=== PATIENT | female | born 1960 | race Caucasian/White ===

== ENCOUNTER → 2016-10-24 | Outpatient (CLI) | payer MEDICARE, OTHER ==
--- NOTE | 2016-10-24 12:06 | CT ---
EXAMINATION TYPE: CT ChestAbdPelvis w con DATE OF EXAM: 10/24/2016 11:38 AM COMPARISON: April 03, 2016 and 10/26/2015 HISTORY: Patient complains of right sided low back pain. Patient has a history of colon/liver CA. CT DLP: 839.2 mGycm CONTRAST: CT scan of the chest, abdomen and pelvis is performed with Oral Contrast and with IV Contrast, patien t injected with 100 mL of Omnipaque 300. CT Chest: LUNGS: Noted are 3 new pulmonary nodules within the right lung the largest of which is seen within th e right lower lobe and measures approximately 7.6 mm. Single new pulmonary nodule left upper lobe concha sures 4 mm. The findings are suspicious for metastatic disease. Basilar subsegmental atelectasis and parenchymal scar identified. No pleural effusion or CT evidence of interstitial lung disease. MEDIASTINUM: Thoracic aorta is of normal caliber. The heart is not enlarged. No evidence for media stinal mass or adenopathy. HILAR STRUCTURES: No evidence for mass. No hilar adenopathy is appreciated. OTHER: No significant abnormality. CONTRAST CT ABDOMEN AND PELVIS FINDINGS: LIVER/GB: Partial hepatectomy changes noted. No distinct hepatic mass lesion. Hepatic steatosis noted . Gallbladder surgically absent. PANCREAS: No inflammation. No distinct mass. SPLEEN: No splenic enlargement. No lesion seen. ADRENALS: No nodule. No thickening. KIDNEYS/BLADDER: No hydronephrosis. No nephrolithiasis. No disctinct renal mass. BOWEL: Normal appendix. Normal bowel caliber. No inflammation. There is moderate fecal stasis ident ified. No colonic mass seen at this time. GENITAL ORGANS: Small uterine leiomyoma suspected. No adnexal masses appreciated. LYMPH NODES: No greater than 1cm abdominal or pelvic lymph nodes are appreciated. AORTA: No significant abnormality. OSSEOUS STRUCTURES: No significant abnormality is seen. OTHER: No significant additional abnormality is seen. IMPRESSION: 1. 4 small new pulmonary nodules are suspicious for metastatic disease. 2. Partial hepatectomy changes with hepatic steatosis.
== END | disposition home or self-care (01) ==
LOC: RADPROMAIN 10:56
PROVIDERS: ATTEND Internal Medicine Hematology & Oncology
DX: K76.0 Fatty (change of) liver, not elsewhere classified (principal); R91.8 Other nonspecific abnormal finding of lung field; C18.9 Malignant neoplasm of colon, unspecified; Z90.49 Acquired absence of other specified parts of digestive tract
CPT/HCPCS: 71260; 74177; Q9967

== ENCOUNTER 2017-01-01 10:02 | Inpatient (IN) | payer MEDICARE, OTHER ==
[2017-01-01] MEDS ORDERED: IPRATROPIUM 0.5 MG/2.5 ML NEBU INHALATION STA (10:24)
[2017-01-01] MEDS ORDERED: ALBUTEROL NEBULIZED 2.5 MG/3 ML INHALATION STA (10:24)
--- NOTE | 2017-01-01 10:24 | ED ---
General Adult HPI - General Chief complaint: Shortness of Breath Stated complaint: Difficulty Breathing Time Seen by Provider: 01/01/17 10:22 Source: patient, RN notes reviewed, old records reviewed Mode of arrival: ambulatory Limitations: no limitations - History of Present Illness Initial comments: This is a 48-year-old female ER for evaluation. This patient presents for evaluation of shortness of breath stress with cough, mildly anxious. Patient states this [employer] [facility] has gone from a colon to her liver to her lungs. She also has a history of COPD, did quit smoking 4-5 days ago. She has felt feverish but no documented fever, mild diaphoresis no chest pain. No recent travel history, patient has not been hospitalized within the last year - Related Data Home Medications Medication Instructions Recorded Confirmed Montelukast [Singulair] 10 mg PO HS 12/26/13 01/01/17 Albuterol Nebulized [Ventolin 2.5 mg INHALATION RT-Q4H PRN 01/21/15 01/01/17 Nebulized] Budesonide/Formoterol Fumarate 2 puff INHALATION RT-BID 05/02/16 01/01/17 [Symbicort 160-4.5 Mcg Inhaler] DULoxetine HCL [Cymbalta] 30 mg PO DAILY 05/02/16 01/01/17 ALPRAZolam [Xanax] 1 mg PO Q8HR PRN 01/01/17 01/01/17 DULoxetine HCL [Cymbalta] 60 mg PO DAILY 01/01/17 01/01/17 Metoprolol Tartrate [Lopressor] 25 mg PO BID 01/01/17 01/01/17 Naproxen Sodium [Aleve] 220 - 440 mg PO DAILY PRN 01/01/17 01/01/17 Omeprazole [PriLOSEC] 20 mg PO BID 01/01/17 01/01/17 Allergies Allergy/AdvReac Type Severity Reaction Status Date / Time acyclovir AdvReac Severe Confusion Verified 01/01/17 11:54 Review of Systems ROS Statement: Those systems with pertinent positive or pertinent negative responses have been documented in the HPI. ROS Other: All systems not noted in ROS Statement are negative. Past Medical History Past Medical History: Asthma, Cancer, COPD, Hyperlipidemia, Hypertension, Osteoarthritis (OA) Additional Past Medical History / Comment(s): Neuropathy, anemia, bronchial asthma, Colon CA, liver mass History of Any Multi-Drug Resistant Organisms: None Reported Past Surgical History: Bowel Resection, Orthopedic Surgery Past Anesthesia/Blood Transfusion Reactions: No Reported Reaction Past Psychological History: Anxiety, Depression Additional Psychological History / Comment(s): MAJOR DEPRESSION-STATED "HAD OVERDOSE OF XANAX AND AMBIEN ON 04-26-14 WAS SEEN IN THE ER" Smoking Status: Current some day smoker Past Alcohol Use History: Rare Additional Past Alcohol Use History / Comment(s): STARTED SMOKING AT AGE 21. Past Drug Use History: None Reported - Past Family History Mother Family Medical History: Cancer Additional Family Medical History / Comment(s): BREAST General Exam Limitations: no limitations General appearance: alert, in no apparent distress Head exam: Present: atraumatic, normocephalic, normal inspection Eye exam: Present: normal appearance, PERRL, EOMI. Absent: scleral icterus, conjunctival injection, periorbital swelling ENT exam: Present: normal exam, mucous membranes moist Neck exam: Present: normal inspection. Absent: tenderness, meningismus, lymphadenopathy Respiratory exam: Present: normal lung sounds bilaterally. Absent: respiratory distress, wheezes, rales, rhonchi, stridor Cardiovascular Exam: Present: regular rate, normal rhythm, normal heart sounds. Absent: systolic murmur, diastolic murmur, rubs, gallop, clicks GI/Abdominal exam: Present: soft, normal bowel sounds. Absent: distended, tenderness, guarding, rebound, rigid Extremities exam: Present: normal inspection, full ROM, normal capillary refill. Absent: tenderness, pedal edema, joint swelling, calf tenderness Back exam: Present: normal inspection Neurological exam: Present: alert, oriented X3, CN II-XII intact Psychiatric exam: Present: normal affect, normal mood Skin exam: Present: warm, dry, intact, normal color. Absent: rash Course Vital Signs 01/01/17 01/01/17 01/01/17 10:12 11:21 12:06 Temperature 98.4 F Pulse Rate 75 77 73 Respiratory 16 20 Rate Blood Pressure 117/84 O2 Sat by Pulse 98 Oximetry 01/01/17 13:14 Temperature 98.3 F Pulse Rate 82 Respiratory 18 Rate Blood Pressure 135/97 O2 Sat by Pulse 96 Oximetry - Reevaluation(s) Reevaluation #1: 01/01/17 13:34 Even after breathing treatment,, patient remained short of breath, complaining of chest pain EKG Findings - EKG Comments: EKG Findings:: EKG shows normal sinus rhythm rate of 89, MO 120, QRS 80, QTC 464 Medical Decision Making - Medical Decision Making 48 female in the ER for evaluation of shortness of breath cough and chest pain. Patient has COPD exacerbation compounded by multiple lung issues including possible metastasis versus primary nodule, patient be admitted for breathing treatments, pain control. - Lab Data Result diagrams: 01/01/17 11:00 01/01/17 11:00 Lab Results 01/01/17 01/01/17 01/01/17 Range/Units 11:00 11:00 11:00 WBC 7.1 (3.8-10.6) k/uL RBC 5.32 (3.80-5.40) m/uL Hgb 15.7 (11.4-16.0) gm/dL Hct 47.7 H (34.0-46.0) % MCV 89.8 (80.0-100.0) fL MCH 29.6 (25.0-35.0) pg MCHC 32.9 (31.0-37.0) g/dL RDW 13.4 (11.5-15.5) % Plt Count 216 (150-450) k/uL Neutrophils % 80 % Lymphocytes % 14 % Monocytes % 3 % Eosinophils % 1 % Basophils % 0 % Neutrophils # 5.7 (1.3-7.7) k/uL Lymphocytes # 1.0 (1.0-4.8) k/uL Monocytes # 0.2 (0-1.0) k/uL Eosinophils # 0.1 (0-0.7) k/uL Basophils # 0.0 (0-0.2) k/uL PT (9.0-12.0) sec INR (<1.1) APTT (22.0-30.0) sec D-Dimer (<0.60) mg/L FEU Sodium 141 (137-145) mmol/L Potassium 3.8 (3.5-5.1) mmol/L Chloride 105 (98-107) mmol/L Carbon Dioxide 22 (22-30) mmol/L Anion Gap 14 mmol/L BUN 14 (7-17) mg/dL Creatinine 0.58 (0.52-1.04) mg/dL Est GFR (MDRD) Af Amer >60 (>60 ml/min/1.73 sqM) Est GFR (MDRD) Non-Af >60 (>60 ml/min/1.73 sqM) Glucose 113 H (74-99) mg/dL Calcium 9.9 (8.4-10.2) mg/dL Magnesium 1.9 (1.6-2.3) mg/dL Total Bilirubin 1.5 H (0.2-1.3) mg/dL AST 27 (14-36) U/L ALT 33 (9-52) U/L Alkaline Phosphatase 161 H (38-126) U/L Total Creatine Kinase 45 (30-135) U/L CK-MB (CK-2) 0.6 (0.0-2.4) ng/mL CK-MB (CK-2) Rel Index 1.3 Troponin I <0.012 (0.000-0.034) ng/mL NT-Pro-B Natriuret Pep pg/mL Total Protein 8.3 H (6.3-8.2) g/dL Albumin 4.9 (3.5-5.0) g/dL 01/01/17 01/01/17 Range/Units 11:00 11:00 WBC (3.8-10.6) k/uL RBC (3.80-5.40) m/uL Hgb (11.4-16.0) gm/dL Hct (34.0-46.0) % MCV (80.0-100.0) fL MCH (25.0-35.0) pg MCHC (31.0-37.0) g/dL RDW (11.5-15.5) % Plt Count (150-450) k/uL Neutrophils % % Lymphocytes % % Monocytes % % Eosinophils % % Basophils % % Neutrophils # (1.3-7.7) k/uL Lymphocytes # (1.0-4.8) k/uL Monocytes # (0-1.0) k/uL Eosinophils # (0-0.7) k/uL Basophils # (0-0.2) k/uL PT 10.7 (9.0-12.0) sec INR 1.1 (<1.1) APTT 25.3 (22.0-30.0) sec D-Dimer 0.29 (<0.60) mg/L FEU Sodium (137-145) mmol/L Potassium (3.5-5.1) mmol/L Chloride (98-107) mmol/L Carbon Dioxide (22-30) mmol/L Anion Gap mmol/L BUN (7-17) mg/dL Creatinine (0.52-1.04) mg/dL Est GFR (MDRD) Af Amer (>60 ml/min/1.73 sqM) Est GFR (MDRD) Non-Af (>60 ml/min/1.73 sqM) Glucose (74-99) mg/dL Calcium (8.4-10.2) mg/dL Magnesium (1.6-2.3) mg/dL Total Bilirubin (0.2-1.3) mg/dL AST (14-36) U/L ALT (9-52) U/L Alkaline Phosphatase (38-126) U/L Total Creatine Kinase (30-135) U/L CK-MB (CK-2) (0.0-2.4) ng/mL CK-MB (CK-2) Rel Index Troponin I (0.000-0.034) ng/mL NT-Pro-B Natriuret Pep 27 pg/mL Total Protein (6.3-8.2) g/dL Albumin (3.5-5.0) g/dL - Radiology Data Radiology results: report reviewed (Chest x-ray negative for acute disease, CTA negative for PE unchanged pulmonary nodules), image reviewed Disposition Clinical Impression: Acute exacerbation of chronic obstructive airways disease Disposition: ADMITTED IP TO THIS HOSP Condition: Good Referrals: Nany Preciado MD [Primary Care Provider] - 1-2 days
[2017-01-01] MEDS ORDERED: BENZOCAINE SPRAY 100 APPLIC/CAN TOPICAL STA (10:35)
[2017-01-01 11:13] LABS: Basophils % (A) 0 %; CH 30.6; CHCM 34.3; Eosinophils # (A) 0.1 k/uL (0-0.7); Eosinophils % (A) 1 %; HCT 47.7 % (34.0-46.0); HDW 2.47; HGB 15.7 gm/dL (11.4-16.0); Luc % (Auto) 1; Lymphocytes % (A) 14 %; MCH 29.6 pg (25.0-35.0); MCHC 32.9 g/dL (31.0-37.0); MCV 89.8 fL (80.0-100.0); Monocytes # (A) 0.2 k/uL (0-1.0); Monocytes % (A) 3 %; Neutrophils # (A) 5.7 k/uL (1.3-7.7); Neutrophils % (A) 80 %; RBC 5.32 m/uL (3.80-5.40); RDW 13.4 % (11.5-15.5); WBC 7.1 k/uL (3.8-10.6); WBC (Perox) 7.07
--- NOTE | 2017-01-01 11:20 | XR ---
EXAMINATION TYPE: XR chest 2V DATE OF EXAM: 01/01/2017 11:16 AM COMPARISON: NONE INDICATION: Difficulty breathing TECHNIQUE: 2 view chest FINDINGS: The heart size is normal. The pulmonary vasculature is normal. Minimal increased linear markings are at the right lung base. Some ill-defined linear markings are at the left base. Findings can be compatible with subsegmental atelectasis. Port is present on the right with the tip in the superior vena cava region. EKG leads overlie the mai st. IMPRESSION: 1. Minimal bibasilar subsegmental atelectasis.
[2017-01-01 11:36] LABS: ALT 33 U/L (9-52); AST 27 U/L (14-36); Alkaline Phosphatase 161 U/L (38-126); Anion Gap 14 mmol/L; Blood Urea Nitrogen 14 mg/dL (7-17); Calcium 9.9 mg/dL (8.4-10.2); Carbon Dioxide 22 mmol/L (22-30); Chloride 105 mmol/L (98-107); Creatine Kinase 45 U/L (30-135); Glucose 113 mg/dL (74-99); Magnesium 1.9 mg/dL (1.6-2.3); Non-African American GFR(MDRD) >60 (>60 ml/min/1.73 sqM); Potassium 3.8 mmol/L (3.5-5.1); Sodium 141 mmol/L (137-145); Total Bilirubin 1.5 mg/dL (0.2-1.3); Total Protein 8.3 g/dL (6.3-8.2)
[2017-01-01 11:39] LABS: INR 1.1 (<1.1); Partial Thromboplastin Time 25.3 sec (22.0-30.0); Prothrombin Time 10.7 sec (9.0-12.0)
[2017-01-01 11:48] LABS: Creatine Kinase MB 0.6 ng/mL (0.0-2.4); Troponin I <0.012 ng/mL (0.000-0.034)
[2017-01-01] MEDS ORDERED: RX INFO: IV CONTRAST WAS GIVEN 1 EACH MISC MISCELLANE PRN (11:53)
--- NOTE | 2017-01-01 12:55 | CT ---
EXAMINATION TYPE: CT angio chest DATE OF EXAM: 01/01/2017 12:44 PM COMPARISON: CT chest abdomen and pelvis October 24, 2016 HISTORY: Right sided chest discomfort and Shortness of breath CT DLP: 251.1 mGycm CONTRAST: CT chest with contrast and 3D reconstruction with MIP imaging is performed with IV Contrast, patient injected with 100 mL of Omnipaque 350. Contrast-enhanced CT of the chest was performed through the course of the pulmonary arteries with kimi g and mediastinal window settings submitted. 3D reconstruction with MIP imaging was also performed. PULMONARY ARTERIES: The pulmonary arteries and their major tributaries are patent. I do not see santos dence for sizable filling defect to suggest pulmonary embolic process. LUNGS: The lungs are clear and free of infiltrate. Linear basilar atelectasis seen. 4 right-sided pul monary nodules and a single left upper lobe nodule appears essentially unchanged. No pleural effusion . MEDIASTINUM: Thoracic aorta is of normal caliber . The heart is not enlarged. No evidence for media stinal mass. No mediastinal lymph nodes greater than 1cm. HILAR STRUCTURES: No evidence for mass. No hilar lymph nodes greater than 1 cm. UPPER ABDOMEN: Small hiatal hernia. Partial hepatectomy changes noted. IMPRESSION: 1. No evidence for Pulmonary embolism at this time.
[2017-01-01] MEDS ORDERED: MORPHINE SULFATE 4 MG/ML SYRINGE IVP PRN (13:32)
[2017-01-01] MEDS ORDERED: IPRATROPIUM-ALBUTEROL 3 ML NEB INHALATION STA (13:32)
[2017-01-01] MEDS ORDERED: MORPHINE SULFATE 4 MG/ML SYRINGE IVP STA (13:32)
[2017-01-01] MEDS: IPRATROPIUM-ALBUTEROL 3 ML NEB INHALATION SCH ×2 (16:02→20:05)
[2017-01-01] MEDS ORDERED: ALPRAZolam 0.5 MG TAB PO PRN (16:15)
[2017-01-01] MEDS ORDERED: ALPRAZolam 0.25 MG TAB PO PRN (16:18)
[2017-01-01] MEDS ORDERED: TEMAZEPAM 15 MG CAP PO PRN (16:18)
[2017-01-01] MEDS: LEVOFLOXACIN 500MG-D5W PMX 500 MG in DEXTROSE/WATER 1 100ML.BAG IVPB SCH (17:58)
[2017-01-01] MEDS: HYDROcodone/APAP 5-325MG 1 EACH TAB PO PRN (19:17)
[2017-01-01] MEDS: SYMBICORT 160-4.5 MCG INHALER INHALATION SCH (20:15)
[2017-01-01] MEDS: SODIUM CHLORIDE 0.9% 1,000 ML IV SCH (20:25)
[2017-01-01] MEDS ORDERED: MONTELUKAST 10 MG TAB PO SCH (21:00)
[2017-01-01] MEDS: METOPROLOL TARTRATE 25 MG TAB PO SCH (21:33)
[2017-01-01] MEDS: NAPROXEN 250 MG TAB PO PRN (21:50)
[2017-01-01 22:39] LABS: Appearance,Urine Clear (Clear); Bilirubin,Urine Negative (Negative); Glucose,Urine (UA) Negative (Negative); Ketones,Urine 2+ (Negative); Leukocyte Esterase,Urine Negative (Negative); Nitrite,Urine Negative (Negative); PH, Urine 6.5 (5.0-8.0); Protein,Urine Negative (Negative); Specific Gravity,Urine 1.027 (1.001-1.035); UA Billing (MACRO vs. MICRO) CHEM; Urobilinogen,Urine <2.0 mg/dL (<2.0)
--- NOTE | 2017-01-01 23:40 | HP ---
DATE OF ADMISSION: 01/01/2017 CHIEF COMPLAINT: Shortness of breath. HISTORY OF PRESENT ILLNESS: This 56-year-old woman with a past medical history of asthma, COPD, history of cancer, history of GERD, hypertension, hyperlipidemia, history of pneumonia, history of nephrotic syndrome as a child, history of bowel resection, history of colon cancer, anxiety, depression, being followed by Dr. Nany Preciado and Dr. Dean in the outpatient setting, was having shortness of breath. The patient had shortness of breath for the last couple of days with a cough and some anxiety, some sputum. The patient was suspected to have hepatic metastases, which is being followed up in the outpatient setting. Patient had a Port-A-Cath placed on the right side. Patient did quit smoking about 4 to 5 days ago. There is no history of any fever, rigor or chills, no history of headache, loss of consciousness, seizures. PAST MEDICAL HISTORY: 1. Asthma. 2. COPD. 3. GERD. 4. Hypertension. 5. Hyperlipidemia. 6. History of DJD. 7. History of nephrotic syndrome. 8. History of anxiety, depression not otherwise specified. Medications prior to admission include: 1. Prilosec 20 mg p.o. b.i.d. 2. Aleve 220 to 440 mg p.o. daily p.r.n. 3. Lopressor 25 mg p.o. b.i.d. 4. Cymbalta 60 mg p.o. daily. 5. Xanax 1 mg q.8 p.r.n. 6. Singulair 10 mg at bedtime. 7. Cymbalta 30 mg daily p.r.n. 8. Symbicort 160/4.5 two puffs b.i.d. 9. Ventolin nebulized 2.5 q.4 p.r.n. ALLERGIES: ACYCLOVIR. FAMILY HISTORY: History of breast cancer and sepsis in the family. SOCIAL HISTORY: History of smoking on a daily basis. REVIEW OF SYSTEMS: ENT: No diminishing hearing. No diminished vision. CARDIOVASCULAR SYSTEM: No angina, palpitations. RESPIRATORY SYSTEM: As mentioned earlier. GI: No nausea, vomiting. : No dysuria. NERVOUS SYSTEM: No numbness, weakness. ALLERGY/IMMUNOLOGY: As mentioned earlier. MUSCULOSKELETAL: As mentioned earlier. HEMATOLOGY/ONCOLOGY: As mentioned earlier. ENDOCRINE: No history of diabetes, hypothyroidism. CONSTITUTIONAL: As mentioned earlier. DERMATOLOGY: Negative. RHEUMATOLOGY: Negative. PSYCHIATRY: As mentioned earlier. PHYSICAL EXAMINATION: Patient is alert and oriented x3. Pulse 76, blood pressure 135/97, respiration 18, temperature 98.3, pulse ox 96% on 2 L. HEENT: Conjunctivae normal. Oral mucosa moist. NECK: No jugular venous distention. No carotid bruit. No lymph node enlargement. CARDIOVASCULAR SYSTEM: S1, S2 muffled. No S3. No S4. RESPIRATORY SYSTEM: Breath sounds diminished at the bases. A few rhonchi. No crackles. Breathing efforts are mildly increased. ABDOMEN: Soft, nontender. No mass palpable. LEGS: No edema. No swelling. NERVOUS SYSTEM: Higher functions as mentioned earlier. Moves all 4 limbs. No focal motor or sensory deficit. LYMPHATICS: No lymph node palpable in neck, axillae or groin. SKIN: No ulcer, rash, bleeding. LABS: CBC within normal limits. Otherwise, glucose 113. Total bilirubin is 1.5. Alkaline phosphatase 161. ASSESSMENT: 1. Chronic obstructive pulmonary disease, acute exacerbation, with acute purulent tracheobronchitis. 2. Increased bilirubin. 3. History of nicotine dependence. 4. History of colon cancer with possible pulmonary metastases. 5. Status post Port-A-Cath on the right chest. 6. History of asthma, chronic obstructive pulmonary disease. 7. History of gastroesophageal reflux disease. 8. Hypertension, essential. 9. Hyperlipidemia. 10. History of degenerative joint disease. 11. History of pneumonia. 12. History of nephrotic syndrome as a child. 13. History of anemia. 14. History of hepatic lobectomy. 15. History of cholecystectomy. 16. History of anxiety, depression not otherwise specified. 17. FULL CODE. RECOMMENDATIONS AND DISCUSSION: In this 56-year-old woman who presented with multiple complex medical issues, we will monitor the patient closely, continue the current medications, continue symptomatic treatment. Otherwise, at this time I recommend continuing with intensive bronchodilators, empiric antibiotics. Consult Dr. Dean and Dr. Hernandez. Otherwise, resume the home medications. Guarded prognosis. Further recommendations to follow. Empiric antibiotics also will be given. A copy of dictation is forwarded to Dr. Nany Preciado, who is the primary physician.
[2017-01-02] MEDS: SODIUM CHLORIDE 0.9% 1,000 ML IV SCH ×2 (04:43→12:59)
[2017-01-02] MEDS: HYDROcodone/APAP 5-325MG 1 EACH TAB PO PRN ×2 (06:02→14:25)
[2017-01-02] MEDS ORDERED: PANTOPRAZOLE 40 MG TABLET PO SCH (07:30)
[2017-01-02 07:45] VITALS: RESP 16
[2017-01-02] MEDS: IPRATROPIUM-ALBUTEROL 3 ML NEB INHALATION SCH ×3 (08:30→16:14)
[2017-01-02] MEDS: SYMBICORT 160-4.5 MCG INHALER INHALATION SCH (08:30)
[2017-01-02] MEDS ORDERED: DULoxetine HCL 60 MG CAPSULE.DR PO SCH (09:00)
[2017-01-02] MEDS ORDERED: DULoxetine HCL 30 MG CAPSULE.DR PO SCH (09:00)
[2017-01-02] MEDS ORDERED: ENOXAPARIN 40 MG/0.4 ML SYRINGE SQ SCH (09:00)
[2017-01-02] MEDS ORDERED: NICOTINE 21MG/24HR PATCH TRANSDERM SCH (09:00)
[2017-01-02] MEDS: METOPROLOL TARTRATE 25 MG TAB PO SCH (09:05)
[2017-01-02 09:11] VITALS: PULSE 67
[2017-01-02] MEDS: NAPROXEN 250 MG TAB PO PRN (09:21)
[2017-01-02 09:45] LABS: Basophils % (A) 1 %; CH 30.3; CHCM 33.6; Eosinophils # (A) 0.1 k/uL (0-0.7); Eosinophils % (A) 2 %; HCT 41.3 % (34.0-46.0); HGB 13.7 gm/dL (11.4-16.0); Luc # (Auto) 0.13; Luc % (Auto) 2; Lymphocytes # (A) 1.4 k/uL (1.0-4.8); Lymphocytes % (A) 24 %; MCHC 33.2 g/dL (31.0-37.0); MCV 90.5 fL (80.0-100.0); Mean Platelet Volume 7.1; Monocytes # (A) 0.4 k/uL (0-1.0); Monocytes % (A) 7 %; Neutrophils # (A) 3.8 k/uL (1.3-7.7); Neutrophils % (A) 65 %; RBC 4.56 m/uL (3.80-5.40); RDW 13.2 % (11.5-15.5); WBC 5.9 k/uL (3.8-10.6); WBC (Perox) 5.68
[2017-01-02 10:08] LABS: Anion Gap 11 mmol/L; Blood Urea Nitrogen 15 mg/dL (7-17); Calcium 8.7 mg/dL (8.4-10.2); Carbon Dioxide 22 mmol/L (22-30); Chloride 109 mmol/L (98-107); Glucose 87 mg/dL (74-99); Non-African American GFR(MDRD) >60 (>60 ml/min/1.73 sqM); Sodium 142 mmol/L (137-145)
[2017-01-02 12:01] VITALS: BMI 28.3
[2017-01-02] MEDS: LEVOFLOXACIN 500MG-D5W PMX 500 MG in DEXTROSE/WATER 1 100ML.BAG IVPB SCH (14:26)
[2017-01-02 16:26] VITALS: BP 121/71; TEMP 97.4
--- NOTE | 2017-01-02 17:02 | P.CONS ---
History of Present Illness - Reason for Consult Consult date: 01/02/17 known Requesting physician: Cesar Roberson - Chief Complaint SOB, NADINE - History of Present Illness Marisela is a very pleasant female pt of Dr. Dean with history of stage III colon adenicarcinoma, she received FOLFOX x 11 in . She did well until 01/31 when she was found to have large 2 liver lesions consistent with mets. She had liver biopsy and PET Scan revealing disease limited to the liver. She was started on neoadjuvant FOLFIRI/Avastin, in May Dr. Dye at [facility] resected the liver after 4 cycles of treatment. She completed another 8 cycles adjuvantly. She has been on follow up since then with development of small lung nodules that are being monitored. Pt came to the hospital with c/o SOB and persistent cough, denied fever, nausea , vomiting. Review of Systems All systems: negative Constitutional: Reports as per HPI Past Medical History Past Medical History: Asthma, Cancer, COPD, GERD/Reflux, Hyperlipidemia, Hypertension, Osteoarthritis (OA), Pneumonia Additional Past Medical History / Comment(s): as child had "nephrotic syndrome "Neuropathy hands /feet, "anemia-2009 hgb down to 3.0"- , bronchial asthma, Colon CA(had sx and chemo),2015 found liver cancer had 20% of liver removed at [facility] and chemo. "has 2 spots on rt lung and 1 spot on lt lung", ken 2015 History of Any Multi-Drug Resistant Organisms: None Reported Past Surgical History: Bowel Resection, Cholecystectomy, Orthopedic Surgery Additional Past Surgical History / Comment(s): 2009 port o cath (placed when had colon ca)then removed 05-20-12 . 2014 port a cath placed rt chest when dx w/ liver ca."20% of liver removed d/t ca", colonoscopies [id number]. Past Anesthesia/Blood Transfusion Reactions: No Reported Reaction Past Psychological History: Anxiety, Depression Additional Psychological History / Comment(s): (per [facility]- MAJOR DEPRESSION- STATED "HAD OVERDOSE OF XANAX AND AMBIEN ON 04-26-14 WAS SEEN IN THE ER". ) pt stated her son from accidental od 6 months ago. has saddness over this but no thought of harming self. lives by herself has 1 dog. lives in a single story home w/no steps. no medical equipment or homecare services. Smoking Status: Current every day smoker Past Alcohol Use History: Rare Additional Past Alcohol Use History / Comment(s): STARTED SMOKING AT AGE 21.1/2 ppd. pt stated has'nt had one since saturday12-28-16 Past Drug Use History: None Reported - Past Family History Father Family Medical History: Myocardial Infarction ([place]) Additional Family Medical History / Comment(s): at age 62-mulitple mi's Mother Family Medical History: Cancer Additional Family Medical History / Comment(s): BREAST. from sepsis Medications and Allergies Home Medications Medication Instructions Recorded Confirmed Type Montelukast [Singulair] 10 mg PO HS 12/26/13 01/01/17 History Albuterol Nebulized [Ventolin 2.5 mg INHALATION RT-Q4H PRN 01/21/15 01/01/17 History Nebulized] Budesonide/Formoterol Fumarate 2 puff INHALATION RT-BID 05/02/16 01/01/17 History [Symbicort 160-4.5 Mcg Inhaler] DULoxetine HCL [Cymbalta] 30 mg PO DAILY 05/02/16 01/01/17 History ALPRAZolam [Xanax] 1 mg PO Q8HR PRN 01/01/17 01/01/17 History DULoxetine HCL [Cymbalta] 60 mg PO DAILY 01/01/17 01/01/17 History Metoprolol Tartrate [Lopressor] 25 mg PO BID 01/01/17 01/01/17 History Naproxen Sodium [Aleve] 220 - 440 mg PO DAILY PRN 01/01/17 01/01/17 History Omeprazole [PriLOSEC] 20 mg PO BID 01/01/17 01/01/17 History Allergies Allergy/AdvReac Type Severity Reaction Status Date / Time acyclovir AdvReac Severe Confusion Verified 01/01/17 11:54 Physical Exam Vitals: Vital Signs Temp Pulse Pulse Resp BP Pulse Ox 01/02/17 15:17 67 01/02/17 15:00 97.4 F L 69 16 121/71 93 L 01/02/17 09:10 67 119/70 01/02/17 08:47 84 01/02/17 08:30 80 01/02/17 08:00 67 16 01/02/17 07:00 97.8 F 53 L 16 118/62 91 L 01/02/17 00:00 70 18 01/01/17 22:42 98.3 F 70 18 145/68 95 01/01/17 20:14 86 01/01/17 20:06 86 Intake and Output 01/02/17 01/02/17 01/02/17 06:59 14:59 22:59 Intake Total 400 990 Balance 400 990 Intake: Intake, IV Titration 750 Amount Sodium Chloride 0.9% 1, 750 000 ml @ 100 mls/hr IV . Q10H ROULA Rx#:[id number] Oral 400 240 Other: Voiding Method Toilet Toilet Toilet # Voids 2 1 2 Weight 72.575 kg 72.575 kg Patient Weight 01/03/17 06:59 Weight 72.575 kg - Constitutional General appearance: average body habitus, cooperative, mild distress - EENT Eyes: anicteric sclerae, EOMI, normal appearance ENT: hearing grossly normal, normal oropharynx - Neck Neck: no lymphadenopathy - Respiratory Respiratory: bilateral: diminished (tight) - Cardiovascular Rhythm: regular Heart sounds: normal: S1, S2 leg Peripheral Edema: bilateral: None - Gastrointestinal General gastrointestinal: no absent bowel sounds, no decreased bowel sounds, no distended, no hepatomegaly, no hyperactive bowel sounds, normal bowel sounds, no organomegaly, no rigid, no scaphoid, soft, no splenomegaly, no tenderness, no umbilical hernia, no ventral hernia - Integumentary Integumentary: normal - Neurologic Neurologic: CNII-XII intact - Musculoskeletal Musculoskeletal: strength equal bilaterally - Psychiatric Psychiatric: A&O x's 3, appropriate affect, intact judgment & insight Results CBC & Chem 7: 01/02/17 07:46 01/02/17 07:46 Labs: Abnormal Lab Results - Last 24 Hours (Table) 01/01/17 01/02/17 Range/Units 22:20 07:46 Chloride 109 H (98-107) mmol/L Urine Ketones 2+ H (Negative) Chest x-ray: report reviewed CT scan - chest: report reviewed Assessment and Plan (1) Metastatic colon cancer to liver Narrative/Plan: Pt is currently on monitoring for her disease. She has known pulmonary nodules and CTA review does not discuss any acute changes. Pt will continue to f/u with Dr. Dean as scheduled. Status: Chronic
--- NOTE | 2017-01-02 18:11 | P.CNPUL ---
History of Present Illness Consult date: 01/02/17 Reason for consult: dyspnea History of present illness: This is a 56-year-old here patient is very well-known to me. She is known to have COPD/asthma. The patient also has history of metastatic adenocarcinoma of the colon. Initially she underwent a surgical resection and following that the patient was found to have metastatic lesions to the liver for which underwent a hepatectomy. Subsequently she follows found to have pulmonary nodules which are currently being monitored. In terms of her breathing, the patient has smoked in the past. She has history of childhood asthma and COPD. She has been maintained on Symbicort on outpatient basis. She presented to the hospital because of cough and chest congestion and increased wheeze. Her symptoms were typical of his COPD/asthma exacerbation. CT angios the chest was done and it showed noted from the pulmonary embolism. The pulmonary nodules that were described earlier was essentially stable and intact. No Mercy. No hemoptysis. No chest pain. No significant respiratory distress. The patient is currently on antibiotics patient is already feeling better. She is less short of breath. She is ambulating. No swelling lower extremities. Review of Systems All systems: negative Constitutional: Denies chills, Denies fever Eyes: denies blurred vision, denies pain Ears, nose, mouth and throat: Denies headache, Denies sore throat Cardiovascular: Reports dyspnea on exertion, Denies chest pain, Denies shortness of breath Respiratory: Reports congestion, Reports cough, Reports dyspnea, Reports wheezing Gastrointestinal: Denies abdominal pain, Denies diarrhea, Denies nausea, Denies vomiting Genitourinary: Denies dysuria, Denies hematuria Musculoskeletal: Denies myalgias Integumentary: Denies pruritus, Denies rash Neurological: Reports paresthesias, Denies numbness, Denies weakness Psychiatric: Denies anxiety, Denies depression Endocrine: Denies fatigue, Denies weight change Past Medical History Past Medical History: Asthma, Cancer, COPD, GERD/Reflux, Hyperlipidemia, Hypertension, Osteoarthritis (OA), Pneumonia Additional Past Medical History / Comment(s): Metastatic colon cancer, COPD, asthma, hyperlipidemia, peripheral neuropathy induced by systemic chemotherapy, history of childhood nephrotic syndrome, history of liver lesions resected surgically, history of lung nodules several on the right felt to be related to metastatic disease, shingles History of Any Multi-Drug Resistant Organisms: None Reported Past Surgical History: Bowel Resection, Cholecystectomy, Orthopedic Surgery Additional Past Surgical History / Comment(s): 2009 port o cath (placed when had colon ca)then removed 05-20-122014 port a cath placed rt chest when dx w/ liver ca."20% of liver removed d/t ca", colonoscopies [id number]. Past Anesthesia/Blood Transfusion Reactions: No Reported Reaction Past Psychological History: Anxiety, Depression Additional Psychological History / Comment(s): (per [facility]- MAJOR DEPRESSION- STATED "HAD OVERDOSE OF XANAX AND AMBIEN ON 04-26-14 WAS SEEN IN THE ER". ) pt stated her son from accidental od 6 months ago. has saddness over this but no thought of harming self. lives by herself has 1 dog. lives in a single story home w/no steps. no medical equipment or homecare services. Smoking Status: Current every day smoker Past Alcohol Use History: Rare Additional Past Alcohol Use History / Comment(s): STARTED SMOKING AT AGE 21.1/2 ppd. pt stated has'nt had one since saturday12-28-16 Past Drug Use History: None Reported - Past Family History Father Family Medical History: Myocardial Infarction (OR) Additional Family Medical History / Comment(s): at age 62-mulitple mi's Mother Family Medical History: Cancer Additional Family Medical History / Comment(s): BREAST. from sepsis Medications and Allergies Home Medications Medication Instructions Recorded Confirmed Type Montelukast [Singulair] 10 mg PO HS 12/26/13 01/01/17 History Albuterol Nebulized [Ventolin 2.5 mg INHALATION RT-Q4H PRN 01/21/15 01/01/17 History Nebulized] Budesonide/Formoterol Fumarate 2 puff INHALATION RT-BID 05/02/16 01/01/17 History [Symbicort 160-4.5 Mcg Inhaler] DULoxetine HCL [Cymbalta] 30 mg PO DAILY 05/02/16 01/01/17 History ALPRAZolam [Xanax] 1 mg PO Q8HR PRN 01/01/17 01/01/17 History DULoxetine HCL [Cymbalta] 60 mg PO DAILY 01/01/17 01/01/17 History Metoprolol Tartrate [Lopressor] 25 mg PO BID 01/01/17 01/01/17 History Naproxen Sodium [Aleve] 220 - 440 mg PO DAILY PRN 01/01/17 01/01/17 History Omeprazole [PriLOSEC] 20 mg PO BID 01/01/17 01/01/17 History Allergies Allergy/AdvReac Type Severity Reaction Status Date / Time acyclovir AdvReac Severe Confusion Verified 01/01/17 11:54 Physical Exam Vitals: Vital Signs Temp Pulse Pulse Resp BP Pulse Ox 01/02/17 15:17 67 16 01/02/17 15:00 97.4 F L 69 16 121/71 93 L 01/02/17 09:10 67 119/70 01/02/17 08:47 84 01/02/17 08:30 80 01/02/17 08:00 67 16 01/02/17 07:00 97.8 F 53 L 16 118/62 91 L 01/02/17 00:00 70 18 01/01/17 22:42 98.3 F 70 18 145/68 95 01/01/17 20:14 86 01/01/17 20:06 86 Intake and Output 01/02/17 01/02/17 01/02/17 06:59 14:59 22:59 Intake Total 400 990 Balance 400 990 Intake: Intake, IV Titration 750 Amount Sodium Chloride 0.9% 1, 750 000 ml @ 100 mls/hr IV . Q10H [facility] Rx#:[id number] Oral 400 240 Other: Voiding Method Toilet Toilet Toilet # Voids 2 1 2 Weight 72.575 kg 72.575 kg Patient Weight 01/03/17 06:59 Weight 72.575 kg Head exam was generally normal. There was no scleral icterus or corneal arcus. Mucous membranes were moist.Neck was supple and without jugular venous distension, thyromegaly, or carotid bruits. Carotids were easily palpable bilaterally. There was no adenopathy. Patient is edentulous. Lung sounds are diminished bilaterally along with some few scattered external wheeze.Cardiac exam revealed the PMI to be normally situated and sized. The rhythm was regular and no extrasystoles were noted during several minutes of auscultation. The first and second heart sounds were normal and physiologic splitting of the second heart sound was noted. There were no murmurs, rubs, clicks, or gallops. Abdomen abdomen surgical wound site over the anterior abdominal wall is dry clean and intact.Abdominal exam revealed normal bowel sounds. The abdomen was soft, non-tender, and without masses, organomegaly, or appreciable enlargement of the abdominal aorta.Examination of the extremities revealed easily palpable radial, femoral and pedal pulses. There was no cyanosis, clubbing or edema. Results - Laboratory Findings CBC and BMP: 01/02/17 07:46 01/02/17 07:46 PT/INR, D-dimer PT 10.7 sec (9.0-12.0) 01/01/17 11:00 INR 1.1 (<1.1) 01/01/17 11:00 D-Dimer 0.29 mg/L FEU (<0.60) 01/01/17 11:00 Abnormal lab findings: Abnormal Labs 01/01/17 01/01/17 01/01/17 11:00 11:00 22:20 Hct 47.7 H Chloride Glucose 113 H Total Bilirubin 1.5 H Alkaline Phosphatase 161 H Total Protein 8.3 H Urine Ketones 2+ H 01/02/17 07:46 Hct Chloride 109 H Glucose Total Bilirubin Alkaline Phosphatase Total Protein Urine Ketones - Diagnostic Findings Chest x-ray: image reviewed CT scan - chest: image reviewed Assessment and Plan Plan: Assessment 1 acute bronchitis in the setting of COPD/asthma with secondary shortness of breath, currently improved 2 pulmonary nodules likely metastatic, stable based on the CT angios the chest that was done in comparison to the previous CAT scan of the chest from October 2016. These nodules have not increased in size noted number 3 metastatic colon cancer with a previous bowel resection and subsequent hepatectomy to resect anesthetic hepatic lesions 4 peripheral neuropathy 5 hypertension 6 hyperlipidemia 7 osteoarthritis Plan Condition is stable. The patient can be discharged home on a course of antibiotics and Levaquin is still to be a reasonable choice. Continue Symbicort. Continue DuoNeb nebulized treatment [id number]. Contact me in the office and there is any worsening in the breathing. CT angios the chest shows no evidence of any pulmonary embolism and the pulmonologists are quite stable at this point.
--- NOTE | 2017-01-02 23:41 | DS ---
DATE OF ADMISSION: 01/01/2017 DATE OF DISCHARGE: 01/02/2017 Patient is a 56-year-old female admitted with COPD exacerbation. Patient was also complaining of right upper quadrant chest pain. Patient had a CT angiogram of the chest which did not show any pulmonary embolism but did show some nodular lesions; a couple in the right chest and one in the left chest. Patient has history of colon cancer in the past and the possibility of metastatic disease, which will be worked up as an outpatient. Patient will be treated for bronchitis. Patient is saturating well upon ambulation, not on oxygen. Patient will be discharged today. Will give Matinicus for chest pain. Patient was seen and examined on the day of discharge. Vitals are stable. GENERAL: The patient is alert and oriented x3, not in any acute distress. Well developed, well nourished. HEENT: Pupils are round and equally reacting to light. EOMI. No scleral icterus. No conjunctival pallor. Normocephalic, atraumatic. No pharyngeal erythema. No thyromegaly. CARDIOVASCULAR: S1 and S2 present. No murmurs, rubs, or gallops. PULMONARY: Bibasilar crackles. ABDOMEN: Soft, nontender, nondistended, normoactive bowel sounds. No palpable organomegaly. MUSCULOSKELETAL: No joint swelling or deformity. EXTREMITIES: No cyanosis, clubbing, or pedal edema. NEUROLOGICAL: Gross neurological examination did not reveal any focal deficits. SKIN: No rashes. Patient does have bilateral atelectasis, because of which patient is having crackles, for which we will give her an incentive spirometer upon discharge. Patient will be given doxycycline for bronchitis. There is no evidence of significant pneumonia. Patient was seen and examined on the day of discharge. FINAL DIAGNOSES: 1. Chronic obstructive pulmonary disease with acute exacerbation. 2. Tracheobronchitis. 3. Nodular lesions on the chest. 4. Gastroesophageal reflux disease. 5. Hypertension. 6. Hyperlipidemia. Patient will follow up with Dr. Nany Preciado in 3 to 7 days. Activity as tolerated. Regular diet. Patient will follow up with Dr. Cesar Kenyon in about a week. Patient will follow up with Pulmonology as scheduled by Oncology for further workup of these nodular lesions. Spent greater than 35 minutes in total discharge process.
[2017-01-03] MEDS ORDERED: LEVOFLOXACIN 500 MG TAB PO SCH (14:00)
== END 2017-01-02 19:12 | disposition home or self-care (01) | DRG 191 ==
LOC: EC 10:02 → 5ONC 13:32
PROVIDERS: ADMIT Hospitalist; ATTEND Hospitalist
DX: J44.0 Chronic obstructive pulmonary disease with (acute) lower respiratory infection (principal); J45.901 Unspecified asthma with (acute) exacerbation; C78.00 Secondary malignant neoplasm of unspecified lung; J98.11 Atelectasis; G62.9 Polyneuropathy, unspecified; K21.9 Gastro-esophageal reflux disease without esophagitis; I10 Essential (primary) hypertension; E78.5 Hyperlipidemia, unspecified; J20.9 Acute bronchitis, unspecified; J44.1 Chronic obstructive pulmonary disease with (acute) exacerbation; F17.200 Nicotine dependence, unspecified, uncomplicated; F41.9 Anxiety disorder, unspecified; M19.90 Unspecified osteoarthritis, unspecified site; F32.9 Major depressive disorder, single episode, unspecified; Z79.899 Other long term (current) drug therapy; Z88.8 Allergy status to other drugs, medicaments and biological substances; Z85.038 Personal history of other malignant neoplasm of large intestine; Z85.05 Personal history of malignant neoplasm of liver; Z82.49 Family history of ischemic heart disease and other diseases of the circulatory system
CPT/HCPCS: 36415; 71020; 71275; 80048; 80053; 81003; 82550; 82553; 83735; 83880; 84484; 85025; 85379; 85610; 85730; 93005; 94640; 94644; 94760; 99285

== ENCOUNTER → 2017-04-15 | Outpatient (CLI) | payer MEDICARE, OTHER ==
--- NOTE | 2017-04-15 15:11 | CT ---
EXAMINATION TYPE: CT chest w con DATE OF EXAM: 04/15/2017 COMPARISON: NONE HISTORY: Follow up for lung nodules. CT DLP: 538 mGycm, Automated exposure control for dose reduction was used. CONTRAST: Performed injected with 90 mL of Omnipaque 300. TECHNIQUE: Axial images were obtained at 5 mm thick sections. Reconstructed images are reviewed on [employer] computer in the coronal plane. FINDINGS: Portion of the thyroid visualized is normal. There are scattered upper lobe nodules present. On the left this is measures 0.8 cm. Series 3 image 1 7. On the right this measures 0.8 cm. Series 3 image 18. This has some mild spiculation on the right. Additional nodule is on the right measuring 0.7 cm. Series 3 image 24. Focal area of increased densi ty on lung windows is present in the posterior lateral right lung base measuring 1.2 x 0.7 cm. Series 3 image 27. There is a pleural-based density measuring 0.7 cm posterior right lung base. Series 3 im age 32. Some streak atelectasis is likely at the bilateral lung bases. This exam is compared to 01/01/2017. Nodules were present previously. The oval density in the posterio r lateral right lung base appears somewhat larger than prior. No enlarged mediastinal or hilar adenopathy is evident. The ascending aorta diameter at the level o f the main pulmonary artery is 3.3 cm. The main pulmonary artery diameter at the bifurcation is 2.[address] sections are obtained through the upper abdomen. Abdomen is essentially unremarkable. IMPRESSIONS: 1. Stable bilateral pulmonary nodules. Continued monitoring is recommended. Follow-up exam in 6 month s is recommended.
== END | disposition home or self-care (01) ==
LOC: RADPROMAIN 14:24
PROVIDERS: ATTEND Internal Medicine Hematology & Oncology
DX: R91.8 Other nonspecific abnormal finding of lung field (principal); C18.9 Malignant neoplasm of colon, unspecified
CPT/HCPCS: 71260; Q9967; J1642

== ENCOUNTER → 2017-10-17 | Outpatient (CLI) | payer MEDICARE, OTHER ==
--- NOTE | 2017-10-17 17:11 | CT ---
EXAMINATION TYPE: CT ChestAbdPelvis w con DATE OF EXAM: 10/17/2017 COMPARISON: 04/15/2017 HISTORY: Colon cancer, abnormal findings in bilateral lungs CT DLP: 1875 mGycm Automated exposure control for dose reduction was used. CONTRAST: CT scan of the chest, abdomen and pelvis is performed with Oral Contrast and with IV Contrast, patien t injected with 100 mL of Omnipaque 300. FINDINGS: There is a faint 7 mm nodule in the anterior left upper lobe. There is a 1 cm nodule in the anterior left upper lobe. There is similar noncalcified 8 mm nodule in the lateral right upper lobe there is a 8 mm noncalcified nodule in the lateral subpleural right upper lobe. There is bilobed 1.4 cm nodule in the superior segment right lower lobe. There is a subpleural 1 cm nodule in the posterior right lo wer lobe. There is mild linear density at the lung bases. I see no mediastinal adenopathy. There are no hilar masses. There is no pleural effusion. There is no pericardial effusion. There is a subtle 1 cm hypodense area in the posterior right lobe of the liver. There are clips from cholecystectomy. There are surgical clips on the inferior lateral right lobe of the liver. Bile ducts are not dilated. There is no pancreatic mass. Spleen appears normal. There is no adrenal mass. There is a small hiatal hernia. Kidneys show satisfactory contrast opacification. There is no hydronephrosis. There is no retroperito yvrose adenopathy. Abdominal aorta is atheromatous. There is no ascites. Bladder distends smoothly. The re is no sign of a pelvic mass. There is no evidence of a bowel obstruction. I see no bony destructiv e process. CONCLUSION: There are multiple pulmonary nodules without calcification. Nodules appear slightly increased in size or new compared to the old CT scan of 04/15/2017. This is suspicious for metastatic disease. There is a subtle 1 cm hypodense area in the posterior right lobe of the liver that appears new and could rel ate to metastatic disease.
== END | disposition home or self-care (01) ==
LOC: RADPROMAIN 13:51
PROVIDERS: ATTEND Internal Medicine Critical Care Medicine
DX: Z08 Encounter for follow-up examination after completed treatment for malignant neoplasm (principal); R91.8 Other nonspecific abnormal finding of lung field; R93.2 Abnormal findings on diagnostic imaging of liver and biliary tract; Z85.038 Personal history of other malignant neoplasm of large intestine; Z88.8 Allergy status to other drugs, medicaments and biological substances
CPT/HCPCS: 71260; 74177; Q9967

== ENCOUNTER → 2017-11-01 | Outpatient (CLI) | payer MEDICARE, OTHER ==
--- NOTE | 2017-11-01 16:39 | CT ---
EXAMINATION TYPE: CT chest w con DATE OF EXAM: 11/01/2017 COMPARISON: 10/17/2017 and 10/24/2016 HISTORY: Multiple lung nodules. History of colon cancer. CT DLP: 271 mGycm. Automated Exposure Control for Dose Reduction was Utilized. TECHNIQUE: CT scan of the thorax is performed following with IV Contrast, patient injected with 100 mL of Omnipaque 300. FINDINGS: LUNGS: In comparison to the exam of 10/24/2016 there is interval growth of the pulmonary nodules. There are at least 5 right-sided pulmonary nodules and 2 left-sided pulmonary nodules. The nodules on the left renal upper lobe measuring 5 mm and 7 x 8 mm on series 4 image 14 and 16 respectively. In the ri ght upper lobe pulmonary nodule measuring 5 mm is present on image 14, a nodule measuring 7 x 8 mm is seen on image 19, a nodule measuring 6 x 6 mm is seen on image 25, a nodule measuring 1.4 x 1.0 cm a s seen on image 27, and a nodule measuring 1.1 cm is seen on image 34. Some of these are new from the prior exam of 10/24/2016 and the others demonstrate interval growth. These are overall similar in size to the exam of 10/17/2017 with no new nodules appreciated. MEDIASTINUM: Right-sided Mediport terminates in the cavoatrial junction. There are no greater than 1 cm hilar or mediastinal lymph nodes. No pericardial effusion is seen. OTHER: There is a left partial hepatectomy and postsurgical changes in the inferior right hepatic lob e. Visualized liver parenchyma is unremarkable. Subcapsular fluid collection is unchanged from the pr ior with surrounding surgical shawn measuring 2.2 cm. Stable 7 mm splenic arterial pseudoaneurysm i s seen in a moderate hiatal hernia is also redemonstrated. Osseous structures appear intact. IMPRESSION: 1. Similar size of the multiple bilateral pulmonary nodules in comparison to the exam of 10/17/2017, ho wever these have increased from the exam of 04/03/2016 and are suspicious for metastatic disease. 2. Stable subcapsular hepatic lesion near the site of surgical resection may represent a postoperativ e fluid collection, treated metastasis or not enlarging metastatic focus.
== END | disposition home or self-care (01) ==
LOC: RADCTMAIN 15:18
PROVIDERS: ATTEND Internal Medicine Critical Care Medicine
DX: R91.8 Other nonspecific abnormal finding of lung field (principal)
CPT/HCPCS: 71260; Q9967; J1642

== ENCOUNTER → 2017-11-16 | Outpatient (CLI) | payer MEDICARE, OTHER ==
--- NOTE | 2017-11-17 12:05 | PE ---
EXAMINATION TYPE: PET CT fusion skull to thigh DATE OF EXAM: 11/16/2017, 04/07/2017, 10/24/2016, PET/CT 02/05/2015 CLINICAL HISTORY: 56 year-old female history of colon cancer, restaging. Patient with history of live r metastasis and resection. Surgery in 2009 in the colon and liver in 2014 and chemotherapy last in 2 016. TECHNIQUE: Following the intravenous administration of 12.19 mCi of F-18 FDG, whole body images are performed from the skull base to the midthigh. Images are reviewed on the computer in the coronal, axial, and sagittal planes. Reconstructed rotating images are created on independent workstation and reviewed on the computer. A localization and attenuation correction CT is performed in conjunction with the PET scan. Glucose level: 97 mg/dL DLP: 427.13 mGycm COMPARISON: 10/17/2017 FINDINGS: PET: There is physiologic pharyngeal uptake and additional uptake at the vocal folds without appreciable C T abnormality, likely product of recent phonation. Redemonstrated multiple pulmonary nodules, measuring up to 1.4 cm on the right and 0.9 cm on the left , approximately 6 on the right and 2 on the left, max SUV 3.1 and 2.7, respectively. Again, these hav e shown increase in size from 04/15/2017 and a few appear to be new from 10/24/2016. Average liver SUV 2.8. The questioned (on the CT of 10/17/2014) subtle hypodense area within posterior segment 7 right hepatic lobe is not appreciable on the current noncontrast CT and shows no discrete FDG abnormality in this region. Post partial hepatectomy resection changes are redemonstrated with most of the left liver lob e and at least a segment of the right liver lobe resected. There is a focal area of moderate uptake along the junction of the pancreatic body and tail with sugg estion of a subtle underlying soft tissue lesion measuring 1 cm, max SUV 4.3 that is new from the pat lauro's old PET of 02/05/2015. There is focal intense hypermetabolism associated with new right perimedian midabdominal mesenteric m ass that measures 2.6 cm on axial image 139, max SUV 5.7. This appears to have been chronic on multip le priors dating back to at least the PET/CT of 02/05/2015 but there was no suspicious FDG uptake and had previously remained stable in the past at 1.4 cm. It has now increased in size with new hypermeta bolism. Post resection and anastomotic changes likely relating to previous right hemicolectomy. Variable kirsten l uptake shows segmental distribution suggesting physiologic muscular activity. ATTENUATION CORRECTION CT: Right anterior chest wall injection port with catheter tip at the lower SVC. Small air-fluid level left maxillary sinus and mild mucosal thickening floor of the right maxillary s inus. No cervical lymphadenopathy. The heart is normal size without pericardial effusion. Mild coronary vessel calcifications are presen t. Conventional arch vessel branching anatomy. No thoracic lymphadenopathy. Strandy densities of at electasis in the lower lungs. No dilated small bowel, free fluid, or free air. Moderate stool burden. Bladder partially distended. Uterus and left ovary are visualized. Right ovary not clearly delineated from adjacent bowel loops. No abnormal fluid collection in the pelvis or pelvic lymphadenopathy seen . Bones: Osseous process. IMPRESSION: 1. Suspicious hypermetabolism confirming metastatic pulmonary nodules, 6 on the right and 2 on the le ft. 2. New hypermetabolism associated with subtle 1 cm soft tissue lesion in the pancreatic body/tail cou ld represent an atypical intrapancreatic metastasis or a metachronous primary neoplasm of the pancrea s. Correlate with pancreatic tumor markers. 3. Metastatic focus characterized by a 2.6 cm soft tissue mass within the right paramedian mid mesent [place] with increasing size and new hypermetabolism. 4. Status post right hemicolectomy and resection changes in the liver. The questioned subtle hypodens e lesion in segment 7 right liver lobe on the CT of 10/17/2017 shows no appreciable FDG uptake. Attenti on on follow-up.
== END | disposition home or self-care (01) ==
LOC: RADPETMAIN 09:14
PROVIDERS: ATTEND Internal Medicine Hematology & Oncology
DX: C18.9 Malignant neoplasm of colon, unspecified (principal); C78.6 Secondary malignant neoplasm of retroperitoneum and peritoneum; Z90.49 Acquired absence of other specified parts of digestive tract
CPT/HCPCS: 78815; A9552

== ENCOUNTER 2018-01-21 20:12 | Emergency (ER) | payer MEDICARE, OTHER ==
[2018-01-21] MEDS ORDERED: ALBUTEROL NEBULIZED 2.5 MG/3 ML INHALATION STA (20:29)
[2018-01-21] MEDS ORDERED: IPRATROPIUM 0.5 MG/2.5 ML NEBU INHALATION STA (20:29)
[2018-01-21 20:54] LABS: Basophils % (A) 1 %; Eosinophils # (A) 0.2 k/uL (0-0.7); Eosinophils % (A) 3 %; HCT 45.9 % (34.0-46.0); Lymphocytes # (A) 2.3 k/uL (1.0-4.8); Lymphocytes % (A) 29 %; MCH 29.6 pg (25.0-35.0); MCHC 32.7 g/dL (31.0-37.0); MCV 90.4 fL (80.0-100.0); Mean Platelet Volume 7.2; Monocytes # (A) 0.4 k/uL (0-1.0); Monocytes % (A) 6 %; Neutrophils # (A) 4.7 k/uL (1.3-7.7); Neutrophils % (A) 60 %; Platelet Count 234 k/uL (150-450); RBC 5.08 m/uL (3.80-5.40); RDW 13.7 % (11.5-15.5); WBC 7.8 k/uL (3.8-10.6)
--- NOTE | 2018-01-21 20:58 | ED ---
General Adult HPI - General Chief complaint: Shortness of Breath Stated complaint: SOB Time Seen by Provider: 01/21/18 20:28 Source: patient, RN notes reviewed, old records reviewed Mode of arrival: ambulatory Limitations: no limitations - History of Present Illness Initial comments: This is a 57-year-old female the ER with recent complex medical history. Patient does have CA with metastasis currently going to treatment. Patient comes in today for evaluation of pain, patient does have history of high blood pressure does have history of smoking and family history of heart disease. Patient coming in with some shortness of breath occasional wheezing but mainly chest pain. No prior history of similar complaints. Patient has no recent cardiac evaluation - Related Data Home Medications Medication Instructions Recorded Confirmed Omeprazole [PriLOSEC] 20 mg PO BID 01/01/17 01/21/18 Cetirizine HCl [Zyrtec] 10 mg PO DAILY 01/21/18 01/21/18 Doxycycline Hyclate 100 mg PO DAILY 01/21/18 01/21/18 FLUoxetine HCL [PROzac] 20 mg PO DAILY 01/21/18 01/21/18 Ibuprofen [Motrin Ib] 200 mg PO Q6H PRN 01/21/18 01/21/18 Pyridoxine [Vitamin B-6] 100 mg PO BID 01/21/18 01/21/18 Vectibix 1 dose IV Q14D 01/21/18 01/21/18 Allergies Allergy/AdvReac Type Severity Reaction Status Date / Time acyclovir AdvReac Severe Confusion Verified 01/21/18 20:47 Review of Systems ROS Statement: Those systems with pertinent positive or pertinent negative responses have been documented in the HPI. ROS Other: All systems not noted in ROS Statement are negative. 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 Past Anesthesia/Blood Transfusion Reactions: No Reported Reaction Past Psychological History: Anxiety, Depression, Panic Disorder Smoking Status: Light tobacco smoker Past Alcohol Use History: Rare Past Drug Use History: None Reported - Past Family History Father Family Medical History: Diabetes Mellitus, Myocardial Infarction (ND) Additional Family Medical History / Comment(s): at age 62-mulitple mi's Mother Family Medical History: Cancer Additional Family Medical History / Comment(s): BREAST. from sepsis General Exam Limitations: no limitations General appearance: alert, in no apparent distress, anxious Head exam: Present: atraumatic, normocephalic, normal inspection Eye exam: Present: normal appearance, PERRL, EOMI. Absent: scleral icterus, conjunctival injection, periorbital swelling ENT exam: Present: normal exam, mucous membranes moist Neck exam: Present: normal inspection. Absent: tenderness, meningismus, lymphadenopathy Respiratory exam: Present: normal lung sounds bilaterally. Absent: respiratory distress, wheezes, rales, rhonchi, stridor Cardiovascular Exam: Present: regular rate, normal rhythm, normal heart sounds. Absent: systolic murmur, diastolic murmur, rubs, gallop, clicks GI/Abdominal exam: Present: soft, normal bowel sounds. Absent: distended, tenderness, guarding, rebound, rigid Extremities exam: Present: normal inspection, full ROM, normal capillary refill. Absent: tenderness, pedal edema, joint swelling, calf tenderness Back exam: Present: normal inspection Neurological exam: Present: alert, oriented X3, CN II-XII intact Psychiatric exam: Present: normal affect, normal mood Skin exam: Present: warm, dry, intact, normal color. Absent: rash Course Vital Signs 01/21/18 01/21/18 01/21/18 20:20 20:49 21:20 Temperature 99.0 F Pulse Rate 73 68 72 Respiratory 18 Rate Blood Pressure 124/84 O2 Sat by Pulse 93 L Oximetry 01/21/18 21:48 Temperature Pulse Rate 76 Respiratory Rate Blood Pressure O2 Sat by Pulse Oximetry EKG Findings - EKG Comments: EKG Findings:: EKG shows normal sinus rhythm rate of 65, MN 112, QRS 90, QTc 447 Medical Decision Making - Lab Data Result diagrams: 01/21/18 20:39 01/21/18 20:39 Lab Results 01/21/18 01/21/18 01/21/18 Range/Units 20:39 20:39 20:39 WBC 7.8 (3.8-10.6) k/uL RBC 5.08 (3.80-5.40) m/uL Hgb 15.0 (11.4-16.0) gm/dL Hct 45.9 (34.0-46.0) % MCV 90.4 (80.0-100.0) fL MCH 29.6 (25.0-35.0) pg MCHC 32.7 (31.0-37.0) g/dL RDW 13.7 (11.5-15.5) % Plt Count 234 (150-450) k/uL Neutrophils % 60 % Lymphocytes % 29 % Monocytes % 6 % Eosinophils % 3 % Basophils % 1 % Neutrophils # 4.7 (1.3-7.7) k/uL Lymphocytes # 2.3 (1.0-4.8) k/uL Monocytes # 0.4 (0-1.0) k/uL Eosinophils # 0.2 (0-0.7) k/uL Basophils # 0.0 (0-0.2) k/uL PT (9.0-12.0) sec INR (<1.2) APTT (22.0-30.0) sec Sodium 142 (137-145) mmol/L Potassium 4.6 (3.5-5.1) mmol/L Chloride 100 (98-107) mmol/L Carbon Dioxide 28 (22-30) mmol/L Anion Gap 14 mmol/L BUN 15 (7-17) mg/dL Creatinine 0.58 (0.52-1.04) mg/dL Est GFR (CKD-EPI)AfAm >90 (>60 ml/min/1.73 sqM) Est GFR (CKD-EPI)NonAf >90 (>60 ml/min/1.73 sqM) Glucose 89 (74-99) mg/dL Calcium 10.2 (8.4-10.2) mg/dL Magnesium 1.6 (1.6-2.3) mg/dL Total Bilirubin 0.5 (0.2-1.3) mg/dL AST 28 (14-36) U/L ALT 38 (9-52) U/L Alkaline Phosphatase 109 (38-126) U/L Total Creatine Kinase 56 (30-135) U/L CK-MB (CK-2) 0.9 (0.0-2.4) ng/mL CK-MB (CK-2) Rel Index 1.6 Troponin I <0.012 (0.000-0.034) ng/mL NT-Pro-B Natriuret Pep pg/mL Total Protein 7.5 (6.3-8.2) g/dL Albumin 4.7 (3.5-5.0) g/dL Lipase (23-300) U/L 01/21/18 01/21/18 01/21/18 Range/Units 20:39 20:39 20:39 WBC (3.8-10.6) k/uL RBC (3.80-5.40) m/uL Hgb (11.4-16.0) gm/dL Hct (34.0-46.0) % MCV (80.0-100.0) fL MCH (25.0-35.0) pg MCHC (31.0-37.0) g/dL RDW (11.5-15.5) % Plt Count (150-450) k/uL Neutrophils % % Lymphocytes % % Monocytes % % Eosinophils % % Basophils % % Neutrophils # (1.3-7.7) k/uL Lymphocytes # (1.0-4.8) k/uL Monocytes # (0-1.0) k/uL Eosinophils # (0-0.7) k/uL Basophils # (0-0.2) k/uL PT 9.8 (9.0-12.0) sec INR 1.0 (<1.2) APTT 23.4 (22.0-30.0) sec Sodium (137-145) mmol/L Potassium (3.5-5.1) mmol/L Chloride (98-107) mmol/L Carbon Dioxide (22-30) mmol/L Anion Gap mmol/L BUN (7-17) mg/dL Creatinine (0.52-1.04) mg/dL Est GFR (CKD-EPI)AfAm (>60 ml/min/1.73 sqM) Est GFR (CKD-EPI)NonAf (>60 ml/min/1.73 sqM) Glucose (74-99) mg/dL Calcium (8.4-10.2) mg/dL Magnesium (1.6-2.3) mg/dL Total Bilirubin (0.2-1.3) mg/dL AST (14-36) U/L ALT (9-52) U/L Alkaline Phosphatase (38-126) U/L Total Creatine Kinase (30-135) U/L CK-MB (CK-2) (0.0-2.4) ng/mL CK-MB (CK-2) Rel Index Troponin I (0.000-0.034) ng/mL NT-Pro-B Natriuret Pep 66 pg/mL Total Protein (6.3-8.2) g/dL Albumin (3.5-5.0) g/dL Lipase 360 H (23-300) U/L Disposition Clinical Impression: COPD (chronic obstructive pulmonary disease) Disposition: [facility] Instructions: Chronic Bronchitis (ED) Is patient prescribed a controlled substance at d/c from ED?: No Referrals: Howard Hernandez MD [Primary Care Provider] - 1-2 days
[2018-01-21 21:05] LABS: Creatine Kinase 56 U/L (30-135)
[2018-01-21 21:07] LABS: ALT 38 U/L (9-52); AST 28 U/L (14-36); Albumin 4.7 g/dL (3.5-5.0); Alkaline Phosphatase 109 U/L (38-126); Anion Gap 14 mmol/L; Blood Urea Nitrogen 15 mg/dL (7-17); Calcium 10.2 mg/dL (8.4-10.2); Carbon Dioxide 28 mmol/L (22-30); Chloride 100 mmol/L (98-107); Glucose 89 mg/dL (74-99); Magnesium 1.6 mg/dL (1.6-2.3); Partial Thromboplastin Time 23.4 sec (22.0-30.0); Potassium 4.6 mmol/L (3.5-5.1); Prothrombin Time 9.8 sec (9.0-12.0); Sodium 142 mmol/L (137-145); Total Bilirubin 0.5 mg/dL (0.2-1.3); Total Protein 7.5 g/dL (6.3-8.2)
[2018-01-21 21:18] LABS: Creatine Kinase MB 0.9 ng/mL (0.0-2.4); Troponin I <0.012 ng/mL (0.000-0.034)
--- NOTE | 2018-01-21 21:37 | XR ---
EXAMINATION TYPE: XR chest 1V portable DATE OF EXAM: 01/21/2018 COMPARISON: 01/01/2017 INDICATION: Short of breath TECHNIQUE: Single frontal view of the chest is obtained. FINDINGS: The heart size is normal. The pulmonary vasculature is normal. The lungs are clear. Port is present on the right with the tip in the distal superior vena cava region. IMPRESSION: 1. No acute pulmonary process.
[2018-01-21 22:27] VITALS: BP 118/62; PULSE 71; RESP 16; TEMP 89.9
== END 2018-01-21 22:31 ==
LOC: EC 20:12
DX: J44.9 Chronic obstructive pulmonary disease, unspecified (principal); K21.9 Gastro-esophageal reflux disease without esophagitis; F41.9 Anxiety disorder, unspecified; F31.9 Bipolar disorder, unspecified; C78.5 Secondary malignant neoplasm of large intestine and rectum; F17.200 Nicotine dependence, unspecified, uncomplicated; Z85.05 Personal history of malignant neoplasm of liver; Z92.21 Personal history of antineoplastic chemotherapy; Z79.899 Other long term (current) drug therapy; Z88.8 Allergy status to other drugs, medicaments and biological substances
CPT/HCPCS: 36415; 71045; 80053; 82550; 82553; 83690; 83735; 83880; 84484; 85025; 85610; 85730; 93005; 94644; 99285

== ENCOUNTER → 2018-03-22 | Outpatient (CLI) | payer MEDICARE, OTHER ==
--- NOTE | 2018-03-23 13:17 | PE ---
EXAMINATION TYPE: PET CT fusion skull to thigh DATE OF EXAM: 03/22/2018 COMPARISON: Chest abdomen pelvis CT 10/17/2017 Prior PET/CT: Most recent 11/16/2017 HISTORY: Colorectal cancer TECHNIQUE: Following the intravenous administration of 12.01 mCi of F-18 FDG, whole body images are performed from the skull base to the midthigh. Images are reviewed on the computer in the coronal, a xial, and sagittal planes. Reconstructed rotating images are created on independent workstation and reviewed on the computer. A localization and attenuation correction CT is performed in conjunction with the PET scan. DLP: 446.85 mGycm SCAN: Subsequent Scan Blood glucose: 110 mg/dL Average Mediastinum SUV: 1.59 Average Liver SUV: 2.67 FINDINGS: NECK: No abnormal uptake THORAX: No abnormal uptake. There are lung nodules which remain present on the current examination up take remains below 1 and ranges 0.5-0.7 through these lesions. ABDOMEN: No abnormal uptake. PELVIS: No abnormal uptake OSSEOUS STRUCTURES: No abnormal uptake LOCALIZATION CT: Multiple punctate lesions are within the chest. This will include the anterior right upper lobe, image 66 peripheral right upper lobe, image 69 anterior left upper lobe, image 72 periph eral right midlung, image 77, posterior lateral right midlung, image 79. Streak opacities are also at the lung bases which may be related atelectasis. COMPARISON: Previous uptake within nodules within the lungs is not evident on the current study. Pre vious uptake within the pancreas is not evident on the current study. IMPRESSION: 1. Multiple pulmonary nodules which appear diminished and have normal SUV ranges on the current exami nation which is diminished from the comparison. 2. Previous pancreatic tail metabolic activity has resolved on the current examination. 3. Previous mid mesenteric uptake is not evident on the current study. Density likewise appears resol pepito. 4. No suspicious radiotracer foci to suggest new metastatic disease or worsening metastatic disease. 5. Continued monitoring with PET CT is recommended.
== END ==
LOC: RADPETMAIN 07:55
PROVIDERS: ATTEND Internal Medicine Hematology & Oncology
DX: C18.8 Malignant neoplasm of overlapping sites of colon (principal); R91.8 Other nonspecific abnormal finding of lung field
CPT/HCPCS: 78815; A9552

== ENCOUNTER → 2018-08-09 | Outpatient (CLI) | payer MEDICARE, OTHER ==
--- NOTE | 2018-08-10 08:50 | PE ---
EXAMINATION TYPE: PET CT fusion skull to thigh DATE OF EXAM: 08/09/2018 COMPARISON: Prior PET/CT March 22, [address] chest abdomen pelvis October 17, 2017. HISTORY: Metastatic colon cancer to liver progress study completed chemotherapy August 05, 2018. TECHNIQUE: Following the intravenous administration of 10.399 mCi of F-18 FDG, whole body images are performed from the skull base to the midthigh. Images are reviewed on the computer in the coronal, axial, and sagittal planes. Reconstructed rotating images are created on independent workstation and reviewed on the computer. A noncontrast CT is performed in conjunction with the PET scan. SCAN: Subsequent Scan FINDINGS: SKULL BASE AND NECK: There is prominent uptake along anterior aspect of the tongue measuring just ov er 4 x 3 cm axial image 25, max SUV is 27.48. No obvious mass is present. Correlate clinically with d irect visualization to exclude. CHEST, MEDIASTINUM, AND HILAR REGION: There is stable right internal jugular Mediport catheter termin ating in SVC. Some patchy lower lung linear scarring and/or atelectasis bilaterally remains present. No suspicious hypermetabolic uptake is seen. Scattered small nodules are redemonstrated for reference 2 subcentimet er nodules noted bilateral upper lobes axial image 58 not significantly changed in size or appearance from most recent PET/CT. There are felt diminished in size from older CT October 17, 2017. ABDOMEN AND PELVIS: Post left partial hepatectomy changes are redemonstrated. No new areas of suspici ous hypermetabolic uptake are seen. OSSEOUS STRUCTURES: No new areas of suspicious hypermetabolic uptake are present. OTHER CT: Mild to moderate Coronary artery calcification is redemonstrated which is noted marker for coronary artery disease. Ascending aorta measures up to 3.5 cm in diameter axial image 68. Small to moderate size hiatal hernia slightly more prominent versus prior. Gallbladder is surgically absent. Surgical sutures from right-sided partial colectomy redemonstrated near axial image 163. There is facet arthropathy in the mid to lower lumbar spine. There is overlying anterior scar in the mid abdomen midline. There is mild to moderate calcified plaque of aorta extending into branch vessel s. IMPRESSION: Area of most concern is diffusely in the anterior tongue with prominent hypermetabolic up take, no obvious masses are seen. Correlate clinically with direct visualization to exclude neoplasm. Correlate clinically to exclude infectious or inflammatory process at this level. No convincing evid ence of abnormal hypermetabolic uptake identified otherwise to suggest recurrent active malignancy. P ostsurgical changes to liver redemonstrated without areas of new hypermetabolic uptake. Suspicious bu t stable subcentimeter lung nodules without hypermetabolic uptake. No new suspicious masses are noted .
== END ==
LOC: RADPETMAIN 08:27
PROVIDERS: ATTEND Internal Medicine Hematology & Oncology
DX: C18.8 Malignant neoplasm of overlapping sites of colon (principal)
CPT/HCPCS: 78815; A9552

== ENCOUNTER → 2018-12-05 | Outpatient (CLI) | payer MEDICARE, OTHER ==
[2018-12-05 11:04] LABS: Blood Urea Nitrogen 12 mg/dL (7-17)
--- NOTE | 2018-12-05 18:35 | CT ---
"EXAMINATION TYPE: CT ChestAbdPelvis w con DATE OF EXAM: 12/05/2018 INDICATION: Colon cancer follow up. COMPARISON: 11/01/2017 CT DLP: 1198.8 mGycm CONTRAST: Performed with Oral Contrast and with IV Contrast, patient injected with 100 mL of Isovue M300. TECHNIQUE: Axial images at 5 mm thick sections. Reconstructed images in the coronal plane. Delayed images through the kidneys. FINDINGS: CT CHEST: Portion of the thyroid visualized is normal. There is a 0.7 x 1.0 cm spiculated mass in the left upper lung field. Series 4 image 17. This is enla rged from 0.7 x 0.8 cm on the previous here. Nodule within the right midlung measures 1.4 x 1.2 cm, s eries 4 image 20. This is enlarged from 0.8 x 0.7 cm. There is a peripheral nodule measuring approxim ately 0.7 cm, series 4 image 26 this is nearly the same size is 0.6 cm measurement previous Previous density in the posterior lateral right lung base has minimal residual density, series 4 imag e 31. This is smaller than the 1.4 x 1.0 cm previous There is a punctate density posterior lateral right lung base measuring 0.3 cm. Previous pleural-base d nodule measuring 1.1 cm not identified currently. There are some additional scattered areas of pneumonitis which were present previously. No enlarged mediastinal or hilar adenopathy is evident. The ascending aorta diameter at the level of the main pulmonary artery is 3.5 cm. The main pulmonary artery diameter at the bifurcation is 2.[address] ABDOMEN: Small hiatal hernia is present. Liver: Normal Spleen: Normal Pancreas: Normal Adrenal glands: The adrenal glands are normal. Gallbladder: Is absent Kidneys: No masses are evident. No hydronephrosis is present. No cysts are present. Delayed images were obtained through the kidneys, which remain unremarkable. Aorta: Vascular calcification is within the aorta. Inferior vena cava: Normal. CT PELVIS: Loops of bowel visualized appear unremarkable. There is been a prior right hemicolectomy. Distal colo n appears unremarkable. There are loops of bowel which are incompletely distended or lack oral contra st limiting their evaluation. Appendix: Not identified. No suspicious inflammatory changes or dilated tubular structures are eviden t. Urinary bladder: Normal. Genitourinary structures: Uterus is normal. Adnexal regions are clear. Osseous structures: No suspicious lytic or sclerotic lesions. IMPRESSIONS: 1. Multiple enlarging nodules from 11/01/2017 discussed above. Additional smaller stable areas of pneu monitis are unchanged. Couple of nodules have diminished in size in the right lower lobe. Previous PE T/CT identified neoplastic type activity. 2. Small hiatal hernia. A Yellow level critical message alert has been initiated for Arpan Dean MD via the [employer] [facility] 0 | Critical Results System on 12/05/2018 6:32 PM. This message alert has been sent to Arpan Dean MD via the preferences provided by the clinician for the receipt of Radiology Critical Findings. [facility] ID [id number]."
== END | disposition home or self-care (01) ==
LOC: RADPROMAIN 10:29
PROVIDERS: ATTEND Internal Medicine Hematology & Oncology
DX: C18.9 Malignant neoplasm of colon, unspecified (principal); R91.8 Other nonspecific abnormal finding of lung field; K44.9 Diaphragmatic hernia without obstruction or gangrene; J18.9 Pneumonia, unspecified organism
CPT/HCPCS: 82565; 84520; 71260; 74177; J1642; Q9967

== ENCOUNTER → 2019-03-27 | Outpatient (CLI) | payer MEDICARE, OTHER ==
--- NOTE | 2019-03-27 15:07 | CT ---
EXAMINATION TYPE: CT ChestAbdPelvis w con DATE OF EXAM: 03/27/2019 COMPARISON: CT chest abdomen and pelvis December 05, [address] PET CT August 09, 2018. HISTORY: Colon cancer progress study. CT DLP: 1760 mGycm. Automated Exposure Control for Dose Reduction was Utilized. CONTRAST: CT scan of the thorax, abdomen and pelvis is performed with IV Contrast, patient injected with 100 ml mL of Isovue 300. FINDINGS: LUNGS: Scattered small bilateral nodules are redemonstrated. For reference there is 1.0 x 0.8 cm left upper lobe nodule axial image 19 without significant change back through October 17, 2017 CT. Smaller s carlike opacity anterior superior to this axial image 15. Significantly changed from most recent PET/ CT. Similar 5 to 6 mm nodule anterior right upper lobe axial image 14 not significantly changed from most recent PET/CT. Largest nodule or nodular consolidation laterally measures 1.3 x 0.8 cm axial sandra ge 19 without significant change from most recent CT and PET/CT. There is however enlarging or new 5 x 3 mm superior right lower lobe nodule axial image 22. Just below this there is worsening nodularity axial image 28 with confluent 1.6 x 0.8 cm area identified although this may reflect 2 adjacent lymp h nodes. There is worsening subpleural 9 x 4 mm nodule posterior right lower lobectomy 35. There is p ersistent bibasilar linear scarring and/or atelectasis. No pleural effusion or pneumothorax. MEDIASTINUM: There are no greater than 1 cm hilar or mediastinal lymph nodes. No cardiomegaly or pe ricardial effusion is seen. Stable right-sided Mediport catheter partially imaged. LIVER/GB: Cholecystectomy clips are redemonstrated. Postsurgical change left hepatic lobe is again se en PANCREAS: New abnormality pancreatic tail with ductal dilatation without obstructing mass clearly see n. SPLEEN: No significant abnormality is seen. ADRENALS: No significant abnormality is seen. KIDNEYS: No significant abnormality is seen. BOWEL: Stable small to moderate size hiatal hernia. Oral contrast reaches level of splenic flexure. N o suspicious small or large bowel dilatation. Surgical changes from right-sided partial colectomy red emonstrated. Mild wall thickening in the sigmoid colon and rectum again seen. GENITAL ORGANS: Anteverted slightly bulky uterus, correlate for underlying fibroid. LYMPH NODES: No greater than 1cm abdominal or pelvic lymph nodes are appreciated. OSSEOUS STRUCTURES: No significant abnormality is seen. OTHER: No significant additional abnormality is seen. IMPRESSION: Worsening or new right lung nodules worrisome for neoplastic progression. New focal pancr eatic tail abnormality with slight enlargement and no ductal dilatation without obstructing mass duncan rly seen but obstructing mass needs to be considered. Further investigation with MRI/MRCP is advised.
== END | disposition home or self-care (01) ==
LOC: RADPROMAIN 12:49
PROVIDERS: ATTEND Internal Medicine Hematology & Oncology
DX: C18.9 Malignant neoplasm of colon, unspecified (principal)
CPT/HCPCS: 82565; 84520; 71260; 74177; 36415; Q9967

== ENCOUNTER → 2019-04-06 | Outpatient (CLI) | payer MEDICARE, OTHER ==
--- NOTE | 2019-04-07 10:30 | MM ---
Reason for exam: screening (asymptomatic). Last mammogram was performed 3 years ago. History: Patient is postmenopausal, has history of other cancer at age 54, and has history of colon cancer at age 49. Family history of breast cancer in mother and breast cancer in maternal grandmother. Benign excisional biopsy of the left breast, 2002. Physical Findings: A clinical breast exam by your physician is recommended on an annual basis and results should be correlated with mammographic findings. MG Screening Mammo w CAD Bilateral CC and MLO view(s) were taken. Prior study comparison: April 03, 2016, bilateral MG screening mammo w CAD. April 01, 2014, bilateral MG screening mammo w CAD. There are scattered fibroglandular densities. There are benign appearing round calcifications in the right breast. Previous mammotome biopsy in the left breast. There is no discrete abnormality. ASSESSMENT: Benign, BI-RAD 2 RECOMMENDATION: Routine screening mammogram of both breasts in 1 year.
== END | disposition home or self-care (01) ==
LOC: RADMAMWWP 12:45
PROVIDERS: ATTEND Internal Medicine Hematology & Oncology
DX: Z12.31 Encounter for screening mammogram for malignant neoplasm of breast (principal)
CPT/HCPCS: 77067

== ENCOUNTER → 2019-05-27 | Outpatient (CLI) | payer MEDICARE, OTHER ==
--- NOTE | 2019-05-27 15:48 | XR ---
EXAMINATION TYPE: XR chest 2V DATE OF EXAM: 05/27/2019 COMPARISON: 01/21/2018 HISTORY: Cough and congestion TECHNIQUE: Frontal and lateral views of the chest are obtained. FINDINGS: Right-sided Mediport is present terminating in the distal superior vena cava near the cavo atrial junction. There is no focal air space opacity, pleural effusion, or pneumothorax seen. Plateli ke atelectasis is seen near the costophrenic angles bilaterally. Retrocardiac linear left basal atele ctasis is also noted. The cardiac silhouette size is within normal limits. The osseous structures a re intact. Mild diffuse osseous demineralization. IMPRESSION: Multifocal bibasilar subsegmental atelectasis, otherwise no acute cardiopulmonary proces s.
== END | disposition home or self-care (01) ==
LOC: RADXRMAIN 15:22
PROVIDERS: ATTEND Internal Medicine Hematology & Oncology
DX: J98.11 Atelectasis (principal)
CPT/HCPCS: 71046

== ENCOUNTER → 2019-08-13 | Outpatient (CLI) | payer MEDICARE, OTHER ==
[2019-08-13 14:21] LABS: African American GFR (CKD) >90 (>60 ml/min/1.73 sqM); Blood Urea Nitrogen 18 mg/dL (7-17); Non-African American GFR(CKD) >90 (>60 ml/min/1.73 sqM)
--- NOTE | 2019-08-13 18:28 | CT ---
EXAMINATION TYPE: CT ChestAbdPelvis w con DATE OF EXAM: 08/13/2019 COMPARISON: 03/27/2019 and 12/05/2018 HISTORY: 58 year-old female follow-up colon ca. Pt states surgical history to transverse colon, liver and lung. TECHNIQUE: Contiguous axial scanning of the chest, abdomen, and pelvis performed with IV Contrast, pa tient injected with 100 mL of Isovue 300. Delayed images through the kidneys were obtained. Coronal/s agittal reconstructions performed. CT DLP: 1178.60 mGycm Automated exposure control for dose reduction was used. FINDINGS: CHEST: Right anterior chest wall injection port with catheter tip at the lower SVC. Heart normal size without pericardial effusion. Mild coronary vessel calcifications are present. Aorta normal caliber with conventional vessel branching anatomy. No thoracic lymphadenopathy by CT size criteria. Multiple bilateral pulmonary nodules are redemonstrated and are either stable to smaller in size. For example, pulmonary nodule posterior right midlung measures 1.5 x 0.8 cm versus 1.6 x 0.8 cm, prev iously but is less defined from prior. 5 x 4 mm left upper lobe pulmonary nodule axial image 17 previously measured 10 x 8 mm. 9 x 7 mm right upper lobe pulmonary nodule axial image 17 previously measured 13 x 8 mm. No new pulmonary nodules are seen. No consolidation or pleural effusion. ABDOMEN: Post surgical changes of partial left lobectomy. Additional probable wedge resection inferior right l iver lobe. Portal venous system is patent. No focal liver lesion seen. Cholecystectomy clips. Adrenal glands, kidneys, and spleen appear within normal limits. Seems to be some focal atrophy along the pancreatic tail but without any obstructing mass identified volume loss appears to have progressed from 03/27/2019 and 12/05/2018. Moderate-sized hernia. Some focal soft tissue density anterior to the pancreatic head measures 1.5 x 1.1 cm currently versus 2.5 x 1.4 cm on 03/27/2019. Mild to moderate atherosclerotic calcifications abdominal aorta without aneurysm. Diverticulum of the second portion of the duodenum projecting into the pancreatic head region. No dilated small bowel, free fluid, or free air. Some postsurgical changes along the right lower quadrant with ileocolonic anastomosis. There is loss of haustrations along the sigmoid colon with mild wall thickening but no significant pacheco rrounding inflammation. No mesenteric or retroperitoneal lymphadenopathy seen. Pelvis: Bladder is underdistended. The uterus is anteverted. Both ovaries are visualized. No abnormal fluid c ollection in the pelvis or pelvic lymphadenopathy. Bones: Mild degenerative changes at the hips. Facet arthropathy and degenerative disc disease mid to lower l umbar spine. No osseous destructive process. IMPRESSION: 1. BILATERAL PULMONARY NODULES REDEMONSTRATED. THESE ARE EITHER STABLE TO SMALLER IN SIZE SUGGESTING PARTIAL TREATMENT RESPONSE. 2. ABNORMAL SOFT TISSUE/LYMPH NODE ANTERIOR TO THE PANCREATIC HEAD HAS ALSO DECREASED IN SIZE (CURREN TLY 15 X 11 MM VERSUS 2.5 X 1.4 CM, PREVIOUSLY). 3. PROGRESSIVE FOCAL ATROPHY OF THE PANCREATIC TAIL OF UNCLEAR ETIOLOGY. NO DISCRETE PANCREATIC MASS IS IDENTIFIED. CORRELATE WITH CA19-9 AND OTHER TUMOR MARKERS. ATTENTION ON FOLLOW-UP. CONSIDER PANCRE MRI. 4. PREVIOUS PARTIAL RIGHT COLON RESECTION WITH ILEOCOLONIC ANASTOMOSIS. THERE IS LOSS OF NORMAL HAUST RAL MARKINGS ALONG THE SIGMOID COLON WITH MILD WALL THICKENING. FINDINGS SIMILAR TO 03/27/2019 BUT PROG RESSED FROM 12/05/2018. NONSPECIFIC COLITIS INCLUDING CHRONIC ISCHEMIC AND POST RADIATION COLITIS W ELL IBD ARE IN THE DIFFERENTIAL. 5. POSTSURGICAL CHANGE OF PARTIAL LEFT HEPATIC LOBECTOMY AND PROBABLE ADDITIONAL WEDGE RESECTION IN T HE RIGHT LIVER LOBE. 6. SMALL HIATAL HERNIA.
== END | disposition home or self-care (01) ==
LOC: RADPROMAIN 13:40
PROVIDERS: ATTEND Internal Medicine Hematology & Oncology
DX: K44.9 Diaphragmatic hernia without obstruction or gangrene (principal); K86.89 Other specified diseases of pancreas; K63.89 Other specified diseases of intestine; R91.8 Other nonspecific abnormal finding of lung field; C18.9 Malignant neoplasm of colon, unspecified; Z90.49 Acquired absence of other specified parts of digestive tract
CPT/HCPCS: 36415; 71260; 74177; 82565; 84520

== ENCOUNTER 2020-01-30 12:19 | Emergency (ER) | payer MEDICARE, OTHER ==
--- NOTE | 2020-01-30 13:08 | ED ---
Fall HPI - General Chief Complaint: Fall Stated Complaint: fall/hip pain Time Seen by Provider: 01/30/20 12:33 Source: patient, RN notes reviewed Mode of arrival: ambulatory Limitations: no limitations - History of Present Illness Initial Comments: 59-year-old female presents emergency Department chief complaint of head injury, right hip and low back pain. Patient states that she fell on Saturday and to her back did strike her head but had no loss conscious. Patient states she has some pain to her right low back, right hip region which is worse with movement. She has any bowel, bladder incontinence or retention. Patient states that she started developing a headache that day and has been on and off with intermittent dizziness, nausea and intermittent vomiting. She states that she has no major symptoms at this time. She was advised from the emergency room by her oncologist. Patient denies taking any blood thinners denies any neck or upper back pain no chest pain or shortness of breath no palpitations. Patient states she is able ambulate with no significant difficulty she states her some mild pain to her right hip region which she relates. - Related Data Home Medications Medication Instructions Recorded Confirmed Omeprazole [PriLOSEC] 20 mg PO BID 01/01/17 01/21/18 Cetirizine HCl [Zyrtec] 10 mg PO DAILY 01/21/18 01/21/18 Doxycycline Hyclate 100 mg PO DAILY 01/21/18 01/21/18 FLUoxetine HCL [PROzac] 20 mg PO DAILY 01/21/18 01/21/18 Ibuprofen [Motrin Ib] 200 mg PO Q6H PRN 01/21/18 01/21/18 Pyridoxine [Vitamin B-6] 100 mg PO BID 01/21/18 01/21/18 Vectibix 1 dose IV Q14D 01/21/18 01/21/18 Previous Rx's Medication Instructions Recorded Prochlorperazine [Compazine] 10 mg PO Q6H #15 tab 01/30/20 Allergies Allergy/AdvReac Type Severity Reaction Status Date / Time acyclovir AdvReac Severe Confusion Verified 01/30/20 12:33 Review of Systems ROS Statement: Those systems with pertinent positive or pertinent negative responses have been documented in the HPI. ROS Other: All systems not noted in ROS Statement are negative. 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 2014 port a cath placed rt chest ;"20% of liver removed d/t ca", colonoscopies [id number]. Past Anesthesia/Blood Transfusion Reactions: No Reported Reaction Past Psychological History: Anxiety, Depression, Panic Disorder Smoking Status: Light tobacco smoker Past Alcohol Use History: Rare Past Drug Use History: None Reported - Past Family History Father Family Medical History: Diabetes Mellitus, Myocardial Infarction ([place]) Additional Family Medical History / Comment(s): at age 62-mulitple mi's Mother Family Medical History: Cancer Additional Family Medical History / Comment(s): BREAST. from sepsis General Exam Limitations: no limitations General appearance: alert, in no apparent distress Head exam: Present: atraumatic, normocephalic, normal inspection Eye exam: Present: normal appearance, PERRL, EOMI. Absent: scleral icterus, conjunctival injection, periorbital swelling ENT exam: Present: normal exam, normal oropharynx, mucous membranes moist Neck exam: Present: normal inspection, full ROM. Absent: tenderness, meningismus, lymphadenopathy Respiratory exam: Present: normal lung sounds bilaterally. Absent: respiratory distress, wheezes, rales, rhonchi, stridor Cardiovascular Exam: Present: regular rate, normal rhythm, normal heart sounds. Absent: systolic murmur, diastolic murmur, rubs, gallop, clicks GI/Abdominal exam: Present: soft, normal bowel sounds. Absent: distended, tenderness, guarding, rebound, rigid Extremities exam: Present: other (There is some areas of ecchymosis or lower extremity, mild tenderness the right hip patient does have full range of motion neurovascular intact with equal pedal pulses. Patient's upper extremity exam within normal limits) Back exam: Present: normal inspection (Small area of ecchymosis in the right lower lumbar region), full ROM, tenderness (Right lower lumbar), paraspinal tenderness. Absent: CVA tenderness (R), CVA tenderness (L), vertebral tenderness Neurological exam: Present: alert, oriented X3, CN II-XII intact, reflexes normal. Absent: motor sensory deficit Skin exam: Present: warm, dry, intact, normal color. Absent: rash Course Vital Signs 01/30/20 12:27 Temperature 98.1 F Pulse Rate 68 Respiratory 18 Rate Blood Pressure 143/86 O2 Sat by Pulse 95 Oximetry Medical Decision Making - Medical Decision Making 59-year-old female presents emergency department for a fall. Symptoms started on Saturday. CT of the brain, C-spine does not show any acute changes. X-ray of the lumbar spine hip reveal no acute osseous lesions. Patient will be discharged at this time patient will follow-up with PCP and oncologist return parameters were discussed. Disposition Clinical Impression: Fall, Concussion, Contusion of hip, right, Back pain Disposition: HOME SELF-CARE Condition: Stable Instructions (If sedation given, give patient instructions): Concussion (ED) Additional Instructions: Please return to the Emergency Department if symptoms worsen or any other concerns. Prescriptions: Prochlorperazine [Compazine] 10 mg PO Q6H #15 tab Is patient prescribed a controlled substance at d/c from ED?: No Referrals: Howard Hernandez MD [Primary Care Provider] - 1-2 days Time of Disposition: 14:24
--- NOTE | 2020-01-30 13:27 | CT ---
EXAMINATION TYPE: CT brain rachaeline candelaria con DATE OF EXAM: 01/30/2020 COMPARISON: Previous study dated 11/18/2013 HISTORY: Fall [address] DLP: 1335.3 mGycm Automated exposure control for dose reduction was used. TECHNIQUE: CT scan of the head and cervical spine are performed without contrast. FINDINGS: BRAIN: Structures are midline. There is no evidence of hydrocephalus. No acute focal lesion, mass effect or midline shift is seen. I do not see evidence of intracranial blood. There is mild mucoperiosteal thickening involving the maxillary sinuses bilaterally. The mastoids are clear. The bony calvarium is intact. IMPRESSION: 1. NO ACUTE INTRACRANIAL ABNORMALITY. 2. MILD, CHRONIC MAXILLARY SINUSITIS. CERVICAL SPINE: Visualized portions of the lungs are clear. Prevertebral soft tissues are unremarkable. There is a mild reversal of the normal cervical lordosis which is replaced by mild kyphosis. Alignmen t is maintained. Atlantoaxial relationships are normal. There is mild, diffuse degenerative disc disease with relative sparing of C2-3. The facet and uncover tebral joints are unremarkable. No protrusion is seen. No fracture is identified. IMPRESSION: 1. NO ACUTE OSSEOUS LESION. 2. MILD DEGENERATIVE CHANGE.
--- NOTE | 2020-01-30 13:29 | XR ---
EXAMINATION TYPE: XR lumbosacral spine min 4V , 5 VIEWS DATE OF EXAM ORDERED: 01/30/2020 HISTORY: pain, fall. COMPARISON: Previous study dated 05/02/2016. FINDINGS: The gallbladder is been removed. There is a mild retrograde listhesis of L3 on L4. Alignment is otherwise maintained. No fractures are seen. There is degenerative disc disease most marked at L3-4, L4-5 and L5-S1. There is no spondyloly sis. There is mild, diffuse disc degenerative change in the facets. The pedicles are intact. IMPRESSION: 1. NO ACUTE OSSEOUS LESION. 2. MILD DEGENERATIVE CHANGE.
[2020-01-30] MEDS ORDERED: HYDROcodone/APAP 5-325MG 1 EACH TAB PO STA (13:30)
[2020-01-30] MEDS ORDERED: PROCHLORPERAZINE 5 MG TAB PO STA (13:30)
--- NOTE | 2020-01-30 13:30 | XR ---
EXAMINATION TYPE: XR Hip RT and AP Pelvis , 3 VIEWS DATE OF EXAM ORDERED: 01/30/2020 HISTORY: pain, fall. COMPARISON: None. FINDINGS: There are degenerative changes in the lower lumbar spine. Osseous structures about the pelvis are unremarkable. No fractures identified. The right hip is unrem arkable. There are mild degenerative changes but no fracture is seen. IMPRESSION: 1. NO ACUTE OSSEOUS LESION. 2. MILD DEGENERATIVE CHANGES IN THE RIGHT HIP. 3. MORE MODERATE DEGENERATIVE CHANGE IN THE LUMBAR SPINE.
[2020-01-30] MEDS ORDERED: ACET/COD 300 MG/30 MG STARTER PACK 6 TAB BTL PO STA (14:22)
[2020-01-30 14:39] VITALS: BP 148/99; PULSE 74; RESP 16; TEMP 98.2
== END 2020-01-30 14:38 | disposition home or self-care (01) ==
LOC: EC 12:19
DX: S06.0X0A Concussion without loss of consciousness, initial encounter (principal); S70.01XA Contusion of right hip, initial encounter; S30.0XXA Contusion of lower back and pelvis, initial encounter; F17.210 Nicotine dependence, cigarettes, uncomplicated; F41.0 Panic disorder [episodic paroxysmal anxiety]; F32.9 Major depressive disorder, single episode, unspecified; G62.9 Polyneuropathy, unspecified; J32.0 Chronic maxillary sinusitis; K21.9 Gastro-esophageal reflux disease without esophagitis; M16.11 Unilateral primary osteoarthritis, right hip; Z79.899 Other long term (current) drug therapy; Z88.8 Allergy status to other drugs, medicaments and biological substances; Z92.21 Personal history of antineoplastic chemotherapy; Z85.05 Personal history of malignant neoplasm of liver; Z85.038 Personal history of other malignant neoplasm of large intestine; Z90.49 Acquired absence of other specified parts of digestive tract; Z98.890 Other specified postprocedural states; W18.39XA Other fall on same level, initial encounter; Y92.89 Other specified places as the place of occurrence of the external cause
CPT/HCPCS: 72110; 73502; 72125; 70450; 99284; S0183

== ENCOUNTER → 2020-02-25 | Outpatient (CLI) | payer MEDICARE, OTHER ==
--- NOTE | 2020-02-25 14:42 | US ---
EXAMINATION TYPE: US venous doppler duplex LE DATE OF EXAM: 02/25/2020 2:23 PM COMPARISON: NONE CLINICAL HISTORY: R22.42,R22.41 SWELLING OF BALDO LOWER LIMBS. SIDE PERFORMED: TECHNIQUE: The lower extremity deep venous system is examined utilizing real time linear array sonog joel with graded compression, doppler sonography and color-flow sonography. VESSELS IMAGED: External Iliac Vein (EIV) Common Femoral Vein Deep Femoral Vein Greater Saphenous Vein * Femoral Vein Popliteal Vein Small Saphenous Vein * Proximal Calf Veins (* superficial vessels) Patient of large body habitus. Right Leg: Negative for DVT Left Leg: Negative for DVT IMPRESSION: No evidence of DVT at this time.
== END | disposition home or self-care (01) ==
LOC: RADUSWWP 13:43
PROVIDERS: ATTEND Internal Medicine Hematology & Oncology
DX: R22.41 Localized swelling, mass and lump, right lower limb (principal); R22.42 Localized swelling, mass and lump, left lower limb
CPT/HCPCS: 93970

== ENCOUNTER → 2020-04-05 | Outpatient (CLI) | payer MEDICARE, OTHER ==
[2020-04-05 11:16] LABS: African American GFR (CKD) >90 (>60 ml/min/1.73 sqM); Blood Urea Nitrogen 13 mg/dL (7-17); Non-African American GFR(CKD) >90 (>60 ml/min/1.73 sqM)
--- NOTE | 2020-04-07 18:08 | CT ---
EXAMINATION TYPE: CT ChestAbdPelvis w con DATE OF EXAM: 04/05/2020 COMPARISON: CT chest abdomen pelvis 08/13/2019 HISTORY: Colon cancer CT DLP: 1416.7 mGycm Automated exposure control for dose reduction was used. CONTRAST: CT scan of the chest, abdomen and pelvis is performed with Oral Contrast and with IV Contrast, patien t injected with 100 mL of Isovue 300. FINDINGS: LUNGS: There is respiratory motion artifact. There are scattered pulmonary nodules bilaterally. Some of the pulmonary nodules are spiculated and demonstrate interval increase in size versus 08/13/2019 c omparison. The multilobulated spiculated nodule within the right upper lobe measures 1.3 x 1.7 cm (4: 21), previously measuring 0.7 x 0.9 cm on 08/13/2019. A nodule within the right upper lobe has likely increased in size, although somewhat obscured by motion artifact, and measures up to 0.4 cm (4:27), previously measuring up to 0.2 cm. A lobulated spiculated nodule of the right lower lobe measures 2.2 x 1.5 cm (4:32) and previously measured 1.5 x 0.8 cm. A spiculated nodule within the right lower lob e inferiorly measures 1.6 x 0.9 cm (4:37), previously 5 mm. A nodule within the left upper lobe measu res 0.9 x 0.7 cm (4:18), previously 0.5 x 0.4 cm. Bibasilar atelectasis. There is no pleural effusion or pneumothorax seen. The tracheobronchial tree is patent. SOFT TISSUE/ MEDIASTINUM: There is no axillary, hilar, or mediastinal lymphadenopathy. Cardiac size n ormal. No pericardial effusion. Calcified coronary artery disease. Thoracic aortic size normal. LIVER: Fatty liver. Status post left hepatectomy and likely wedge resection postsurgical changes of t he right inferior liver. No focal lesion. BILIARY SYSTEM: Status post cholecystectomy. No intrahepatic or extrahepatic biliary ductal dilatatio n. PANCREAS: There is increased main pancreatic ductal dilatation of 7 mm of the pancreatic tail with ab rupt transition point (3:57), with tail ductal dilatation measuring up to 5 mm on 03/27/2019 comparison . There is also increased parenchymal atrophy of the pancreatic tail versus 03/27/2019. These findings are significantly increased versus 10/17/2017 CT comparison. SPLEEN: Normal. ADRENALS: Normal. KIDNEYS: Too small to characterize hypodense lesions of the left kidney redemonstrated. No hydronephr osis. BOWEL: Small hiatal hernia. Right lower quadrant hemicolectomy with ileocolic anastomosis. There is no evidence of bowel obstruction or thickening. PERITONEUM: No pneumoperitoneum. No free fluid. There is soft tissue density in the region of the pacheco perior mesenteric vessels anterior and inferior to the pancreatic uncinate process measuring 3.3 x 1. 1 cm (3:66), which is similar to 03/27/2019 and 10/17/2017 comparisons, and mildly increased from 12/06/19 19. LYMPH NODES: No lymphadenopathy. PELVIS: Normal urinary bladder. There is lobulated contour of uterus, likely uterine fibroid. Normal ovaries. VASCULATURE: No abdominal aortic aneurysm. MUSCULOSKELETAL: No aggressive osseous destructive lesions. Degenerative changes of the spine. Grade 1 retrolisthesis of L3 on L4 and of L4 on L5. Likely a hemangioma of T12 (7:73). IMPRESSION: 1. Increased size of many spiculated pulmonary nodules bilaterally. Findings most likely represent m etastatic disease. 2. Significantly increased 7 mm main pancreatic ductal dilatation of the pancreatic tail, with abrup t transition point and increased parenchymal atrophy. No discrete pancreatic mass is seen, however re sri the primary differential consideration. Recommend pancreas MRI with MRCP and correlation with C A19-9. 3. Increased soft tissue density surrounding the superior mesenteric artery and its and veins measur ing up to 3.3 x 1.1 cm, most likely representing metastatic disease.
== END | disposition home or self-care (01) ==
LOC: RADPROMAIN 10:35
PROVIDERS: ATTEND Internal Medicine Hematology & Oncology
DX: R91.8 Other nonspecific abnormal finding of lung field (principal); K86.89 Other specified diseases of pancreas; M79.89 Other specified soft tissue disorders; C18.9 Malignant neoplasm of colon, unspecified
CPT/HCPCS: 82565; 84520; 71260; 74177; Q9967

== ENCOUNTER → 2020-04-21 | Outpatient (CLI) | payer MEDICARE, OTHER | END | disposition home or self-care (01) | LOC: LABWHC1 14:39 | DX: H33.009 Unspecified retinal detachment with retinal break, unspecified eye (principal) ==

== ENCOUNTER → 2020-07-28 | Outpatient (CLI) | payer MEDICARE, OTHER | END | disposition home or self-care (01) | LOC: LABWHC1 09:49 | PROVIDERS: ATTEND Internal Medicine Critical Care Medicine | DX: M79.10 Myalgia, unspecified site (principal); R50.81 Fever presenting with conditions classified elsewhere; R05 Cough | CPT/HCPCS: U0003; C9803 ==

== ENCOUNTER → 2020-11-08 | Outpatient (CLI) | payer MEDICARE, OTHER ==
[2020-11-08 14:28] LABS: African American GFR (CKD) >90 (>60 ml/min/1.73 sqM); Blood Urea Nitrogen 12 mg/dL (7-17); Non-African American GFR(CKD) >90 (>60 ml/min/1.73 sqM)
--- NOTE | 2020-11-08 16:13 | CT ---
EXAMINATION TYPE: CT ChestAbdPelvis w con DATE OF EXAM: 11/08/2020 COMPARISON: Prior CT April 05, 2020 and older studies. HISTORY: Observation for mets, Lung and colon CA CT DLP: 1721 mGycm. Automated Exposure Control for Dose Reduction was Utilized. CONTRAST: CT scan of the thorax, abdomen and pelvis is performed with oral and with IV Contrast, patient inject ed with 100 mL of Isovue 300. FINDINGS: LUNGS: Scattered small bilateral nodules are redemonstrated. For reference there is 1.2 x 0.6 8 cm le ft upper lobe nodule axial image 17 without significant change from most recent CT. Fairly stable 1.3 x 1.0 cm right upper lobe nodule from most recent CTr. There is however enlarging lateral right mid lung 11 x 8 mm nodule axial image [address] axial image 27. Stable posterior right spicu lated nodule-like/[address] and smaller subpleural nodules axial image 34 from most re cent CT. [id number]-tl-[id number] bibasilar linear scarring and/or atelectasis. Focal elongated scarring or n odule posterior right mid lung/25 more prominent from prior. MEDIASTINUM: There are no greater than 1 cm hilar or mediastinal lymph nodes. No cardiomegaly or pe ricardial effusion is seen. Other: Stable right-sided Mediport catheter . LIVER/GB: Cholecystectomy clips are redemonstrated. Postsurgical change left hepatic lobe is again se en. Liver remains diffusely low dense suggesting fatty infiltration. New suspicious 2.0 cm hypodense lesion posterior right hepatic lobe\49 PANCREAS: 4 prominent abnormality to the distal pancreatic body and tail with distal atrophy and cyst ic change measuring 2.6 x 2.2 cm. Possible obstructing cystic neoplasm or ductal lesion with tortuosi ty. SPLEEN: No significant abnormality is seen. ADRENALS: No significant abnormality is seen. KIDNEYS: No significant abnormality is seen. BOWEL: Stable small to moderate size hiatal hernia. Oral contrast reaches level of splenic flexure. N o suspicious small or large bowel dilatation. Surgical changes from right-sided partial colectomy red emonstrated. Mild wall thickening in the sigmoid colon and rectum again seen. GENITAL ORGANS: Slightly retroflexed uterus on current study. LYMPH NODES: Worsening soft tissue lesion possible adenopathy in the pancreaticoduodenal groove with soft tissue encasement of distal SMA branch axial image 64 noted . Area of involvement measures rough ly 2.7 x 2.5 cm. OSSEOUS STRUCTURES: Slight grade 1 retrolisthesis L3 on L4 and L4 on L5. OTHER: Mildly calcified plaque of the aorta extends into branch vessels. IMPRESSION: Interval continued neoplastic progression. More prominent lesion in the distal pancreas i s noted. New suspicious liver lesion on background diffuse fatty infiltration. Scattered pulmonary le sions stable but 2 lesions both increased in size. Suspicious enlarging right-sided mid abdominal sof t tissue lesion possible adenopathy.
== END | disposition home or self-care (01) ==
LOC: RADPROMAIN 13:44
PROVIDERS: ATTEND Internal Medicine Hematology & Oncology
DX: C18.9 Malignant neoplasm of colon, unspecified (principal); C78.00 Secondary malignant neoplasm of unspecified lung; K86.89 Other specified diseases of pancreas
CPT/HCPCS: 82565; 84520; 71260; 74177; 36415; Q9967

== ENCOUNTER → 2021-02-16 | Outpatient (CLI) | payer MEDICARE, OTHER ==
[2021-02-16 15:14] LABS: African American GFR (CKD) >90 (>60 ml/min/1.73 sqM); Blood Urea Nitrogen 8 mg/dL (7-17); Non-African American GFR(CKD) >90 (>60 ml/min/1.73 sqM)
--- NOTE | 2021-02-16 17:36 | CT ---
EXAMINATION TYPE: CT ChestAbdPelvis w con DATE OF EXAM: 02/16/2021 COMPARISON: 11/08/2020, 04/05/2020 HISTORY: 60-year-old female C15.9, Follow up for colon cancer, observe for mets. TECHNIQUE: Contiguous axial scanning of the chest, abdomen, and pelvis performed with IV Contrast, pa tient injected with 100ml mL of Isovue 300. Delayed images through the kidneys were obtained. Coronal /sagittal reconstructions performed. CT DLP: 1095.4 mGycm Automated exposure control for dose reduction was used. FINDINGS: CHEST: Heart normal size without pericardial effusion. Mild LAD coronary artery calcifications. Aorta normal caliber with conventional arch vessels branching anatomy. Right anterior chest wall injection port with catheter tip at the lower SVC. No thoracic lymphadenopathy by CT size criteria. Right infrahilar pulmonary nodule measures 1.3 cm versus 1.6 cm, previously. Bilobed posterior right lower lobe pulmonary nodule measures 1.3 cm versus 1.7 cm, previously. Lateral right midlung pulmonary nodule measures 8 mm versus 1.1 cm, previously. Lateral right upper lobe pulmonary nodule measures 1.5 cm versus 1.7 cm, previously. Additional scattered pulmonary nodules similarly showed decrease in size. Scattered atelectasis and scarring in the bilateral lungs. No consolidation or pleural effusion. ABDOMEN: Previous left hepatectomy. Hypodense lesion posterior right liver lobe measures 1.8 cm versus 2.0 cm, previously. Diffuse low attenuation compatible with hepatic steatosis. Portal venous system is paten t. No biliary ductal dilatation. Gallbladder surgically absent. Adrenal glands, right kidney, and spleen within normal limits. Punctate 2 mm nonobstructive left telly l calculus. Possible tiny 8 mm splenic artery aneurysm at the hilum is unchanged. Complex cystic mass of the pancreatic tail measures up to 4.2 x 2.8 cm versus 4.6 x 3.2 cm, previousl y. Soft tissue encasing the SMA, abutting and possibly involving the inferior pancreatic head and second and third portions of the duodenum measure 4.6 x 3.8 cm versus 5.1 x 3.8 cm, previously. No dilated small bowel, free fluid, or free air. Postsurgical change of partial right hemicolectomy with right upper quadrant ileocolonic anastomosis. Oral contrast progressed to the proximal sigmoid colon. No mesenteric or retroperitoneal lymphadenopathy otherwise seen. PELVIS: Bladder under distended. Uterus anteverted. Both ovaries are visualized. No abnormal fluid collection in the pelvis or pelvic lymphadenopathy. BONES: Mild degenerative change at the hips. Facet arthropathy mid to lower lumbar spine. Degenerative grade 1 retrolisthesis L3-L4 and L4-L5. Subtle sclerosis of the T11 vertebral body is new from prior. Refer to sagittal image 77. IMPRESSION: 1. PARTIAL TREATMENT RESPONSE FOLLOWS: 2. ALL OF THE PULMONARY NODULES ARE DECREASING IN SIZE, FOR EXAMPLE, ONE OF THE PREVIOUS 1.7 CM NODUL ES NOW MEASURES 1.3 CM. 3. PREVIOUS LEFT HEPATECTOMY. THE POSTERIOR RIGHT LIVER LOBE LESION IS SLIGHTLY SMALLER AT 1.8 CM FRANCIA GÉNESIS 2.0 CM, PREVIOUSLY. 4. COMPLEX CYSTIC MASS OF THE PANCREATIC TAIL SLIGHTLY SMALLER AT 4.2 X 2.8 CM (VERSUS 4.6 X 3.2 CM, PREVIOUSLY). 5. SOFT TISSUE ENCASING THE SMA ABUTTING AND POSSIBLY INVOLVING THE INFERIOR PANCREATIC HEAD AND DUOD ENUM MEASURES 4.6 X 3.8 CM (VERSUS 5.1 X 3.8 CM, PREVIOUSLY). 6. NEW SCLEROSIS OF THE T11 VERTEBRAL BODY. GIVEN PARTIAL RESPONSE ELSEWHERE, CONSIDER HEALING SCLERO SIS OF A PREVIOUSLY OCCULT OSSEOUS METASTASIS.
== END | disposition home or self-care (01) ==
LOC: RADPROMAIN 13:55
PROVIDERS: ATTEND Internal Medicine Hematology & Oncology
DX: C18.9 Malignant neoplasm of colon, unspecified (principal); R91.8 Other nonspecific abnormal finding of lung field; K76.9 Liver disease, unspecified; K86.2 Cyst of pancreas
CPT/HCPCS: 82565; 84520; 71260; 74177; 36415; Q9967

== ENCOUNTER 2021-03-01 15:53 | Inpatient (IN) | payer MEDICARE, OTHER ==
[2021-03-01] MEDS ORDERED: cefTRIAXone IN SWFI 1,000 MG/10 ML SYRINGE IVP STA (16:15)
[2021-03-01] MEDS ORDERED: SODIUM CHLORIDE 0.9% 2,000 ML IV STA (16:15)
[2021-03-01] MEDS ORDERED: ONDANSETRON 4 MG/2 ML VIAL IVP STA (16:16)
[2021-03-01] MEDS ORDERED: PANTOPRAZOLE 40 MG/10 ML VIAL IVP STA (16:16)
--- NOTE | 2021-03-01 16:23 | ED ---
Recheck HPI - General Chief Complaint: Recheck/Abnormal Lab/Rx Stated Complaint: Infection, abnormal labs Time Seen by Provider: 03/01/21 16:04 Source: patient Limitations: no limitations - History of Present Illness Initial Comments: 60-year-old female with history of metastatic colon cancer presents to emergency with a chief complaint of abdominal pain and diarrhea. Patient reports over the past 5 days she's been experiencing foul smelling diarrhea without any hematochezia. States she also had a fever 101F which she took Tylenol for. Denies any fever since but does report some chills. Also reports losing weight over the last 4 days due to decreased appetite nausea vomiting and diarrhea. States she is currently on chemotherapy with lonsurf but has not been able to take it over the last 10 days due to her symptoms. States she spoke to ALLISON Humphries who works with who advised her to come to the emergency department for further evaluation and admission. Patient also recording right lower quadrant pain that started approximately around the same time she developed the diarrhea. Denies any known exposure to C. diff. Denies recent hospital stay. Denies any cough chest pain or shortness of breath. Denies hematuria, hematochezia or melena. Denies dysuria, increased urgency or frequency. Denies any vaginal symptoms. Does report surgical history of partial colectomy. - Related Data Home Medications Medication Instructions Recorded Confirmed Omeprazole [PriLOSEC] 20 mg PO BID 01/01/17 03/01/21 ALPRAZolam [Xanax] 1 mg PO TID 03/01/21 03/01/21 Albuterol Nebulized [Ventolin 2.5 mg INHALATION RT-Q4H PRN 03/01/21 03/01/21 Nebulized] Budesonide/Formoterol Fumarate 2 puff INHALATION RT-BID 03/01/21 03/01/21 [Symbicort 160-4.5 Mcg Inhaler] Cholestyramine (with Sugar) 4 gm PO BID 03/01/21 03/01/21 [Cholestyramine Packet] Cyclobenzaprine [Flexeril] 5 mg PO TID PRN 03/01/21 03/01/21 Diphenox-Atrop 2.5-0.025 mg 2 tab PO QID PRN 03/01/21 03/01/21 [Lomotil] HYDROcodone/APAP 5-325MG [[place] 1 tab PO Q4HR PRN 03/01/21 03/01/21 5-325] Metoprolol Tartrate [Lopressor] 25 mg PO BID 03/01/21 03/01/21 Montelukast [Singulair] 10 mg PO HS 03/01/21 03/01/21 Ondansetron Odt [Zofran Odt] 4 mg PO Q6H PRN 03/01/21 03/01/21 Prochlorperazine [Compazine] 10 mg PO Q6H PRN 03/01/21 03/01/21 Trifluridine/Tipiracil HCl 3 tab PO DIRECTED 03/01/21 03/01/21 [Lonsurf 15 mg-6.14 mg Tablet] Trifluridine/Tipiracil HCl 3 tab PO DIRECTED 03/01/21 03/01/21 [Lonsurf 20 mg-8.19 mg Tablet] Venlafaxine HCl [Effexor XR] 75 mg PO DAILY 03/01/21 03/01/21 dronabinoL [Marinol] 5 mg PO HS 03/01/21 03/01/21 hydrOXYzine HCL [Atarax] 25 mg PO TID 03/01/21 03/01/21 Allergies Allergy/AdvReac Type Severity Reaction Status Date / Time acyclovir AdvReac Severe Confusion Verified 03/01/21 17:48 Review of Systems ROS Statement: Those systems with pertinent positive or pertinent negative responses have been documented in the HPI. ROS Other: All systems not noted in ROS Statement are negative. 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 2014 port a cath placed rt chest ;"20% of liver removed d/t ca", colonoscopies [id number]. Past Anesthesia/Blood Transfusion Reactions: No Reported Reaction Past Psychological History: Anxiety, Depression, Panic Disorder Past Alcohol Use History: Rare Past Drug Use History: None Reported - Past Family History Father Family Medical History: Diabetes Mellitus, Myocardial Infarction (CO) Additional Family Medical History / Comment(s): at age 62-mulitple mi's Mother Family Medical History: Cancer Additional Family Medical History / Comment(s): BREAST. from sepsis General Exam Limitations: no limitations General appearance: alert, in no apparent distress Head exam: Present: atraumatic, normocephalic, normal inspection Eye exam: Present: normal appearance, PERRL, EOMI, other (Pale conjunctiva) Pupils: Present: normal accommodation ENT exam: Present: normal exam, normal oropharynx, mucous membranes moist Neck exam: Present: normal inspection, full ROM. Absent: tenderness, lymphadenopathy Respiratory exam: Present: normal lung sounds bilaterally. Absent: respiratory distress, wheezes, rales, rhonchi, stridor, chest wall tenderness, accessory muscle use Cardiovascular Exam: Present: regular rate, normal rhythm, normal heart sounds. Absent: systolic murmur GI/Abdominal exam: Present: soft, tenderness (Positive McBurney point tenderness), normal bowel sounds. Absent: distended, guarding, rebound, rigid Extremities exam: Present: normal inspection, full ROM, normal capillary refill. Absent: tenderness, pedal edema, joint swelling Back exam: Present: normal inspection, full ROM. Absent: tenderness, CVA tenderness (R), CVA tenderness (L), muscle spasm, paraspinal tenderness, vertebral tenderness Neurological exam: Present: alert, oriented X3, CN II-XII intact, normal gait Psychiatric exam: Present: normal affect, normal mood Skin exam: Present: warm, dry, intact, normal color Course Vital Signs 03/01/21 03/01/21 15:54 17:05 Temperature 98.2 F Pulse Rate 114 H 89 Respiratory 16 16 Rate Blood Pressure 121/83 118/84 O2 Sat by Pulse 96 98 Oximetry Medical Decision Making - Medical Decision Making 60-year-old female with history of metastatic colon cancer presents to emergency with a chief complaint of abdominal pain and diarrhea. On physical examination, patient is well-appearing but she does have right lower quadrant tenderness. Patient was given antiemetics and fluids, 2 L. She was also started on broad-spectrum antibiotics and conservative possible sepsis. Laboratory work obtained shows anemia with a hemoglobin of 8.1. Leukocytosis 1.5.potassium was 2.8, likely secondary to the diarrhea. Patient was given oral and IV potassium. Nexium is within normal limits. Lactic acid within normal limits. Blood cultures are pending. Still waiting on a urine and stool sample for C. diff. CT of abdomen and pelvis shows focal dilation of the duodenum. However, clinically this does not correlate as her tenderness is over the right lower quadrant. No tenderness in the upper abdominal region. Patient was also given antiemetics. EKG showing no acute ischemic changes. I spoke with who recommended filgastrim and Zosyn. Nothing by mouth. Repeat laboratory work. Patient will be admitted for further medical management. Case discussed with Dr. Byrd. I spoke with Sammie Estrada NP who will admit for Dr. Almaguer. - Lab Data Result diagrams: 03/01/21 17:04 03/01/21 17:04 Lab Results 03/01/21 03/01/21 03/01/21 Range/Units 16:36 16:43 17:04 WBC 1.5 L (3.8-10.6) k/uL RBC 2.35 L (3.80-5.40) m/uL Hgb 8.1 L (11.4-16.0) gm/dL Hct 21.9 L (34.0-46.0) % MCV 93.2 (80.0-100.0) fL MCH 34.7 (25.0-35.0) pg MCHC 37.2 H (31.0-37.0) g/dL RDW 19.3 H (11.5-15.5) % Plt Count 72 L (150-450) k/uL MPV 8.9 Neutrophils % 46 % Lymphocytes % 45 % Monocytes % 3 % Eosinophils % 1 % Basophils % 1 % Neutrophils # 0.7 L (1.3-7.7) k/uL Lymphocytes # 0.7 L (1.0-4.8) k/uL Monocytes # 0.1 (0-1.0) k/uL Eosinophils # 0.0 (0-0.7) k/uL Basophils # 0.0 (0-0.2) k/uL Manual Slide Review Performed Anisocytosis Slight Macrocytosis Slight Sodium (137-145) mmol/L Potassium (3.5-5.1) mmol/L Chloride (98-107) mmol/L Carbon Dioxide (22-30) mmol/L Anion Gap mmol/L BUN (7-17) mg/dL Creatinine (0.52-1.04) mg/dL Est GFR (CKD-EPI)AfAm (>60 ml/min/1.73 sqM) Est GFR (CKD-EPI)NonAf (>60 ml/min/1.73 sqM) Glucose (74-99) mg/dL Plasma Lactic Acid Florentino 1.3 (0.7-2.0) mmol/L Calcium (8.4-10.2) mg/dL Magnesium (1.6-2.3) mg/dL Total Bilirubin (0.2-1.3) mg/dL AST (14-36) U/L ALT (4-34) U/L Alkaline Phosphatase (38-126) U/L Total Protein (6.3-8.2) g/dL Albumin (3.5-5.0) g/dL Blood Type A Negative Blood Type Recheck A Neg Bld Type Recheck Status No Antibody Screen NEGATIVE Spec Expiration Date 03/04/2021 - 234203/01/21 03/01/21 Range/Units 17:04 17:44 WBC (3.8-10.6) k/uL RBC (3.80-5.40) m/uL Hgb (11.4-16.0) gm/dL Hct (34.0-46.0) % MCV (80.0-100.0) fL MCH (25.0-35.0) pg MCHC (31.0-37.0) g/dL RDW (11.5-15.5) % Plt Count (150-450) k/uL MPV Neutrophils % % Lymphocytes % % Monocytes % % Eosinophils % % Basophils % % Neutrophils # (1.3-7.7) k/uL Lymphocytes # (1.0-4.8) k/uL Monocytes # (0-1.0) k/uL Eosinophils # (0-0.7) k/uL Basophils # (0-0.2) k/uL Manual Slide Review Anisocytosis Macrocytosis Sodium 136 L (137-145) mmol/L Potassium 2.8 L (3.5-5.1) mmol/L Chloride 101 (98-107) mmol/L Carbon Dioxide 23 (22-30) mmol/L Anion Gap 12 mmol/L BUN 13 (7-17) mg/dL Creatinine 0.69 (0.52-1.04) mg/dL Est GFR (CKD-EPI)AfAm >90 (>60 ml/min/1.73 sqM) Est GFR (CKD-EPI)NonAf >90 (>60 ml/min/1.73 sqM) Glucose 106 H (74-99) mg/dL Plasma Lactic Acid Florentino (0.7-2.0) mmol/L Calcium 9.2 (8.4-10.2) mg/dL Magnesium 1.8 (1.6-2.3) mg/dL Total Bilirubin 1.0 (0.2-1.3) mg/dL AST 46 H (14-36) U/L ALT 49 H (4-34) U/L Alkaline Phosphatase 257 H (38-126) U/L Total Protein 7.3 (6.3-8.2) g/dL Albumin 4.4 (3.5-5.0) g/dL Blood Type Blood Type Recheck Bld Type Recheck Status Antibody Screen Spec Expiration Date - EKG Data EKG Comments: sinus rhythm without acute ischemic changes Ventricular rate 95, IL 156, QRS 96, QTC 457. Disposition Clinical Impression: Hypokalemia, Abdominal pain, Diarrhea Disposition: ADMITTED IP TO THIS HOSP Condition: Fair Is patient prescribed a controlled substance at d/c from ED?: No Referrals: Howard Hernandez MD [Primary Care Provider] - 1-2 days Time of Disposition: 20:25
[2021-03-01] MEDS ORDERED: diphenhydrAMINE 50 MG/ML 1 ML VIAL IVP STA (17:11)
[2021-03-01 17:12] LABS: Anisocytosis Slight; Basophils % (A) 1 %; Eosinophils % (A) 1 %; HCT 21.9 % (34.0-46.0); HGB 8.1 gm/dL (11.4-16.0); Lymphocytes # (A) 0.7 k/uL (1.0-4.8); Lymphocytes % (A) 45 %; MCH 34.7 pg (25.0-35.0); MCHC 37.2 g/dL (31.0-37.0); MCV 93.2 fL (80.0-100.0); Macrocytosis Slight; Mean Platelet Volume 8.9; Monocytes # (A) 0.1 k/uL (0-1.0); Monocytes % (A) 3 %; Neutrophils # (A) 0.7 k/uL (1.3-7.7); Neutrophils % (A) 46 %; RBC 2.35 m/uL (3.80-5.40); RDW 19.3 % (11.5-15.5); WBC 1.5 k/uL (3.8-10.6)
[2021-03-01 17:23] LABS: ALT 49 U/L (4-34); AST 46 U/L (14-36); African American GFR (CKD) >90 (>60 ml/min/1.73 sqM); Albumin 4.4 g/dL (3.5-5.0); Alkaline Phosphatase 257 U/L (38-126); Anion Gap 12 mmol/L; Blood Urea Nitrogen 13 mg/dL (7-17); Calcium 9.2 mg/dL (8.4-10.2); Carbon Dioxide 23 mmol/L (22-30); Chloride 101 mmol/L (98-107); Glucose 106 mg/dL (74-99); Non-African American GFR(CKD) >90 (>60 ml/min/1.73 sqM); Potassium 2.8 mmol/L (3.5-5.1); Sodium 136 mmol/L (137-145); Total Protein 7.3 g/dL (6.3-8.2)
[2021-03-01 17:43] LABS: Platelet Count 72 k/uL (150-450)
[2021-03-01] MEDS ORDERED: POTASSIUM CHLORIDE ER 20 MEQ TAB.ER PO STA (17:43)
[2021-03-01] MEDS ORDERED: POTASSIUM CHLORIDE 20 MEQ in WATER FOR INJECTION 1 100ML.BAG IVPB STA (17:44)
--- NOTE | 2021-03-01 19:13 | CT ---
EXAMINATION TYPE: CT abdomen pelvis w con DATE OF EXAM: 03/01/2021 HISTORY: RLQ pain with N/V/D. history of metastatic colon cancer. CT DLP: 983.5mGycm Automated Exposure Control for Dose Reduction was Utilized. CONTRAST: CT scan of the abdomen and pelvis is performed with IV Contrast, patient injected with 100 mL of Isov ue 300. COMPARISON: 02/16/2021 FINDINGS: LUNG BASES: Included lung bases demonstrate 2 nodules in the right lower lobe which are stable in siz e likely on the basis of metastasis. INCLUDED CARDIAC STRUCTURES: Unremarkable LIVER: Left hepatic resection and surgical shawn in the subhepatic region again seen. Hypoattenuati ng masses in the right hepatic lobe measuring up to 1.9 cm in CC dimension stable could represent met astasis. No abnormal intrahepatic biliary ductal dilatation. Changes related to hepatic steatosis aga in noted. GALLBLADDER : Not visualized BILIARY TREE: Stable prominence of the proximal extrahepatic common bile duct. PANCREAS: Complex cystic mass associated with the tail of the pancreas is again demonstrated and bruce ures 4.2 x 2.8 cm and is not significantly changed. SPLEEN: Unremarkable appearing spleen. Calcification in the splenic hilum is again noted, may represe nt a calcified lymph node or a calcified vessel. ADRENALS: Unremarkable. KIDNEYS AND URETERS: 2 mm calculus again seen in the left kidney (201/34). No hydronephrosis or hydro ureter. URINARY BLADDER: No significant abnormality is appreciated. ESOPHAGUS: Gastroesophageal hiatal hernia again seen. STOMACH: No acute abnormality. SMALL BOWEL: Normal in caliber. Focal dilatation second segment of the duodenum noted, few foci of ai r in the anterior aspect of the duodenum (series 201 image 36 to be within the lumen. LARGE BOWEL: Ileal colic anastomosis again seen in the lower abdomen with focally dilated loop likely related to denervation similar to prior study. Focally narrowed distal descending colon series 201 i mage 46 and serious 202 image 64 associated with round enhancing soft tissue mass is more apparent on this examination. There is thickening of the bowel wall at the anastomosis. No evidence of complete bowel obstruction. APPENDIX: Identified. HERNIAS: No evidence of hernia. UTERUS/ADNEXA: Unremarkable retroverted uterus. Small right adnexal/ovarian cyst or cysts. PERITONEUM/MESENTRY: No pneumoperitoneum or ascites. LYMPH NODES: Soft tissue mass encasing the proximal aspect of the superior mesenteric artery series 2 01 image 37 is again seen is an approximate similar measurement to prior study of 4.6 x 3.8 cm. Soft tissue mass is in close proximity to the pancreatic head and duodenum and involvement of those struct ures cannot be excluded. No retroperitoneal or pelvic lymphadenopathy. MAJOR VASCULAR STRUCTURES: Atherosclerotic nonaneurysmal aorta, normal inferior vena cava. OSSEOUS STRUCTURES: Sclerotic changes of T11 vertebral body again demonstrated. No compression fractu re deformity seen. No acute fracture. Mild to moderate degenerative changes are again demonstrated in the spine. IMPRESSION: Findings different from most recent prior CT report: 1. Focal dilatation of the second segment of the duodenum with few foci of air in the anterior aspect of the duodenum felt to be within the lumen, no parul pneumoperitoneum, tiny perforation of the ante rior duodenal wall second segment cannot be entirely excluded, correlation with physical examination and history recommended. 2. Soft tissue mass with focal stenosis in the descending colon concerning for malignancy (more consp icuous on this exam). Findings without significant change from most recent prior CT report: 3. Right lower lobe pulmonary nodules stable in size likely representing metastasis. 4. Left hepatic resection, cholecystectomy and hepatic steatosis no significant change. 5. Nonobstructing 2 mm left renal calculus. 6. Gastroesophageal hiatal hernia. 7. Right hepatic lobe hypoattenuating masses similar to prior study, could represent metastasis. 8. Soft tissue mass encasing the SMA abutting the duodenum and head of pancreas stable, likely relate d to malignancy. 9. Sclerotic changes T11 no significant change may represent metastasis. 10. Stable complex cystic mass associated with the tail of the pancreas. Pancreatic neoplasm suggeste d.
[2021-03-01] MEDS ORDERED: METOCLOPRAMIDE 5 MG/ML 2 ML VIAL IVP STA (19:38)
[2021-03-01] MEDS ORDERED: SODIUM CHLORIDE 0.9% 1,000 ML IV STA (20:10)
[2021-03-01] MEDS ORDERED: PIPERACILLIN-TAZOBACTAM 3.375 GM in SODIUM CHLORIDE 0.9% 100 ML IVPB STA (20:10)
[2021-03-01] MEDS ORDERED: MORPHINE SULFATE 4 MG/ML SYRINGE IV PRN (20:26)
[2021-03-01] MEDS ORDERED: NALOXONE 0.4 MG/ML 1 ML VIAL IV PRN (20:26)
[2021-03-01 20:27] LABS: Appearance,Urine Clear (Clear); Bilirubin,Urine Negative (Negative); Blood,Urine Negative (Negative); Color,Urine Light Yellow; Glucose,Urine (UA) Negative (Negative); Ketones,Urine Negative (Negative); Leukocyte Esterase,Urine Negative (Negative); Nitrite,Urine Negative (Negative); Protein,Urine Negative (Negative); Specific Gravity,Urine 1.045 (1.001-1.035); Urobilinogen,Urine <2.0 mg/dL (<2.0)
--- NOTE | 2021-03-01 21:10 | XR ---
EXAMINATION TYPE: XR chest 2V DATE OF EXAM: 03/01/2021 COMPARISON: 05/27/2019 INDICATION: Fever diarrhea TECHNIQUE: Frontal and lateral views of the chest are obtained. FINDINGS: The heart size is normal. The pulmonary vasculature is normal. There is some linear opacity at the right lung base. Some mild atelectasis or scarring may be present . Vertical linear opacities at the left posterior lung base may be some atelectasis or scarring.. A small hiatal hernia is present. Port is present on the right with the tip in the superior vena cava r egion. No pneumothorax is evident. IMPRESSION: 1. Bibasilar mild streak opacities may be atelectasis or scarring.
[2021-03-01] MEDS: HYDROmorphone 0.5 MG/0.5 ML SYRINGE IVP PRN (23:04)
[2021-03-02] MEDS: LORazepam 2 MG/ML INJ IV PRN ×2 (03:14→20:22)
[2021-03-02 06:20] LABS: Anisocytosis Slight; Basophils % (A) 0 %; Eosinophils % (A) 1 %; Lymphocytes # (A) 0.6 k/uL (1.0-4.8); Lymphocytes % (A) 54 %; MCH 34.4 pg (25.0-35.0); MCHC 36.1 g/dL (31.0-37.0); MCV 95.3 fL (80.0-100.0); Macrocytosis Slight; Mean Platelet Volume 9.4; Monocytes % (A) 3 %; Neutrophils # (A) 0.5 k/uL (1.3-7.7); Neutrophils % (A) 39 %; Platelet Count 60 k/uL (150-450); RBC 1.89 m/uL (3.80-5.40); RDW 19.8 % (11.5-15.5)
[2021-03-02 06:22] LABS: HGB 6.5 gm/dL (11.4-16.0); WBC 1.2 k/uL (3.8-10.6)
[2021-03-02 06:42] LABS: Partial Thromboplastin Time 22.2 sec (22.0-30.0); Prothrombin Time 10.8 sec (9.0-12.0)
[2021-03-02] MEDS ORDERED: CYCLOBENZAPRINE 5 MG TAB PO PRN (06:50)
[2021-03-02] MEDS ORDERED: PROCHLORPERAZINE 10 MG TAB PO PRN (06:50)
[2021-03-02] MEDS ORDERED: PANTOPRAZOLE 40 MG TABLET PO SCH (07:30)
[2021-03-02 07:42] LABS: Appearance,Urine Clear (Clear); Bacteria,Urine Rare /hpf; Bilirubin,Urine Negative (Negative); Blood,Urine Negative (Negative); Color,Urine Yellow; Glucose,Urine (UA) Negative (Negative); Ketones,Urine Trace (Negative); Leukocyte Esterase,Urine Trace (Negative); Mucus,Urine Rare /hpf; Nitrite,Urine Negative (Negative); PH, Urine 5.5 (5.0-8.0); Protein,Urine Trace (Negative); Squamous Epithelial Cell,Urine 2 /hpf (0-4); Urobilinogen,Urine <2.0 mg/dL (<2.0); WBC,Urine 2 /hpf (0-5)
[2021-03-02] MEDS: ALBUTEROL NEBULIZED 2.5 MG/3 ML INHALATION PRN ×4 (07:49→19:57)
[2021-03-02] MEDS: SYMBICORT 160-4.5 MCG INHALER INHALATION SCH ×2 (07:49→19:57)
[2021-03-02 07:50] LABS: Specific Gravity,Urine 1.049 (1.001-1.035)
[2021-03-02] MEDS: VENLAFAXINE HCL ER 75 MG CAP PO SCH (08:26)
[2021-03-02] MEDS: hydrOXYzine HCL 25 MG TAB PO SCH ×3 (08:26→20:26)
[2021-03-02] MEDS: METOPROLOL TARTRATE 25 MG TAB PO SCH ×2 (08:27→20:25)
[2021-03-02] MEDS: HYDROmorphone 0.5 MG/0.5 ML SYRINGE IVP PRN (08:29)
[2021-03-02] MEDS ORDERED: ALPRAZolam 1 MG TAB PO SCH (09:00)
[2021-03-02] MEDS ORDERED: PANTOPRAZOLE 40 MG/10 ML VIAL IV SCH (09:00)
[2021-03-02 10:48] LABS: African American GFR (CKD) 113.2 (60.0-200.0); Albumin 3.9 g/dL (3.80-4.90); Albumin/Globulin Ratio 1.86 (1.60-3.17); BUN/Creat Ratio 11.67 Ratio (12.00-20.00); Globulin 2.1 g/dL (1.6-3.3); Magnesium 1.4 mg/dL (1.5-2.4); Non-African American GFR(CKD) 97.7 (60.0-200.0); Phosphorus 2.8 mg/dL (2.4-5.1); Total Bilirubin 0.5 mg/dL (0.2-1.2)
[2021-03-02] MEDS: CHOLESTYRAMINE (WITH SUGAR) 4 GM PACKET PO SCH ×2 (11:17→17:50)
[2021-03-02] MEDS: valACYclovir HCL 1,000 MG TABLET PO SCH ×2 (11:17→20:26)
[2021-03-02] MEDS: SODIUM CHLORIDE 0.9% 1,000 ML IV SCH ×2 (12:57→23:46)
[2021-03-02] MEDS ORDERED: Magnesium Replacement Protocol 1 EACH MISC MISCELLANE PRN (13:55)
[2021-03-02] MEDS ORDERED: Potassium Replacement Protocol 1 EACH MISC MISCELLANE PRN (13:55)
[2021-03-02] MEDS: HEPARIN SODIUM,PORCINE/PF 5,000 UNIT/0.5 ML SYRINGE SQ SCH ×2 (14:43→20:33)
[2021-03-02] MEDS: LEVOFLOXACIN 750MG-D5W PMX 750 MG in DEXTROSE/WATER 1 150ML.BAG IVPB SCH (14:44)
[2021-03-02] MEDS: PANTOPRAZOLE 40 MG/10 ML VIAL IVP SCH ×2 (14:44→20:33)
--- NOTE | 2021-03-02 14:58 | P.CONS ---
History of Present Illness - Reason for Consult Consult date: 03/02/21 Metastatic Colon Cancer, Neutropenic Fever, Diarrhea Requesting physician: Cesar Bryd - History of Present Illness Marisela presents to hospital with concern of neutropenic colitis, tender abdomen, diarrhea and nausea. Full real cultures. Antibiotics and NPO HPI : Not feeling well, C/O having L foot Pain , No Trauma. She has int Diarrhea ( Chronic ) and reported being under excessive stree and being in " Dispair ". Denied any Melena or Changes in bowel Habits. 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 She is following up with Dr lemon for Rx of Bronchial Asthma. C/O increasing frontal Headache and increasing Anxiety and stress, Diarrhea improved. C/O Being very depressed, Cymbalta not helping much. Very anxious. C/O severe headache and vague abdominal pain: CT Scan of head and CAP were negative in November 2013. She feels Ok overall, asymptomatic. 01/31/15 : Not feeling well, C/O weakness and RUQ abdominal pain X 2 months, she is very anxious. Was seen @ [facility] , CT Scan of abdomen revealed large 2 liver lesions C/W mets. Srated on Xanax and analgesics. She denies anorexia/weight loss. Remains fully active. 02/07/15 : Feels Ok, had Liver Bx & PET Scan, anxious. C/O mild RUQ pain. 03/14/15 : Feels Ok, C/O diarrhea and anorexia, tolerating Folfirri/Avastin well so far. Was seen by Dr Dye at [facility] : Juarez-adjuvant Chemotherapy recommended. 04/18/15 : Given FOLFIRRI/Avastin X 4 : Well tolerated, C/O Anorexia & weight loss, abdominal pain improved. Follow up CT Scan : good objective improvement. 06/07/15 : Had surgery with resection of residual metastatic carcinoma to liver by Dr Dye @ [facility], recovering very slowly, not sleeping at night, not eating well (Megace was stopped), not having abdominal pain > MS contin stopped. very anxious. 07/01/15 : Feels Ok, recovered well, no further weight loss, feels stronger. 07/28/15 : Feels Ok, but very anxious, tolerated last chemotherapy well. 08/23/15 : Feels well, has occasional nose bleeds, tolerating chemotherapy well. 09/20/15 : C/O fatigue and chronic/stable Chemotherapy-induced p neuropathy. 11/01/15 : Feels well and asymptomatic. 04/19/16: Feels well, gaining weight, fully active, C/O anxiety but no symptoms of malignancy. 08/01/16: Very anxious & upset after loss of her 24 year old son to drug overdose. Feels Physically well. 11/06/16: Feels well, no constitutional symptoms of malignancy, fully active. 01/08/17: Feels Ok , was admitted to [facility] with LLL Pneumonia > recovering. CT Scan of chest : stable small pulmonary nodules. 05/08/17: Feels well, asymptomatic. 09/03/17: Feels Ok, C/O L ankle fracture > surgery done by Dr Leyva. 11/05/17: Feels Ok, still very depressed Cymbalta 90 not effective... wants to tr y Prozac, which was effective in distant past. Recent CT Scan : slight increase in pulmonary nodules !! 11/26/17: Feels Ok, C/O mild RUQ pain, fully active. 12/17/17: Started on Vectibex > developed facial/scalp rash after 1st infusion. 02/18/18: Feels Ok, tolerating Vectibex well (Diffuse rash). 03/25/18: Feels Ok, tolerating Vectiex well (Rash). No visceral pain, excellent performence status. 04/23/18: C/O progressive P Neuropathy in lower extremities, says she is anorexic, but has no weight loss. She C/O RUQ pain. 06/10/18: C/O skin rash, will see Neurology for evaluation of P neuropathy soon. 07/03/18: C/O severe diffuse rash on chest wall, less severe in face & rest of body. 08/15/18: Feels Ok, Rash better controlled. PET Scan: No active disease. 09/11/18: Feels Ok, less rash, tired. 11/13/18: C/O increasing depression, tolerating Vectibex well, minimal rash, no abdominal pain. C/O progressive arthropathy in hands/feet. 12/12/18: Feels Ok, tolerating Vectibex well, active. Will need cataracts surgery soon. 01/15/19: Feels Ok, tolerating Vectibex well, no abdominal pain, no respiratory symptoms. 02/10/19: C/O nose irritation 2nd to Vectibex 03/19/19: Cutaneous irritation improved, no chest pain or SOB, fully active. 04/14/19: C/O increasing cough & rash. CT Scan : Progression of Pulmonary mets, CEA rising. 04.29.19: Diarrhea imodium helps, nausea not really helped with compazine, zofran prescribed. 05.27.19: Quit smoking and comes intoday with pain and chest and cough. Productive Cough greenish. Expiratory wheezes. and rhonchi. low grade fevers. Week off of Xeloda while recovering. 06/04/19: Feels well, tolerating Xeloda well with mild diarrhea as only side effect. Quit smoking. 06/24/17-Diarrhea 1 week, most was 6 episodes, watery, yellow, associated with abd cramping, terrible gas and very foul odor, denied fever, vomiting, she has to take zofran constantly nauseated, no skin or nail toxicities, stable neuropathy in feet, she does get cramping in her toes at least daily. She has "excruciating WARD" week off of xeloda, using 3 aleve and ibuprofen to take edge off, and terrible fatigue. No other c/o, questions or concerns. 07/14/19: C/O weakness & diarrhea, definate decline in performence status & quality of life 08/14/19: Feels Ok, tolerating Xeloda 1800mg Bid 1 week on [address] Scan of CAP > improved. 10/07/19-Here for acute visit, concerned with SOB, 1 week, she recently had what she suspects was the flu, no fever, clear sputum, using her nebs more [place]. The week off of xeloda she has no stamina. Thinks maybe getting cabin fever or lack of moving from the winter weather. No other c/o, questions or concerns 10/29/19: Feels Ok, has hital hernia & heart burn, fully active, tolerating Xeloda well (1800mg Bid 1 week on 1 week off). 02/10/20: C/O increasing neuropathy pain in fingers/toes. Tolerating Xeloda well, no abdominal pain 04/15/20: C/O abdominal pain & nausea. CT Scan: progression 05/05/20: Feels Ok, had recent R eye surgery (Retinal detachment) following trauma. Study on malignant tissue : PD-L1 weakly positive, Cdl4Xoy negative. 06/28/20: Feels well, tolerating Keytruda well, having mild tolerable diarrhea, remains fully active 07/08/20: C/O generalized itching, which she attributes to Keytruda. 09/16/20: Had COVID infection with Pneumonia > revovered. Tolerating Keytruda well. 10/25/20: Feels well, no side effects, fully active 11/15/20: C/O fatigue & mild abdominal pain, tolerating Keytruda well 01/19/21: C/O fatigue, anorexia, weight loss and R mid abdominal pain, tolerating Lonesurf well. 02/22/21: Feels well, C/O anorexia, weight loss & fatigue, having diarrhea with lonesurf. 03/01/21-Pt here for acute visit, has c/o lightheaded, dizzy, N,V, D since leaving here last week, vomited her meds today, due to start cycle of lonsurf 5 days. She is not eating, smells can make her vomit. Alternating compazine and zofran, using 3 questran a day and lomotil. She had a temp of 100.1F. Generalized weakness and moderate fatigue. Based on patient presentation as well as her lab values it is been decided that it is best if patient is placed in the hospital and worked up for infection/sepsis. She will also need hydration for diarrhea and vomiting, supportive medications for nausea. Patient has upset stomach, D and pain in the abdomen, suspicious for possibly neutropenic typhlitis versus C. difficile. Patient is in agreement that being in the hospital might be the best place for her right now. She was walked over there by certified medical dosimetrist, ER physician contacted by [employer]. Review of Systems All systems: negative Constitutional: Reports as per HPI Past Medical History Past Medical History: Cancer, COPD, GERD/Reflux, Hyperlipidemia, Hypertension, Osteoarthritis (OA) Additional Past Medical History / Comment(s): Metastatic colon cancer, peripheral neuropathy induced by systemic chemotherapy, history of childhood nephrotic syndrome, history of liver CA lesions resected surgically, history of lung nodules felt to be related to metastatic disease, History of Any Multi-Drug Resistant Organisms: None Reported Past Surgical History: Bowel Resection, Cholecystectomy, Orthopedic Surgery Additional Past Surgical History / Comment(s): 2009 port o cath then removed 05-20-122014 port a cath placed rt chest ;"20% of liver removed d/t ca", colonoscopies [id number]. Past Anesthesia/Blood Transfusion Reactions: No Reported Reaction Past Psychological History: Anxiety, Depression, Panic Disorder Past Alcohol Use History: Rare Past Drug Use History: None Reported - Past Family History Father Family Medical History: Diabetes Mellitus, Myocardial Infarction (CT) Additional Family Medical History / Comment(s): at age 62-mulitple mi's Mother Family Medical History: Cancer Additional Family Medical History / Comment(s): BREAST. from sepsis Medications and Allergies Home Medications Medication Instructions Recorded Confirmed Type Omeprazole [PriLOSEC] 20 mg PO BID 01/01/17 03/01/21 History ALPRAZolam [Xanax] 1 mg PO TID 03/01/21 03/01/21 History Albuterol Nebulized [Ventolin 2.5 mg INHALATION RT-Q4H PRN 03/01/21 03/01/21 History Nebulized] Budesonide/Formoterol Fumarate 2 puff INHALATION RT-BID 03/01/21 03/01/21 History [Symbicort 160-4.5 Mcg Inhaler] Cholestyramine (with Sugar) 4 gm PO BID 03/01/21 03/01/21 History [Cholestyramine Packet] Cyclobenzaprine [Flexeril] 5 mg PO TID PRN 03/01/21 03/01/21 History Diphenox-Atrop 2.5-0.025 mg 2 tab PO QID PRN 03/01/21 03/01/21 History [Lomotil] HYDROcodone/APAP 5-325MG [[place] 1 tab PO Q4HR PRN 03/01/21 03/01/21 History 5-325] Metoprolol Tartrate [Lopressor] 25 mg PO BID 03/01/21 03/01/21 History Montelukast [Singulair] 10 mg PO HS 03/01/21 03/01/21 History Ondansetron Odt [Zofran Odt] 4 mg PO Q6H PRN 03/01/21 03/01/21 History Prochlorperazine [Compazine] 10 mg PO Q6H PRN 03/01/21 03/01/21 History Trifluridine/Tipiracil HCl 3 tab PO DIRECTED 03/01/21 03/01/21 History [Lonsurf 15 mg-6.14 mg Tablet] Trifluridine/Tipiracil HCl 3 tab PO DIRECTED 03/01/21 03/01/21 History [Lonsurf 20 mg-8.19 mg Tablet] Venlafaxine HCl [Effexor XR] 75 mg PO DAILY 03/01/21 03/01/21 History dronabinoL [Marinol] 5 mg PO HS 03/01/21 03/01/21 History hydrOXYzine HCL [Atarax] 25 mg PO TID 03/01/21 03/01/21 History Allergies Allergy/AdvReac Type Severity Reaction Status Date / Time acyclovir AdvReac Severe Confusion Verified 03/01/21 17:48 Physical Exam Vitals: Vital Signs Temp Pulse Pulse Resp BP BP Pulse Ox 03/02/21 12:51 98.3 F 78 16 99/59 03/02/21 11:19 76 03/02/21 11:04 72 03/02/21 10:56 98.1 F 79 79 16 99/63 99/63 95 03/02/21 10:26 98.1 F 78 16 97/63 03/02/21 10:16 97.4 F L 79 16 88/53 03/02/21 08:06 76 03/02/21 07:50 76 03/02/21 04:46 99.5 F 93 16 109/67 90 L 03/02/21 00:36 16 03/01/21 22:39 98.1 F 101 H 16 144/82 95 03/01/21 20:25 98.2 F 85 16 128/90 97 03/01/21 17:05 89 16 118/84 98 03/01/21 15:54 98.2 F 114 H 16 121/83 96 Intake and Output 03/01/21 03/02/21 03/02/21 22:59 06:59 14:59 Intake Total 310 Balance 310 Intake: Blood Product 310 Rc As-1 Unit 310 [id number] Other: # Bowel Movements 0 Weight 68.492 kg - Constitutional General appearance: cooperative, no acute distress - EENT Eyes: EOMI ENT: NA/AT, normal oropharynx - Neck Neck: normal ROM - Respiratory Respiratory: bilateral: CTA - Cardiovascular Rhythm: regularly irregular - Gastrointestinal General gastrointestinal: tenderness - Integumentary Integumentary: pale - Neurologic Neurologic: CNII-XII intact - Musculoskeletal Musculoskeletal: gait normal, generalized weakness - Psychiatric Psychiatric: A&O x's 3, appropriate affect, intact judgment & insight Results CBC & Chem 7: 03/02/21 06:01 03/02/21 19:11 Labs: Abnormal Lab Results - Last 24 Hours (Table) 03/01/21 03/01/21 03/01/21 Range/Units 16:43 17:04 17:04 WBC 1.5 L (3.8-10.6) k/uL RBC 2.35 L (3.80-5.40) m/uL Hgb 8.1 L (11.4-16.0) gm/dL Hct 21.9 L (34.0-46.0) % MCHC 37.2 H (31.0-37.0) g/dL RDW 19.3 H (11.5-15.5) % Plt Count 72 L (150-450) k/uL Neutrophils # 0.7 L (1.3-7.7) k/uL Lymphocytes # 0.7 L (1.0-4.8) k/uL Sodium 136 L (137-145) mmol/L Potassium 2.8 L (3.5-5.1) mmol/L Chloride (96-109) mmol/L Carbon Dioxide (21.6-31.8) mmol/L BUN (9.0-27.0) mg/dL BUN/Creatinine Ratio (12.00-20.00) Ratio Glucose 106 H (74-99) mg/dL Calcium (8.7-10.3) mg/dL Magnesium (1.5-2.4) mg/dL AST 46 H (14-36) U/L ALT 49 H (4-34) U/L Alkaline Phosphatase 257 H (38-126) U/L Total Protein (6.2-8.2) g/dL Ur Specific [place] (1.001-1.035) Urine Protein (Negative) Urine Ketones (Negative) Ur Leukocyte Esterase (Negative) Urine Bacteria (None) /hpf Urine Mucus (None) /hpf Crossmatch See Detail 03/01/21 03/02/21 03/02/21 Range/Units 20:21 06:01 06:01 WBC 1.2 L* (3.8-10.6) k/uL RBC 1.89 L (3.80-5.40) m/uL Hgb 6.5 L* D (11.4-16.0) gm/dL Hct 18.0 L* (34.0-46.0) % MCHC (31.0-37.0) g/dL RDW 19.8 H (11.5-15.5) % Plt Count 60 L (150-450) k/uL Neutrophils # 0.5 L (1.3-7.7) k/uL Lymphocytes # 0.6 L (1.0-4.8) k/uL Sodium (137-145) mmol/L Potassium 3.0 L (3.5-5.1) mmol/L Chloride 111 H (96-109) mmol/L Carbon Dioxide 19.0 L (21.6-31.8) mmol/L BUN 7.0 L (9.0-27.0) mg/dL BUN/Creatinine Ratio 11.67 L (12.00-20.00) Ratio Glucose (74-99) mg/dL Calcium 8.0 L (8.7-10.3) mg/dL Magnesium 1.4 L (1.5-2.4) mg/dL AST (14-36) U/L ALT 45 H (4-34) U/L Alkaline Phosphatase 200 H (38-126) U/L Total Protein 6.0 L (6.2-8.2) g/dL Ur Specific [place] 1.045 H (1.001-1.035) Urine Protein (Negative) Urine Ketones (Negative) Ur Leukocyte Esterase (Negative) Urine Bacteria (None) /hpf Urine Mucus (None) /hpf Crossmatch 03/02/21 Range/Units 07:00 WBC (3.8-10.6) k/uL RBC (3.80-5.40) m/uL Hgb (11.4-16.0) gm/dL Hct (34.0-46.0) % MCHC (31.0-37.0) g/dL RDW (11.5-15.5) % Plt Count (150-450) k/uL Neutrophils # (1.3-7.7) k/uL Lymphocytes # (1.0-4.8) k/uL Sodium (137-145) mmol/L Potassium (3.5-5.1) mmol/L Chloride (96-109) mmol/L Carbon Dioxide (21.6-31.8) mmol/L BUN (9.0-27.0) mg/dL BUN/Creatinine Ratio (12.00-20.00) Ratio Glucose (74-99) mg/dL Calcium (8.7-10.3) mg/dL Magnesium (1.5-2.4) mg/dL AST (14-36) U/L ALT (4-34) U/L Alkaline Phosphatase (38-126) U/L Total Protein (6.2-8.2) g/dL Ur Specific [place] 1.049 H (1.001-1.035) Urine Protein Trace H (Negative) Urine Ketones Trace H (Negative) Ur Leukocyte Esterase Trace H (Negative) Urine Bacteria Rare H (None) /hpf Urine Mucus Rare H (None) /hpf Crossmatch Microbiology - Last 24 Hours (Table) 03/02/21 07:10 Stool Culture - Preliminary Stool CT scan - abdomen: report reviewed CT scan - pelvis: report reviewed Assessment and Plan (1) Neutropenic colitis Current Visit: Yes Status: Acute Code(s): D70.9 - NEUTROPENIA, UNSPECIFIED; K52.89 - OTHER SPECIFIED NONINFECTIVE GASTROENTERITIS AND COLITIS SNOMED Code(s): 294623355 (2) Pancytopenia due to antineoplastic chemotherapy Current Visit: Yes Status: Acute Code(s): D61.810 - ANTINEOPLASTIC CHEMOTHERAPY INDUCED PANCYTOPENIA; T45.1X5A - ADVERSE EFFECT OF ANTINEOPLASTIC AND IMMUNOSUP DRUGS, INIT SNOMED Code(s): 054194718808739 (3) Metastatic colon cancer to liver Current Visit: No Status: Chronic Priority: Low Code(s): C18.9 - MALIGNANT NEOPLASM OF COLON, UNSPECIFIED; C78.7 - SECONDARY MALIG NEOPLASM OF LIVER AND INTRAHEPATIC BILE DUCT SNOMED Code(s): 832266313 Plan: NPO while Neutrophils less than 1 Await Real Cultures COntinue Zarxio Hold Lonsurf Stool Studies Check Pancreatic Enzymes Transfuse one unit of PRBC today and monitor platelets. Hold AC therapy if platelets less then 50K
--- NOTE | 2021-03-02 15:19 | HP ---
HISTORY AND PHYSICAL CHIEF COMPLAINTS: Abdominal pain, diarrhea and as well as anemia. HISTORY OF PRESENT ILLNESS: This 60-year-old woman with a past medical history of multiple medical problems including COPD, GERD, hypertension, hyperlipidemia, history of degenerative joint disease, history of metastatic colon cancer, peripheral neuropathy, due to systemic chemotherapy. On oral chemo at this time. The patient had abdominal pain, diarrhea and some fever, foul-smelling diarrhea, and the patient's fever was up to 101 degree. Because of lack of improvement, patient came to [facility] and was admitted for further evaluation and treatment. The hemoglobin is found to be 6.5 today with some pancytopenia. The patient transfused. Potassium is also low. There is no history any headache, loss of conscious or seizures at this time. No hematochezia. PAST MEDICAL HISTORY: History of COPD, GERD, hypertension, hyperlipidemia, DJD, metastatic colon cancer with bowel resection. HOME MEDICATIONS: Atarax, Marinol, Effexor XR, Lonsurf, Compazine, sulfa, Prilosec, Singulair, Lopressor, Shelly, Lomotil, Flexeril, cholestyramine, Symbicort, Ventolin, Xanax. ALLERGIES: ACYCLOVIR. FAMILY HISTORY: History of breast cancer and sepsis. SOCIAL HISTORY: Light tobacco smoker. No history of alcohol. REVIEW OF SYSTEMS: ENT: No diminished vision or hearing. CARDIOVASCULAR: No angina. RESPIRATORY: No cough. GI: As mentioned earlier. : No dysuria or retention. NERVOUS SYSTEM: No numbness or weakness. ALLERGY/IMMUNOLOGY: No asthma or hayfever. MUSCULOSKELETAL: As mentioned earlier. HEMATOLOGY: As mentioned earlier. ENDOCRINE: As mentioned earlier. CONSTITUTIONAL: As mentioned earlier. DERMATOLOGY: Negative. RHEUMATOLOGY: Negative. PSYCHIATRY: As mentioned earlier. PHYSICAL EXAMINATION: GENERAL: Patient is alert and oriented times three. VITAL SIGNS: Pulse 78, blood pressure 99/63, respirations 16, temperature 98.1, pulse ox 94% on room air. HEENT: Conjunctivae are pale. Oral mucosa moist. NECK: No jugular venous distention. No carotid bruits. No lymph node enlargement. RESPIRATORY: Breath sounds diminished at the bases. A few rhonchi, no crackles. HEART: S1 and S2, muffled. ABDOMEN: Soft, mild diffuse discomfort. No guarding, no rigidity, no masses palpable. No ascites. EXTREMITIES: No edema, no swelling. NERVOUS: Higher functions as mentioned earlier. Moves all four limbs. No focal motor or sensory deficits. LYMPHATICS: No lymph nodes palpable in the neck or axillae. SKIN: No rashes. JOINTS: No active deforming arthropathy. LABS: WBCntd, hemoglobin is 6.5, otherwise sodium 140, potassium 3. ASSESSMENT: 1. Acute nausea, vomiting, diarrhea, possible acute gastroenteritis. 2. Anemia possibly secondary to pancytopenia due to chemotherapy and malignancy. 3. Pancytopenia secondary to malignancy. 4. Thrombocytopenia. 5. Hypokalemia. 6. Hypomagnesemia. 7. Elevated ALT. 8. History of colon cancer with metastases. 9. History of chronic obstructive pulmonary disease. 10.Gastroesophageal reflux disease. 11.Hypertension. 12.Hyperlipidemia. 13.History of degenerative joint disease. 14.History of peripheral neuropathy. 15.History of childhood nephrotic syndrome. 16.History of liver cancer and cancer lesions were resected surgically. 17.History of lung nodules. 18.History of chemotherapy. 19.Anxiety, depression, panic disorder. 20.FULL CODE. RECOMMENDATION AND DISCUSSION: This 60-year-old woman presented with multiple complex medical issues. At this time I recommend to continue the current medications, symptomatic treatment. Supplement potassium and magnesium. Abdominal and pelvis CAT scan was done in the ER which I reviewed personally which showed multiple findings including focal dilatation of the second segment of the duodenum with possible tiny perforation of the anterior duodenal wall. cannot be entirely ruled out. A soft tissue mass with focal stenosis of the descending colon was also noted. Right lower lobe pulmonary nodules also noted. We will continue to monitor. Broad-spectrum IV antibiotics also will be given including Levaquin and Flagyl. We will also obtain a surgical evaluation. Prognosis guarded. Further recommendations to follow. MMODL / IJN: [id number] / [facility]
[2021-03-02] MEDS: POTASSIUM CHLORIDE ER 20 MEQ TAB.ER PO SCH ×2 (16:09→17:51)
[2021-03-02] MEDS: HYDROcodone/APAP 5-325MG 1 EACH TAB PO PRN (16:13)
--- NOTE | 2021-03-02 16:36 | P.GSCN ---
History of Present Illness Consult date: 03/02/21 History of present illness: CHIEF COMPLAINT: Nausea vomiting and diarrhea HISTORY OF PRESENT ILLNESS: This is a 60-year-old female with a known history of metastatic colon cancer. Patient has had prior history of bowel resection and liver resection due to cancer. 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 Patient was is a hospital with complaints of right-sided abdominal pain diarrhea nausea and vomiting. She also had a fever as high as up to 101. She reports that the diarrhea was very foul smelling. She came into the hospital for further evaluation treatment she is found to be neutropenic and had a low hemoglobin of 6.5. She was given blood transfusion. She is followed by oncology. Patient reports that since admission her pain has improved. The vomiting has stopped. In the diarrhea is also improving. Patient denies any blood in her stools or emesis. PAST MEDICAL HISTORY: See list. PAST SURGICAL HISTORY: See list. MEDICATIONS: See list. ALLERGIES: See list. SOCIAL HISTORY: No illicit drug use. REVIEW OF SYSTEMS: CONSTITUTIONAL: Denies fever or chills. HEENT: Denies blurred vision, vision changes, or eye pain. Denies hemoptysis CARDIOVASCULAR: Denies chest pain or pressure. RESPIRATORY: No shortness of breath. GASTROINTESTINAL: See HPI for pertinent findings HEMATOLOGIC: Denies bleeding disorders. GENITOURINARY: Denies any blood in urine or increased urinary frequency. SKIN: Denies pruitis. Denies rash. PHYSICAL EXAM: VITAL SIGNS: Reviewed GENERAL: Well-developed in no acute distress. HEENT: No sclera icterus. Extraocular movements grossly intact. Moist buccal mucosa. Head is atraumatic, normocephalic. No nasal drainage. ABDOMEN: Soft. Nondistended. Minimal Right-sided abdominal tenderness NEUROLOGIC: Alert and oriented. Cranial nerves II through XII grossly intact. LABORATORY DATA: WBC is 1.2 hemoglobin 6.5 platelets are 60 sodium was 140 potassium 3.0 creatinine 0.6 Lactic acid 1.3 Magnesium 1.4 AST 34 ALT 45 alk phos 200 Stool for C. diff negative Urinalysis no significant evidence of infection Stool studies pending IMAGING: Computed tomography scan abdomen and pelvis focal dilatation of the second segment of the duodenum with few foci of air in the anterior aspect of the duodenum felt to be within the lumen, no parul pneumoperitoneum, tiny perforation of the anterior duodenal wall second segment cannot be entirely excluded. Soft tissue mass with focal stenosis in the descending colon concerning for malignancy Right lower lobe pulmonary nodules stable in size likely representing metastasis. Left hepatic resection, cholecystectomy and hepatic steatosisand change. Nonobstructing 2 mm left renal calculus. Hiatal hernia. Right hepatic lobe hypoattenuating masses similar to prior study, could represent metastasis. Soft tissue mass encasing the SMA abutting the duodenum and and head of pancreas stable, likely related to malignancy. Sclerotic changes T11and is getting change may represent metastasis. Stable complex cystic mass associated with the tail of pancreas. Pancreatic neoplasm suggested ASSESSMENT: 1. Right-sided abdominal pain with nausea, vomiting and diarrhea 2. History of metastatic colon cancer followed by oncology 3. Computed tomography scan findings showing a focal dilatation of the second segment of the duodenum with few foci of air in the anterior aspect of the duodenum felt to be within the lumen and no parul pneumoperitoneum noted. In soft tissue mass in the descending colon concerning for malignancy. 4. Pancytopenia likely secondary to malignancy 5. Neutropenic 6. Anemia patient received blood transfusion 7. Hypokalemia and hypomagnesemia 8. History of liver cancer status post liver resection 9. Pulmonary nodules PLAN: -Patient is tentatively scheduled for EGD and colonoscopy with Dr. Norris on 03/06/2021 -Continue supportive care -Replace electrolytes Physician Steel Engraver note has been reviewed by physician. Signing provider agrees with the documented findings, assessment, and plan of care. 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 2014 port a cath placed rt chest ;"20% of liver removed d/t ca", colonoscopies [id number]. Past Anesthesia/Blood Transfusion Reactions: No Reported Reaction Past Psychological History: Anxiety, Depression, Panic Disorder Past Alcohol Use History: Rare Past Drug Use History: None Reported - Past Family History Father Family Medical History: Diabetes Mellitus, Myocardial Infarction ([place]) Additional Family Medical History / Comment(s): at age 62-mulitple mi's Mother Family Medical History: Cancer Additional Family Medical History / Comment(s): BREAST. from sepsis Medications and Allergies Home Medications Medication Instructions Recorded Confirmed Type Omeprazole [PriLOSEC] 20 mg PO BID 01/01/17 03/01/21 History ALPRAZolam [Xanax] 1 mg PO TID 03/01/21 03/01/21 History Albuterol Nebulized [Ventolin 2.5 mg INHALATION RT-Q4H PRN 03/01/21 03/01/21 History Nebulized] Budesonide/Formoterol Fumarate 2 puff INHALATION RT-BID 03/01/21 03/01/21 History [Symbicort 160-4.5 Mcg Inhaler] Cholestyramine (with Sugar) 4 gm PO BID 03/01/21 03/01/21 History [Cholestyramine Packet] Cyclobenzaprine [Flexeril] 5 mg PO TID PRN 03/01/21 03/01/21 History Diphenox-Atrop 2.5-0.025 mg 2 tab PO QID PRN 03/01/21 03/01/21 History [Lomotil] HYDROcodone/APAP 5-325MG [[place] 1 tab PO Q4HR PRN 03/01/21 03/01/21 History 5-325] Metoprolol Tartrate [Lopressor] 25 mg PO BID 03/01/21 03/01/21 History Montelukast [Singulair] 10 mg PO HS 03/01/21 03/01/21 History Ondansetron Odt [Zofran Odt] 4 mg PO Q6H PRN 03/01/21 03/01/21 History Prochlorperazine [Compazine] 10 mg PO Q6H PRN 03/01/21 03/01/21 History Trifluridine/Tipiracil HCl 3 tab PO DIRECTED 03/01/21 03/01/21 History [Lonsurf 15 mg-6.14 mg Tablet] Trifluridine/Tipiracil HCl 3 tab PO DIRECTED 03/01/21 03/01/21 History [Lonsurf 20 mg-8.19 mg Tablet] Venlafaxine HCl [Effexor XR] 75 mg PO DAILY 03/01/21 03/01/21 History dronabinoL [Marinol] 5 mg PO HS 03/01/21 03/01/21 History hydrOXYzine HCL [Atarax] 25 mg PO TID 03/01/21 03/01/21 History Allergies Allergy/AdvReac Type Severity Reaction Status Date / Time acyclovir AdvReac Severe Confusion Verified 03/01/21 17:48 Surgical - Exam Vital Signs Temp Pulse Resp BP Pulse Ox 98.2 F 114 H 16 121/83 96 03/01/21 15:54 03/01/21 15:54 03/01/21 15:54 03/01/21 15:54 03/01/21 15:54 Results - Labs 03/02/21 06:01 03/02/21 06:01 Abnormal Lab Results - Last 24 Hours (Table) 03/01/21 03/01/21 03/01/21 Range/Units 16:43 17:04 17:04 WBC 1.5 L (3.8-10.6) k/uL RBC 2.35 L (3.80-5.40) m/uL Hgb 8.1 L (11.4-16.0) gm/dL Hct 21.9 L (34.0-46.0) % MCHC 37.2 H (31.0-37.0) g/dL RDW 19.3 H (11.5-15.5) % Plt Count 72 L (150-450) k/uL Neutrophils # 0.7 L (1.3-7.7) k/uL Lymphocytes # 0.7 L (1.0-4.8) k/uL Sodium 136 L (137-145) mmol/L Potassium 2.8 L (3.5-5.1) mmol/L Chloride (96-109) mmol/L Carbon Dioxide (21.6-31.8) mmol/L BUN (9.0-27.0) mg/dL BUN/Creatinine Ratio (12.00-20.00) Ratio Glucose 106 H (74-99) mg/dL Calcium (8.7-10.3) mg/dL Magnesium (1.5-2.4) mg/dL AST 46 H (14-36) U/L ALT 49 H (4-34) U/L Alkaline Phosphatase 257 H (38-126) U/L Total Protein (6.2-8.2) g/dL Ur Specific [place] (1.001-1.035) Urine Protein (Negative) Urine Ketones (Negative) Ur Leukocyte Esterase (Negative) Urine Bacteria (None) /hpf Urine Mucus (None) /hpf Crossmatch See Detail 03/01/21 03/02/21 03/02/21 Range/Units 20:21 06:01 06:01 WBC 1.2 L* (3.8-10.6) k/uL RBC 1.89 L (3.80-5.40) m/uL Hgb 6.5 L* D (11.4-16.0) gm/dL Hct 18.0 L* (34.0-46.0) % MCHC (31.0-37.0) g/dL RDW 19.8 H (11.5-15.5) % Plt Count 60 L (150-450) k/uL Neutrophils # 0.5 L (1.3-7.7) k/uL Lymphocytes # 0.6 L (1.0-4.8) k/uL Sodium (137-145) mmol/L Potassium 3.0 L (3.5-5.1) mmol/L Chloride 111 H (96-109) mmol/L Carbon Dioxide 19.0 L (21.6-31.8) mmol/L BUN 7.0 L (9.0-27.0) mg/dL BUN/Creatinine Ratio 11.67 L (12.00-20.00) Ratio Glucose (74-99) mg/dL Calcium 8.0 L (8.7-10.3) mg/dL Magnesium 1.4 L (1.5-2.4) mg/dL AST (14-36) U/L ALT 45 H (4-34) U/L Alkaline Phosphatase 200 H (38-126) U/L Total Protein 6.0 L (6.2-8.2) g/dL Ur Specific [place] 1.045 H (1.001-1.035) Urine Protein (Negative) Urine Ketones (Negative) Ur Leukocyte Esterase (Negative) Urine Bacteria (None) /hpf Urine Mucus (None) /hpf Crossmatch 03/02/21 Range/Units 07:00 WBC (3.8-10.6) k/uL RBC (3.80-5.40) m/uL Hgb (11.4-16.0) gm/dL Hct (34.0-46.0) % MCHC (31.0-37.0) g/dL RDW (11.5-15.5) % Plt Count (150-450) k/uL Neutrophils # (1.3-7.7) k/uL Lymphocytes # (1.0-4.8) k/uL Sodium (137-145) mmol/L Potassium (3.5-5.1) mmol/L Chloride (96-109) mmol/L Carbon Dioxide (21.6-31.8) mmol/L BUN (9.0-27.0) mg/dL BUN/Creatinine Ratio (12.00-20.00) Ratio Glucose (74-99) mg/dL Calcium (8.7-10.3) mg/dL Magnesium (1.5-2.4) mg/dL AST (14-36) U/L ALT (4-34) U/L Alkaline Phosphatase (38-126) U/L Total Protein (6.2-8.2) g/dL Ur Specific [place] 1.049 H (1.001-1.035) Urine Protein Trace H (Negative) Urine Ketones Trace H (Negative) Ur Leukocyte Esterase Trace H (Negative) Urine Bacteria Rare H (None) /hpf Urine Mucus Rare H (None) /hpf Crossmatch Microbiology - Last 24 Hours (Table) 03/02/21 07:10 Stool Culture - Preliminary Stool Diabetes panel 03/01/21 03/02/21 Range/Units 17:04 06:01 Sodium 136 L 140 (137-145) mmol/L Potassium 2.8 L 3.0 L (3.5-5.1) mmol/L Chloride 101 111 H (98-107) mmol/L Carbon Dioxide 23 19.0 L (22-30) mmol/L BUN 13 7.0 L (7-17) mg/dL Creatinine 0.69 0.6 (0.52-1.04) mg/dL Glucose 106 H 99 (74-99) mg/dL Calcium 9.2 8.0 L (8.4-10.2) mg/dL AST 46 H 34 (14-36) U/L ALT 49 H 45 H (4-34) U/L Alkaline Phosphatase 257 H 200 H (38-126) U/L Total Protein 7.3 6.0 L (6.3-8.2) g/dL Albumin 4.4 3.90 (3.5-5.0) g/dL Calcium panel 03/01/21 03/02/21 Range/Units 17:04 06:01 Calcium 9.2 8.0 L (8.4-10.2) mg/dL Phosphorus 2.8 (2.4-5.1) mg/dL Albumin 4.4 3.90 (3.5-5.0) g/dL Pituitary panel 03/01/21 03/02/21 Range/Units 17:04 06:01 Sodium 136 L 140 (137-145) mmol/L Potassium 2.8 L 3.0 L (3.5-5.1) mmol/L Chloride 101 111 H (98-107) mmol/L Carbon Dioxide 23 19.0 L (22-30) mmol/L BUN 13 7.0 L (7-17) mg/dL Creatinine 0.69 0.6 (0.52-1.04) mg/dL Glucose 106 H 99 (74-99) mg/dL Calcium 9.2 8.0 L (8.4-10.2) mg/dL Adrenal panel 03/01/21 03/02/21 Range/Units 17:04 06:01 Sodium 136 L 140 (137-145) mmol/L Potassium 2.8 L 3.0 L (3.5-5.1) mmol/L Chloride 101 111 H (98-107) mmol/L Carbon Dioxide 23 19.0 L (22-30) mmol/L BUN 13 7.0 L (7-17) mg/dL Creatinine 0.69 0.6 (0.52-1.04) mg/dL Glucose 106 H 99 (74-99) mg/dL Calcium 9.2 8.0 L (8.4-10.2) mg/dL Total Bilirubin 1.0 0.5 (0.2-1.3) mg/dL AST 46 H 34 (14-36) U/L ALT 49 H 45 H (4-34) U/L Alkaline Phosphatase 257 H 200 H (38-126) U/L Total Protein 7.3 6.0 L (6.3-8.2) g/dL Albumin 4.4 3.90 (3.5-5.0) g/dL
[2021-03-02] MEDS: metroNIDAZOLE-NS PMX 500 MG in SALINE 1 100ML.BAG IVPB SCH (17:53)
[2021-03-02] MEDS: FILGRASTIM-SNDZ 480 MCG/0.8 ML SYRINGE SQ SCH (18:08)
[2021-03-02] MEDS: MAGNESIUM SULFATE-D5W PMX 1 GM in DEXTROSE/WATER 1 100ML.BAG IVPB SCH ×3 (20:04→23:11)
[2021-03-02] MEDS: MONTELUKAST 10 MG TAB PO SCH (20:26)
[2021-03-02] MEDS ORDERED: DRONABINOL 5 MG PO SCH (21:00)
[2021-03-03] MEDS: metroNIDAZOLE-NS PMX 500 MG in SALINE 1 100ML.BAG IVPB SCH ×4 (00:16→23:58)
[2021-03-03] MEDS: ACETAMINOPHEN TAB 325 MG TAB PO PRN ×2 (05:58→22:33)
[2021-03-03 06:01] LABS: Anisocytosis Slight; Basophils % (A) 0 %; Eosinophils % (A) 1 %; HCT 20.1 % (34.0-46.0); HGB 7.1 gm/dL (11.4-16.0); Lymphocytes # (A) 0.5 k/uL (1.0-4.8); Lymphocytes % (A) 32 %; MCHC 35.3 g/dL (31.0-37.0); MCV 93.6 fL (80.0-100.0); Macrocytosis Slight; Mean Platelet Volume 8.2; Monocytes # (A) 0.1 k/uL (0-1.0); Monocytes % (A) 7 %; Neutrophils # (A) 0.9 k/uL (1.3-7.7); Neutrophils % (A) 57 %; Platelet Count 60 k/uL (150-450); RBC 2.15 m/uL (3.80-5.40); RDW 19.5 % (11.5-15.5); WBC 1.5 k/uL (3.8-10.6)
[2021-03-03] MEDS: SYMBICORT 160-4.5 MCG INHALER INHALATION SCH ×2 (07:44→20:30)
[2021-03-03] MEDS: HEPARIN SODIUM,PORCINE/PF 5,000 UNIT/0.5 ML SYRINGE SQ SCH ×2 (09:16→21:18)
[2021-03-03] MEDS: SODIUM CHLORIDE 0.9% 1,000 ML IV SCH ×2 (09:17→17:59)
[2021-03-03] MEDS: valACYclovir HCL 1,000 MG TABLET PO SCH ×2 (09:20→21:20)
[2021-03-03] MEDS: hydrOXYzine HCL 25 MG TAB PO SCH ×3 (09:20→21:20)
[2021-03-03] MEDS: METOPROLOL TARTRATE 25 MG TAB PO SCH ×2 (09:20→21:19)
[2021-03-03] MEDS: DIPHENOX-ATROP 2.5-0.025 MG 1 EACH TAB PO PRN (09:21)
[2021-03-03] MEDS: PANTOPRAZOLE 40 MG/10 ML VIAL IVP SCH ×2 (09:21→21:18)
[2021-03-03] MEDS: CHOLESTYRAMINE (WITH SUGAR) 4 GM PACKET PO SCH ×2 (09:21→17:59)
[2021-03-03] MEDS: VENLAFAXINE HCL ER 75 MG CAP PO SCH (09:40)
--- NOTE | 2021-03-03 09:45 | P.PN ---
Subjective Progress Note Date: 03/03/21 ANC up to 0.9, she is super hungry, denies abdominal pain. Objective - Vital Signs Vital signs: Vital Signs Temp 98.9 F 03/03/21 05:00 Pulse 87 03/03/21 05:00 Resp 18 03/03/21 05:00 BP 102/64 03/03/21 05:00 Pulse Ox 93 L 03/03/21 05:00 Intake & Output 03/02/21 03/03/21 03/03/21 18:59 06:59 18:59 Intake Total 860 1100 Balance 860 1100 Intake: Intake, IV Titration 550 1100 Amount Levofloxacin 750Mg-D5w 150 Pmx 750 mg In Dextrose/ Water 1 150ml.bag @ 100 mls/hr IVPB Q24H [facility] Rx#: [id number] Magnesium Sulfate-D5w Pmx 300 1 gm In Dextrose/Water 1 100ml.bag @ 100 mls/hr IVPB Q1H [facility] Rx#: [id number] Sodium Chloride 0.9% 1, 300 700 000 ml @ 100 mls/hr IV . Q10H [facility] Rx#:[id number] metroNIDAZOLE-NS PMX 500 100 100 mg In Saline 1 100ml.bag @ 100 mls/hr IVPB Q8HR [facility] Rx#:[id number] Oral 0 Blood Product 310 Rc As-1 Unit 310 [id number] Other: # Voids 2 # Bowel Movements 1 - Exam Constitutional General appearance: cooperative, no acute distress - EENT Eyes: EOMI ENT: NA/AT, normal oropharynx - Neck Neck: normal ROM - Respiratory Respiratory: bilateral: CTA - Cardiovascular Rhythm: regularly irregular - Gastrointestinal General gastrointestinal: tenderness - Integumentary Integumentary: pale - Neurologic Neurologic: CNII-XII intact - Musculoskeletal Musculoskeletal: gait normal, generalized weakness - Psychiatric Psychiatric: A&O x's 3, appropriate affect, intact judgment & insight - Labs CBC & Chem 7: 03/03/21 05:14 03/02/21 19:11 Labs: Abnormal Lab Results - Last 24 Hours (Table) 03/01/21 03/02/21 03/03/21 Range/Units 16:43 06:01 05:14 WBC 1.5 L (3.8-10.6) k/uL RBC 2.15 L (3.80-5.40) m/uL Hgb 7.1 L (11.4-16.0) gm/dL Hct 20.1 L (34.0-46.0) % RDW 19.5 H (11.5-15.5) % Plt Count 60 L (150-450) k/uL Neutrophils # 0.9 L (1.3-7.7) k/uL Lymphocytes # 0.5 L (1.0-4.8) k/uL Potassium 3.0 L (3.5-5.5) mmol/L Chloride 111 H (96-109) mmol/L Carbon Dioxide 19.0 L (21.6-31.8) mmol/L BUN 7.0 L (9.0-27.0) mg/dL BUN/Creatinine Ratio 11.67 L (12.00-20.00) Ratio Calcium 8.0 L (8.7-10.3) mg/dL Magnesium 1.4 L (1.5-2.4) mg/dL ALT 45 H (8-44) U/L Alkaline Phosphatase 200 H (41-126) U/L Total Protein 6.0 L (6.2-8.2) g/dL Crossmatch See Detail Microbiology - Last 24 Hours (Table) 03/02/21 06:01 Blood Culture - Preliminary Blood No Growth after 24 hours 03/01/21 16:22 Blood Culture - Preliminary Blood No Growth after 24 hours 03/01/21 16:36 Blood Culture - Preliminary Blood No Growth after 24 hours 03/02/21 07:10 Stool Culture - Preliminary Stool Assessment and Plan (1) Neutropenic colitis Current Visit: Yes Status: Acute Code(s): D70.9 - NEUTROPENIA, UNSPECIFIED; K52.89 - OTHER SPECIFIED NONINFECTIVE GASTROENTERITIS AND COLITIS SNOMED Code(s): 629437401 (2) Pancytopenia due to antineoplastic chemotherapy Current Visit: Yes Status: Acute Code(s): D61.810 - ANTINEOPLASTIC CHEMOTHERAPY INDUCED PANCYTOPENIA; T45.1X5A - ADVERSE EFFECT OF ANTINEOPLASTIC AND IMMUNOSUP DRUGS, INIT SNOMED Code(s): 805013482761990 (3) Metastatic colon cancer to liver Current Visit: No Status: Chronic Priority: Low Code(s): C18.9 - MALIGNANT NEOPLASM OF COLON, UNSPECIFIED; C78.7 - SECONDARY MALIG NEOPLASM OF LIVER AND INTRAHEPATIC BILE DUCT SNOMED Code(s): 174631639 Plan: NPO while Neutrophils less than 1 Await Torres Cultures COntinue Zarxio Hold Lonsurf Stool Studies Check Pancreatic Enzymes OK to advance to clear liquids and planning EGD and colonoscopy in am per GI Physician Attest: I have complete the full history and physical and agree with above dictation, dictated as a scribe.
[2021-03-03] MEDS: ALBUTEROL NEBULIZED 2.5 MG/3 ML INHALATION PRN ×3 (11:20→20:30)
[2021-03-03] MEDS: LEVOFLOXACIN 750MG-D5W PMX 750 MG in DEXTROSE/WATER 1 150ML.BAG IVPB SCH (13:22)
[2021-03-03] MEDS: LORazepam 2 MG/ML INJ IV PRN ×2 (13:32→21:19)
--- NOTE | 2021-03-03 14:42 | P.PN ---
<Nessa Bui - Last Filed: 03/03/21 14:28> Subjective Progress Note Date: 03/03/21 CHIEF COMPLAINT: Nausea vomiting and diarrhea HISTORY OF PRESENT ILLNESS: Surgical service is following in regards to patient's abdominal pain. Patient reports improvement in her pain. She still has minimal tenderness in the right lower side of her abdomen. Her vomiting has resolved. Diarrhea is improving. She's afebrile. WBC is 1.5 hemoglobin is 7.1 after blood transfusion platelets are 60. Potassium 3.5 magnesium for today is pending PHYSICAL EXAM: VITAL SIGNS: Reviewed. GENERAL: Well-developed in no acute distress. HEENT: No sclera icterus. Extraocular movements grossly intact. Moist buccal mucosa. Head is atraumatic, normocephalic. ABDOMEN: Soft. Nondistended. Minimal tenderness right side of abdomen with palpation NEUROLOGIC: Alert and oriented. Cranial nerves II through XII grossly intact. ASSESSMENT: 1. Right-sided abdominal pain with nausea, vomiting and diarrhea 2. History of metastatic colon cancer followed by oncology 3. Computed tomography scan findings showing a focal dilatation of the second segment of the duodenum with few foci of air in the anterior aspect of the duodenum felt to be within the lumen and no parul pneumoperitoneum noted. In soft tissue mass in the descending colon concerning for malignancy. 4. Possible neutropenic colitis 5. Pancytopenia likely secondary to malignancy 6. Neutropenic 7. Anemia patient received blood transfusion 8. Hypokalemia and hypomagnesemia 9. History of liver cancer status post resection 10. Pulmonary nodules PLAN: -Diet per oncology service -Patient is tentatively scheduled for EGD and colonoscopy with Dr. Norris on 03/06/2021 -Continue to monitor electrolytes and replace as needed -Continue IV fluids Physician Cycle Consultant note has been reviewed by physician. Signing provider agrees with the documented findings, assessment, and plan of care. Objective - Vital Signs Vital signs: Vital Signs Temp 98.3 F 03/03/21 11:42 Pulse 74 03/03/21 11:42 Resp 17 03/03/21 11:42 BP 100/64 03/03/21 11:42 Pulse Ox 94 L 03/03/21 11:42 Intake & Output 03/02/21 03/03/21 03/03/21 18:59 06:59 18:59 Intake Total 860 1100 Balance 860 1100 Intake: Intake, IV Titration 550 1100 Amount Levofloxacin 750Mg-D5w 150 Pmx 750 mg In Dextrose/ Water 1 150ml.bag @ 100 mls/hr IVPB Q24H [facility] Rx#: [id number] Magnesium Sulfate-D5w Pmx 300 1 gm In Dextrose/Water 1 100ml.bag @ 100 mls/hr IVPB Q1H [facility] Rx#: [id number] Sodium Chloride 0.9% 1, 300 700 000 ml @ 100 mls/hr IV . Q10H [facility] Rx#:[id number] metroNIDAZOLE-NS PMX 500 100 100 mg In Saline 1 100ml.bag @ 100 mls/hr IVPB Q8HR [facility] Rx#:[id number] Oral 0 Blood Product 310 Rc As-1 Unit 310 [id number] Other: # Voids 2 # Bowel Movements 1 - Labs CBC & Chem 7: 03/03/21 05:14 03/02/21 19:11 Labs: Abnormal Lab Results - Last 24 Hours (Table) 03/03/21 Range/Units 05:14 WBC 1.5 L (3.8-10.6) k/uL RBC 2.15 L (3.80-5.40) m/uL Hgb 7.1 L (11.4-16.0) gm/dL Hct 20.1 L (34.0-46.0) % RDW 19.5 H (11.5-15.5) % Plt Count 60 L (150-450) k/uL Neutrophils # 0.9 L (1.3-7.7) k/uL Lymphocytes # 0.5 L (1.0-4.8) k/uL Microbiology - Last 24 Hours (Table) 03/02/21 06:01 Blood Culture - Preliminary Blood No Growth after 24 hours 03/01/21 16:22 Blood Culture - Preliminary Blood No Growth after 24 hours 03/01/21 16:36 Blood Culture - Preliminary Blood No Growth after 24 hours 03/02/21 07:10 Stool Culture - Preliminary Stool <Storm Rodriguez - Last Filed: 03/03/21 16:41> Subjective As above. Patient says her pain is improved. No further vomiting. She is hungry. Continue supportive care. Advance diet per oncology. Upper and lower endoscopy still scheduled for Saturday. Objective - Vital Signs Vital signs: Vital Signs Temp 98.3 F 03/03/21 11:42 Pulse 92 03/03/21 15:39 Resp 17 03/03/21 11:42 BP 100/64 03/03/21 11:42 Pulse Ox 94 L 03/03/21 11:42 Intake & Output 03/02/21 03/03/21 03/03/21 18:59 06:59 18:59 Intake Total 860 1100 Balance 860 1100 Intake: Intake, IV Titration 550 1100 Amount Levofloxacin 750Mg-D5w 150 Pmx 750 mg In Dextrose/ Water 1 150ml.bag @ 100 mls/hr IVPB Q24H [facility] Rx#: [id number] Magnesium Sulfate-D5w Pmx 300 1 gm In Dextrose/Water 1 100ml.bag @ 100 mls/hr IVPB Q1H [facility] Rx#: [id number] Sodium Chloride 0.9% 1, 300 700 000 ml @ 100 mls/hr IV . Q10H [facility] Rx#:[id number] metroNIDAZOLE-NS PMX 500 100 100 mg In Saline 1 100ml.bag @ 100 mls/hr IVPB Q8HR [facility] Rx#:[id number] Oral 0 Blood Product 310 Rc As-1 Unit 310 [id number] Other: # Voids 2 2 # Bowel Movements 1 2 - Labs CBC & Chem 7: 03/03/21 05:14 03/02/21 19:11 Labs: Abnormal Lab Results - Last 24 Hours (Table) 03/03/21 Range/Units 05:14 WBC 1.5 L (3.8-10.6) k/uL RBC 2.15 L (3.80-5.40) m/uL Hgb 7.1 L (11.4-16.0) gm/dL Hct 20.1 L (34.0-46.0) % RDW 19.5 H (11.5-15.5) % Plt Count 60 L (150-450) k/uL Neutrophils # 0.9 L (1.3-7.7) k/uL Lymphocytes # 0.5 L (1.0-4.8) k/uL Microbiology - Last 24 Hours (Table) 03/02/21 06:01 Blood Culture - Preliminary Blood No Growth after 24 hours 03/01/21 16:22 Blood Culture - Preliminary Blood No Growth after 24 hours 03/01/21 16:36 Blood Culture - Preliminary Blood No Growth after 24 hours
[2021-03-03] MEDS: FILGRASTIM-SNDZ 480 MCG/0.8 ML SYRINGE SQ SCH (17:59)
--- NOTE | 2021-03-03 20:03 | PN ---
PROGRESS NOTE DATE OF SERVICE: 03/03/2021 This 60-year-old woman who was admitted with abdominal pain, diarrhea also abnormal CT scan also. The patient was started on empiric antibiotics. Surgery is following the patient closely. No chest pain. No palpitations. No fever. The fluid is being slowly advanced. Scheduled endoscopes by Dr. Norris. No chest pain. No palpitations. No fever. PHYSICAL EXAMINATION: Alert and oriented x4. Pulse 74, blood pressure 100/60, respirations 17, temperature 98.2, pulse ox 94% on room air. HEENT: Conjunctivae normal. NECK: Supple. No JVD. CARDIOVASCULAR: S1, S2 muffled. RESPIRATORY SYSTEM: Breath sounds diminished at the bases, no rhonchi, no crackles. ABDOMEN: Soft, nontender. No mass palpable. LEGS: No edema.. LAB STUDIES: ( ) hemoglobin 7.1. Other labs are noted. ASSESSMENT: 1. Abdominal pain, nausea, vomiting, diarrhea. Possible acute gastroenteritis. 2. Anemia, possibly secondary to complications secondary to chemotherapy and malignancy. 3. Pancytopenia secondary to malignancy. 4. Focal dilatation of the 2nd segment of the duodenum with a few foci of air in the anterior aspect of the duodenum with no parul pneumoperitoneum. 5. Thrombocytopenia. 6. Hypokalemia. 7. Hypomagnesemia. 8. Elevated ALT. 9. History of colon cancer with metastases. 10.History of chronic obstructive pulmonary disease. 11.GERD. 12.Hypertension. 13.Hyperlipidemia. 14.History of DJD. 15.History of peripheral neuropathy. 16.History of childhood nephrotic syndrome. 17.History of liver cancer and lesions resected surgically. 18.History of lung nodules. 19.History of chemotherapy. 20.Anxiety, depression. 21.Panic disorder. 22.FULL CODE. DISCUSSION AND RECOMMENDATIONS: Consequent to continue current medications, symptomatic treatment. Otherwise, continue the antibiotics, closely for surgery and closely with Oncology. Guarded prognosis. Further recommendations to follow. Cultures are negative so far. MMODL / IJN: [id number] /
[2021-03-03] MEDS: MONTELUKAST 10 MG TAB PO SCH (21:18)
[2021-03-03 21:34] LABS: ALT 38 U/L (8-44); AST 29 U/L (13-35); African American GFR (CKD) 113.2 (60.0-200.0); Albumin/Globulin Ratio 1.75 (1.60-3.17); Alkaline Phosphatase 168 U/L (41-126); Blood Urea Nitrogen <5.0 mg/dL (9.0-27.0); Calcium 7.8 mg/dL (8.7-10.3); Carbon Dioxide 18.4 mmol/L (21.6-31.8); Chloride 115 mmol/L (96-109); Glucose 87 mg/dL (70-110); Magnesium 2.1 mg/dL (1.5-2.4); Non-African American GFR(CKD) 97.7 (60.0-200.0); Potassium 3.3 mmol/L (3.5-5.5); Sodium 142 mmol/L (135-145); Total Bilirubin 0.6 mg/dL (0.2-1.2); Total Protein 5.5 g/dL (6.2-8.2)
[2021-03-03 21:50] LABS: Amylase 20 U/L (23-121); Lipase 33 U/L (14-63)
[2021-03-04] MEDS: SODIUM CHLORIDE 0.9% 1,000 ML IV SCH ×2 (05:22→05:29)
[2021-03-04 07:48] LABS: ALT 27 U/L (4-34); AST 23 U/L (14-36); African American GFR (CKD) >90 (>60 ml/min/1.73 sqM); Albumin 3.2 g/dL (3.5-5.0); Albumin/Globulin Ratio 1.3; Alkaline Phosphatase 147 U/L (38-126); Anion Gap 6 mmol/L; Blood Urea Nitrogen <2 mg/dL (7-17); Calcium 8.5 mg/dL (8.4-10.2); Carbon Dioxide 22 mmol/L (22-30); Chloride 114 mmol/L (98-107); Globulin 2.5 g/dL; Glucose 105 mg/dL (74-99); Magnesium 1.7 mg/dL (1.6-2.3); Non-African American GFR(CKD) >90 (>60 ml/min/1.73 sqM); Sodium 142 mmol/L (137-145); Total Bilirubin 0.6 mg/dL (0.2-1.3); Total Protein 5.7 g/dL (6.3-8.2)
[2021-03-04] MEDS ORDERED: Potassium Replacement Protocol 1 EACH MISC MISCELLANE PRN ×2 (07:53→10:45)
[2021-03-04] MEDS: SYMBICORT 160-4.5 MCG INHALER INHALATION SCH ×2 (07:59→20:41)
[2021-03-04] MEDS: metroNIDAZOLE-NS PMX 500 MG in SALINE 1 100ML.BAG IVPB SCH ×2 (08:01→18:08)
[2021-03-04] MEDS: POTASSIUM CHLORIDE ER 20 MEQ TAB.ER PO SCH ×4 (08:01→14:08)
[2021-03-04] MEDS: HEPARIN SODIUM,PORCINE/PF 5,000 UNIT/0.5 ML SYRINGE SQ SCH ×2 (08:02→21:04)
[2021-03-04] MEDS: hydrOXYzine HCL 25 MG TAB PO SCH ×3 (08:02→21:04)
[2021-03-04] MEDS: METOPROLOL TARTRATE 25 MG TAB PO SCH ×2 (08:03→21:03)
[2021-03-04] MEDS: PANTOPRAZOLE 40 MG/10 ML VIAL IVP SCH ×2 (08:03→21:03)
[2021-03-04] MEDS: valACYclovir HCL 1,000 MG TABLET PO SCH ×2 (08:03→21:04)
[2021-03-04] MEDS: VENLAFAXINE HCL ER 75 MG CAP PO SCH (08:04)
[2021-03-04] MEDS: DIPHENOX-ATROP 2.5-0.025 MG 1 EACH TAB PO PRN (08:21)
[2021-03-04 08:25] LABS: Anisocytosis Moderate; Basophils % (A) 1 %; Eosinophils % (A) 0 %; HCT 21.3 % (34.0-46.0); HGB 7.1 gm/dL (11.4-16.0); Lymphocytes # (A) 0.6 k/uL (1.0-4.8); Lymphocytes % (A) 31 %; MCH 32.2 pg (25.0-35.0); MCHC 33.2 g/dL (31.0-37.0); MCV 96.7 fL (80.0-100.0); Macrocytosis Slight; Mean Platelet Volume 8.5; Monocytes # (A) 0.1 k/uL (0-1.0); Monocytes % (A) 5 %; Neutrophils # (A) 1.2 k/uL (1.3-7.7); Neutrophils % (A) 60 %; RDW 21.8 % (11.5-15.5)
[2021-03-04 08:43] LABS: Platelet Count 71 k/uL (150-450)
[2021-03-04] MEDS: CHOLESTYRAMINE (WITH SUGAR) 4 GM PACKET PO SCH ×2 (10:59→18:08)
[2021-03-04] MEDS ORDERED: POTASSIUM CHLORIDE ER 20 MEQ TAB.ER PO SCH (11:00)
[2021-03-04] MEDS: POTASSIUM CHLORIDE 20 MEQ in WATER FOR INJECTION 1 100ML.BAG IVPB SCH ×2 (11:43→16:04)
--- NOTE | 2021-03-04 11:58 | P.PN ---
Subjective Progress Note Date: 03/04/21 CHIEF COMPLAINT: Abdominal pain HISTORY OF PRESENT ILLNESS: The patient is a 60 year old female with metastatic gastrointestinal cancer. She is surrounded by friends at bedside. "I want to eat." Her nurse is at bedside. She reports her abdominal pain is better than yesterday. No nausea. "My gallbladder is out and my colon won't let me have ribs!" She is pending discussion with Yocasta from oncology regarding her diet. ROS: No fevers or chills. No active chest pain. No nausea or vomiting PHYSICAL EXAM: VITAL SIGNS: Reviewed CONSTITUTIONAL: Well developed and in no acute distress. EYES: Conjuctivae without sclera icterus. Extraocular movements grossly intact. HEAD, EARS, NOSE, THROAT: Moist buccal mucosa. Head is atraumatic, normocephalic. Hears conversational speech. No nasal drainage. NECK: No jugular venous distention RESPIRATORY: Non-labored respirations and equal bilateral excursions. CARDIOVASCULAR: Regular rate. ABDOMEN: No peritonitis. MUSCULOSKELETAL: No gross deformity of the lower extremities noted. No clubbing. No cyanosis. SKIN: Good skin turgor. Well perfused. NEUROLOGIC: Cranial nerves II through XII grossly intact. No focal or lateralizing signs. PSYCH: Appropriate affect. Alert and oriented to person, place and time. CLINICAL LABS: Reviewed. Pancytopenic, WBC 2.0, platelets less than 100 ASSESSMENT: 1. Metastatic cancer 2. Pancytopenia 3. Chemotheraphy induced enteritis PLAN: 1. Diet per oncology 2. She is elevated risk for surgical procedures with pancytopenia Objective - Vital Signs Vital signs: Vital Signs Temp 97.5 F L 03/04/21 05:00 Pulse 81 03/04/21 05:00 Resp 16 03/04/21 05:00 BP 119/74 03/04/21 05:00 Pulse Ox 95 03/04/21 05:00 Intake & Output 03/03/21 03/04/21 03/04/21 18:59 06:59 18:59 Intake Total 1680 Balance 1680 Intake: Intake, IV Titration 1200 Amount Sodium Chloride 0.9% 1, 1100 000 ml @ 100 mls/hr IV . Q10H R[facility] Rx#:[id number] metroNIDAZOLE-NS PMX 500 100 mg In Saline 1 100ml.bag @ 100 mls/hr IVPB Q8HR ROULA Rx#:[id number] Oral 480 Other: # Voids 1 3 # Bowel Movements 1 1 - Labs CBC & Chem 7: 03/04/21 07:17 03/04/21 10:21 Labs: Abnormal Lab Results - Last 24 Hours (Table) 03/03/21 03/03/21 03/04/21 Range/Units 05:14 05:14 07:17 WBC 2.0 L (3.8-10.6) k/uL RBC 2.20 L (3.80-5.40) m/uL Hgb 7.1 L (11.4-16.0) gm/dL Hct 21.3 L (34.0-46.0) % RDW 21.8 H (11.5-15.5) % Plt Count 71 L (150-450) k/uL Neutrophils # 1.2 L (1.3-7.7) k/uL Lymphocytes # 0.6 L (1.0-4.8) k/uL Potassium 3.3 L (3.5-5.5) mmol/L Chloride 115 H (96-109) mmol/L Carbon Dioxide 18.4 L (21.6-31.8) mmol/L BUN <5.0 L (9.0-27.0) mg/dL Creatinine (0.52-1.04) mg/dL Glucose (74-99) mg/dL Calcium 7.8 L (8.7-10.3) mg/dL Alkaline Phosphatase 168 H (41-126) U/L Total Protein 5.5 L (6.2-8.2) g/dL Albumin 3.50 L (3.80-4.90) g/dL Amylase 20 L (23-121) U/L 03/04/21 03/04/21 Range/Units 07:17 10:21 WBC (3.8-10.6) k/uL RBC (3.80-5.40) m/uL Hgb (11.4-16.0) gm/dL Hct (34.0-46.0) % RDW (11.5-15.5) % Plt Count (150-450) k/uL Neutrophils # (1.3-7.7) k/uL Lymphocytes # (1.0-4.8) k/uL Potassium 3.0 L 3.2 L (3.5-5.5) mmol/L Chloride 114 H (96-109) mmol/L Carbon Dioxide (21.6-31.8) mmol/L BUN <2 L (9.0-27.0) mg/dL Creatinine 0.51 L (0.52-1.04) mg/dL Glucose 105 H (74-99) mg/dL Calcium (8.7-10.3) mg/dL Alkaline Phosphatase 147 H (41-126) U/L Total Protein 5.7 L (6.2-8.2) g/dL Albumin 3.2 L (3.80-4.90) g/dL Amylase (23-121) U/L Microbiology - Last 24 Hours (Table) 03/02/21 06:01 Blood Culture - Preliminary Blood No Growth after 48 hours 03/01/21 16:22 Blood Culture - Preliminary Blood No Growth after 48 hours 03/01/21 16:36 Blood Culture - Preliminary Blood No Growth after 48 hours Assessment and Plan (1) Abdominal pain Current Visit: Yes Status: Acute Code(s): R10.9 - UNSPECIFIED ABDOMINAL PAIN SNOMED Code(s): 66802924 (2) Neutropenic colitis Current Visit: Yes Status: Acute Code(s): D70.9 - NEUTROPENIA, UNSPECIFIED; K52.89 - OTHER SPECIFIED NONINFECTIVE GASTROENTERITIS AND COLITIS SNOMED Code(s): 809134172 (3) Pancytopenia due to antineoplastic chemotherapy Current Visit: Yes Status: Acute Code(s): D61.810 - ANTINEOPLASTIC CHEMOTHERAPY INDUCED PANCYTOPENIA; T45.1X5A - ADVERSE EFFECT OF ANTINEOPLASTIC AND IMMUNOSUP DRUGS, INIT SNOMED Code(s): 574005426497550 (4) Metastatic colon cancer to liver Current Visit: No Status: Chronic Priority: Low Code(s): C18.9 - MALIGNANT NEOPLASM OF COLON, UNSPECIFIED; C78.7 - SECONDARY MALIG NEOPLASM OF LIVER AND INTRAHEPATIC BILE DUCT SNOMED Code(s): 129403469
[2021-03-04] MEDS: HYDROcodone/APAP 5-325MG 1 EACH TAB PO PRN ×2 (12:37→18:16)
[2021-03-04] MEDS: ONDANSETRON 4 MG/2 ML VIAL IVP PRN (12:37)
[2021-03-04] MEDS: LEVOFLOXACIN 750MG-D5W PMX 750 MG in DEXTROSE/WATER 1 150ML.BAG IVPB SCH (14:07)
[2021-03-04] MEDS: FILGRASTIM-SNDZ 480 MCG/0.8 ML SYRINGE SQ SCH (18:08)
--- NOTE | 2021-03-04 18:27 | PN ---
PROGRESS NOTE DATE OF SERVICE: 03/04/2021 INTERVAL HISTORY: This is a 60-year-old woman who was admitted with abdominal pain, nausea, also had some minimal focal dilatation of the duodenum and some air also. The patient is on broad- spectrum IV antibiotics empirically. Patient is feeling slightly better. Surgery is planning endoscopes also. No chest pain. No palpitations. No fever. Patient also had hyperkalemia. PHYSICAL EXAMINATION: GENERAL: Patient is alert and oriented times three. VITAL SIGNS: Pulse 71, blood pressure 125/81, respirations 18, temperature 98, pulse ox 97% on room air. HEENT: Conjunctivae normal. Oral mucosa moist. NECK: No jugular venous distention. No carotid bruits. No lymph node enlargement. RESPIRATORY: Breath sounds diminished at the bases. No rhonchi, no crackles. HEART: S1 and S2, muffled. ABDOMEN: Soft, no tenderness. No masses palpable. EXTREMITIES: No edema, no swelling. NERVOUS: No focal deficits. LABS: WBC 2, hemoglobin 7.1. Potassium is 3 and 3.2. REVIEW OF SYSTEMS: CARDIOVASCULAR: No angina. RESPIRATORY: As mentioned earlier. GI: As mentioned earlier. : No dysuria. NERVOUS SYSTEM: No numbness or weakness. CURRENT MEDICATIONS: Reviewed include Tylenol, Walker, Ventolin, Symbicort, Flexeril, Marinol, , Dilaudid, Atarax. Doses reviewed. ASSESSMENT: 1. Abdominal pain, nausea, vomiting, diarrhea possible acute gastroenteritis, present on admission. 2. Anemia, possibly secondary to chemotherapy and malignancy. 3. Pancytopenia secondary to malignancy. 4. Focal dilatation of the 2nd segment of the duodenum with a few foci of air in the anterior aspect of the duodenum with no parul pneumoperitoneum. 5. Thrombocytopenia. 6. Severe hypokalemia, persistent. 7. Hypomagnesemia. 8. Elevated ALT. 9. History of colon cancer with METS. 10.History of COPD. 11.GERD. 12.Hypertension. 13.Hyperlipidemia. 14.History of degenerative joint disease. 15.History of peripheral neuropathy. 16.History of childhood nephrotic syndrome. 17.History of liver cancer and lesions resected surgically. 18.History of lung nodules. 19.History of chemotherapy. 20.Anxiety and depression. 21.Panic disorder. 22.FULL CODE. RECOMMENDATION AND DISCUSSION: Continue current management, continue symptomatic treatment. Recommend potassium 40 mEq p.o. times at least 2 more doses and also 40 mg IV 1 dose and monitor closely. Today magnesium is 1.7. Use supplement protocols. Otherwise bowel preparation per Surgery. Continue the rest of medication. DVT prophylaxis. Guarded prognosis because of multiple complex medical issues. Continue the antibiotics. The cultures are negative so far. Repeat labs will be ordered for tomorrow. We will monitor hemoglobin, which is rather stable at 7.1. If it drops to less than 7, I would recommend transfusion. Overall prognosis extremely guarded because of multiple complex medical issues as described above. Further recommendations to follow. MMODL / IJN: [id number] /
[2021-03-04] MEDS: ALBUTEROL NEBULIZED 2.5 MG/3 ML INHALATION PRN (20:41)
[2021-03-04] MEDS: MONTELUKAST 10 MG TAB PO SCH (21:03)
[2021-03-04] MEDS: LORazepam 2 MG/ML INJ IV PRN (21:09)
[2021-03-05] MEDS: SODIUM CHLORIDE 0.9% 1,000 ML IV SCH (00:14)
[2021-03-05] MEDS: metroNIDAZOLE-NS PMX 500 MG in SALINE 1 100ML.BAG IVPB SCH ×3 (00:16→16:48)
[2021-03-05 06:55] LABS: Anisocytosis Moderate; Basophils % (A) 0 %; Eosinophils % (A) 1 %; HCT 22.2 % (34.0-46.0); HGB 7.1 gm/dL (11.4-16.0); Hypochromasia Slight; Lymphocytes # (A) 0.7 k/uL (1.0-4.8); Lymphocytes % (A) 34 %; MCH 32.4 pg (25.0-35.0); MCV 101.3 fL (80.0-100.0); Macrocytosis Moderate; Mean Platelet Volume 8.8; Monocytes # (A) 0.1 k/uL (0-1.0); Monocytes % (A) 6 %; Neutrophils # (A) 1.1 k/uL (1.3-7.7); Neutrophils % (A) 53 %; Poikilocytosis Slight; RBC 2.19 m/uL (3.80-5.40); RDW 23.2 % (11.5-15.5)
[2021-03-05 07:06] LABS: Platelet Count 77 k/uL (150-450)
[2021-03-05] MEDS: SYMBICORT 160-4.5 MCG INHALER INHALATION SCH ×2 (07:21→20:22)
[2021-03-05] MEDS ORDERED: PEG 3350-NA SULF,BICARB,CL/KCL 4,000 ML BOTTLE PO ONE (09:00)
[2021-03-05 10:02] LABS: African American GFR (CKD) 113.2 (60.0-200.0); Blood Urea Nitrogen <5.0 mg/dL (9.0-27.0); Calcium 8.2 mg/dL (8.7-10.3); Carbon Dioxide 20.4 mmol/L (21.6-31.8); Chloride 114 mmol/L (96-109); Glucose 93 mg/dL (70-110); Non-African American GFR(CKD) 97.7 (60.0-200.0); Potassium 4.4 mmol/L (3.5-5.5); Sodium 141 mmol/L (135-145)
[2021-03-05] MEDS: HYDROcodone/APAP 5-325MG 1 EACH TAB PO PRN ×3 (10:06→21:50)
[2021-03-05] MEDS: hydrOXYzine HCL 25 MG TAB PO SCH ×3 (10:07→20:39)
[2021-03-05] MEDS: VENLAFAXINE HCL ER 75 MG CAP PO SCH (10:08)
[2021-03-05] MEDS: METOPROLOL TARTRATE 25 MG TAB PO SCH ×2 (10:08→20:38)
[2021-03-05] MEDS: HEPARIN SODIUM,PORCINE/PF 5,000 UNIT/0.5 ML SYRINGE SQ SCH ×2 (10:08→20:40)
[2021-03-05] MEDS: valACYclovir HCL 1,000 MG TABLET PO SCH ×2 (10:08→20:39)
[2021-03-05] MEDS: PANTOPRAZOLE 40 MG/10 ML VIAL IVP SCH ×2 (10:09→20:40)
[2021-03-05] MEDS: CHOLESTYRAMINE (WITH SUGAR) 4 GM PACKET PO SCH ×2 (10:09→15:13)
[2021-03-05] MEDS: LEVOFLOXACIN 750MG-D5W PMX 750 MG in DEXTROSE/WATER 1 150ML.BAG IVPB SCH (15:13)
[2021-03-05] MEDS ORDERED: MAGNESIUM CITRATE 296 ML BOTTLE PO ONE ×2 (15:30→20:30)
[2021-03-05] MEDS: FILGRASTIM-SNDZ 480 MCG/0.8 ML SYRINGE SQ SCH (16:49)
[2021-03-05] MEDS: ONDANSETRON 4 MG/2 ML VIAL IVP PRN (16:56)
--- NOTE | 2021-03-05 16:56 | P.PN ---
Subjective Progress Note Date: 03/05/21 CHIEF COMPLAINT: Abdominal pain HISTORY OF PRESENT ILLNESS: The patient is a 60 year old female with metastatic gastrointestinal cancer. She has been on full liquid diet and tolerating. She denies any active abdominal pain. She reports she is unable to tolerate GoLytely prep. She is on magnesium citrate instead. ROS: No fevers or chills. No active chest pain. No nausea or vomiting PHYSICAL EXAM: VITAL SIGNS: Reviewed CONSTITUTIONAL: Well developed and in no acute distress. EYES: Conjuctivae without sclera icterus. Extraocular movements grossly intact. HEAD, EARS, NOSE, THROAT: Moist buccal mucosa. Head is atraumatic, normocephalic. Hears conversational speech. No nasal drainage. NECK: No jugular venous distention RESPIRATORY: Non-labored respirations and equal bilateral excursions. CARDIOVASCULAR: Regular rate. ABDOMEN: No peritonitis. MUSCULOSKELETAL: No gross deformity of the lower extremities noted. No clubbing. No cyanosis. SKIN: Good skin turgor. Well perfused. NEUROLOGIC: Cranial nerves II through XII grossly intact. No focal or lateralizing signs. PSYCH: Appropriate affect. Alert and oriented to person, place and time. CLINICAL LABS: Reviewed. ASSESSMENT: 1. Metastatic cancer 2. Pancytopenia 3. Chemotheraphy induced enteritis PLAN: 1. Agree with bowel prep that she may tolerate including magnesium citrate 2. She is elevated risk for complications for upper and lower endoscopy due to pancytopenia Objective - Vital Signs Vital signs: Vital Signs Temp 99.0 F 03/05/21 12:42 Pulse 72 03/05/21 12:42 Resp 17 03/05/21 12:42 BP 98/64 03/05/21 12:42 Pulse Ox 94 L 03/05/21 12:42 Intake & Output 03/04/21 03/05/21 03/05/21 18:59 06:59 18:59 Intake Total 2360 Balance 2360 Intake: Intake, IV Titration 1400 Amount Potassium Chloride 20 meq 100 In Water For Injection 1 100ml.bag @ 50 mls/hr IVPB Q2H [facility] Rx#: [id number] Sodium Chloride 0.9% 1, 1100 000 ml @ 100 mls/hr IV . Q10H [facility] Rx#:[id number] metroNIDAZOLE-NS PMX 500 200 mg In Saline 1 100ml.bag @ 100 mls/hr IVPB Q8HR R[facility] Rx#:[id number] Oral 960 Other: # Voids 1 2 - Labs CBC & Chem 7: 03/05/21 05:47 03/05/21 05:47 Labs: Abnormal Lab Results - Last 24 Hours (Table) 03/05/21 03/05/21 Range/Units 05:47 05:47 WBC 2.0 L (3.8-10.6) k/uL RBC 2.19 L (3.80-5.40) m/uL Hgb 7.1 L (11.4-16.0) gm/dL Hct 22.2 L (34.0-46.0) % MCV 101.3 H (80.0-100.0) fL RDW 23.2 H (11.5-15.5) % Plt Count 77 L (150-450) k/uL Neutrophils # 1.1 L (1.3-7.7) k/uL Lymphocytes # 0.7 L (1.0-4.8) k/uL Chloride 114 H (96-109) mmol/L Carbon Dioxide 20.4 L (21.6-31.8) mmol/L BUN <5.0 L (9.0-27.0) mg/dL Calcium 8.2 L (8.7-10.3) mg/dL Microbiology - Last 24 Hours (Table) 03/02/21 06:01 Blood Culture - Preliminary Blood No Growth after 72 hours 03/01/21 16:22 Blood Culture - Preliminary Blood No Growth after 72 hours 03/01/21 16:36 Blood Culture - Preliminary Blood No Growth after 72 hours Assessment and Plan (1) Abdominal pain Current Visit: Yes Status: Acute Code(s): R10.9 - UNSPECIFIED ABDOMINAL PAIN SNOMED Code(s): 47160464 (2) Neutropenic colitis Current Visit: Yes Status: Acute Code(s): D70.9 - NEUTROPENIA, UNSPECIFIED; K52.89 - OTHER SPECIFIED NONINFECTIVE GASTROENTERITIS AND COLITIS SNOMED Code(s): 771060963 (3) Pancytopenia due to antineoplastic chemotherapy Current Visit: Yes Status: Acute Code(s): D61.810 - ANTINEOPLASTIC CHEMOTHERAPY INDUCED PANCYTOPENIA; T45.1X5A - ADVERSE EFFECT OF ANTINEOPLASTIC AND IMMUNOSUP DRUGS, INIT SNOMED Code(s): 397861241482932 (4) Metastatic colon cancer to liver Current Visit: No Status: Chronic Priority: Low Code(s): C18.9 - MALIGNANT NEOPLASM OF COLON, UNSPECIFIED; C78.7 - SECONDARY MALIG NEOPLASM OF LIVER AND INTRAHEPATIC BILE DUCT SNOMED Code(s): 060534907
--- NOTE | 2021-03-05 18:49 | P.PN ---
Subjective Progress Note Date: 03/05/21 The pt he reports continued slow improvement in her symptoms. At this time she is not having any abdominal pain at baseline. No fever, chills, nausea or vomiting. She is tolerating full liquids well. She has had about 3 [id number] volume was bowel movements in the last 24 hours. Objective - Vital Signs Vital signs: Vital Signs Temp 99.0 F 03/05/21 12:42 Pulse 72 03/05/21 12:42 Resp 17 03/05/21 12:42 BP 98/64 03/05/21 12:42 Pulse Ox 94 L 03/05/21 12:42 Intake & Output 03/04/21 03/05/21 03/05/21 18:59 06:59 18:59 Intake Total 2360 Balance 2360 Intake: Intake, IV Titration 1400 Amount Potassium Chloride 20 meq 100 In Water For Injection 1 100ml.bag @ 50 mls/hr IVPB Q2H [facility] Rx#: [id number] Sodium Chloride 0.9% 1, 1100 000 ml @ 100 mls/hr IV . Q10H [facility] Rx#:[id number] metroNIDAZOLE-NS PMX 500 200 mg In Saline 1 100ml.bag @ 100 mls/hr IVPB Q8HR [facility] Rx#:[id number] Oral 960 Other: # Voids 1 2 2 # Bowel Movements 2 - Constitutional General appearance: Present: no acute distress - EENT Eyes: Present: EOMI ENT: Present: hearing grossly normal, normal oropharynx - Respiratory Respiratory: bilateral: CTA - Cardiovascular Rhythm: regular Heart sounds: normal: S1, S2 - Gastrointestinal General gastrointestinal: Present: normal bowel sounds, soft Localized gastrointestinal: tender: RLQ (minimal to absent) - Integumentary Integumentary: Present: normal - Neurologic Neurologic: Present: CNII-XII intact - Musculoskeletal Musculoskeletal: Present: strength equal bilaterally - Psychiatric Psychiatric: Present: A&O x's 3, appropriate affect - Labs CBC & Chem 7: 03/05/21 05:47 03/05/21 05:47 Labs: Abnormal Lab Results - Last 24 Hours (Table) 03/05/21 03/05/21 Range/Units 05:47 05:47 WBC 2.0 L (3.8-10.6) k/uL RBC 2.19 L (3.80-5.40) m/uL Hgb 7.1 L (11.4-16.0) gm/dL Hct 22.2 L (34.0-46.0) % MCV 101.3 H (80.0-100.0) fL RDW 23.2 H (11.5-15.5) % Plt Count 77 L (150-450) k/uL Neutrophils # 1.1 L (1.3-7.7) k/uL Lymphocytes # 0.7 L (1.0-4.8) k/uL Chloride 114 H (96-109) mmol/L Carbon Dioxide 20.4 L (21.6-31.8) mmol/L BUN <5.0 L (9.0-27.0) mg/dL Calcium 8.2 L (8.7-10.3) mg/dL Microbiology - Last 24 Hours (Table) 03/02/21 07:10 Stool Culture - Final Stool 03/02/21 06:01 Blood Culture - Preliminary Blood No Growth after 72 hours 03/01/21 16:22 Blood Culture - Preliminary Blood No Growth after 72 hours 03/01/21 16:36 Blood Culture - Preliminary Blood No Growth after 72 hours Assessment and Plan (1) Neutropenic colitis Narrative/Plan: patient continues to improve slowly. While white count is still low, absolute neutrophil count is now of 1000. Continue filgrastim. As physical exam is also significantly improved, the plan was to advance her diet further. However that was put on hold as the patient is tentatively being prepped for colonoscopy tomorrow. Continue antibiotics. Switch to by mouth at discharge Current Visit: Yes Status: Acute Code(s): D70.9 - NEUTROPENIA, UNSPECIFIED; K52.89 - OTHER SPECIFIED NONINFECTIVE GASTROENTERITIS AND COLITIS SNOMED Code(s): 179064761 (2) Pancytopenia due to antineoplastic chemotherapy Narrative/Plan: persistent with slow improvement. WBC is improved with G-CSF with D&C now greater than 1000. Hemoglobin is stable the low 7 range, and platelets are 77. Transfuse to keep hemoglobin greater than 7. Current Visit: Yes Status: Acute Code(s): D61.810 - ANTINEOPLASTIC CHEMOTHERAPY INDUCED PANCYTOPENIA; T45.1X5A - ADVERSE EFFECT OF ANTINEOPLASTIC AND IMMUNOSUP DRUGS, INIT SNOMED Code(s): 561351938843806 (3) Metastatic colon cancer to liver Narrative/Plan: treatment is currently on hold. Patient is being prepped for colonoscopy because of CT scan showing possible new mass in the descending colon Current Visit: No Status: Chronic Priority: Low Code(s): C18.9 - MALIGNANT NEOPLASM OF COLON, UNSPECIFIED; C78.7 - SECONDARY MALIG NEOPLASM OF LIVER AND INTRAHEPATIC BILE DUCT SNOMED Code(s): 150496886
[2021-03-05] MEDS: ALBUTEROL NEBULIZED 2.5 MG/3 ML INHALATION PRN (20:22)
[2021-03-05] MEDS: MONTELUKAST 10 MG TAB PO SCH (20:39)
[2021-03-05] MEDS: LORazepam 2 MG/ML INJ IV PRN (20:46)
--- NOTE | 2021-03-05 21:59 | PN ---
PROGRESS NOTE DATE OF SERVICE: 03/05/2021 This 60-year-old woman who was admitted with abdominal pain, nausea, diarrhea with acute gastroenteritis, is being closely monitored. Patient had abnormal CT scan and patient also slated to have EGD and colonoscopy by Dr. Norris tomorrow. Patient on broad spectrum IV antibiotics. No chest pain. No palpitations. No fever. PHYSICAL EXAMINATION: Alert and oriented times three. Pulse 87. Blood pressure 124/71, Respirations 16, temperature 98.4, pulse ox 98% on room air. HEENT: Conjunctivae normal. Neck is no JVD. Cardiac: S1, S2 muffled. Respiration: Breath sounds diminished in the bases. No rhonchi. No crackles. Abdomen: Soft, nontender. Nervous system: No focal deficits. LABS: Hemoglobin 7.1, white count is 2 and platelets 77. Other labs are noted. ASSESSMENT: 1. Abdominal pain, nausea, vomiting, diarrhea with possible acute gastritis present on admission. 2. Anemia possibly secondary to chemotherapy and malignancy present on admission. 3. Pancytopenia secondary to malignancy. 4. Focal dilatation of the 2nd segment of the duodenum with a few foci of air in the anterior segment of the duodenum with no parul pneumoperitoneum. 5. Thrombocytopenia. 6. Severe hypokalemia, persistent. 7. Hypomagnesemia. 8. Increased ALT. 9. History of colon cancer with mets. 10.History of chronic obstructive pulmonary disease. 11.Gastroesophageal reflux disease. 12.Hypertension. 13.Hyperlipidemia. 14.History of degenerative joint disease. 15.History of peripheral neuropathy. 16.History of childhood nephrotic syndrome. 17.History of liver cancer and lesions resected surgically. 18.History of lung nodules. 19.History of chemotherapy. 20.Anxiety/depression. 21.Panic disorder. 22.FULL CODE. RECOMMENDATIONS AND DISCUSSION: Continue current medications, continue monitoring, management and symptomatic treatment. Potassium is improved to 4.4. Otherwise, closely monitor. Colonoscopy prep and scopes surgery. Closely follow with multiple consultants. Guarded prognosis. Further recommendations to follow. MMODL / IJN: [id number] / MTDD
[2021-03-06] MEDS: SODIUM CHLORIDE 0.9% 1,000 ML IV SCH ×4 (00:03→20:41)
[2021-03-06] MEDS: metroNIDAZOLE-NS PMX 500 MG in SALINE 1 100ML.BAG IVPB SCH ×3 (00:04→16:51)
[2021-03-06] MEDS: ALBUTEROL NEBULIZED 2.5 MG/3 ML INHALATION PRN ×3 (07:40→15:30)
[2021-03-06] MEDS: SYMBICORT 160-4.5 MCG INHALER INHALATION SCH ×2 (07:40→19:28)
[2021-03-06 09:20] LABS: Anisocytosis Moderate; HCT 22.9 % (34.0-46.0); HGB 7.9 gm/dL (11.4-16.0); Hypochromasia Slight; MCH 34.3 pg (25.0-35.0); MCHC 34.4 g/dL (31.0-37.0); MCV 99.8 fL (80.0-100.0); Macrocytosis Moderate; Mean Platelet Volume 9.2; Platelet Count 82 k/uL (150-450); Poikilocytosis Slight; RBC 2.29 m/uL (3.80-5.40); RDW 23.7 % (11.5-15.5)
[2021-03-06 09:22] LABS: ALT 23 U/L (4-34); AST 21 U/L (14-36); African American GFR (CKD) >90 (>60 ml/min/1.73 sqM); Albumin 3.1 g/dL (3.5-5.0); Albumin/Globulin Ratio 1.2; Alkaline Phosphatase 158 U/L (38-126); Anion Gap 5 mmol/L; Blood Urea Nitrogen <2 mg/dL (7-17); Calcium 8.8 mg/dL (8.4-10.2); Carbon Dioxide 18 mmol/L (22-30); Chloride 117 mmol/L (98-107); Globulin 2.5 g/dL; Glucose 103 mg/dL (74-99); Non-African American GFR(CKD) >90 (>60 ml/min/1.73 sqM); Potassium 3.9 mmol/L (3.5-5.1); Sodium 140 mmol/L (137-145); Total Bilirubin 0.6 mg/dL (0.2-1.3); Total Protein 5.6 g/dL (6.3-8.2)
[2021-03-06] MEDS: CHOLESTYRAMINE (WITH SUGAR) 4 GM PACKET PO SCH ×2 (09:42→16:53)
[2021-03-06] MEDS: HEPARIN SODIUM,PORCINE/PF 5,000 UNIT/0.5 ML SYRINGE SQ SCH ×2 (09:42→20:32)
[2021-03-06] MEDS: hydrOXYzine HCL 25 MG TAB PO SCH ×3 (09:44→21:16)
[2021-03-06] MEDS: valACYclovir HCL 1,000 MG TABLET PO SCH ×2 (09:45→21:17)
[2021-03-06] MEDS: PANTOPRAZOLE 40 MG/10 ML VIAL IVP SCH ×2 (09:45→20:33)
[2021-03-06] MEDS: VENLAFAXINE HCL ER 75 MG CAP PO SCH (09:45)
[2021-03-06] MEDS: METOPROLOL TARTRATE 25 MG TAB PO SCH ×2 (09:46→20:32)
[2021-03-06] MEDS: ONDANSETRON 4 MG/2 ML VIAL IVP PRN ×2 (11:13→16:51)
[2021-03-06] MEDS: HYDROcodone/APAP 5-325MG 1 EACH TAB PO PRN ×2 (11:14→20:32)
[2021-03-06 12:36] LABS: Band Neutrophils % 1 %; Eosinophils # (M) 0.02 k/uL (0-0.7); Monocytes # (M) 0.44 k/uL (0-1.0); Neutrophils % (M) 41 %; Nucleated Red Blood Cells 0 /100 WBC (0-0); Total Cells Counted 100
--- NOTE | 2021-03-06 12:44 | P.PN ---
Subjective Progress Note Date: 03/06/21 Principal diagnosis: Metastatic Colon Cancer PLanning colonoscopy today. Her CBC has "leveled off" WBC remains 2.0, hemoglobin 7.2, platelets starting to improve at 82K. Overall she is hungry and feels better. Objective - Vital Signs Vital signs: Vital Signs Temp 98.4 F 03/06/21 05:00 Pulse 73 03/06/21 09:47 Resp 16 03/06/21 05:00 BP 117/73 03/06/21 09:47 Pulse Ox 93 L 03/06/21 05:00 Intake & Output 03/05/21 03/06/21 03/06/21 18:59 06:59 18:59 Other: # Voids 2 2 # Bowel Movements 2 - Exam Constitutional General appearance: cooperative, no acute distress - EENT Eyes: EOMI ENT: NA/AT, normal oropharynx - Neck Neck: normal ROM - Respiratory Respiratory: bilateral: CTA - Cardiovascular Rhythm: regularly irregular - Gastrointestinal General gastrointestinal: tenderness - Integumentary Integumentary: pale - Neurologic Neurologic: CNII-XII intact - Musculoskeletal Musculoskeletal: gait normal, generalized weakness - Psychiatric Psychiatric: A&O x's 3, appropriate affect, intact judgment & insight - Labs CBC & Chem 7: 03/06/21 08:31 03/06/21 08:31 Labs: Abnormal Lab Results - Last 24 Hours (Table) 03/06/21 03/06/21 Range/Units 08:31 08:31 WBC 2.0 L (3.8-10.6) k/uL RBC 2.29 L (3.80-5.40) m/uL Hgb 7.9 L (11.4-16.0) gm/dL Hct 22.9 L (34.0-46.0) % RDW 23.7 H (11.5-15.5) % Plt Count 82 L (150-450) k/uL Chloride 117 H (98-107) mmol/L Carbon Dioxide 18 L (22-30) mmol/L BUN <2 L (7-17) mg/dL Glucose 103 H (74-99) mg/dL Alkaline Phosphatase 158 H (38-126) U/L Total Protein 5.6 L (6.3-8.2) g/dL Albumin 3.1 L (3.5-5.0) g/dL Microbiology - Last 24 Hours (Table) 03/02/21 06:01 Blood Culture - Preliminary Blood No Growth after 96 hours 03/01/21 16:22 Blood Culture - Preliminary Blood No Growth after 96 hours 03/01/21 16:36 Blood Culture - Preliminary Blood No Growth after 96 hours 03/02/21 07:10 Stool Culture - Final Stool Assessment and Plan (1) Neutropenic colitis Current Visit: Yes Status: Acute Code(s): D70.9 - NEUTROPENIA, UNSPECIFIED; K52.89 - OTHER SPECIFIED NONINFECTIVE GASTROENTERITIS AND COLITIS SNOMED Code(s): 872015055 (2) Pancytopenia due to antineoplastic chemotherapy Current Visit: Yes Status: Acute Code(s): D61.810 - ANTINEOPLASTIC C HEMOTHERAPY INDUCED PANCYTOPENIA; T45.1X5A - ADVERSE EFFECT OF ANTINEOPLASTIC AND IMMUNOSUP DRUGS, INIT SNOMED Code(s): 816087355492181 (3) Metastatic colon cancer to liver Current Visit: No Status: Chronic Priority: Low Code(s): C18.9 - MALIGNANT NEOPLASM OF COLON, UNSPECIFIED; C78.7 - SECONDARY MALIG NEOPLASM OF LIVER AND INTRAHEPATIC BILE DUCT SNOMED Code(s): 380616741 Plan: NPO while Neutrophils less than 1 Await Torres Cultures COntinue Zarxio Hold Lonsurf Stool Studies Check Pancreatic Enzymes Tolerated clear and Full liquids and planning EGD and colonoscopy in am per GI today then Increase diet as long as tolerating ok with discharge from oncology in am Physician Attest: I have complete the full history and physical and agree with above dictation, dictated as a scribe.
[2021-03-06] MEDS ORDERED: SODIUM CHLORIDE 0.9% 500 ML 500 ML IV ONE (13:15)
[2021-03-06] MEDS ORDERED: PROPOFOL 10 MG/ML 20 ML VIAL IV ONE (13:16)
[2021-03-06] MEDS ORDERED: LIDOCAINE 1% INJ 10MG/ML (20 ML MDV) ONE (13:16)
--- NOTE | 2021-03-06 14:01 | P.OP ---
Date of Procedure: 03/06/21 Preoperative Diagnosis: Diarrhea Abdominal pain Postoperative Diagnosis: Antral gastritis Sliding hiatal hernia Transverse colon polyp Poor right colon prep Procedure(s) Performed: Colonoscop EGD Anesthesia: MAC Surgeon: Leobardo Norris Pathology: other (Antrum, transverse colon polyp) Condition: stable Disposition: PACU Description of Procedure: Patient's placed on the endoscopy table in the lateral position. She received IV sedation. The gastro-/oropharynx passed in the esophagus and stomach. Scope was then placed through the pylorus. The first and second portion of the duodenum appeared normal. The scope was then brought back the antrum this above inflamed. Biopsies performed. Scope was retroflexed and there was a large sliding hiatal hernia. The GE junction was at 37 cm. The distal esophagus appeared normal. The proximal esophagus appeared normal. Scope withdrawn patient. Next digital rectal exam was performed which revealed no ebonized. The colonoscope was then placed patient anus passed through the colon. The patient had a very poor colon prep. The right colon had a large amount of liquid stool which limited the view of the mucosa. The scope Passed into the proximal right colon secondary to a large amount liquid stool. This point scope was withdrawn. In the transverse colon was small polyp seen this removed with the cold forcep. The remainder of the transverse colon descending colon and sigmoid colon appeared normal. The scope was then brought back the rectum this appeared normal. Scope withdrawn for patient.
[2021-03-06] MEDS: LEVOFLOXACIN 750MG-D5W PMX 750 MG in DEXTROSE/WATER 1 150ML.BAG IVPB SCH (14:19)
[2021-03-06] MEDS: HYDROmorphone 0.5 MG/0.5 ML SYRINGE IVP PRN (16:51)
[2021-03-06] MEDS: FILGRASTIM-SNDZ 480 MCG/0.8 ML SYRINGE SQ SCH (18:22)
[2021-03-06] MEDS: MONTELUKAST 10 MG TAB PO SCH (20:32)
[2021-03-07] MEDS: metroNIDAZOLE-NS PMX 500 MG in SALINE 1 100ML.BAG IVPB SCH ×2 (00:11→09:28)
--- NOTE | 2021-03-07 00:31 | P.PN ---
Subjective Progress Note Date: 03/06/21 This is a 60-year-old female who was recently admitted with abdominal pain, nausea, diarrhea with acute gastroenteritis and is being closely monitored. Surgery along with oncology following. Patient is scheduled to have colonoscopy today and is currently nothing by mouth stating she is hungry feeling and denies any further nausea or vomiting at this time. Hemoglobin is 7.9 with a WBC of 2.0, neutrophil .8, sodium is 140 with a potassium of 3.9, and current creatinine is 0.54. Review of systems: Constitutional: No reports of fatigue, fever, or chills Cardiovascular: No reports of chest pain or palpitations Respiratory: No reports of shortness of breath or cough GI: No reports of nausea, vomiting, or diarrhea : No reports of dysuria or retention Neurovascular: No reports of weakness or numbness All medications have been reviewed Objective - Vital Signs Vital signs: Vital Signs Temp 98.4 F 03/06/21 05:00 Pulse 80 03/06/21 11:17 Resp 16 03/06/21 05:00 BP 117/73 03/06/21 09:47 Pulse Ox 93 L 03/06/21 05:00 Intake & Output 03/05/21 03/06/21 03/06/21 18:59 06:59 18:59 Other: # Voids 2 2 # Bowel Movements 2 - Exam Gen: This is a 50-year-old female awake, alert and oriented 3, well-developed, well-nourished. Temp is 98.3F, pulse is 66, respirations are 16, blood pressure is 107/68, oxygen saturation is 99% on room air. HEENT: Head is atraumatic, normocephalic. Pupils equal, round. Sclerae is anicteric. NECK: Supple. No JVD. No lymphadenopathy. No thyromegaly. LUNGS: diminished breath sounds bilaterally with no rhonchi or wheezing noted. No intercostal retractions. HEART: S1 and S2 muffled ABDOMEN: Soft. Bowel sounds are present. No masses. No tenderness. EXTREMITIES: No pedal edema. No calf tenderness. NEUROLOGICAL: Patient is awake, alert and oriented x3. Cranial nerves 2 through 12 are grossly intact. - Labs CBC & Chem 7: 03/06/21 08:31 03/06/21 08:31 Labs: Abnormal Lab Results - Last 24 Hours (Table) 03/06/21 03/06/21 Range/Units 08:31 08:31 WBC 2.0 L (3.8-10.6) k/uL RBC 2.29 L (3.80-5.40) m/uL Hgb 7.9 L (11.4-16.0) gm/dL Hct 22.9 L (34.0-46.0) % RDW 23.7 H (11.5-15.5) % Plt Count 82 L (150-450) k/uL Chloride 117 H (98-107) mmol/L Carbon Dioxide 18 L (22-30) mmol/L BUN <2 L (7-17) mg/dL Glucose 103 H (74-99) mg/dL Alkaline Phosphatase 158 H (38-126) U/L Total Protein 5.6 L (6.3-8.2) g/dL Albumin 3.1 L (3.5-5.0) g/dL Microbiology - Last 24 Hours (Table) 03/02/21 06:01 Blood Culture - Preliminary Blood No Growth after 96 hours 03/01/21 16:22 Blood Culture - Preliminary Blood No Growth after 96 hours 03/01/21 16:36 Blood Culture - Preliminary Blood No Growth after 96 hours 03/02/21 07:10 Stool Culture - Final Stool Assessment and Plan Assessment: Abdominal pain, nausea, vomiting, diarrhea with possible acute gastritis, present on admission Anemia possibly secondary to chemotherapy and malignancy, present on admission Pancytopenia secondary to malignancy Focal dilatation of the second segment of the duodenum with a few foci of air in the anterior segment of the duodenum with no parul pneumoperitoneum Thrombocytopenia severe hypokalemia, persistent Hypomagnesemia Increased ALT History of colon cancer with metastasis History of chronic obstructive pulmonary disease Gastroesophageal reflux disease Hypertension Hyperlipidemia History of degenerative joint disease history of peripheral neuropathy History of childhood nephrotic syndrome History of liver cancer lesions resected surgically history of lung nodules history of chemotherapy Anxiety/depression Pain panic disorder Full code Recommendations and discussion: Recommend to continue with current medications and current management. Oncology along with surgery following and plans are for colonoscopy today. Will await report. Will repeat labs in continue to monitor closely. Due to multiple complex medical issues, prognosis is guarded. Possible discharge in 24-48 hour s.
[2021-03-07] MEDS: SODIUM CHLORIDE 0.9% 1,000 ML IV SCH ×2 (01:47→04:04)
[2021-03-07 06:52] LABS: Anisocytosis Moderate; Basophils % (A) 0 %; Eosinophils % (A) 1 %; HCT 22.5 % (34.0-46.0); HGB 7.4 gm/dL (11.4-16.0); Hypochromasia Slight; Lymphocytes # (A) 0.7 k/uL (1.0-4.8); Lymphocytes % (A) 20 %; MCH 34.4 pg (25.0-35.0); MCHC 33.1 g/dL (31.0-37.0); MCV 104.2 fL (80.0-100.0); Macrocytosis Marked; Mean Platelet Volume 10.4; Monocytes # (A) 0.3 k/uL (0-1.0); Monocytes % (A) 10 %; Neutrophils # (A) 2.2 k/uL (1.3-7.7); Neutrophils % (A) 67 %; Platelet Count 78 k/uL (150-450); Poikilocytosis Slight; RBC 2.16 m/uL (3.80-5.40); RDW 23.8 % (11.5-15.5); WBC 3.3 k/uL (3.8-10.6)
[2021-03-07 07:32] LABS: African American GFR (CKD) >90 (>60 ml/min/1.73 sqM); Anion Gap 5 mmol/L; Blood Urea Nitrogen <2 mg/dL (7-17); Calcium 8.4 mg/dL (8.4-10.2); Carbon Dioxide 21 mmol/L (22-30); Chloride 116 mmol/L (98-107); Glucose 107 mg/dL (74-99); Non-African American GFR(CKD) >90 (>60 ml/min/1.73 sqM); Potassium 3.5 mmol/L (3.5-5.1); Sodium 142 mmol/L (137-145)
[2021-03-07] MEDS: PANTOPRAZOLE 40 MG/10 ML VIAL IVP SCH (08:36)
[2021-03-07] MEDS: ONDANSETRON 4 MG/2 ML VIAL IVP PRN (08:36)
[2021-03-07] MEDS: HEPARIN SODIUM,PORCINE/PF 5,000 UNIT/0.5 ML SYRINGE SQ SCH (08:36)
[2021-03-07] MEDS: METOPROLOL TARTRATE 25 MG TAB PO SCH (08:36)
[2021-03-07] MEDS: VENLAFAXINE HCL ER 75 MG CAP PO SCH (08:37)
[2021-03-07] MEDS: valACYclovir HCL 1,000 MG TABLET PO SCH (08:37)
[2021-03-07] MEDS: hydrOXYzine HCL 25 MG TAB PO SCH (08:37)
[2021-03-07] MEDS: HYDROcodone/APAP 5-325MG 1 EACH TAB PO PRN (08:40)
[2021-03-07] MEDS: SYMBICORT 160-4.5 MCG INHALER INHALATION SCH (09:20)
[2021-03-07] MEDS: CHOLESTYRAMINE (WITH SUGAR) 4 GM PACKET PO SCH (09:28)
[2021-03-07 11:30] VITALS: BP 113/70; PULSE 76; RESP 16; TEMP 98
--- NOTE | 2021-03-07 11:45 | P.PN ---
Subjective Progress Note Date: 03/07/21 CHIEF COMPLAINT: Nausea vomiting and diarrhea HISTORY OF PRESENT ILLNESS: Surgical service is following in regards to patient's abdominal pain. Patient does report still some right sided pain. But she has tolerated diet. Diarrhea has resolved. Denies any nausea or vomiting. She is status post EGD showing antral gastritis, sliding hiatal hernia, transverse colon polyp and poor right sided colon prep. Afebrile WBC 3.3 hemoglobin 7.4 platelets 78 PHYSICAL EXAM: VITAL SIGNS: Reviewed. GENERAL: Well-developed in no acute distress. HEENT: No sclera icterus. Extraocular movements grossly intact. Moist buccal mucosa. Head is atraumatic, normocephalic. ABDOMEN: Soft. Nondistended. Minimal tenderness right side of abdomen with palpation NEUROLOGIC: Alert and oriented. Cranial nerves II through XII grossly intact. ASSESSMENT: 1. Right-sided abdominal pain with nausea, vomiting and diarrhea. Improved. Patient status post EGD showing antral gastritis, sliding hiatal hernia, transverse colon polyp 2. History of metastatic colon cancer followed by oncology 3. Computed tomography scan findings showing a focal dilatation of the second segment of the duodenum with few foci of air in the anterior aspect of the duodenum felt to be within the lumen and no parul pneumoperitoneum noted. In soft tissue mass in the descending colon concerning for malignancy. 4. Neutropenic colitis 5. Pancytopenia likely secondary to malignancy 6. Neutropenic 7. Anemia patient received blood transfusion 8. Hypokalemia and hypomagnesemia 9. History of liver cancer status post resection 10. Pulmonary nodules PLAN: -Continue regular diet -Patient stable from surgical standpoint for discharge Physician Cable Driller note has been reviewed by physician. Signing provider agrees with the documented findings, assessment, and plan of care. Objective - Vital Signs Vital signs: Vital Signs Temp 98.0 F 03/07/21 11:05 Pulse 76 03/07/21 11:05 Resp 16 03/07/21 11:05 BP 113/70 03/07/21 11:05 Pulse Ox 94 L 03/07/21 11:05 Intake & Output 03/06/21 03/07/21 03/07/21 18:59 06:59 18:59 Intake Total 2500 Balance 2500 Intake: IV 300 Intake, IV Titration 1400 Amount Levofloxacin 750Mg-D5w 100 Pmx 750 mg In Dextrose/ Water 1 150ml.bag @ 100 mls/hr IVPB Q24H ROU[facility] Rx#: [id number] Sodium Chloride 0.9% 1, 1200 000 ml @ 100 mls/hr IV . Q10H ROULA Rx#:[id number] metroNIDAZOLE-NS PMX 500 100 mg In Saline 1 100ml.bag @ 100 mls/hr IVPB Q8HR ROULA Rx#:[id number] Oral 800 Other: # Voids 2 2 # Bowel Movements 2 - Labs CBC & Chem 7: 03/07/21 05:28 03/07/21 05:28 Labs: Abnormal Lab Results - Last 24 Hours (Table) 03/06/21 03/07/21 03/07/21 Range/Units 08:31 05:28 05:28 WBC 3.3 L (3.8-10.6) k/uL RBC 2.16 L (3.80-5.40) m/uL Hgb 7.4 L (11.4-16.0) gm/dL Hct 22.5 L (34.0-46.0) % MCV 104.2 H (80.0-100.0) fL RDW 23.8 H (11.5-15.5) % Plt Count 78 L (150-450) k/uL Neutrophils # (Manual) 0.80 L (1.3-7.7) k/uL Lymphocytes # 0.7 L (1.0-4.8) k/uL Lymphocytes # (Manual) 0.70 L (1.0-4.8) k/uL Macrocytosis Marked A Chloride 116 H (98-107) mmol/L Carbon Dioxide 21 L (22-30) mmol/L BUN <2 L (7-17) mg/dL Glucose 107 H (74-99) mg/dL Microbiology - Last 24 Hours (Table) 03/02/21 06:01 Blood Culture - Preliminary Blood No Growth after 120 hours 03/01/21 16:22 Blood Culture - Preliminary Blood No Growth after 120 hours 03/01/21 16:36 Blood Culture - Preliminary Blood No Growth after 120 hours 03/02/21 07:10 Stool Culture - Final Stool
--- NOTE | 2021-03-07 14:28 | P.PN ---
Subjective Progress Note Date: 03/07/21 Principal diagnosis: Metastatic Colon Cancer Tolerated Lunch, Status POst colonoscopy yesterday. Discussed with patient and primary team. OK with discharge, she will continue to hold her chemo pill and follow-up next week to recheck labs prior to restarting. Objective - Vital Signs Vital signs: Vital Signs Temp 98.0 F 03/07/21 11:05 Pulse 76 03/07/21 11:05 Resp 16 03/07/21 11:05 BP 113/70 03/07/21 11:05 Pulse Ox 94 L 03/07/21 11:05 Intake & Output 03/06/21 03/07/21 03/07/21 18:59 06:59 18:59 Intake Total 2500 Balance 2500 Intake: IV 300 Intake, IV Titration 1400 Amount Levofloxacin 750Mg-D5w 100 Pmx 750 mg In Dextrose/ Water 1 150ml.bag @ 100 mls/hr IVPB Q24H ROULA Rx#: [id number] Sodium Chloride 0.9% 1, 1200 000 ml @ 100 mls/hr IV . Q10H ROULA Rx#:[id number] metroNIDAZOLE-NS PMX 500 100 mg In Saline 1 100ml.bag @ 100 mls/hr IVPB Q8HR ROULA Rx#:[id number] Oral 800 Other: # Voids 2 2 # Bowel Movements 2 - Exam Constitutional General appearance: cooperative, no acute distress - EENT Eyes: EOMI ENT: NA/AT, normal oropharynx - Neck Neck: normal ROM - Respiratory Respiratory: bilateral: CTA - Cardiovascular Rhythm: regularly irregular - Gastrointestinal General gastrointestinal: tenderness - Integumentary Integumentary: pale - Neurologic Neurologic: CNII-XII intact - Musculoskeletal Musculoskeletal: gait normal, generalized weakness - Psychiatric Psychiatric: A&O x's 3, appropriate affect, intact judgment & insight - Labs CBC & Chem 7: 03/07/21 05:28 03/07/21 05:28 Labs: Abnormal Lab Results - Last 24 Hours (Table) 03/07/21 03/07/21 Range/Units 05:28 05:28 WBC 3.3 L (3.8-10.6) k/uL RBC 2.16 L (3.80-5.40) m/uL Hgb 7.4 L (11.4-16.0) gm/dL Hct 22.5 L (34.0-46.0) % MCV 104.2 H (80.0-100.0) fL RDW 23.8 H (11.5-15.5) % Plt Count 78 L (150-450) k/uL Lymphocytes # 0.7 L (1.0-4.8) k/uL Macrocytosis Marked A Chloride 116 H (98-107) mmol/L Carbon Dioxide 21 L (22-30) mmol/L BUN <2 L (7-17) mg/dL Glucose 107 H (74-99) mg/dL Microbiology - Last 24 Hours (Table) 03/02/21 06:01 Blood Culture - Preliminary Blood No Growth after 120 hours 03/01/21 16:22 Blood Culture - Preliminary Blood No Growth after 120 hours 03/01/21 16:36 Blood Culture - Preliminary Blood No Growth after 120 hours 03/02/21 07:10 Stool Culture - Final Stool Assessment and Plan (1) Neutropenic colitis Current Visit: Yes Status: Acute Code(s): D70.9 - NEUTROPENIA, UNSPECIFIED; K52.89 - OTHER SPECIFIED NONINFECTIVE GASTROENTERITIS AND COLITIS SNOMED Code(s): 526862151 (2) Pancytopenia due to antineoplastic chemotherapy Current Visit: Yes Status: Acute Code(s): D61.810 - ANTINEOPLASTIC CHEMOTHERAPY INDUCED PANCYTOPENIA; T45.1X5A - ADVERSE EFFECT OF ANTINEOPLASTIC AND IMMUNOSUP DRUGS, INIT SNOMED Code(s): 039271481946955 (3) Metastatic colon cancer to liver Current Visit: No Status: Chronic Priority: Low Code(s): C18.9 - MALIGNANT NEOPLASM OF COLON, UNSPECIFIED; C78.7 - SECONDARY MALIG NEOPLASM OF LIVER AND INTRAHEPATIC BILE DUCT SNOMED Code(s): 953401288 Plan: NPO while Neutrophils less than 1 Await Torres Cultures COntinue Zarxio Hold Lonsurf Tolerated Lunch, Status POst colonoscopy yesterday. Discussed with patient and primary team. OK with discharge, she will continue to hold her chemo pill and follow-up next week to recheck labs prior to restarting.
--- NOTE | 2021-03-07 14:46 | CDI ---
Documentation Clarification Form Date: 03/07/2021 02:29:43 PM From: Marisela ReederHIPOLITO, CCDS Admit Date: 03/01/2021 08:38:00 PM Patient Name: Marisela Roth Visit Number: [id number] Discharge Date: ATTENTION: The Clinical Documentation Specialists (CDI) and [facility] Coding Staff appreciate your assistance in clarifying documentation. Please respond to the clarification below the line at the bottom and electronically sign. The CDI & [facility] Coding staff will review the response and follow-up if needed. Please note: Queries are made part of the Legal Health Record. If you have any questions, please contact the author of this message via ITS. Dr. Roni Almaguer: Sepsis is documented in the 03/01 ED Note: Patient was given antiemetics and fluids, 2 L. She was also started on broad-spectrum antibiotics and conservative possible sepsis. Sepsis is also documented in the 03/02 Oncology Consult: Based on patient presentation as well as her lab values it is been decided that it is best if patient is placed in the hospital and worked up for infection/sepsis. Additional clarification regarding Sepsis along with the etiology if known is requested. History/Risk Factors per the 03/02 H/P: COPD, GERD, Hypertension, Hyperlipidemia, DJD, Metastatic Colon Cancer status post Bowel Resection, Peripheral Neuropathy due to systemic chemotherapy. Clinical Indicators: Presented to the ED on 03/01 with Abdominal Pain & Diarrhea x5 days, fever 101, chills, weight loss past 4 days due to decreased appetite, Nausea & Vomiting. Currently on oral chemotherapy: Lonsurf, unable to take it due to symptoms. ED Clinical Impression: Hypokalemia, Abdominal Pain, Diarrhea 03/01 ED VS: T 98.2, P 114, R 16, BP 121/83, PO 96 RA, BMI: 26.7 03/01 LAB: WBC 1.5, RBC 2.35, Hgb 8.1, Hct 21.9, Pl Ct 72, Neutrophils 0.7, Lymphocytes 0.7; Na 136, K 2.8, Glucose 106, AST 46, ALT 49, Alk Phos 257; 03/01 UA: Spec [place] 1.045. 03/01 Blood Cultures x2 (Preliminary): Negative @ 120 Hrs 03/02 Blood Culture x1 (Preliminary): Negative @120 Hrs 03/02 Stool Culture (Final): Negative Treatment 03/01: IV Rocephin, IV fl Na Cl 2,000 mls @ 999 mls/hr q2Hrs, IV Zofran, IV Protonix, IV Benadryl, po KDur, IV Kcl, IV Reglan, IV Zosyn 100 mls @ 200 mls/hr x1, IV Na Cl 1,000 mls @ 130 mls/hr q7Hr, IV Dilaudid, IV Ativan. Consults: 03/02 Oncology: Neutropenic Colitis. Infectious Disease was not consulted. In your professional opinion, please clarify if these findings signify one of the following conditions: [ ] Sepsis POA, please specify cause, if known: [ ] Sepsis, Not POA, please specify cause, if known: [ ] Neutropenic Sepsis POA [ ] Sepsis ruled out [ ] Other, please specify [ ] Unable to determine (Template Last Reviewed: September 2020) possible Sepsis POA due to neutropenia MTDD
--- NOTE | 2021-03-10 09:52 | P.DS ---
Providers Date of admission: 03/01/21 20:38 Expected date of discharge: 03/07/21 Attending physician: Roni Almaguer Consults: 03/01/21 20:26 Consult Physician Routine Consulting Provider: Arpan Dean Consult Reason/Comments: Colon cancer, diarrhea, abdominal pain Do you want consulting provider notified?: Yes 03/02/21 10:25 Consult Physician Routine Consulting Provider: Irene Victor Consult Reason/Comments: knew the pt Do you want consulting provider notified?: Yes 03/02/21 13:55 Consult Physician Routine Consulting Provider: Leobardo Norris Consult Reason/Comments: abnormal ct scan Do you want consulting provider notified?: Yes Primary care physician: Howard Hernandez [facility] Course: Final Diagnosis Abdominal pain, nausea, vomiting, diarrhea with possible acute gastritis, present on admission Anemia possibly secondary to chemotherapy and malignancy, present on admission Pancytopenia secondary to malignancy Focal dilatation of the second segment of the duodenum with a few foci of air in the anterior segment of the duodenum with no parul pneumoperitoneum Thrombocytopenia severe hypokalemia, persistent Hypomagnesemia Increased ALT History of colon cancer with metastasis History of chronic obstructive pulmonary disease Gastroesophageal reflux disease Hypertension Hyperlipidemia History of degenerative joint disease history of peripheral neuropathy History of childhood nephrotic syndrome History of liver cancer lesions resected surgically history of lung nodules history of chemotherapy Anxiety/depression Pain panic disorder Full code Discharge disposition Patient is being discharged in a stable condition with guarded prognosis to home. Patient will follow-up with Dr. Hernandez along with oncology in the outpatient setting upon discharge. Patient is to also follow-up with surgery DR. Rodriguez as scheduled. Total time taken is greater than 35 minutes. Hospital course This is a 60-year-old female who was recently admitted with abdominal pain, nausea, diarrhea with acute gastroenteritis and is being closely monitored. Surgery along with oncology following. Patient is scheduled to have colonoscopy today and is currently nothing by mouth stating she is hungry feeling and denies any further nausea or vomiting at this time. Hemoglobin is 7.9 with a WBC of 2.0, neutrophil .8, sodium is 140 with a potassium of 3.9, and current creatini ne is 0.54. 03/07/2021 Patient was seen and evaluated this morning and was being closely monitored by oncology and surgery and will follow up outpatient with her primary care provider along with surgery and oncology. Patient will continue on antibiotics in the form of levaquin and Flagyl for the next 5 days to complete the course. Patient instructed to hold oral chemo meds until follow up with Yocasta Mathur this week. Patient to continue current diet and advance slowly as tolerated. Patient will also follow up with surgery in one week. Currently no reports of chest pain, shortness of breath, or palpitations. Patient is afebrile. No reports of nausea or vomiting and patient is tolerating diet. Patient will be discharged home today. On exam vital signs are stable. Cardio S1, S2 are muffled. Respiratory system shows diminished breath sounds at the bases with no wheezing or rhonchi noted. Abdomen is soft and nontender. Nervous system shows no focal deficits. Please refer to medication reconciliation sheet for a list of medications. Patient Condition at Discharge: Good Plan - Discharge Summary New Discharge Prescriptions: New metroNIDAZOLE [Flagyl] 500 mg PO TID 5 Days #15 tab Levofloxacin [Levaquin] 500 mg PO DAILY 5 Days #5 tab valACYclovir HCL [Valtrex] 1,000 mg PO BID 7 Days #14 tablet Acetaminophen Tab [Tylenol] 650 mg PO Q6HR PRN tab PRN Reason: Mild Pain Or Fever > 100.5 Continue Omeprazole [PriLOSEC] 20 mg PO BID hydrOXYzine HCL [Atarax] 25 mg PO TID Venlafaxine HCl [Effexor XR] 75 mg PO DAILY Diphenox-Atrop 2.5-0.025 mg [Lomotil] 2 tab PO QID PRN PRN Reason: Loose Stool Ondansetron Odt [Zofran ODT] 4 mg PO Q6H PRN PRN Reason: Nausea HYDROcodone/APAP 5-325MG [[place] 5-325] 1 tab PO Q4HR PRN PRN Reason: Pain Cholestyramine (with Sugar) [Cholestyramine Packet] 4 gm PO BID Prochlorperazine [Compazine] 10 mg PO Q6H PRN PRN Reason: Nausea Cyclobenzaprine [Flexeril] 5 mg PO TID PRN PRN Reason: Muscle Spasm Budesonide/Formoterol Fumarate [Symbicort 160-4.5 Mcg Inhaler] 2 puff INHALATION RT-BID ALPRAZolam [Xanax] 1 mg PO TID dronabinoL [Marinol] 5 mg PO HS Montelukast [Singulair] 10 mg PO HS Metoprolol Tartrate [Lopressor] 25 mg PO BID Albuterol Nebulized [Ventolin Nebulized] 2.5 mg INHALATION RT-Q4H PRN PRN Reason: Shortness Of Breath Discontinued Trifluridine/Tipiracil HCl [Lonsurf 15 mg-6.14 mg Tablet] 3 tab PO DIRECTED Trifluridine/Tipiracil HCl [Lonsurf 20 mg-8.19 mg Tablet] 3 tab PO DIRECTED Discharge Medication List Omeprazole [PriLOSEC] 20 mg PO BID 01/01/17 [History] ALPRAZolam [Xanax] 1 mg PO TID 03/01/21 [History] Albuterol Nebulized [Ventolin Nebulized] 2.5 mg INHALATION RT-Q4H PRN 03/01/21 [History] Budesonide/Formoterol Fumarate [Symbicort 160-4.5 Mcg Inhaler] 2 puff INHALATION RT-BID 03/01/21 [History] Cholestyramine (with Sugar) [Cholestyramine Packet] 4 gm PO BID 03/01/21 [History] Cyclobenzaprine [Flexeril] 5 mg PO TID PRN 03/01/21 [History] Diphenox-Atrop 2.5-0.025 mg [Lomotil] 2 tab PO QID PRN 03/01/21 [History] HYDROcodone/APAP 5-325MG [[place] 5-325] 1 tab PO Q4HR PRN 03/01/21 [History] Metoprolol Tartrate [Lopressor] 25 mg PO BID 03/01/21 [History] Montelukast [Singulair] 10 mg PO HS 03/01/21 [History] Ondansetron Odt [Zofran ODT] 4 mg PO Q6H PRN 03/01/21 [History] Prochlorperazine [Compazine] 10 mg PO Q6H PRN 03/01/21 [History] Venlafaxine HCl [Effexor XR] 75 mg PO DAILY 03/01/21 [History] dronabinoL [Marinol] 5 mg PO HS 03/01/21 [History] hydrOXYzine HCL [Atarax] 25 mg PO TID 03/01/21 [History] Acetaminophen Tab [Tylenol] 650 mg PO Q6HR PRN tab 03/07/21 [Rx] Levofloxacin [Levaquin] 500 mg PO DAILY 5 Days #5 tab 03/07/21 [Rx] metroNIDAZOLE [Flagyl] 500 mg PO TID 5 Days #15 tab 03/07/21 [Rx] valACYclovir HCL [Valtrex] 1,000 mg PO BID 7 Days #14 tablet 03/07/21 [Rx] Follow up Appointment(s)/Referral(s): Storm Rodriguez MD [Medical Doctor] - 03/15/21 3:00 pm Yocasta Matuhr ANPBC [Nurse Practitioner] - 1 Week Howard Hernandez MD [Primary Care Provider] - 03/23/21 3:00 pm Ambulatory/Diagnostic Orders: Complete Blood Count w/diff [LAB.AMB] Time Frame: 3 Days, Location: None Selected Patient Instructions/Handouts: Dehydration (ED) Activity/Diet/Wound Care/Special Instructions: Activity Limited until follow-up Follow-up with primary care provider upon discharge Follow-up with oncology outpatient in one week with Yocasta Continue to hold cancer treatment medications until you see Yocasta per her recommendation Continue with antibiotics until finished Continue current diet and continue with potassium rich foods Repeat labs in a few days Discharge Disposition: HOME SELF-CARE
== END 2021-03-07 14:37 | disposition home or self-care (01) | DRG 871 ==
LOC: EC 15:53 → 5NMEDONC 20:38
PROVIDERS: ADMIT Hospitalist; ATTEND Hospitalist
PROC: 30233N1 Transfusion of Nonautologous Red Blood Cells into Peripheral Vein, Percutaneous Approach (ICD-10-PCS; 2021-03-02)
PROC: 0DB78ZX Excision of Stomach, Pylorus, Via Natural or Artificial Opening Endoscopic, Diagnostic (ICD-10-PCS; principal; 2021-03-06 14:05)
PROC: 0DBL8ZX Excision of Transverse Colon, Via Natural or Artificial Opening Endoscopic, Diagnostic (ICD-10-PCS; 2021-03-06 14:05)
DX: A41.9 Sepsis, unspecified organism (principal); D61.810 Antineoplastic chemotherapy induced pancytopenia; C18.9 Malignant neoplasm of colon, unspecified; C78.7 Secondary malignant neoplasm of liver and intrahepatic bile duct; C78.00 Secondary malignant neoplasm of unspecified lung; K29.70 Gastritis, unspecified, without bleeding; Z92.21 Personal history of antineoplastic chemotherapy; Z90.49 Acquired absence of other specified parts of digestive tract; Z79.51 Long term (current) use of inhaled steroids; G62.9 Polyneuropathy, unspecified; E78.5 Hyperlipidemia, unspecified; I10 Essential (primary) hypertension; E87.6 Hypokalemia; K21.9 Gastro-esophageal reflux disease without esophagitis; E83.42 Hypomagnesemia; M19.90 Unspecified osteoarthritis, unspecified site; F41.0 Panic disorder [episodic paroxysmal anxiety]; F32.9 Major depressive disorder, single episode, unspecified; K52.89 Other specified noninfective gastroenteritis and colitis; K44.9 Diaphragmatic hernia without obstruction or gangrene; R51.9 Headache, unspecified; Z82.49 Family history of ischemic heart disease and other diseases of the circulatory system; Z83.3 Family history of diabetes mellitus; K63.5 Polyp of colon; Z86.010 Personal history of colon polyps; Z87.441 Personal history of nephrotic syndrome; T45.1X5A Adverse effect of antineoplastic and immunosuppressive drugs, initial encounter; E87.5 Hyperkalemia; F17.200 Nicotine dependence, unspecified, uncomplicated; J44.9 Chronic obstructive pulmonary disease, unspecified; Z87.01 Personal history of pneumonia (recurrent); R50.81 Fever presenting with conditions classified elsewhere; Z79.899 Other long term (current) drug therapy
CPT/HCPCS: 36415; 43239; 45380; 71046; 74177; 80048; 80053; 81001; 81003; 82150; 82378; 83605; 83630; 83690; 83735; 84100; 84132; 85025; 85610; 85730; 86850; 86900; 86901; 86920; 87040; 87045; 87046; 87324; 88305; 93005; 94640; 96361; 96365; 96375; 99285

== ENCOUNTER → 2021-03-10 | Outpatient (CLI) | payer MEDICARE, OTHER ==
[2021-03-10 22:55] LABS: HCT 26.5 % (37.2-46.3); HGB 8.5 g/dL (12.0-15.0); MCHC 32.1 g/dL (32.0-37.0); Mean Platelet Volume 12.2 fL (9.5-12.2); Platelet Count 148 X 10*3/uL (140-440); RDW 26.6 % (11.5-14.5); WBC 3.85 X 10*3/uL (4.50-10.00)
[2021-03-11 01:43] LABS: Anisocytosis (M) 2+; Basophils # (M) 0.04 X 10*3/uL (0.00-0.10); Eosinophils # (M) 0.04 X 10*3/uL (0.04-0.35); Lymphocytes # (M) 1.19 X 10*3/uL (0.90-5.00); Macrocytosis (M) 2+; Metamyelocytes % 1 % (0-0); Monocytes # (M) 0.46 X 10*3/uL (0.20-1.00); Myelocytes % 2 % (0-0); Neutrophils % (M) 52 %
[2021-03-11 03:48] LABS: African American GFR (CKD) 91.6 (60.0-200.0); Albumin 3.9 g/dL (3.80-4.90); Albumin/Globulin Ratio 1.56 (1.60-3.17); Anion Gap 14.3 mmol/L (4.00-12.00); BUN/Creat Ratio 7.5 Ratio (12.00-20.00); Carbon Dioxide 22.7 mmol/L (21.6-31.8); Globulin 2.5 g/dL (1.6-3.3); Potassium 3.3 mmol/L (3.5-5.5); Total Bilirubin 0.5 mg/dL (0.3-1.2); Total Protein 6.4 g/dL (6.2-8.2)
== END | disposition home or self-care (01) ==
LOC: LABWHC1 15:19
PROVIDERS: ATTEND Registered Nurse
DX: D64.9 Anemia, unspecified (principal); E87.6 Hypokalemia
CPT/HCPCS: 36415; 80053; 85025

== ENCOUNTER → 2021-03-13 | Outpatient (CLI) | payer MEDICARE, OTHER ==
--- NOTE | 2021-03-13 13:12 | US ---
EXAMINATION TYPE: US venous doppler duplex LE LT DATE OF EXAM: 03/13/2021 12:58 PM COMPARISON: NONE CLINICAL HISTORY: 60-year-old female R22.42 SWELLING OF LT LOWER LIMB. SIDE PERFORMED: Left TECHNIQUE: The lower extremity deep venous system is examined utilizing real time linear array sonog joel with graded compression, doppler sonography and color-flow sonography. VESSELS IMAGED: Common Femoral Vein Deep Femoral Vein Greater Saphenous Vein * Femoral Vein Popliteal Vein Small Saphenous Vein * Proximal Calf Veins (* superficial vessels) Left Leg: Negative for DVT Technical Agronomist notes: Within the left popliteal fossa, there is a complex cystic area visualized measuri ng 3.5 x 0.9 x 2.4 cm, probable simon's cyst IMPRESSION: 1. No evidence for DVT within the left lower extremity imaged from the groin to the upper calf. 2. Small complex versus ruptured Simon's cyst incidentally noted.
== END | disposition home or self-care (01) ==
LOC: RADUSWWP 12:36
PROVIDERS: ATTEND Internal Medicine Hematology & Oncology
DX: R22.42 Localized swelling, mass and lump, left lower limb (principal)

== ENCOUNTER 2021-08-16 16:34 | Inpatient (IN) | payer MEDICARE, OTHER ==
[2021-08-16 18:07] LABS: Anisocytosis Moderate; Basophils % (A) 0 %; Eosinophils % (A) 0 %; HCT 34.4 % (34.0-46.0); HGB 11.4 gm/dL (11.4-16.0); Hypochromasia Slight; Lymphocytes # (A) 1.2 k/uL (1.0-4.8); Lymphocytes % (A) 16 %; MCH 38.2 pg (25.0-35.0); MCHC 33.1 g/dL (31.0-37.0); Macrocytosis Marked; Mean Platelet Volume 10.6; Monocytes # (A) 0.5 k/uL (0-1.0); Monocytes % (A) 7 %; Neutrophils # (A) 5.9 k/uL (1.3-7.7); Neutrophils % (A) 76 %; Poikilocytosis Slight; RBC 2.98 m/uL (3.80-5.40); RDW 20.6 % (11.5-15.5); WBC 7.8 k/uL (3.8-10.6)
[2021-08-16 18:14] LABS: MCV 115.4 fL (80.0-100.0); Platelet Count 83 k/uL (150-450)
[2021-08-16 18:17] LABS: ALT 88 U/L (4-34); African American GFR (CKD) >90 (>60 ml/min/1.73 sqM); Albumin 4.1 g/dL (3.5-5.0); Anion Gap 10 mmol/L; Blood Urea Nitrogen 22 mg/dL (7-17); Calcium 8.9 mg/dL (8.4-10.2); Carbon Dioxide 30 mmol/L (22-30); Chloride 94 mmol/L (98-107); Glucose 114 mg/dL (74-99); Non-African American GFR(CKD) >90 (>60 ml/min/1.73 sqM); Sodium 134 mmol/L (137-145); Total Bilirubin 1.7 mg/dL (0.2-1.3); Total Protein 7.6 g/dL (6.3-8.2)
[2021-08-16 18:21] LABS: AST 63 U/L (14-36); Alkaline Phosphatase 196 U/L (38-126); Basophilic Stippling Present; Polychromasia Present; Potassium 3.8 mmol/L (3.5-5.1)
[2021-08-16 18:32] LABS: Prothrombin Time 11.1 sec (9.0-12.0)
[2021-08-16 18:46] LABS: Partial Thromboplastin Time 21.4 sec (22.0-30.0)
[2021-08-16] MEDS ORDERED: HYDROmorphone 1 MG/ML 1 ML SYRINGE IVP STA (19:05)
[2021-08-16] MEDS ORDERED: ONDANSETRON 4 MG/2 ML VIAL IVP STA (19:05)
[2021-08-16] MEDS ORDERED: SODIUM CHLORIDE 0.9% 1,000 ML IV STA (19:05)
--- NOTE | 2021-08-16 19:09 | ED ---
General Adult HPI - General Chief complaint: Shortness of Breath Stated complaint: Low O2/SOB Time Seen by Provider: 08/16/21 18:28 Source: patient, RN notes reviewed Mode of arrival: wheelchair Limitations: no limitations - History of Present Illness Initial comments: 60-year-old female presents to the emergency department for evaluation of abdominal pain and nausea vomiting. Patient states she was hospitalized for the past 2 weeks and was discharged home yesterday. Patient states she has a history of ulcerative colitis. Also has a lesion in her colon with metastases to the lungs. Patient states she spoke with her oncologist earlier today reg arding her ongoing pain and vomiting. States she was told to come to the emergency department for IV fluids and admission to the hospital. Patient states she has been unable to tolerate any oral intake today. States she wears oxygen at home at 4 L. Denies fever, chills, chest pain, shortness of breath, difficulty breathing, dysuria, or hematuria. - Related Data Home Medications Medication Instructions Recorded Confirmed ALPRAZolam [Xanax] 1 mg PO TID 03/01/21 08/16/21 Budesonide/Formoterol Fumarate 2 puff INHALATION RT-BID 03/01/21 08/16/21 [Symbicort 160-4.5 Mcg Inhaler] Cholestyramine (with Sugar) 4 gm PO BID PRN 03/01/21 08/16/21 [Cholestyramine Packet] Diphenox-Atrop 2.5-0.025 mg 1 tab PO QID PRN 03/01/21 08/16/21 [Lomotil] Metoprolol Tartrate [Lopressor] 25 mg PO BID 03/01/21 08/16/21 Ondansetron Odt [Zofran ODT] 4 mg PO Q6H PRN 03/01/21 08/16/21 Prochlorperazine [Compazine] 10 mg PO Q6H PRN 03/01/21 08/16/21 Venlafaxine HCl [Effexor XR] 75 mg PO DAILY 03/01/21 08/16/21 Albuterol Inhaler [Ventolin Hfa 2 puff INHALATION RT-Q6H PRN 08/06/21 08/16/21 Inhaler] Budesonide [Budesonide ER] 9 mg PO DAILY 08/06/21 08/16/21 HYDROcodone/APAP 10-325MG [[place] 1 tab PO Q6H PRN 08/06/21 08/16/21 10-325] fentaNYL 50MCG/HR PATCH [Duragesic 1 patch TRANSDERM Q72H 08/06/21 08/16/21 50MCG/HR] Previous Rx's Medication Instructions Recorded Benzocaine/Menthol Lozeng [Cepacol 1 each MUCOUS MEM Q4HR PRN lozenge 08/15/21 lozenge] Sucralfate [Carafate] 1 gm PO ACHS #120 tab 08/15/21 Trifluridine/Tipiracil HCl 2 tab PO DIRECTED #0 08/15/21 [Lonsurf 15 mg-6.14 mg Tablet] Trifluridine/Tipiracil HCl 1 tab PO DIRECTED #0 08/15/21 [Lonsurf 20 mg-8.19 mg Tablet] guaiFENesin [Mucinex] 1,200 mg PO Q12HR tablet 08/15/21 predniSONE [Deltasone] See Taper PO DAILY #14 tab 08/15/21 valACYclovir [Valtrex] 500 mg PO BID 14 Days #28 tab 08/15/21 Allergies Allergy/AdvReac Type Severity Reaction Status Date / Time acyclovir AdvReac Severe Confusion Verified 08/16/21 20:15 Review of Systems ROS Statement: Those systems with pertinent positive or pertinent negative responses have been documented in the HPI. ROS Other: All systems not noted in ROS Statement are negative. 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 2014 port a cath placed rt chest ;"20% of liver removed d/t ca", colonoscopies [id number]. Past Anesthesia/Blood Transfusion Reactions: No Reported Reaction Past Psychological History: Anxiety, Depression, Panic Disorder Smoking Status: Former smoker Past Alcohol Use History: None Reported Past Drug Use History: None Reported - Past Family History Father Family Medical History: Diabetes Mellitus, Myocardial Infarction ([place]) Additional Family Medical History / Comment(s): at age 62-mulitple mi's Mother Family Medical History: Cancer Additional Family Medical History / Comment(s): BREAST. from sepsis General Exam Limitations: no limitations General appearance: alert, in no apparent distress, other (This is a well- developed female with an initial temperature 98.7, pulse 104, respirations 20, blood pressure 144/105, pulse ox 91% on room air.) ENT exam: Present: mucous membranes dry Respiratory exam: Present: normal lung sounds bilaterally, other (On oxygen at 4 L via nasal cannula per home regimen). Absent: respiratory distress, wheezes, rales, rhonchi, stridor Cardiovascular Exam: Present: regular rate, normal rhythm, normal heart sounds GI/Abdominal exam: Present: soft, normal bowel sounds. Absent: distended, tenderness, guarding, rebound Neurological exam: Present: alert, oriented X3, CN II-XII intact Psychiatric exam: Present: flat affect Skin exam: Present: warm, dry, intact Course Vital Signs 08/16/21 08/16/21 17:14 23:42 Temperature 98.7 F Pulse Rate 104 H 91 Respiratory 20 16 Rate Blood Pressure 144/105 132/94 O2 Sat by Pulse 91 L 98 Oximetry Medical Decision Making - Medical Decision Making This is a 60-year-old female with a past medical history of ulcerative colitis, colon cancer, and recent hospitalization for hypokalemia who presents to the emergency department for evaluation of nausea, vomiting, and abdominal discomfort. Upon exam, patient is in no acute distress. States she has been unable to tolerate any oral intake today as evidenced by bilious emesis present at bedside. Mucus membranes dry, but intact. Does wear oxygen at home at 4 L. Laboratory studies were obtained. Patient is mildly dehydrated with persist ently elevated liver enzymes. Potassium is stable at 3.8. Covid is negative. Patient was given a liter of IV fluids, pain medication and nausea medicine with improvement. Spoke with Dr. Beckford regarding this patient's care; she will be admitted to the hospital in observation status. She will be given IV fluids along with pain medication and nausea medicine. This patient's care was discussed with my attending Dr. Roskopp. - Lab Data Result diagrams: 08/16/21 17:47 08/16/21 17:47 Lab Results 08/16/21 08/16/21 08/16/21 Range/Units 17:17 17:47 17:47 WBC 7.8 (3.8-10.6) k/uL RBC 2.98 L (3.80-5.40) m/uL Hgb 11.4 (11.4-16.0) gm/dL Hct 34.4 (34.0-46.0) % MCV 115.4 H (80.0-100.0) fL MCH 38.2 H (25.0-35.0) pg MCHC 33.1 (31.0-37.0) g/dL RDW 20.6 H (11.5-15.5) % Plt Count 83 L (150-450) k/uL MPV 10.6 Neutrophils % 76 % Lymphocytes % 16 % Monocytes % 7 % Eosinophils % 0 % Basophils % 0 % Neutrophils # 5.9 (1.3-7.7) k/uL Lymphocytes # 1.2 (1.0-4.8) k/uL Monocytes # 0.5 (0-1.0) k/uL Eosinophils # 0.0 (0-0.7) k/uL Basophils # 0.0 (0-0.2) k/uL Manual Slide Review Performed Polychromasia Present Hypochromasia Slight Poikilocytosis Slight Basophilic Stippling Present Anisocytosis Moderate Macrocytosis Marked A PT 11.1 (9.0-12.0) sec INR 1.0 (<1.2) APTT 21.4 L (22.0-30.0) sec Sodium (137-145) mmol/L Potassium (3.5-5.1) mmol/L Chloride (98-107) mmol/L Carbon Dioxide (22-30) mmol/L Anion Gap mmol/L BUN (7-17) mg/dL Creatinine (0.52-1.04) mg/dL Est GFR (CKD-EPI)AfAm (>60 ml/min/1.73 sqM) Est GFR (CKD-EPI)NonAf (>60 ml/min/1.73 sqM) Glucose (74-99) mg/dL Calcium (8.4-10.2) mg/dL Total Bilirubin (0.2-1.3) mg/dL AST (14-36) U/L ALT (4-34) U/L Alkaline Phosphatase (38-126) U/L Troponin I (0.000-0.034) ng/mL Total Protein (6.3-8.2) g/dL Albumin (3.5-5.0) g/dL Urine Color Urine Appearance (Clear) Urine pH (5.0-8.0) Ur Specific [place] (1.001-1.035) Urine Protein (Negative) Urine Glucose (UA) (Negative) Urine Ketones (Negative) Urine Blood (Negative) Urine Nitrite (Negative) Urine Bilirubin (Negative) Urine Urobilinogen (<2.0) mg/dL Ur Leukocyte Esterase (Negative) Urine RBC (0-5) /hpf Urine WBC (0-5) /hpf Ur Squamous Epith Cells (0-4) /hpf Amorphous Sediment (None) /hpf Urine Bacteria (None) /hpf Urine Mucus (None) /hpf Coronavirus (PCR) Not Detected (Not Detectd) 08/16/21 08/16/21 08/16/21 Range/Units 17:47 17:47 20:58 WBC (3.8-10.6) k/uL RBC (3.80-5.40) m/uL Hgb (11.4-16.0) gm/dL Hct (34.0-46.0) % MCV (80.0-100.0) fL MCH (25.0-35.0) pg MCHC (31.0-37.0) g/dL RDW (11.5-15.5) % Plt Count (150-450) k/uL MPV Neutrophils % % Lymphocytes % % Monocytes % % Eosinophils % % Basophils % % Neutrophils # (1.3-7.7) k/uL Lymphocytes # (1.0-4.8) k/uL Monocytes # (0-1.0) k/uL Eosinophils # (0-0.7) k/uL Basophils # (0-0.2) k/uL Manual Slide Review Polychromasia Hypochromasia Poikilocytosis Basophilic Stippling Anisocytosis Macrocytosis PT (9.0-12.0) sec INR (<1.2) APTT (22.0-30.0) sec Sodium 134 L (137-145) mmol/L Potassium 3.8 (3.5-5.1) mmol/L Chloride 94 L (98-107) mmol/L Carbon Dioxide 30 (22-30) mmol/L Anion Gap 10 mmol/L BUN 22 H (7-17) mg/dL Creatinine 0.45 L (0.52-1.04) mg/dL Est GFR (CKD-EPI)AfAm >90 (>60 ml/min/1.73 sqM) Est GFR (CKD-EPI)NonAf >90 (>60 ml/min/1.73 sqM) Glucose 114 H (74-99) mg/dL Calcium 8.9 (8.4-10.2) mg/dL Total Bilirubin 1.7 H (0.2-1.3) mg/dL AST 63 H (14-36) U/L ALT 88 H (4-34) U/L Alkaline Phosphatase 196 H (38-126) U/L Troponin I 0.021 (0.000-0.034) ng/mL Total Protein 7.6 (6.3-8.2) g/dL Albumin 4.1 (3.5-5.0) g/dL Urine Color Yellow Urine Appearance Cloudy H (Clear) Urine pH 7.0 (5.0-8.0) Ur Specific [place] 1.012 (1.001-1.035) Urine Protein Trace H (Negative) Urine Glucose (UA) Negative (Negative) Urine Ketones Trace H (Negative) Urine Blood Negative (Negative) Urine Nitrite Negative (Negative) Urine Bilirubin Negative (Negative) Urine Urobilinogen <2.0 (<2.0) mg/dL Ur Leukocyte Esterase Negative (Negative) Urine RBC <1 (0-5) /hpf Urine WBC 2 (0-5) /hpf Ur Squamous Epith Cells 1 (0-4) /hpf Amorphous Sediment Rare H (None) /hpf Urine Bacteria Rare H (None) /hpf Urine Mucus Occasional H (None) /hpf Coronavirus (PCR) (Not Detectd) - Radiology Data Radiology results: report reviewed, image reviewed Two-view chest x-ray was obtained. Report was reviewed in its entirety. Impression per Dr. Thorne is no evidence for acute pulmonary disease. Disposition Clinical Impression: Nausea & vomiting, Abdominal pain Disposition: ADMITTED IP TO THIS HOSP Condition: Serious Decision Date: 08/16/21 Decision Time: 23:06
[2021-08-16 21:13] LABS: Amorphous Sediment,Urine Rare /hpf; Appearance,Urine Cloudy (Clear); Bacteria,Urine Rare /hpf; Bilirubin,Urine Negative (Negative); Blood,Urine Negative (Negative); Color,Urine Yellow; Glucose,Urine (UA) Negative (Negative); Ketones,Urine Trace (Negative); Leukocyte Esterase,Urine Negative (Negative); Mucus,Urine Occasional /hpf; Nitrite,Urine Negative (Negative); Protein,Urine Trace (Negative); RBC,Urine <1 /hpf (0-5); Specific Gravity,Urine 1.012 (1.001-1.035); Squamous Epithelial Cell,Urine 1 /hpf (0-4); Urobilinogen,Urine <2.0 mg/dL (<2.0); WBC,Urine 2 /hpf (0-5)
--- NOTE | 2021-08-16 21:53 | XR ---
EXAMINATION TYPE: XR chest 2V DATE OF EXAM: 08/16/2021 COMPARISON: 08/13/2021 HISTORY: Shortness of breath TECHNIQUE: Frontal and lateral views of the chest are obtained. FINDINGS: Scattered senescent parenchymal changes noted. Hyperinflation compatible with COPD. No evidence for infiltrate. No evidence for atelectasis. Heart size is stable. Mediastinal structures are stable and grossly unremarkable. No evidence for hilar prominence. Degenerative changes dorsal spine. IMPRESSION: 1. No evidence for acute pulmonary disease.
[2021-08-16] MEDS ORDERED: ACETAMINOPHEN TAB 325 MG TAB PO PRN (22:47)
[2021-08-16] MEDS ORDERED: HYDROmorphone 1 MG/ML 1 ML SYRINGE IVP PRN (22:47)
[2021-08-16] MEDS ORDERED: NALOXONE 0.4 MG/ML 1 ML VIAL IV PRN (22:47)
[2021-08-16] MEDS ORDERED: DIPHENOX-ATROP 2.5-0.025 MG 1 EACH TAB PO PRN (22:58)
[2021-08-17] MEDS: BUDESONIDE 9 MG PO SCH (08:10)
[2021-08-17] MEDS: valACYclovir 500 MG TAB PO SCH ×2 (08:17→22:07)
[2021-08-17] MEDS: ALPRAZolam 1 MG TAB PO SCH ×3 (08:17→22:07)
[2021-08-17] MEDS: VENLAFAXINE HCL ER 75 MG CAP PO SCH (08:17)
[2021-08-17] MEDS: METOPROLOL TARTRATE 25 MG TAB PO SCH ×2 (08:17→20:06)
[2021-08-17] MEDS: SUCRALFATE 1 GM TAB PO SCH ×4 (08:17→20:06)
[2021-08-17] MEDS: SODIUM CHLORIDE 0.9% 1,000 ML IV SCH ×4 (08:40→23:28)
[2021-08-17] MEDS: ALBUTEROL HFA INHALER INHALATION PRN ×2 (11:12→17:27)
[2021-08-17] MEDS: SYMBICORT 160-4.5 MCG INHALER INHALATION SCH ×2 (11:12→19:38)
[2021-08-17 12:47] LABS: Anisocytosis Slight; Basophils % (A) 0 %; Eosinophils % (A) 0 %; HCT 30.8 % (34.0-46.0); Hypochromasia Moderate; Lymphocytes # (A) 0.9 k/uL (1.0-4.8); Lymphocytes % (A) 20 %; MCH 38.7 pg (25.0-35.0); MCHC 32.5 g/dL (31.0-37.0); Macrocytosis Marked; Mean Platelet Volume 10.4; Monocytes # (A) 0.3 k/uL (0-1.0); Monocytes % (A) 7 %; Neutrophils # (A) 3.3 k/uL (1.3-7.7); Neutrophils % (A) 71 %; Poikilocytosis Slight; RBC 2.59 m/uL (3.80-5.40); WBC 4.7 k/uL (3.8-10.6)
[2021-08-17 13:11] LABS: Platelet Count 75 k/uL (150-450)
[2021-08-17 13:56] LABS: ALT 71 U/L (4-34); AST 33 U/L (14-36); African American GFR (CKD) >90 (>60 ml/min/1.73 sqM); Albumin 3.3 g/dL (3.5-5.0); Albumin/Globulin Ratio 1.1; Alkaline Phosphatase 158 U/L (38-126); Anion Gap 2 mmol/L; Blood Urea Nitrogen 17 mg/dL (7-17); Calcium 8.5 mg/dL (8.4-10.2); Carbon Dioxide 35 mmol/L (22-30); Chloride 99 mmol/L (98-107); Globulin 2.9 g/dL; Glucose 115 mg/dL (74-99); Magnesium 1.9 mg/dL (1.6-2.3); Non-African American GFR(CKD) >90 (>60 ml/min/1.73 sqM); Potassium 4.1 mmol/L (3.5-5.1); Sodium 136 mmol/L (137-145); Total Bilirubin 1.1 mg/dL (0.2-1.3); Total Protein 6.2 g/dL (6.3-8.2)
[2021-08-17] MEDS ORDERED: PROCHLORPERAZINE 10 MG TAB PO PRN (14:59)
[2021-08-17] MEDS ORDERED: BENZOCAINE/MENTHOL LOZENG 1 EACH LOZENGE MUCOUS MEM PRN (14:59)
[2021-08-17] MEDS ORDERED: ONDANSETRON ODT 4 MG TAB PO PRN (14:59)
[2021-08-17] MEDS ORDERED: CHOLESTYRAMINE (WITH SUGAR) 4 GM PACKET PO PRN (14:59)
[2021-08-17] MEDS ORDERED: HYDROcodone/APAP 10-325MG 1 EACH TAB PO PRN (14:59)
--- NOTE | 2021-08-17 15:24 | P.CNPUL ---
History of Present Illness Consult date: 08/17/21 Requesting physician: Shon Beckford Reason for consult: dyspnea Chief complaint: Nausea, vomiting History of present illness: This is a very pleasant 61-year-old female patient, known to have COPD and metastatic colon cancer who has been progressing. The patient has received multiple chemotherapeutic agents including immunotherapy and currently she is on Lonsurf and her last dose was on 08/03/2021. Please refer to the details of her treatment through the notes, related by medical oncology. She was recently discharged from here following an episode of neutropenic fever. She remains off Lonsurf for now. She was just discharged home on 2020. She represented to the emergency room 08/16/2021 with complaints of abdominal pain with intractable nausea and vomiting. Seen today in consultation in the emergency department. She is currently sitting up on the stretcher. Awake and alert in no acute distress. Maintaining good O2 saturations in the 90s on 4 L/m per nasal cannula. She's been afebrile. Hemodynamically stable. Chest x-ray reveals no acute pulmonary process. White count 4.7. Hemoglobin 10.0. Platelet count 75,000. Lymphocytes 0.9. Sodium 136. Potassium 4.1. Creatinine 0.46. Glucose 115. AST 33. ALT 71. Alk phos 158. Quinones virus by PCR not detected. She has received Dilaudid for pain control. Zofran for nausea. Computed tomography scan of the abdomen and pelvis are pending. Review of Systems REVIEW OF SYSTEMS: CONSTITUTIONAL: Denies any recent significant weight loss or weight gain. EYES: Denies change in vision. EARS, NOSE, MOUTH, THROAT: Denies headaches, denies sore throat. CARDIOVASCULAR: Denies chest pain, palpitations or syncopal episodes. RESPIRATORY: Denies shortness of breath, cough, congestion or hemoptysis. GASTROINTESTINAL: Positive for abdominal pain, nausea, vomiting GENITOURINARY: Denies hematuria, denies infections. MUSKULOSKELETAL: Denies pain, denies swelling. INTEGUMENTARY: Denies rash, denies eczema. NEUROLOGICAL: Denies recent memory loss, no recent seizure activity. PSYCHIATRIC: Denies anxiety, denies depression. HEMATOLOGIC/LYMPHATIC: Denies anemia, denies enlarged lymph nodes. 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 Past Anesthesia/Blood Transfusion Reactions: No Reported Reaction Past Psychological History: Anxiety, Depression, Panic Disorder Smoking Status: Former smoker Past Alcohol Use History: None Reported Past Drug Use History: None Reported - Past Family History Father Family Medical History: Diabetes Mellitus, Myocardial Infarction ([place]) Additional Family Medical History / Comment(s): at age 62-mulitple mi's Mother Family Medical History: Cancer Additional Family Medical History / Comment(s): BREAST. from sepsis Medications and Allergies Home Medications Medication Instructions Recorded Confirmed Type ALPRAZolam [Xanax] 1 mg PO TID 03/01/21 08/16/21 History Budesonide/Formoterol Fumarate 2 puff INHALATION RT-BID 03/01/21 08/16/21 History [Symbicort 160-4.5 Mcg Inhaler] Cholestyramine (with Sugar) 4 gm PO BID PRN 03/01/21 08/16/21 History [Cholestyramine Packet] Diphenox-Atrop 2.5-0.025 mg 1 tab PO QID PRN 03/01/21 08/16/21 History [Lomotil] Metoprolol Tartrate [Lopressor] 25 mg PO BID 03/01/21 08/16/21 History Ondansetron Odt [Zofran ODT] 4 mg PO Q6H PRN 03/01/21 08/16/21 History Prochlorperazine [Compazine] 10 mg PO Q6H PRN 03/01/21 08/16/21 History Venlafaxine HCl [Effexor XR] 75 mg PO DAILY 03/01/21 08/16/21 History Albuterol Inhaler [Ventolin Hfa 2 puff INHALATION RT-Q6H PRN 08/06/21 08/16/21 History Inhaler] Budesonide [Budesonide ER] 9 mg PO DAILY 08/06/21 08/16/21 History HYDROcodone/APAP 10-325MG [[place] 1 tab PO Q6H PRN 08/06/21 08/16/21 History 10-325] fentaNYL 50MCG/HR PATCH [Duragesic 1 patch TRANSDERM Q72H 08/06/21 08/16/21 History 50MCG/HR] Benzocaine/Menthol Lozeng [Cepacol 1 each MUCOUS MEM Q4HR PRN lozenge 08/15/21 08/16/21 Rx lozenge] Sucralfate [Carafate] 1 gm PO ACHS #120 tab 08/15/21 08/16/21 Rx Trifluridine/Tipiracil HCl 2 tab PO DIRECTED #0 08/15/21 08/16/21 Rx [Lonsurf 15 mg-6.14 mg Tablet] Trifluridine/Tipiracil HCl 1 tab PO DIRECTED #0 08/15/21 08/16/21 Rx [Lonsurf 20 mg-8.19 mg Tablet] guaiFENesin [Mucinex] 1,200 mg PO Q12HR tablet 08/15/21 08/16/21 Rx predniSONE [Deltasone] See Taper PO DAILY #14 tab 08/15/21 08/16/21 Rx valACYclovir [Valtrex] 500 mg PO BID 14 Days #28 tab 08/15/21 08/16/21 Rx Allergies Allergy/AdvReac Type Severity Reaction Status Date / Time acyclovir AdvReac Severe Confusion Verified 08/16/21 20:15 Physical Exam Vitals: Vital Signs Temp Pulse Pulse Resp BP BP Pulse Ox 08/17/21 14:00 97.5 F L 76 18 125/77 92 L 08/17/21 05:17 100 16 152/87 98 08/16/21 23:42 91 16 132/94 98 08/16/21 17:14 98.7 F 104 H 20 144/105 91 L Intake and Output 08/17/21 08/17/21 08/17/21 06:59 14:59 22:59 Other: Weight 66.224 kg GENERAL EXAM: Alert, pleasant 60-year-old female patient, on 4 L nasal cannula, fairly comfortable in no apparent distress. HEAD: Normocephalic. EYES: Normal reaction of pupils, equal size. NOSE: Clear with pink turbinates. THROAT: No erythema or exudates. NECK: No masses, no JVD. CHEST: No chest wall deformity. LUNGS: Equal air entry with no crackles, wheeze, rhonchi or dullness. CVS: S1 and S2 normal with no audible murmur, regular rhythm. ABDOMEN: No hepatosplenomegaly, normal bowel sounds, no guarding or rigidity. SPINE: No scoliosis or deformity SKIN: No rashes CENTRAL NERVOUS SYSTEM: No focal deficits, tone is normal in all 4 extremities. EXTREMITIES: There is no peripheral edema. No clubbing, no cyanosis. Peripheral pulses are intact. Results - Laboratory Findings CBC and BMP: 08/17/21 12:26 08/17/21 12:26 PT/INR, D-dimer PT 11.1 sec (9.0-12.0) 08/16/21 17:47 INR 1.0 (<1.2) 08/16/21 17:47 Abnormal lab findings: Abnormal Labs 08/16/21 08/16/21 08/16/21 17:47 17:47 17:47 RBC 2.98 L Hgb Hct MCV 115.4 H MCH 38.2 H RDW 20.6 H Plt Count 83 L Lymphocytes # Macrocytosis Marked A APTT 21.4 L Sodium 134 L Chloride 94 L Carbon Dioxide BUN 22 H Creatinine 0.45 L Glucose 114 H Total Bilirubin 1.7 H AST 63 H ALT 88 H Alkaline Phosphatase 196 H Total Protein Albumin Urine Appearance Urine Protein Urine Ketones Amorphous Sediment Urine Bacteria Urine Mucus 08/16/21 08/17/21 08/17/21 20:58 12:26 12:26 RBC 2.59 L Hgb 10.0 L Hct 30.8 L MCV 119.0 H MCH 38.7 H RDW 20.0 H Plt Count 75 L Lymphocytes # 0.9 L Macrocytosis Marked A APTT Sodium 136 L Chloride Carbon Dioxide 35 H BUN Creatinine 0.46 L Glucose 115 H Total Bilirubin AST ALT 71 H Alkaline Phosphatase 158 H Total Protein 6.2 L Albumin 3.3 L Urine Appearance Cloudy H Urine Protein Trace H Urine Ketones Trace H Amorphous Sediment Rare H Urine Bacteria Rare H Urine Mucus Occasional H - Diagnostic Findings Chest x-ray: image reviewed Assessment and Plan Assessment: 1 Acute abdominal pain with nausea and vomiting in a patient with a known history of metastatic colon cancer 2 Recent admission for neutropenic fever and discharged home on 08/15/2021 3 Metastatic colon cancer with metastasis to the lungs and liver. Currently off Lonsurf secondary to above 4 Peripheral neuropathy, chemotherapy-induced 5 Hyperlipidemia 6 Hypertension 7 Pancytopenia secondary to systemic chemotherapy 8 Chronic obstructive pulmonary disease with recent exacerbation. Today's chest x-ray shows no acute pulmonary process Plan: The patient was seen and evaluated Chest x-ray and labs reviewed Computed tomography scan of the abdomen and pelvis pending Remains on Zosyn, Dilaudid Continued on her home pulmonary medications Complete prednisone taper from recent admission We will continue to follow and make further recommendations based on her clinical status I, the cosigning physician, performed a history & physical examination of the patient. Lungs sounds are clear. Maintaining good O2 saturations in the 90s on 4 L/m per nasal cannula. I discussed the assessment and plan of care with my nurse practitioner, Marisela Silva. I attest to the above consultation as dictated by her. Time with Patient: Greater than 30
--- NOTE | 2021-08-17 15:37 | P.CONS ---
History of Present Illness - Reason for Consult Consult date: 08/17/21 metastatic Colon Cancer Requesting physician: Arpan Dean - Chief Complaint SOB - History of Present Illness Jodi is well known to us and was recently admitted for a prolonged hospital stay. Recent discharged and re-admitted with worsening shortness of breath and new inspiration pain. She also with increased abdominal pain and distention. 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 Past Anesthesia/Blood Transfusion Reactions: No Reported Reaction Past Psychological History: Anxiety, Depression, Panic Disorder Smoking Status: Former smoker Past Alcohol Use History: None Reported Past Drug Use History: None Reported - Past Family History Father Family Medical History: Diabetes Mellitus, Myocardial Infarction (ND) Additional Family Medical History / Comment(s): at age 62-mulitple mi's Mother Family Medical History: Cancer Additional Family Medical History / Comment(s): BREAST. from sepsis Medications and Allergies Home Medications Medication Instructions Recorded Confirmed Type ALPRAZolam [Xanax] 1 mg PO TID 03/01/21 08/16/21 History Budesonide/Formoterol Fumarate 2 puff INHALATION RT-BID 03/01/21 08/16/21 History [Symbicort 160-4.5 Mcg Inhaler] Cholestyramine (with Sugar) 4 gm PO BID PRN 03/01/21 08/16/21 History [Cholestyramine Packet] Diphenox-Atrop 2.5-0.025 mg 1 tab PO QID PRN 03/01/21 08/16/21 History [Lomotil] Metoprolol Tartrate [Lopressor] 25 mg PO BID 03/01/21 08/16/21 History Ondansetron Odt [Zofran ODT] 4 mg PO Q6H PRN 03/01/21 08/16/21 History Prochlorperazine [Compazine] 10 mg PO Q6H PRN 03/01/21 08/16/21 History Venlafaxine HCl [Effexor XR] 75 mg PO DAILY 03/01/21 08/16/21 History Albuterol Inhaler [Ventolin Hfa 2 puff INHALATION RT-Q6H PRN 08/06/21 08/16/21 History Inhaler] Budesonide [Budesonide ER] 9 mg PO DAILY 08/06/21 08/16/21 History HYDROcodone/APAP 10-325MG [[place] 1 tab PO Q6H PRN 08/06/21 08/16/21 History 10-325] fentaNYL 50MCG/HR PATCH [Duragesic 1 patch TRANSDERM Q72H 08/06/21 08/16/21 Hi story 50MCG/HR] Benzocaine/Menthol Lozeng [Cepacol 1 each MUCOUS MEM Q4HR PRN lozenge 08/15/21 08/16/21 Rx lozenge] Sucralfate [Carafate] 1 gm PO ACHS #120 tab 08/15/21 08/16/21 Rx Trifluridine/Tipiracil HCl 2 tab PO DIRECTED #0 08/15/21 08/16/21 Rx [[place] 15 mg-6.14 mg Tablet] Trifluridine/Tipiracil HCl 1 tab PO DIRECTED #0 08/15/21 08/16/21 Rx [[place] 20 mg-8.19 mg Tablet] guaiFENesin [Mucinex] 1,200 mg PO Q12HR tablet 08/15/21 08/16/21 Rx predniSONE [Deltasone] See Taper PO DAILY #14 tab 08/15/21 08/16/21 Rx valACYclovir [Valtrex] 500 mg PO BID 14 Days #28 tab 08/15/21 08/16/21 Rx Allergies Allergy/AdvReac Type Severity Reaction Status Date / Time acyclovir AdvReac Severe Confusion Verified 08/16/21 20:15 Physical Exam Vitals: Vital Signs Temp Pulse Resp BP Pulse Ox 08/17/21 05:17 100 16 152/87 98 08/16/21 23:42 91 16 132/94 98 08/16/21 17:14 98.7 F 104 H 20 144/105 91 L Intake and Output 08/16/21 08/17/21 08/17/21 22:59 06:59 14:59 Other: Weight 66.224 kg 66.224 kg - Constitutional General appearance: cooperative, mild distress - EENT Eyes: EOMI ENT: NA/AT - Neck Neck: normal ROM - Respiratory Respiratory: bilateral: rhonchi - Cardiovascular Rhythm: regularly irregular - Gastrointestinal General gastrointestinal: distended, tenderness - Integumentary Integumentary: pale - Neurologic Neurologic: CNII-XII intact - Musculoskeletal Musculoskeletal: generalized weakness - Psychiatric Psychiatric: A&O x's 3, appropriate affect, intact judgment & insight Results CBC & Chem 7: 08/17/21 12:26 08/17/21 12:26 Labs: Abnormal Lab Results - Last 24 Hours (Table) 08/16/21 08/16/21 08/16/21 Range/Units 17:47 17:47 17:47 RBC 2.98 L (3.80-5.40) m/uL MCV 115.4 H (80.0-100.0) fL MCH 38.2 H (25.0-35.0) pg RDW 20.6 H (11.5-15.5) % Plt Count 83 L (150-450) k/uL Macrocytosis Marked A APTT 21.4 L (22.0-30.0) sec Sodium 134 L (137-145) mmol/L Chloride 94 L (98-107) mmol/L BUN 22 H (7-17) mg/dL Creatinine 0.45 L (0.52-1.04) mg/dL Glucose 114 H (74-99) mg/dL Total Bilirubin 1.7 H (0.2-1.3) mg/dL AST 63 H (14-36) U/L ALT 88 H (4-34) U/L Alkaline Phosphatase 196 H (38-126) U/L Urine Appearance (Clear) Urine Protein (Negative) Urine Ketones (Negative) Amorphous Sediment (None) /hpf Urine Bacteria (None) /hpf Urine Mucus (None) /hpf 08/16/21 Range/Units 20:58 RBC (3.80-5.40) m/uL MCV (80.0-100.0) fL MCH (25.0-35.0) pg RDW (11.5-15.5) % Plt Count (150-450) k/uL Macrocytosis APTT (22.0-30.0) sec Sodium (137-145) mmol/L Chloride (98-107) mmol/L BUN (7-17) mg/dL Creatinine (0.52-1.04) mg/dL Glucose (74-99) mg/dL Total Bilirubin (0.2-1.3) mg/dL AST (14-36) U/L ALT (4-34) U/L Alkaline Phosphatase (38-126) U/L Urine Appearance Cloudy H (Clear) Urine Protein Trace H (Negative) Urine Ketones Trace H (Negative) Amorphous Sediment Rare H (None) /hpf Urine Bacteria Rare H (None) /hpf Urine Mucus Occasional H (None) /hpf Abdominal x-ray: report reviewed Assessment and Plan (1) Abdominal pain Current Visit: Yes Status: Acute Code(s): R10.9 - UNSPECIFIED ABDOMINAL PAIN SNOMED Code(s): 62849862 (2) Nausea & vomiting Current Visit: Yes Status: Acute Code(s): R11.2 - NAUSEA WITH VOMITING, UNSPECIFIED SNOMED Code(s): 86922905 (3) Acute respiratory failure Current Visit: No Status: Acute Code(s): J96.00 - ACUTE RESPIRATORY FAILURE, UNSP W HYPOXIA OR HYPERCAPNIA SNOMED Code(s): 96472674 (4) Metastatic colon cancer to liver Current Visit: No Status: Chronic Priority: Low Code(s): C18.9 - MALIGNANT NEOPLASM OF COLON, UNSPECIFIED; C78.7 - SECONDARY MALIG NEOPLASM OF LIVER AND INTRAHEPATIC BILE DUCT SNOMED Code(s): 948761254 Plan: COntinue management per pulmonary Hold restaging exams till after recovers Check CTA for possible PE Abd increased an pain and distention will ask for extended view with CTA, spoke with CT and Patient
[2021-08-17] MEDS: PANTOPRAZOLE 40 MG/10 ML VIAL IVP SCH ×2 (16:19→20:06)
--- NOTE | 2021-08-17 16:59 | HP ---
HISTORY AND PHYSICAL DATE OF SERVICE: 08/17/2021 CHIEF COMPLAINT: Shortness of breath. HISTORY OF PRESENT ILLNESS: This 60-year-old woman with past medical history of multiple medical problems, including COPD, history of GERD, hypertension, hyperlipidemia, history of DJD, metastatic colon cancer, being followed by Dr. Hernandez in the outpatient setting, was complaining of abdominal discomfort as well as nausea and vomiting. The patient was hospitalized recently and was discharged a couple of days ago with neutropenic fever and possible sepsis. Antibiotics were stopped. The patient also had COPD exacerbation during that time. The patient also had pancytopenia. Colon cancer with metastases to the liver and lung was also noted. Currently the pain is felt in the abdomen, which is vague. Patient came to [facility] and was admitted for evaluation and treatment. The chest x-ray, which was reviewed personally by me, showed no evidence of any acute abnormality. Labwise, WBC 4.7, improved, and hemoglobin is 10. Platelets are still 75. There is no history of any fever, rigors or chills, history of headache, loss of consciousness, seizures at this time. AST and ALT were elevated. The cultures are also negative. There is no history of fever, rigors or chills at this time. PAST MEDICAL HISTORY: History of COPD, history of GERD, hypertension, hyperlipidemia, history of colon cancer with metastases, on chemotherapy. HOME MEDICATIONS: Reviewed. They include Valtrex, Deltasone, Mucinex, Duragesic patch, Effexor, Carafate, Compazine, Zofran, Lopressor, [place], Lomotil, Symbicort. Doses are reviewed. ALLERGIES: ACYCLOVIR. FAMILY HISTORY: History of breast cancer and sepsis. SOCIAL HISTORY: Previous history of smoking. No current smoking or alcohol intake. REVIEW OF SYSTEMS: ENT: Diminished hearing. Diminished vision. CARDIOVASCULAR SYSTEM: As mentioned earlier. RESPIRATORY SYSTEM: As mentioned earlier. GI: As mentioned earlier. : No dysuria. NERVOUS SYSTEM: No numbness, weakness. ALLERGY/IMMUNOLOGY: No asthma or hay fever. MUSCULOSKELETAL: As mentioned earlier. HEMATOLOGY/ONCOLOGY: As mentioned earlier. ENDOCRINE: As mentioned earlier. CONSTITUTIONAL: As mentioned earlier. DERMATOLOGY: Negative. RHEUMATOLOGY: Negative. PSYCHIATRY: As mentioned earlier. PHYSICAL EXAMINATION: Alert and oriented x3. Pulse 76, blood pressure 125/77, respiration 18, temperature 97.4, pulse ox 92% on 4 L. HEENT: Conjunctivae normal. NECK: No jugular venous distention. CARDIOVASCULAR: S1, S2 muffled. RESPIRATION: Breath sounds diminished at the bases. A few scattered rhonchi. No crackles. ABDOMEN: Soft. Mild diffuse tenderness present. No guarding. No rigidity. No mass palpable. No ascites. Bowel sounds present. LEGS: No edema. No swelling. NERVOUS SYSTEM: Higher functions as mentioned earlier. Moves all 4 limbs. No focal motor or sensory deficit. LYMPHATICS: No lymph node palpable in neck, axillae or groin. SKIN: No ulcer, rash, bleeding. JOINTS: No active deforming arthropathy. LAB STUDIES: WBC 4.7, hemoglobin 10, platelet count 75. Sodium 136. ASSESSMENT: 1. Diffuse abdominal pain for evaluation; possible acute gastritis. 2. History of recent neutropenic sepsis. 3. History of carcinoma of colon with metastases to the liver, lungs, on chemotherapy. 4. Anemia, macrocytic, secondary to malignancy and chemotherapy. 5. Thrombocytopenia secondary to chemotherapy. 6. Hyponatremia. 7. Elevated AST, ALT secondary to malignancy. 8. Elevated bilirubin. 9. Mild protein-calorie malnutrition. 10.History of chronic obstructive pulmonary disease. 11.History of gastroesophageal reflux disease. 12.Hypertension. 13.Hyperlipidemia. 14.History of degenerative joint disease. 15.History of childhood nephrotic syndrome. 16.History of bowel resection. 17.History of degenerative joint disease. 18.History of anxiety, depression, panic disorder. 19.History of nicotine dependence. 20.FULL CODE. RECOMMENDATIONS AND DISCUSSION: In this 60-year-old woman who presented with multiple complex medical issues, we will monitor the patient closely. Will initiate empiric treatment. Will consult Hematology/Oncology and Dr. Hernandez. Otherwise, if the pain is not relenting, I would consider the possibility of CT scan of the abdomen and pelvis; last series was done in February of this year. Overall prognosis is guarded because of multiple complex medical issues. Discussed with the patient, who understands. Further recommendations to follow. A copy of this dictation is being forwarded to Dr. Hernandez, who is the primary physician. MMODL / KENNETHN: [id number] / MTDD
--- NOTE | 2021-08-17 18:27 | CT ---
EXAMINATION TYPE: CT abdomen pelvis w con DATE OF EXAM: 08/17/2021 COMPARISON: 03/01/2021 HISTORY: 60-year-old female distention, Intractable nausea and vomiting, weakness, pneumonia TECHNIQUE: Contiguous axial scanning of the abdomen and pelvis following administration of 100 ml Iso jackie 300 IV contrast. Delayed images through the kidneys and coronal/sagittal reconstructions perform ed. CT DLP: 638.2 mGycm Automated exposure control for dose reduction was used. FINDINGS: Heart normal size with trace pericardial fluid. There are scattered mild patchy ground glass changes in the visualized lower lungs that could represent sequela of an atypical pneumonia. Small to moderate-sized hiatal hernia redemonstrated. Postoperative changes of partial left hepatectomy again noted. The posterior centrally located right liver lobe lesion measures 3.0 cm versus 1.9 cm, previously. There is narrowing and mass effect onto the upper SMV secondary to retroperitoneal mass interposed be tween the duodenum and inferior pancreatic head. This measures approximately 4.8 x 2.4 cm versus 3.9 x 2.2 cm, previously. There is continued soft tissue encasement of the SMA at this level and secondar y luminal narrowing. The degree of soft tissue encasement has increased. Redemonstrated mixed solid and cystic mass of the pancreatic tail measuring 3.8 x 2.6 cm (versus 4.3 x 2.7 cm, previously) not significantly changed. Some focal fat stranding adjacent to the pancreatic head has increased in the interval. Diverticulum of the second portion of the duodenum again noted measuring 4.4 cm. The liver is surgically absent. Adrenal glands and spleen within normal limits. Punctate 2 mm nonobstructive right renal calculus. Additional nonobstructive 4 mm left renal calculus . Postsurgical change of previous partial right hemicolectomy and ileocolonic anastomosis at the level of the proximal transverse colon. There is focal annular narrowing and thickening along the mid transverse colon, axial image 39 and al so just before the splenic flexure of the colon, axial image 19. These areas of narrowing persist on the delayed kidney images but may represent spasm. Correlate with direct visualization to exclude yea rs of neoplasm. Prominent stool within the distal sigmoid and rectum. The rectum is distended up to 7.3 cm wide. Mild perirectal fat stranding. Somewhat ahaustral appearance to the mid to distal sigmoid and mucosal hyp eremia and mild thickening of the lower descending colon. Findings could reflect colitis. No mesenteric or retroperitoneal lymphadenopathy. Bladder partially distended. Uterus is anteverted with an enhancing mid uterine body fibroid measurin g 1.9 cm. Left ovary is visualized. Right ovary not clearly delineated from adjacent bowel loops. No pelvic lymphadenopathy seen. Bones: Mild degenerative changes hips. Facet arthropathy mid to lower lumbar spine with grade 1 retro listhesis L3-L4 and L4-L5. Similar sclerosis of the T11 vertebral body. IMPRESSION: 1. MILD PATCHY GROUNDGLASS CHANGES IN THE VISUALIZED LOWER LUNGS. CLINICALLY CORRELATE TO EXCLUDE AN ATYPICAL/COVID PNEUMONIA. 2. NEW MILD FAT STRANDING AROUND THE PANCREATIC HEAD REGION. CORRELATE WITH AMYLASE AND LIPASE LEVELS TO EXCLUDE A MILD ACUTE INTERSTITIAL PANCREATITIS. 3. SOMEWHAT AHAUSTRAL APPEARANCE TO THE MID TO DISTAL SIGMOID COLON WITH PROMINENT STOOL EXTENDING TO THE RECTUM WHICH IS DISTENDED UP TO 7.3 CM WIDE. MILD PERIRECTAL FAT STRANDING HERE ALONG WITH SOME MUCOSAL HYPEREMIA OF THE LOWER DESCENDING COLON. CONSIDER A NONSPECIFIC COLITIS. CORRELATE WITH LACTI C ACID LEVELS TO EXCLUDE AN EARLY ISCHEMIC COLITIS. NO PNEUMATOSIS OR FREE AIR. 4. RETROPERITONEAL MASS ENCASING AND NARROWING THE SMA INTERPOSED BETWEEN THE DUODENUM AND INFERIOR P ANCREATIC HEAD, DEVIATING THE UPPER SMV. This HAS INCREASED IN SIZE, CURRENTLY MEASURING 4.8 CM VERS US 3.9 CM, PREVIOUSLY. 5. ENLARGING METASTATIC LESION OF THE RIGHT HEPATIC LOBE (3.0 CM VERSUS 1.9 CM, PREVIOUSLY). 6. A COUPLE SEGMENTS OF ANNULAR NARROWING ALONG THE TRANSVERSE COLON PERSIST ON DELAYED KIDNEY IMAGES . WHEN PATIENT ABLE, CORRELATE WITH DIRECT VISUALIZATION TO EXCLUDE NEOPLASM. THIS MAY REPRESENT AREA S OF COLONIC SPASM. 7. MIXED SOLID CYSTIC NEOPLASM OF THE PANCREATIC TAIL (3.8 CM) IS RELATIVELY UNCHANGED. 8. COUPLE NONOBSTRUCTING BILATERAL RENAL CALCULI MEASURING UP TO 4 MM. 9. STABLE SCLEROSIS OF THE T11 VERTEBRAL BODY, POSSIBLE SITE OF PREVIOUSLY TREATED OSSEOUS METASTASIS . 10. SMALL TO MODERATE-SIZED HIATAL HERNIA.
[2021-08-17] MEDS: ONDANSETRON 4 MG/2 ML VIAL IVP PRN (19:46)
[2021-08-17] MEDS: guaiFENesin 600 MG TABLET.ER PO SCH (20:06)
[2021-08-17] MEDS: HEPARIN SODIUM,PORCINE/PF 5,000 UNIT/0.5 ML SYRINGE SQ SCH (20:06)
[2021-08-17] MEDS: HYDROmorphone 0.5 MG/0.5 ML SYRINGE IVP PRN (22:07)
--- NOTE | 2021-08-17 22:23 | CT ---
EXAMINATION TYPE: CT angio chest DATE OF EXAM: 08/17/2021 4:10 PM COMPARISON: 02/16/2021 HISTORY: Intractable nausea and vomiting, weakness, pneumonia. History of metastatic lung cancer. CT DLP: 199.6 mGycm Automated exposure control for dose reduction was used. CONTRAST: CTA scan of the thorax is performed with IV Contrast, patient injected with 100 mL of Isovue 370, pul monary embolism protocol. FINDINGS: Catheter projects over the right chest and extends the distal SVC. No filling defects seen in the pulmonary arteries. The following nodules are seen on series 406: Image 30, right upper lobe, 7 mm, no significant change in size. Image 35, left upper lobe, 8 mm, no significant change in size. Image 41, left upper lobe, 14 mm previously 13 mm, no significant change in size. Image 44, right upper lobe, 10 mm, no significant change in size. Image 52, right lower lobe, 5 mm, no significant change in size. Image 54, right upper lobe, 8 mm, no significant change in size. Image 64, right lower lobe, 15 mm, previously 13 mm, no significant change in size. Image 79, right lower lobe posteriorly, 13 mm, no significant change in size. There are patchy and linear bibasilar opacities which were not seen on the prior study. There is a subcarinal lymph node measuring 1.4 cm in short axis previously 0.8 cm. No hilar adenopath y. On enlarged axillary lymph nodes seen. There is normal in size. There is pericardial effusion, just slightly increased in size compared to p rior. A pneumothorax or pleural effusion. Tracheobronchial tree is patent. Acute fracture or dislocation. Mild generalized osteopenia. No aggressive osseous lesion seen. The up per unremarkable and is not significantly changed in appearance compared to prior. IMPRESSION: 1. ENLARGED SUBCARINAL LYMPH NODE MEASURES 1.4 CM IN SHORT AXIS PREVIOUSLY 0.8 CM. 2. RELATIVELY UNCHANGED LUNG NODULES DESCRIBED IN BODY OF REPORT. 3. PATCHY AND LINEAR OPACITIES MAY BE ON THE BASIS OF INFECTION OR ATELECTASIS. 4. NO CT EVIDENCE FOR ACUTE PULMONARY ARTERIAL EMBOLISM.
[2021-08-18] MEDS: ONDANSETRON 4 MG/2 ML VIAL IVP PRN (06:00)
[2021-08-18] MEDS: HYDROmorphone 0.5 MG/0.5 ML SYRINGE IVP PRN ×2 (06:00→13:25)
[2021-08-18] MEDS: SODIUM CHLORIDE 0.9% 1,000 ML IV SCH (06:00)
[2021-08-18 07:40] LABS: Anisocytosis Moderate; Basophils % (A) 0 %; Eosinophils % (A) 0 %; HCT 28.9 % (34.0-46.0); HGB 9.2 gm/dL (11.4-16.0); Hypochromasia Marked; Lymphocytes # (A) 1.2 k/uL (1.0-4.8); Lymphocytes % (A) 29 %; MCH 38.4 pg (25.0-35.0); MCHC 31.7 g/dL (31.0-37.0); MCV 121.2 fL (80.0-100.0); Macrocytosis Marked; Monocytes # (A) 0.2 k/uL (0-1.0); Monocytes % (A) 4 %; Neutrophils # (A) 2.7 k/uL (1.3-7.7); Neutrophils % (A) 65 %; Poikilocytosis Slight; RBC 2.39 m/uL (3.80-5.40); WBC 4.1 k/uL (3.8-10.6)
[2021-08-18 07:45] LABS: Platelet Count 81 k/uL (150-450)
[2021-08-18] MEDS: PANTOPRAZOLE 40 MG/10 ML VIAL IVP SCH (08:19)
[2021-08-18] MEDS: SUCRALFATE 1 GM TAB PO SCH ×4 (08:19→20:57)
[2021-08-18] MEDS: HEPARIN SODIUM,PORCINE/PF 5,000 UNIT/0.5 ML SYRINGE SQ SCH ×2 (08:19→20:57)
[2021-08-18] MEDS: ALPRAZolam 1 MG TAB PO SCH ×3 (08:20→22:46)
[2021-08-18] MEDS: VENLAFAXINE HCL ER 75 MG CAP PO SCH (08:20)
[2021-08-18] MEDS: valACYclovir 500 MG TAB PO SCH ×2 (08:20→20:57)
[2021-08-18] MEDS: guaiFENesin 600 MG TABLET.ER PO SCH ×2 (08:20→20:57)
[2021-08-18] MEDS: predniSONE 20 MG TAB PO SCH (08:20)
[2021-08-18] MEDS: METOPROLOL TARTRATE 25 MG TAB PO SCH ×2 (08:20→20:57)
[2021-08-18] MEDS: BUDESONIDE 9 MG PO SCH (08:22)
[2021-08-18] MEDS: SYMBICORT 160-4.5 MCG INHALER INHALATION SCH ×2 (08:32→20:38)
[2021-08-18 09:41] LABS: African American GFR (CKD) 122.5 (60.0-200.0); Albumin 3.3 g/dL (3.8-4.9); Albumin/Globulin Ratio 1.57 (1.60-3.17); Anion Gap 10.6 mmol/L (10.00-18.00); BUN/Creat Ratio 20.7 Ratio (12.00-20.00); Blood Urea Nitrogen 9.8 mg/dL (9.0-27.0); Calcium 8.2 mg/dL (8.7-10.3); Carbon Dioxide 24.8 mmol/L (20.0-27.5); Globulin 2.1 g/dL (1.6-3.3); Magnesium 1.7 mg/dL (1.5-2.4); Non-African American GFR(CKD) 105.7 (60.0-200.0); Potassium 3.1 mmol/L (3.5-5.5); Total Bilirubin 0.5 mg/dL (0.30-1.20); Total Protein 5.3 g/dL (6.2-8.2)
[2021-08-18] MEDS ORDERED: Potassium Replacement Protocol 1 EACH MISC MISCELLANE PRN (09:47)
[2021-08-18] MEDS: POTASSIUM CHLORIDE ER 20 MEQ TAB.ER PO SCH ×2 (10:23→11:13)
--- NOTE | 2021-08-18 14:12 | P.PN ---
Subjective Progress Note Date: 08/18/21 This is a very pleasant 61-year-old female patient, known to have COPD and metastatic colon cancer who has been progressing. The patient has received multiple chemotherapeutic agents including immunotherapy and currently she is on Lonsurf and her last dose was on 08/03/2021. Please refer to the details of her treatment through the notes, related by medical oncology. She was recently discharged from here following an episode of neutropenic fever. She remains off Lonsurf for now. She was just discharged home on 2020. She represented to the emergency room 08/16/2021 with complaints of abdominal pain with intractable nausea and vomiting. Seen today in consultation in the emergency department. She is currently sitting up on the stretcher. Awake and alert in no acute distress. Maintaining good O2 saturations in the 90s on 4 L/m per nasal cannula. She's been afebrile. Hemodynamically stable. Chest x-ray reveals no acute pulmonary process. White count 4.7. Hemoglobin 10.0. Plat elet count 75,000. Lymphocytes 0.9. Sodium 136. Potassium 4.1. Creatinine 0.46. Glucose 115. AST 33. ALT 71. Alk phos 158. Quinones virus by PCR not detected. She has received Dilaudid for pain control. Zofran for nausea. Computed tomography scan of the abdomen and pelvis are pending. The patient is seen today 08/18/2021 in follow-up on the regular medical floor. She is currently sitting up in bed. Awake and alert in no acute distress. He obtained good O2 saturations in the mid 90s on 2 L/m per nasal cannula. Afebrile. Hemodynamically stable. White count 4.1. Hemoglobin 9.2. Platelet count 81,000. Sodium 139. Potassium 3.1. Creatinine 0.5. Glucose 112. AST 15. ALT 49. Alk phos 140. CEA 43.6. Computed tomography scan of the chest revealed no evidence of pulmonary embolism. There are multiple pulmonary nodules with no significant change in size compared to previous of 02/16/2021. Patchy and linear bibasilar opacities. There is one subcarinal lymph node bruce uring 1.4 cm. CAT scan of the abdomen and pelvis revealed new mild stranding around the pancreatic head region. Possible mild acute interstitial pancreatitis. There is mid to distal sigmoid colon with prominent stool extending to the rectum. There is a retroperitoneal mass encasing and narrowing the SMA interposed between the duodenum and inferior pancreatic head, This has increased in size, currently measuring 4.8 cm versus 3.9 cm previously. There is also an enlarging metastatic lesion in the right hepatic lobe now measuring 3.0 cm versus 1.9 cm. There is annular narrowing alongside the transverse colon. There is a solid cystic neoplasm of the pancreatic tail measuring 3.8 cm that is unchanged. There is stable sclerosis of T11 vertebrae body, possible site of previously treated osseous metastasis. Small to moderate size hiatal hernia. Objective - Vital Signs Vital signs: Vital Signs Temp 97.9 F 08/18/21 11:11 Pulse 73 08/18/21 11:11 Resp 16 08/18/21 11:11 BP 107/70 08/18/21 11:11 Pulse Ox 95 08/18/21 11:11 Intake & Output 08/17/21 08/18/21 08/18/21 18:59 06:59 18:59 Intake Total 900 Balance 900 Intake: Intake, IV Titration 900 Amount Sodium Chloride 0.9% 1, 900 000 ml @ 75 mls/hr IV . [id number] [facility] Rx#:[id number] Other: Voiding Method Bedside Commode # Voids 3 # Bowel Movements 1 - Exam GENERAL EXAM: Alert, pleasant 60-year-old female patient, on 2 L nasal cannula, fairly comfortable in no apparent distress. HEAD: Normocephalic. EYES: Normal reaction of pupils, equal size. NOSE: Clear with pink turbinates. THROAT: No erythema or exudates. NECK: No masses, no JVD. CHEST: No chest wall deformity. LUNGS: Equal air entry with no crackles, wheeze, rhonchi or dullness. CVS: S1 and S2 normal with no audible murmur, regular rhythm. ABDOMEN: No hepatosplenomegaly, normal bowel sounds, no guarding or rigidity. SPINE: No scoliosis or deformity SKIN: No rashes CENTRAL NERVOUS SYSTEM: No focal deficits, tone is normal in all 4 extremities. EXTREMITIES: There is no peripheral edema. No clubbing, no cyanosis. Peripheral pulses are intact. - Labs CBC & Chem 7: 08/18/21 06:34 08/18/21 06:34 Labs: Abnormal Lab Results - Last 24 Hours (Table) 08/17/21 08/18/21 08/18/21 Range/Units 12:26 06:34 06:34 RBC 2.39 L (3.80-5.40) m/uL Hgb 9.2 L (11.4-16.0) gm/dL Hct 28.9 L (34.0-46.0) % MCV 121.2 H (80.0-100.0) fL MCH 38.4 H (25.0-35.0) pg RDW 21.0 H (11.5-15.5) % Plt Count 81 L (150-450) k/uL Macrocytosis Marked A Potassium 3.1 L (3.5-5.5) mmol/L Creatinine 0.5 L (0.6-1.5) mg/dL BUN/Creatinine Ratio 20.70 H (12.00-20.00) Ratio Glucose 112 H (70-110) mg/dL Calcium 8.2 L (8.7-10.3) mg/dL ALT 49 H (8-44) U/L Alkaline Phosphatase 140 H (41-126) U/L Total Protein 5.3 L (6.2-8.2) g/dL Albumin 3.3 L (3.8-4.9) g/dL Albumin/Globulin Ratio 1.57 L (1.60-3.17) g/dL Carcinoembryonic Ag 43.6 H (0.0-4.9) ng/mL Assessment and Plan Assessment: 1 Acute abdominal pain with nausea and vomiting in a patient with a known hi story of metastatic colon cancer. Computed tomography scan of the chest revealed no evidence of pulmonary embolism. There are multiple pulmonary nodules with no significant change in size compared to previous of 02/16/2021. Patchy and linear bibasilar opacities. There is one subcarinal lymph node measuring 1.4 cm. CAT scan of the abdomen and pelvis revealed new mild stranding around the pancreatic head region. Possible mild acute interstitial pancreatitis. There is mid to distal sigmoid colon with prominent stool extending to the rectum. There is a retroperitoneal mass encasing and narrowing the SMA interposed between the duodenum and inferior pancreatic head, This has increased in size, currently measuring 4.8 cm versus 3.9 cm previously. There is also an enlarging metastatic lesion in the right hepatic lobe now measuring 3.0 cm versus 1.9 cm. There is annular narrowing alongside the transverse colon. There is a solid cystic neoplasm of the pancreatic tail measuring 3.8 cm that is unchanged. There is stable sclerosis of T11 vertebrae body, possible site of previously treated osseous metastasis. Small to moderate size hiatal hernia. 2 Recent admission for neutropenic fever and discharged home on 08/15/2021 3 Metastatic colon cancer with metastasis to the lungs and liver. Currently off Lonsurf secondary to above 4 Peripheral neuropathy, chemotherapy-induced 5 Hyperlipidemia 6 Hypertension 7 Pancytopenia secondary to systemic chemotherapy 8 Chronic obstructive pulmonary disease with recent exacerbation. Today's chest x-ray shows no acute pulmonary process Plan: The patient was seen and evaluated Scan of the chest abdomen and pelvis reviewed No evidence of pneumonia Continued on her home pulmonary medications Complete prednisone taper from recent admission We will continue to follow I, the cosigning physician, performed a history & physical examination of the patient. Lungs sounds are clear. Maintaining good O2 saturations in the 90s on 2 L/m per nasal cannula. I discussed the assessment and plan of care with my nurse practitioner, Marisela Silva. I attest to the above note as dictated by her.
--- NOTE | 2021-08-18 14:26 | P.PN ---
Subjective Progress Note Date: 08/18/21 Principal diagnosis: metastatic colon, SOB She is feeling better, She does complain of pain, fentanyl does not feel like its helping. She is anxious to go home, but will need to get pain under control. Will increase fentanyl overnight and use po dilaudid prn instead of norco. Objective - Vital Signs Vital signs: Vital Signs Temp 97.9 F 08/18/21 11:11 Pulse 73 08/18/21 11:11 Resp 16 08/18/21 11:11 BP 107/70 08/18/21 11:11 Pulse Ox 95 08/18/21 11:11 Intake & Output 08/17/21 08/18/21 08/18/21 18:59 06:59 18:59 Intake Total 900 Balance 900 Intake: Intake, IV Titration 900 Amount Sodium Chloride 0.9% 1, 900 000 ml @ 75 mls/hr IV . [id number] [facility] Rx#:[id number] Other: Voiding Method Bedside Commode # Voids 3 # Bowel Movements 1 - Exam - Constitutional General appearance: cooperative, mild distress - EENT Eyes: EOMI ENT: NA/AT - Neck Neck: normal ROM - Respiratory Respiratory: bilateral: rhonchi - Cardiovascular Rhythm: regularly irregular - Gastrointestinal General gastrointestinal: distended, tenderness - Integumentary Integumentary: pale - Neurologic Neurologic: CNII-XII intact - Musculoskeletal Musculoskeletal: generalized weakness - Psychiatric Psychiatric: A&O x's 3, appropriate affect, intact judgment & insight - Labs CBC & Chem 7: 08/18/21 06:34 08/18/21 06:34 Labs: Abnormal Lab Results - Last 24 Hours (Table) 08/17/21 08/18/21 08/18/21 Range/Units 12:26 06:34 06:34 RBC 2.39 L (3.80-5.40) m/uL Hgb 9.2 L (11.4-16.0) gm/dL Hct 28.9 L (34.0-46.0) % MCV 121.2 H (80.0-100.0) fL MCH 38.4 H (25.0-35.0) pg RDW 21.0 H (11.5-15.5) % Plt Count 81 L (150-450) k/uL Macrocytosis Marked A Potassium 3.1 L (3.5-5.5) mmol/L Creatinine 0.5 L (0.6-1.5) mg/dL BUN/Creatinine Ratio 20.70 H (12.00-20.00) Ratio Glucose 112 H (70-110) mg/dL Calcium 8.2 L (8.7-10.3) mg/dL ALT 49 H (8-44) U/L Alkaline Phosphatase 140 H (41-126) U/L Total Protein 5.3 L (6.2-8.2) g/dL Albumin 3.3 L (3.8-4.9) g/dL Albumin/Globulin Ratio 1.57 L (1.60-3.17) g/dL Carcinoembryonic Ag 43.6 H (0.0-4.9) ng/mL Assessment and Plan (1) Abdominal pain Current Visit: Yes Status: Acute Code(s): R10.9 - UNSPECIFIED ABDOMINAL PAIN SNOMED Code(s): 50355042 (2) Nausea & vomiting Current Visit: Yes Status: Acute Code(s): R11.2 - NAUSEA WITH VOMITING, UNSPECIFIED SNOMED Code(s): 03349639 (3) Acute respiratory failure Current Visit: No Status: Acute Code(s): J96.00 - ACUTE RESPIRATORY FAILURE, UNSP W HYPOXIA OR HYPERCAPNIA SNOMED Code(s): 24261922 (4) Metastatic colon cancer to liver Current Visit: No Status: Chronic Priority: Low Code(s): C18.9 - MALIGNANT NEOPLASM OF COLON, UNSPECIFIED; C78.7 - SECONDARY MALIG NEOPLASM OF LIVER AND INTRAHEPATIC BILE DUCT SNOMED Code(s): 645228455 Plan: COntinue management per pulmonary Hold restaging exams till after recovers Acute respiratory failure - Pulm following Check CTA negative PE Abdominal pain and distention - Amylase Lipase - Pancreatitis CT and Patient Cancer Related Pain: - Fentanyl and PO Dilaudid trial overnight - 3 day at discharge and can have contract completed in follow-up next week
[2021-08-18 15:36] LABS: Amylase 68 U/L (30-110); Lipase 362 U/L (23-300)
[2021-08-18] MEDS: HYDROmorphone 2 MG TAB PO PRN ×2 (16:40→22:46)
[2021-08-18] MEDS: PANTOPRAZOLE 40 MG TABLET PO SCH (16:41)
[2021-08-18] MEDS ORDERED: IPRATROPIUM-ALBUTEROL 3 ML NEB INHALATION PRN (16:47)
--- NOTE | 2021-08-18 17:33 | PN ---
PROGRESS NOTE DATE OF SERVICE: 08/18/2021 This 60-year-old woman who was admitted with diffuse abdominal pain also had some shortness of breath. The patient also had recent neutropenic sepsis. Chest CTA which was reviewed personally by me showed enlarged subcarinal lymph node, unchanged lung nodules and patchy linear opacities also noted. The patient was seen by Pulmonology as well as Hematology/Oncology. According to Dr. Hernandez, there is no evidence of pneumonia at this time. Hematology/Oncology is also following the patient closely. Symptomatic treatment is being continued. No chest pain. No palpitations. No fever. PHYSICAL EXAMINATION: Alert and oriented x3. Pulse 79, blood pressure 124/71, respiration 20, temperature 98.2, pulse ox 92% on 2 L. HEENT: Conjunctivae normal. NECK: No jugular venous distention. CARDIOVASCULAR: S1, S2 muffled. RESPIRATION: Breath sounds diminished at the bases. A few scattered rhonchi. ABDOMEN: Soft. Mild diffuse discomfort. LEGS: No edema. No swelling. NERVOUS SYSTEM: No focal deficit. LABS: WBC 4.2, hemoglobin 9.2. Sodium 139, potassium 3.1. AST, ALT improved. Lipase is 362. Amylase is 38. is 43.6. ASSESSMENT: 1. Diffuse abdominal pain for evaluation; possible acute gastritis, possibly mild acute pancreatitis. 2. History of recent neutropenic sepsis. 3. History of carcinoma of colon with metastases to the liver, lungs, on chemotherapy. 4. Anemia, macrocytic, secondary to malignancy and chemotherapy. 5. Thrombocytopenia secondary to chemotherapy. 6. No evidence of pneumonia per Dr. Hernandez. 7. Hyponatremia. 8. Elevated AST, ALT secondary to malignancy. 9. Possible atelectasis. 10.Elevated bilirubin. 11.Mild protein-calorie malnutrition. 12.History of chronic obstructive pulmonary disease. 13.History of gastroesophageal reflux disease. 14.Hypertension. 15.Hyperlipidemia. 16.History of degenerative joint disease. 17.History of childhood nephrotic syndrome. 18.History of bowel resection. 19.History of anxiety, depression, panic disorder. 20.History of nicotine dependence. 21.FULL CODE. RECOMMENDATIONS AND DISCUSSION: I recommend to continue current medications, continue with the monitoring, symptomatic treatment. Otherwise at this time I would repeat labs and continue with the bronchodilators. Prognosis is guarded because of multiple complex medical issues. Further recommendations to follow. MMODL / IJN: [id number] / MTDD
[2021-08-18] MEDS: IPRATROPIUM-ALBUTEROL 3 ML NEB INHALATION SCH (20:38)
[2021-08-19] MEDS: SODIUM CHLORIDE 0.9% 1,000 ML IV SCH ×2 (02:49→12:47)
[2021-08-19 05:10] VITALS: BP 125/74; RESP 18; TEMP 98.5
[2021-08-19 06:36] LABS: Anisocytosis Moderate; Basophils % (A) 0 %; Eosinophils % (A) 0 %; HCT 25.3 % (34.0-46.0); Hypochromasia Marked; Lymphocytes # (A) 0.9 k/uL (1.0-4.8); Lymphocytes % (A) 29 %; MCH 38.6 pg (25.0-35.0); MCHC 31.7 g/dL (31.0-37.0); MCV 121.4 fL (80.0-100.0); Macrocytosis Marked; Mean Platelet Volume 9.9; Monocytes # (A) 0.2 k/uL (0-1.0); Monocytes % (A) 5 %; Neutrophils % (A) 63 %; Platelet Count 65 k/uL (150-450); Poikilocytosis Slight; RBC 2.09 m/uL (3.80-5.40); RDW 20.7 % (11.5-15.5); WBC 3.1 k/uL (3.8-10.6)
[2021-08-19] MEDS: IPRATROPIUM-ALBUTEROL 3 ML NEB INHALATION SCH ×2 (07:39→11:27)
[2021-08-19] MEDS: SYMBICORT 160-4.5 MCG INHALER INHALATION SCH (07:39)
[2021-08-19] MEDS: ONDANSETRON 4 MG/2 ML VIAL IVP PRN (08:11)
[2021-08-19] MEDS: HEPARIN SODIUM,PORCINE/PF 5,000 UNIT/0.5 ML SYRINGE SQ SCH (08:12)
[2021-08-19] MEDS: METOPROLOL TARTRATE 25 MG TAB PO SCH (08:13)
[2021-08-19] MEDS: PANTOPRAZOLE 40 MG TABLET PO SCH (08:13)
[2021-08-19] MEDS: ALPRAZolam 1 MG TAB PO SCH (08:13)
[2021-08-19] MEDS: POTASSIUM CHLORIDE ER 20 MEQ TAB.ER PO SCH ×2 (08:13→10:40)
[2021-08-19] MEDS: SUCRALFATE 1 GM TAB PO SCH ×2 (08:13→12:49)
[2021-08-19] MEDS: guaiFENesin 600 MG TABLET.ER PO SCH (08:14)
[2021-08-19] MEDS: valACYclovir 500 MG TAB PO SCH (08:14)
[2021-08-19] MEDS: predniSONE 20 MG TAB PO SCH (08:14)
[2021-08-19] MEDS: VENLAFAXINE HCL ER 75 MG CAP PO SCH (08:14)
[2021-08-19] MEDS: HYDROmorphone 2 MG TAB PO PRN (08:38)
[2021-08-19 09:15] LABS: ALT 34 U/L (8-44); AST 13 U/L (13-35); African American GFR (CKD) 129.4 (60.0-200.0); Albumin/Globulin Ratio 1.58 (1.60-3.17); Alkaline Phosphatase 129 U/L (41-126); Blood Urea Nitrogen 9.6 mg/dL (9.0-27.0); Calcium 7.7 mg/dL (8.7-10.3); Carbon Dioxide 23.9 mmol/L (20.0-27.5); Chloride 110 mmol/L (96-109); Chol/HDL Ratio 3.33 Ratio; Globulin 1.9 g/dL (1.6-3.3); Glucose 110 mg/dL (70-110); LDL Cholesterol,Calculated 64.1 mg/dL (0.0-131.0); Lipase 122 U/L (14-63); Magnesium 1.7 mg/dL (1.5-2.4); Non-African American GFR(CKD) 111.6 (60.0-200.0); Potassium 3.4 mmol/L (3.5-5.5); Sodium 141 mmol/L (135-145); Total Protein 4.9 g/dL (6.2-8.2)
[2021-08-19] MEDS: BUDESONIDE 9 MG PO SCH (10:36)
[2021-08-19 11:44] VITALS: PULSE 82
--- NOTE | 2021-08-19 11:44 | P.PN ---
Subjective Progress Note Date: 08/19/21 This is a very pleasant 61-year-old female patient, known to have COPD and metastatic colon cancer who has been progressing. The patient has received multiple chemotherapeutic agents including immunotherapy and currently she is on Lonsurf and her last dose was on 08/03/2021. Please refer to the details of her treatment through the notes, related by medical oncology. She was recently discharged from here following an episode of neutropenic fever. She remains off Lonsurf for now. She was just discharged home on 2020. She represented to the emergency room 08/16/2021 with complaints of abdominal pain with intractable nausea and vomiting. Seen today in consultation in the emergency department. She is currently sitting up on the stretcher. Awake and alert in no acute distress. Maintaining good O2 saturations in the 90s on 4 L/m per nasal cannula. She's been afebrile. Hemodynamically stable. Chest x-ray reveals no acute pulmonary process. White count 4.7. Hemoglobin 10.0. Plat elet count 75,000. Lymphocytes 0.9. Sodium 136. Potassium 4.1. Creatinine 0.46. Glucose 115. AST 33. ALT 71. Alk phos 158. Quinones virus by PCR not detected. She has received Dilaudid for pain control. Zofran for nausea. Computed tomography scan of the abdomen and pelvis are pending. The patient is seen today 08/18/2021 in follow-up on the regular medical floor. She is currently sitting up in bed. Awake and alert in no acute distress. He obtained good O2 saturations in the mid 90s on 2 L/m per nasal cannula. Afebrile. Hemodynamically stable. White count 4.1. Hemoglobin 9.2. Platelet count 81,000. Sodium 139. Potassium 3.1. Creatinine 0.5. Glucose 112. AST 15. ALT 49. Alk phos 140. CEA 43.6. Computed tomography scan of the chest revealed no evidence of pulmonary embolism. There are multiple pulmonary nodules with no significant change in size compared to previous of 02/16/2021. Patchy and linear bibasilar opacities. There is one subcarinal lymph node bruce uring 1.4 cm. CAT scan of the abdomen and pelvis revealed new mild stranding around the pancreatic head region. Possible mild acute interstitial pancreatitis. There is mid to distal sigmoid colon with prominent stool extending to the rectum. There is a retroperitoneal mass encasing and narrowing the SMA interposed between the duodenum and inferior pancreatic head, This has increased in size, currently measuring 4.8 cm versus 3.9 cm previously. There is also an enlarging metastatic lesion in the right hepatic lobe now measuring 3.0 cm versus 1.9 cm. There is annular narrowing alongside the transverse colon. There is a solid cystic neoplasm of the pancreatic tail measuring 3.8 cm that is unchanged. There is stable sclerosis of T11 vertebrae body, possible site of previously treated osseous metastasis. Small to moderate size hiatal hernia. The patient is seen today 08/19/2021 in follow-up on the regular medical floor. She is currently sitting up in bed. Awake and alert in no acute distress. Maintaining good O2 saturation in the 90s on room air. Her abdominal discomfort has improved. Appetite improved. She is continued on Symbicort, DuoNeb inhalations, prednisone taper. Objective - Vital Signs Vital signs: Vital Signs Temp 98.5 F 08/19/21 05:00 Pulse 92 08/19/21 07:52 Resp 18 08/19/21 05:00 BP 125/74 08/19/21 05:00 Pulse Ox 94 L 08/19/21 07:41 Intake & Output 08/18/21 08/19/21 08/19/21 18:59 06:59 18:59 Intake Total 3405 900 Balance 3405 900 Intake: Intake, IV Titration 825 900 Amount Sodium Chloride 0.9% 1, 825 900 000 ml @ 75 mls/hr IV . [id number] [facility] Rx#:[id number] Oral 2580 Other: Voiding Method Bedside Commode # Voids 3 3 - Exam GENERAL EXAM: Alert, pleasant 60-year-old female patient, on room air, fairly comfortable in no apparent distress. HEAD: Normocephalic. EYES: Normal reaction of pupils, equal size. NOSE: Clear with pink turbinates. THROAT: No erythema or exudates. NECK: No masses, no JVD. CHEST: No chest wall deformity. LUNGS: Equal air entry with no crackles, wheeze, rhonchi or dullness. CVS: S1 and S2 normal with no audible murmur, regular rhythm. ABDOMEN: No hepatosplenomegaly, normal bowel sounds, no guarding or rigidity. SPINE: No scoliosis or deformity SKIN: No rashes CENTRAL NERVOUS SYSTEM: No focal deficits, tone is normal in all 4 extremities. EXTREMITIES: There is no peripheral edema. No clubbing, no cyanosis. Peripheral pulses are intact. - Labs CBC & Chem 7: 08/19/21 06:02 08/19/21 06:02 Labs: Abnormal Lab Results - Last 24 Hours (Table) 08/18/21 08/19/21 08/19/21 Range/Units 15:10 06:02 06:02 WBC 3.1 L (3.8-10.6) k/uL RBC 2.09 L (3.80-5.40) m/uL Hgb 8.0 L (11.4-16.0) gm/dL Hct 25.3 L (34.0-46.0) % MCV 121.4 H (80.0-100.0) fL MCH 38.6 H (25.0-35.0) pg RDW 20.7 H (11.5-15.5) % Plt Count 65 L (150-450) k/uL Lymphocytes # 0.9 L (1.0-4.8) k/uL Macrocytosis Marked A Potassium 3.4 L (3.5-5.5) mmol/L Chloride 110 H (96-109) mmol/L Anion Gap 7.10 L (10.00-18.00) mmol/L Creatinine 0.4 L (0.6-1.5) mg/dL BUN/Creatinine Ratio 24.00 H (12.00-20.00) Ratio Calcium 7.7 L (8.7-10.3) mg/dL Alkaline Phosphatase 129 H (41-126) U/L Total Protein 4.9 L (6.2-8.2) g/dL Albumin 3.0 L (3.8-4.9) g/dL Albumin/Globulin Ratio 1.58 L (1.60-3.17) g/dL HDL Cholesterol 39.90 L (40.00-60.00) mg/dL Lipase 362 H 122 H (23-300) U/L Assessment and Plan Assessment: 1 Acute abdominal pain with nausea and vomiting in a patient with a known history of metastatic colon cancer. Computed tomography scan of the chest revealed no evidence of pulmonary embolism. There are multiple pulmonary nodules with no significant change in size compared to previous of 02/16/2021. Patchy and linear bibasilar opacities. There is one subcarinal lymph node measuring 1.4 cm. CAT scan of the abdomen and pelvis revealed new mild stranding around the pancreatic head region. Possible mild acute interstitial pancreatitis. There is mid to distal sigmoid colon with prominent stool extending to the rectum. There is a retroperitoneal mass encasing and narrowing the SMA interposed between the duodenum and inferior pancreatic head, This has increased in size, currently measuring 4.8 cm versus 3.9 cm previously. There is also an enlarging metastatic lesion in the right hepatic lobe now measuring 3.0 cm versus 1.9 cm. There is annular narrowing alongside the transverse colon. There is a solid cystic neoplasm of the pancreatic tail measuring 3.8 cm that is unchanged. There is stable sclerosis of T11 vertebrae body, possible site of previously treated osseous metastasis. Small to moderate size hiatal hernia. 2 Recent admission for neutropenic fever and discharged home on 08/15/2021 3 Metastatic colon cancer with metastasis to the lungs and liver. Currently off Lonsurf secondary to above 4 Peripheral neuropathy, chemotherapy-induced 5 Hyperlipidemia 6 Hypertension 7 Pancytopenia secondary to systemic chemotherapy 8 Chronic obstructive pulmonary disease with recent exacerbation. Today's chest x-ray shows no acute pulmonary process Plan: The patient was seen and evaluated Stable for discharge from the pulmonary standpoint No evidence of pneumonia on room air Continue on her home pulmonary medications Complete prednisone taper from recent admission Follow-up in the office with Dr. Hernandez as scheduled I, the cosigning physician, performed a history & physical examination of the patient. Lungs sounds are clear. Maintaining good O2 saturations in the 90s on room air. I discussed the assessment and plan of care with my nurse practitioner, Marisela Silva. I attest to the above note as dictated by her.
--- NOTE | 2021-08-19 12:43 | P.PN ---
Subjective Progress Note Date: 08/19/21 Principal diagnosis: metastatic colon, SOB Patients pain is controlled on PO dilaudid and Increased Fentanyl, Spoke to primary team and will be willing to assist in 3 day script until she can be seen in office this week. Objective - Vital Signs Vital signs: Vital Signs Temp 98.5 F 08/19/21 05:00 Pulse 82 08/19/21 11:43 Resp 18 08/19/21 05:00 BP 125/74 08/19/21 05:00 Pulse Ox 94 L 08/19/21 07:41 Intake & Output 08/18/21 08/19/21 08/19/21 18:59 06:59 18:59 Intake Total 3405 900 Balance 3405 900 Intake: Intake, IV Titration 825 900 Amount Sodium Chloride 0.9% 1, 825 900 000 ml @ 75 mls/hr IV . [id number] [facility] Rx#:[id number] Oral 2580 Other: Voiding Method Bedside Commode # Voids 3 3 - Labs CBC & Chem 7: 08/19/21 06:02 08/19/21 06:02 Labs: Abnormal Lab Results - Last 24 Hours (Table) 08/18/21 08/19/21 08/19/21 Range/Units 15:10 06:02 06:02 WBC 3.1 L (3.8-10.6) k/uL RBC 2.09 L (3.80-5.40) m/uL Hgb 8.0 L (11.4-16.0) gm/dL Hct 25.3 L (34.0-46.0) % MCV 121.4 H (80.0-100.0) fL MCH 38.6 H (25.0-35.0) pg RDW 20.7 H (11.5-15.5) % Plt Count 65 L (150-450) k/uL Lymphocytes # 0.9 L (1.0-4.8) k/uL Macrocytosis Marked A Potassium 3.4 L (3.5-5.5) mmol/L Chloride 110 H (96-109) mmol/L Anion Gap 7.10 L (10.00-18.00) mmol/L Creatinine 0.4 L (0.6-1.5) mg/dL BUN/Creatinine Ratio 24.00 H (12.00-20.00) Ratio Calcium 7.7 L (8.7-10.3) mg/dL Alkaline Phosphatase 129 H (41-126) U/L Total Protein 4.9 L (6.2-8.2) g/dL Albumin 3.0 L (3.8-4.9) g/dL Albumin/Globulin Ratio 1.58 L (1.60-3.17) g/dL HDL Cholesterol 39.90 L (40.00-60.00) mg/dL Lipase 362 H 122 H (23-300) U/L Assessment and Plan (1) Abdominal pain Current Visit: Yes Status: Acute Code(s): R10.9 - UNSPECIFIED ABDOMINAL PAIN SNOMED Code(s): 95125951 (2) Nausea & vomiting Current Visit: Yes Status: Acute Code(s): R11.2 - NAUSEA WITH VOMITING, UNSPECIFIED SNOMED Code(s): 91136303 (3) Acute respiratory failure Current Visit: No Status: Acute Code(s): J96.00 - ACUTE RESPIRATORY FAILURE, UNSP W HYPOXIA OR HYPERCAPNIA SNOMED Code(s): 11275835 (4) Metastatic colon cancer to liver Current Visit: No Status: Chronic Priority: Low Code(s): C18.9 - MALIGNANT NEOPLASM OF COLON, UNSPECIFIED; C78.7 - SECONDARY MALIG NEOPLASM OF LIVER AND INTRAHEPATIC BILE DUCT SNOMED Code(s): 611366853 Plan: COntinue management per pulmonary Hold restaging exams till after recovers Acute respiratory failure - Pulm following Check CTA negative PE Abdominal pain and distention - Amylase Lipase - Pancreatitis CT and Patient Cancer Related Pain: - Fentanyl and PO Dilaudid trial overnight - 3 day at discharge and can have contract completed in follow-up next week
--- NOTE | 2021-08-19 19:55 | DS ---
DISCHARGE SUMMARY DATE OF SERVICE: 08/19/2021. FINAL DIAGNOSES: 1. Diffuse abdominal pain, possible acute gastritis, possibly related to malignancy or mild acute pancreatitis. 2. History of recent neutropenic sepsis. 3. Anemia, multifactorial. 4. History of carcinoma of colon with metastases to lung, livers, on chemotherapy. 5. Thrombocytopenia secondary to chemotherapy. 6. No evidence of pneumonia per Dr. Hernandez. 7. Hypernatremia. 8. Elevated AST and ALT secondary to malignancy. 9. Possible atelectasis. 10.Elevated bilirubin. 11.Mild protein-calorie malnutrition. 12.History of chronic obstructive pulmonary disease. 13.History of gastroesophageal reflux disease. 14.Hypertension. 15.Hyperlipidemia. 16.History of degenerative joint disease. 17.History of childhood nephrotic syndrome. 18.History of bowel resection. 19.History of anxiety, depression, panic disorder. 20.History of nicotine dependence. 21.FULL CODE. DISCHARGE DISPOSITION: The patient will be discharged in stable condition with guarded prognosis. Discharge cleared by multiple consultants, including Hematology/Oncology. HISTORY OF PRESENT ILLNESS: This 60-year-old woman with a past medical history of multiple medical problems was admitted with abdominal pain. The patient was treated symptomatically. Patient had evidence of mild pancreatitis. Otherwise, patient improved significantly with symptomatic treatment. Hematology/Oncology, Yocasta Mathur NP, has evaluated the patient and recommended outpatient pain medication, including Dilaudid p.o. as well as Duragesic patch, to which the patient responded. On exam, vitals are stable. CARDIOVASCULAR: S1, S2 muffled. ABDOMEN: Soft, nontender. NERVOUS SYSTEM: No focal deficit. DISCHARGE ADVICE AND MEDICATIONS: 1. Discharge diet is cardiac. 2. Activity limited until followup. 3. Follow up with Dr. Dean as recommended. 4. Follow up with Dr. Hernandez in 1-2 days. 5. Home care is being arranged. 6. budsoniide 9 mg p.o. daily. 7. Cholestyramine 4 mg b.i.d. p.r.n. 8. Compazine 10 mg q.6 p.r.n. 9. Effexor XR 75 mg p.o. daily. 10.Diphenoxylate atropine 1 tablet p.o. q.i.d. p.r.n. 11.Lopressor 25 mg p.o. b.i.d. 12.Symbicort 2 puffs b.i.d. 13.Xanax 1 mg p.o. b.i.d. 14.Zofran p.r.n. 15.Carafate 1 g p.o. before meals and at bedtime. 16.Benzocaine p.r.n. 17.Prednisone taper as before. 18.Dilaudid 2 mg p.o. q.3 p.r.n. for pain. 19.Fentanyl patch 75 mcg, which is up from the previous dose q.72 hours. 20.lonsurf 15/6.14 as before. 21.Mucinex 1200 mg p.o. b.i.d. 22.Protonix 40 mg p.o. b.i.d. 23.Valtrex 500 mg p.o. b.i.d. 24.Ventolin HFA 2 puffs q.i.d. Once again, the patient will be discharged in stable condition with guarded prognosis. MMKOKOL / IJN: [id number] / SHELBIE
== END 2021-08-19 14:00 | disposition home health service (06) | DRG 438 ==
LOC: EC 16:34 → 5NMEDONC 22:24 → INTOOBSV 08-17 09:34 → OBSVTOIN 08-17 09:34 → 5NMEDONC 08-17 19:43 → OBSVTOIN 08-18 13:44
PROVIDERS: ADMIT Internal Medicine; ATTEND Internal Medicine
DX: K85.80 Other acute pancreatitis without necrosis or infection (principal); D61.810 Antineoplastic chemotherapy induced pancytopenia; J96.01 Acute respiratory failure with hypoxia; E44.1 Mild protein-calorie malnutrition; C79.51 Secondary malignant neoplasm of bone; C18.9 Malignant neoplasm of colon, unspecified; C78.00 Secondary malignant neoplasm of unspecified lung; E87.1 Hypo-osmolality and hyponatremia; C78.7 Secondary malignant neoplasm of liver and intrahepatic bile duct; K51.90 Ulcerative colitis, unspecified, without complications; D63.0 Anemia in neoplastic disease; G62.0 Drug-induced polyneuropathy; J44.9 Chronic obstructive pulmonary disease, unspecified; D64.81 Anemia due to antineoplastic chemotherapy; Z20.822 Contact with and (suspected) exposure to COVID-19; D69.59 Other secondary thrombocytopenia; G89.3 Neoplasm related pain (acute) (chronic); K29.00 Acute gastritis without bleeding; I10 Essential (primary) hypertension; E78.5 Hyperlipidemia, unspecified; E86.0 Dehydration; K44.9 Diaphragmatic hernia without obstruction or gangrene; F41.9 Anxiety disorder, unspecified; F32.A Depression, unspecified; F41.0 Panic disorder [episodic paroxysmal anxiety]; Z68.25 Body mass index [BMI] 25.0-25.9, adult; T45.1X5A Adverse effect of antineoplastic and immunosuppressive drugs, initial encounter; K21.9 Gastro-esophageal reflux disease without esophagitis; R74.01 Elevation of levels of liver transaminase levels; M19.90 Unspecified osteoarthritis, unspecified site; H91.90 Unspecified hearing loss, unspecified ear; H54.7 Unspecified visual loss; Z79.51 Long term (current) use of inhaled steroids; Z79.891 Long term (current) use of opiate analgesic; Z79.899 Other long term (current) drug therapy; Z87.891 Personal history of nicotine dependence; Z90.49 Acquired absence of other specified parts of digestive tract; Z86.19 Personal history of other infectious and parasitic diseases; Z87.441 Personal history of nephrotic syndrome; Z87.39 Personal history of other diseases of the musculoskeletal system and connective tissue; Z98.890 Other specified postprocedural states; Z88.8 Allergy status to other drugs, medicaments and biological substances; Z83.3 Family history of diabetes mellitus; Z82.49 Family history of ischemic heart disease and other diseases of the circulatory system; Z80.3 Family history of malignant neoplasm of breast; Z83.1 Family history of other infectious and parasitic diseases
CPT/HCPCS: 36415; 71046; 71275; 74177; 80053; 80061; 81001; 82140; 82150; 82378; 83690; 83735; 84484; 85025; 85610; 85730; 87635; 93005; 94640; 94760; 96361; 96374; 96375; 99285

== ENCOUNTER → 2021-09-13 | Outpatient (CLI) | payer MEDICARE, OTHER ==
[2021-09-13 13:54] LABS: African American GFR (CKD) >90 (>60 ml/min/1.73 sqM); Blood Urea Nitrogen 9 mg/dL (7-17); Non-African American GFR(CKD) >90 (>60 ml/min/1.73 sqM)
--- NOTE | 2021-09-13 15:38 | CT ---
EXAMINATION TYPE: CT ChestAbdPelvis w con DATE OF EXAM: 09/13/2021 COMPARISON: Most recent CT August 17, 2021 and older studies. HISTORY: f/u colon ca, mets CT DLP: 646 mGycm. Automated Exposure Control for Dose Reduction was Utilized. CONTRAST: CT scan of the thorax, abdomen and pelvis is performed with oral and with IV Contrast, patient inject ed with 100 mL of Isovue 300. FINDINGS: LUNGS: Scattered small bilateral nodules are redemonstrated. For reference there is 1 1.4 x 0.8 cm le ft upper lobe nodule axial image 18 not significantly changed from most recent CT. There is fairly st able 1.4 x 1.1 cm right upper lobe nodule axial image [address]. There is stable posteri or 1.4 x 1.0 cm right lower lobe nodule axial image 33. Qbmf-ou-gcnogelf bibasilar linear scarring an d/or atelectasis is redemonstrated. No definitive new or enlarging nodules from most recent CT. MEDIASTINUM: Abnormal 2.2 x 2.0 cm subcarinal lymph node axial image 26 is not significantly changed from most recent CT increased in size from older CTs. No cardiomegaly or pericardial effusion.. Calci fication redemonstrated. Other: Stable right-sided Mediport catheter . LIVER/GB: Cholecystectomy clips are redemonstrated. Postsurgical change left hepatic lobe is again se en. Liver remains diffusely low dense consistent with fatty infiltration. Subtle slightly hypodense l esion measuring 3.5 cm long axis axial image 13 series 7 is not significantly changed from most recen t CT. No new lesions clearly seen. PANCREAS: Abnormality to the distal pancreatic body and tail with distal atrophy and cystic change m easuring 2.6 x 1.7 cm size image 58 not significantly changed from prior studies. Suspect dilated janene t. SPLEEN: No significant abnormality is seen. ADRENALS: No significant abnormality is seen. KIDNEYS: No significant abnormality is seen. BOWEL: The oral contrast reaches level of distal left colon current study. No suspicious small or lar ge bowel dilatation. Surgical changes from right-sided partial colectomy redemonstrated coronal image 29. Mild wall thickening in the sigmoid colon and rectum again seen. GENITAL ORGANS: Round lobulated lesion anterior uterus axial image 100 suspect small fibroid is redem onstrated. LYMPH NODES: Fairly stable soft tissue lesion possible adenopathy in the pancreaticoduodenal groove w ith soft tissue encasement of distal SMA branch axial image 68 redemonstrated. Area of involvement me asures roughly 5.2 x 3.8 cm current study not significantly changed from most recent CT OSSEOUS STRUCTURES: Slight grade 1 retrolisthesis L3 on L4 and L4 on L5 is redemonstrated. Straighten ing of thoracic spine redemonstrated. Slight scoliotic curvature. OTHER: Mildly calcified plaque of the aorta extends into branch vessels. IMPRESSION: Stable scattered pulmonary nodules. Enlarged subcarinal lymph node redemonstrated stable in size from most recent CT, increased in size from older studies. Stable pancreatic duodenal groove lesion encasing portion of SMA. Grossly stable hepatic metastatic lesion. Overall no significant cummins ge from most recent CT roughly 1 month earlier.
== END | disposition home or self-care (01) ==
LOC: RADCTMAIN 13:01
PROVIDERS: ATTEND Internal Medicine Hematology & Oncology
DX: C18.9 Malignant neoplasm of colon, unspecified (principal); C78.7 Secondary malignant neoplasm of liver and intrahepatic bile duct; R91.8 Other nonspecific abnormal finding of lung field; R59.0 Localized enlarged lymph nodes; K86.89 Other specified diseases of pancreas
CPT/HCPCS: 82565; 84520; 71260; 74177; 36415; Q9967

== ENCOUNTER → 2021-12-13 | Outpatient (CLI) | payer MEDICARE, OTHER ==
[2021-12-13 13:29] LABS: African American GFR (CKD) >90 (>60 ml/min/1.73 sqM); Blood Urea Nitrogen 19 mg/dL (7-17); Non-African American GFR(CKD) >90 (>60 ml/min/1.73 sqM)
--- NOTE | 2021-12-14 07:04 | CT ---
EXAMINATION TYPE: CT ChestAbdPelvis w con DATE OF EXAM: 12/13/2021 COMPARISON: Most recent CT September 13, 2021 and older studies HISTORY: Follow up for colon cancer. History of liver and lung cancer. CT DLP: 611.8 mGycm. Automated Exposure Control for Dose Reduction was Utilized. CONTRAST: CT scan of the thorax, abdomen and pelvis is performed with oral and with IV Contrast, patient inject ed with 100ml mL of Isovue 300. FINDINGS: LUNGS: Scattered small bilateral nodules are redemonstrated. Several appear larger in size. For refer ence there is now 1.5 x 1.2 cm anterior left upper lobe nodule increased in size from 1.4 x 0.8 cm ax ial image 17. There is slightly larger lateral 1.8 x 1.5 cm right upper to mid lung nodule axial sandra ge [address] it measured 1.4 x 1.1 cm. There is enlarging right lower lobe nodule axial image 36 now measuring 1.9 x 1.5 cm versus prior study 1.4 x 1.0 cm. Hxrp-cb-eurblxqu bibasila r linear scarring and/or atelectasis is redemonstrated. No definitive new nodules from most recent CT . MEDIASTINUM: Abnormal 2.2 x 2.0 cm subcarinal lymph node axial image 25 is not significantly changed from most recent CT, increased in size from older CTs. No cardiomegaly or pericardial effusion. Mild coronary artery calcification redemonstrated. Other: Stable right-sided Mediport catheter . LIVER/GB: Cholecystectomy clips are redemonstrated. Postsurgical change left hepatic lobe is again se en. Liver remains diffusely low dense consistent with fatty infiltration. Subtle heterogeneous slight ly hypodense lesion measuring 3.9 cm long axis axial image 50 is not significantly changed from most recent CT. Vague hypodense area of right hepatic lobe near 1.0 cm axial image 57 uncertain if true le rosa maria should be closely followed. PANCREAS: Abnormality to the distal pancreatic body and tail with distal atrophy and cystic change me asures 2.8 x 1.6 cm current study axial image 57 not significantly changed from prior studies. Suspec t dilated duct distal to this is stable. SPLEEN: No significant abnormality is seen. ADRENALS: No significant abnormality is seen. KIDNEYS: No significant abnormality is seen. BOWEL: The oral contrast does not reach level of the colon on current study making evaluation of dist al bowel slightly suboptimal. No suspicious small or large bowel dilatation. Moderate fecal prominenc e in the transverse and left colon. Surgical changes from right-sided partial colectomy redemonstrate d axial image 87. Somewhat redundant sigmoid colon. GENITAL ORGANS: Round lobulated lesion anterior uterus axial image 101r suspect small fibroid is rede monstrated. LYMPH NODES: Fairly stable soft tissue lesion possible adenopathy in the pancreaticoduodenal groove w ith soft tissue encasement of distal SMA branch axial image 68 redemonstrated. Area of involvement me asures roughly 5.0 x 3.7 cm current study not significantly changed from most recent CT OSSEOUS STRUCTURES: Slight grade 1 retrolisthesis L3 on L4 and L4 on L5 is redemonstrated. Straighten ing of thoracic spine redemonstrated. Slight scoliotic curvature. Mild height loss with sclerosis sup erior T11 endplate. OTHER: Mild to moderate calcified plaque of the aorta extends into branch vessels. IMPRESSION: Neoplastic progression with enlarging pulmonary nodules noted.
== END | disposition home or self-care (01) ==
LOC: RADCTMAIN 12:27
PROVIDERS: ATTEND Internal Medicine Hematology & Oncology
DX: C18.9 Malignant neoplasm of colon, unspecified (principal); R91.8 Other nonspecific abnormal finding of lung field
CPT/HCPCS: 82565; 84520; 71260; 74177; 36415; Q9967

== ENCOUNTER → 2021-12-13 | Outpatient (CLI) | payer MEDICARE, OTHER ==
--- NOTE | 2021-12-14 03:30 | MR ---
EXAMINATION TYPE: MR brain wo/w con DATE OF EXAM: 12/13/2021 COMPARISON: None HISTORY: HEADACHE, UNSPECIFIED, MENTAT STATUS CHANGES CONTRAST: Standard multiplanar, multisequence MRI departmental protocol images were obtained without contrast a nd with 6.5 mL intravenous Gadavist gadolinium contrast. Ventricles have normal size. There is no mass effect or midline shift. There is no sign of intracrani al hemorrhage. Maxwell and white matter structures have fairly normal signal pattern. No evidence of cer ebral edema. Sella turcica appears normal. Corpus callosum is intact. No evidence of orbital mass. Di ffusion images show no sign of an acute infarct. The contrast images show no pathologic enhancement. There is normal enhancement of the venous sinuses. IMPRESSION: Negative MR scan of the brain.
== END | disposition home or self-care (01) ==
LOC: RADMRIMAIN 12:22
PROVIDERS: ATTEND Internal Medicine Hematology & Oncology
DX: R51.9 Headache, unspecified (principal); R41.82 Altered mental status, unspecified
CPT/HCPCS: 70553; A9585

== ENCOUNTER 2022-03-04 11:42 | Emergency (ER) | payer MEDICARE, OTHER ==
[2022-03-04 11:50] VITALS: RESP 18; TEMP 98
[2022-03-04] MEDS ORDERED: PROCHLORPERAZINE INJ 10 MG/2 ML VIAL IVP STA (12:21)
[2022-03-04] MEDS ORDERED: HYDROmorphone 0.5 MG/0.5 ML SYRINGE IVP STA (12:22)
[2022-03-04] MEDS ORDERED: SODIUM CHLORIDE 0.9% 2,000 ML IV STA (12:22)
[2022-03-04 12:24] LABS: ALT 49 U/L (4-34); AST 37 U/L (14-36); African American GFR (CKD) >90 (>60 ml/min/1.73 sqM); Alkaline Phosphatase 284 U/L (38-126); Amylase 35 U/L (30-110); Anion Gap 9 mmol/L; Anisocytosis Slight; Basophils % (A) 0 %; Blood Urea Nitrogen 24 mg/dL (7-17); Carbon Dioxide 28 mmol/L (22-30); Chloride 99 mmol/L (98-107); Eosinophils % (A) 1 %; Glucose 113 mg/dL (74-99); HCT 41.7 % (34.0-46.0); Hypochromasia Slight; Lipase 50 U/L (23-300); Lymphocytes # (A) 0.8 k/uL (1.0-4.8); Lymphocytes % (A) 24 %; MCH 35.3 pg (25.0-35.0); MCHC 33.7 g/dL (31.0-37.0); MCV 104.7 fL (80.0-100.0); Macrocytosis Moderate; Monocytes # (A) 0.1 k/uL (0-1.0); Monocytes % (A) 3 %; Neutrophils # (A) 2.4 k/uL (1.3-7.7); Neutrophils % (A) 71 %; Non-African American GFR(CKD) >90 (>60 ml/min/1.73 sqM); Platelet Count 166 k/uL (150-450); Poikilocytosis Slight; Potassium 3.1 mmol/L (3.5-5.1); RBC 3.98 m/uL (3.80-5.40); RDW 16.3 % (11.5-15.5); Sodium 136 mmol/L (137-145); Total Bilirubin 1.1 mg/dL (0.2-1.3); Total Protein 6.7 g/dL (6.3-8.2); WBC 3.5 k/uL (3.8-10.6)
[2022-03-04 12:28] LABS: Appearance,Urine Cloudy (Clear); Bacteria,Urine Occasional /hpf; Bilirubin,Urine 1+ (Negative); Blood,Urine Trace (Negative); Color,Urine Yellow; Glucose,Urine (UA) Negative (Negative); Ketones,Urine 2+ (Negative); Leukocyte Esterase,Urine Moderate (Negative); Mucus,Urine Moderate /hpf; Nitrite,Urine Negative (Negative); Protein,Urine 1+ (Negative); RBC,Urine 13 /hpf (0-5); Specific Gravity,Urine 1.024 (1.001-1.035); Squamous Epithelial Cell,Urine 5 /hpf (0-4); WBC,Urine 7 /hpf (0-5)
--- NOTE | 2022-03-04 12:53 | XR ---
EXAMINATION TYPE: XR chest 2V DATE OF EXAM: 03/04/2022 COMPARISON: 08/16/2021 HISTORY: Shortness of breath TECHNIQUE: Frontal and lateral views of the chest are obtained. FINDINGS: Scattered senescent parenchymal changes noted. Hyperinflation compatible with COPD. No evidence for infiltrate. No evidence for atelectasis. There are enlarging scattered pulmonary nodu les noted. MediPort catheter is unchanged in position. Heart size is stable. Mediastinal structures are stable and grossly unremarkable. No evidence for hilar prominence. Degenerative changes dorsal spine. IMPRESSION: 1. No evidence for acute pulmonary disease. There are enlarging scattered pulmonary nodules noted.
[2022-03-04] MEDS ORDERED: POTASSIUM CHLORIDE ER 20 MEQ TAB.ER PO STA (12:56)
--- NOTE | 2022-03-04 13:46 | ED ---
Abdominal Pain HPI - General Chief Complaint: Abdominal Pain Stated Complaint: Vomiting Source: patient Mode of arrival: ambulatory Limitations: no limitations - History of Present Illness Initial Comments: Patient is a 61-year-old female with a past medical history significant for colon cancer with metastases to the liver and lungs who presents to the emergency department with a chief complaint of nausea and vomiting. Patient follows with oncologist Dr. Dena. States she became nauseous after chemotherapy on Saturday. Patient receives weekly 5FU which is not a new chemo medication despite the triage note. Patient states she has taken her Zofran at home with little relief. Patient states she does have Compazine at home however she did not take any of it. Patient also reports intermittent abdominal pain in her right upper abdomen. She denies fever, chills, shortness of breath, upper respiratory symptoms, chest pain, diarrhea, burning with urination, and increa sed urinary frequency/urgency. Reports history pancreatitis. Abdominal surgery history includes bowel resection and cholecystectomy. Denies alcohol use. Last bowel movement was this morning which she states was normal, nonbloody. - Related Data Home Medications Medication Instructions Recorded Confirmed ALPRAZolam [Xanax] 1 mg PO TID 03/01/21 08/16/21 Budesonide/Formoterol Fumarate 2 puff INHALATION RT-BID 03/01/21 08/16/21 [Symbicort 160-4.5 Mcg Inhaler] Cholestyramine (with Sugar) 4 gm PO BID PRN 03/01/21 08/16/21 [Cholestyramine Packet] Diphenox-Atrop 2.5-0.025 mg 1 tab PO QID PRN 03/01/21 08/16/21 [Lomotil] Metoprolol Tartrate [Lopressor] 25 mg PO BID 03/01/21 08/16/21 Ondansetron Odt [Zofran ODT] 4 mg PO Q6H PRN 03/01/21 08/16/21 Prochlorperazine [Compazine] 10 mg PO Q6H PRN 03/01/21 08/16/21 Venlafaxine HCl [Effexor XR] 75 mg PO DAILY 03/01/21 08/16/21 Budesonide [Budesonide ER] 9 mg PO DAILY 08/06/21 08/16/21 Previous Rx's Medication Instructions Recorded Benzocaine/Menthol Lozeng [Cepacol 1 each MUCOUS MEM Q4HR PRN lozenge 08/15/21 lozenge] Sucralfate [Carafate] 1 gm PO ACHS #120 tab 08/15/21 Trifluridine/Tipiracil HCl 2 tab PO DIRECTED #0 08/15/21 [Lonsurf 15 mg-6.14 mg Tablet] Trifluridine/Tipiracil HCl 1 tab PO DIRECTED #0 08/15/21 [Lonsurf 20 mg-8.19 mg Tablet] guaiFENesin [Mucinex] 1,200 mg PO Q12HR tablet 08/15/21 predniSONE [Deltasone] See Taper PO DAILY #14 tab 08/15/21 valACYclovir HCL [Valtrex] 500 mg PO BID 14 Days #28 tab 08/15/21 Albuterol Inhaler [Ventolin Hfa 2 puff INHALATION RT-Q6H #1 08/19/21 Inhaler] HYDROmorphone [Dilaudid] 2 mg PO Q3HR PRN #15 tab 08/19/21 Pantoprazole [Protonix] 40 mg PO AC-BID #60 tab 08/19/21 fentaNYL 75MCG/HR PATCH [Duragesic 1 patch TRANSDERM Q72H #2 patch 08/19/21 75MCG/HR] Allergies Allergy/AdvReac Type Severity Reaction Status Date / Time acyclovir AdvReac Severe Confusion Verified 03/04/22 11:49 Review of Systems ROS Statement: Those systems with pertinent positive or pertinent negative responses have been documented in the HPI. ROS Other: All systems not noted in ROS Statement are negative. 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 Past Anesthesia/Blood Transfusion Reactions: No Reported Reaction Past Psychological History: Anxiety, Depression, Panic Disorder Smoking Status: Former smoker Past Alcohol Use History: None Reported Past Drug Use History: None Reported - Past Family History Father Family Medical History: Diabetes Mellitus, Myocardial Infarction ([place]) Additional Family Medical History / Comment(s): at age 62-mulitple mi's Mother Family Medical History: Cancer Additional Family Medical History / Comment(s): BREAST. from sepsis General Exam Limitations: no limitations General appearance: alert Head exam: Present: atraumatic, normocephalic, normal inspection Eye exam: Present: normal appearance, PERRL, EOMI. Absent: scleral icterus, conjunctival injection, periorbital swelling Respiratory exam: Present: normal lung sounds bilaterally. Absent: respiratory distress, wheezes, rales, rhonchi, stridor Cardiovascular Exam: Present: regular rate, normal rhythm, normal heart sounds. Absent: systolic murmur, diastolic murmur, rubs, gallop, clicks GI/Abdominal exam: Present: soft, tenderness (mild, epigastric ), normal bowel sounds. Absent: distended, guarding, rebound, rigid Neurological exam: Present: alert, oriented X3, CN II-XII intact Psychiatric exam: Present: normal affect, normal mood Skin exam: Present: warm, dry, intact, normal color. Absent: rash Course Vital Signs 03/04/22 03/04/22 03/04/22 11:44 13:55 15:29 Temperature 98 F Pulse Rate 90 107 H 92 Respiratory 18 18 18 Rate Blood Pressure 140/102 127/90 138/92 O2 Sat by Pulse 98 93 L 95 Oximetry Medical Decision Making - Medical Decision Making This is a 61-year-old female with active colon cancer presenting with nausea, vomiting, and abdominal pain. Thorough history and examination were performed. Patient is well-appearing. Patient has history of bowel resection and cholecystectomy. Vitals are stable. She is afebrile. The abdomen is soft. There is mild tenderness in the epigastric region. There is no other abdominal tenderness. Last CT of the abdomen and pelvis was this past November which showed a fairly stable soft tissue lesion possible adenopathy in the pancreaticod uodenal groove with soft tissue encasement of the distal SMA branch. There was neoplastic progression with enlarging pulmonary nodules. Patient states she will have repeat CT of the abdomen and pelvis next month. I will defer CT to oncology as it is not warranted today. With mild epigastric tenderness and history of pancreatitis I will obtain chest x-ray , EKG, and lipase. Laboratory studies significant for mildly elevated liver enzymes, likely due to consistent vomiting. AST at 37, ALT of 49, alk phos at 284. Lipase is within normal limits. White blood cells are low at 3.5. Potassium is low at 3.1. Chest x-ray is negative for acute process including hiatal hernia. EKG shows sinus tachycardia with short VT interval at 100 bpm, with LVH, unchanged from previous EKG. Patient given large fluid bolus compazine, and dilaudid. Potassium replenished. On reevaluation patient states she is feeling significantly better. Results discussed with patient. This appears to be pain related to her cancer. Patient states she has [place] at home for pain. States she just filled her Compazine prescription. Patient will be discharged with instruction to take her home prescription [place] for pain and Compazine for nausea. Patient encouraged to drink Gatorade for calorie intake until she feels well enough to introduce food. She is to follow-up with her oncologist and primary care provider in one to 2 days. Return parameters discussed. Patient verbalizes understanding and is agreeable to this plan. Dr. Mendoza is my attending. - Lab Data Result diagrams: 03/04/22 12:06 03/04/22 12:06 Lab Results 03/04/22 03/04/22 03/04/22 Range/Units 12:06 12:06 12:06 WBC 3.5 L (3.8-10.6) k/uL RBC 3.98 (3.80-5.40) m/uL Hgb 14.0 (11.4-16.0) gm/dL Hct 41.7 (34.0-46.0) % MCV 104.7 H (80.0-100.0) fL MCH 35.3 H (25.0-35.0) pg MCHC 33.7 (31.0-37.0) g/dL RDW 16.3 H (11.5-15.5) % Plt Count 166 (150-450) k/uL MPV 8.0 Neutrophils % 71 % Lymphocytes % 24 % Monocytes % 3 % Eosinophils % 1 % Basophils % 0 % Neutrophils # 2.4 (1.3-7.7) k/uL Lymphocytes # 0.8 L (1.0-4.8) k/uL Monocytes # 0.1 (0-1.0) k/uL Eosinophils # 0.0 (0-0.7) k/uL Basophils # 0.0 (0-0.2) k/uL Hypochromasia Slight Poikilocytosis Slight Anisocytosis Slight Macrocytosis Moderate Sodium 136 L (137-145) mmol/L Potassium 3.1 L (3.5-5.1) mmol/L Chloride 99 (98-107) mmol/L Carbon Dioxide 28 (22-30) mmol/L Anion Gap 9 mmol/L BUN 24 H (7-17) mg/dL Creatinine 0.57 (0.52-1.04) mg/dL Est GFR (CKD-EPI)AfAm >90 (>60 ml/min/1.73 sqM) Est GFR (CKD-EPI)NonAf >90 (>60 ml/min/1.73 sqM) Glucose 113 H (74-99) mg/dL Calcium 9.0 (8.4-10.2) mg/dL Magnesium (1.6-2.3) mg/dL Total Bilirubin 1.1 (0.2-1.3) mg/dL AST 37 H (14-36) U/L ALT 49 H (4-34) U/L Alkaline Phosphatase 284 H (38-126) U/L Total Protein 6.7 (6.3-8.2) g/dL Albumin 4.0 (3.5-5.0) g/dL Amylase 35 (30-110) U/L Lipase 50 (23-300) U/L Urine Color Yellow Urine Appearance Cloudy H (Clear) Urine pH 6.0 (5.0-8.0) Ur Specific [place] 1.024 (1.001-1.035) Urine Protein 1+ H (Negative) Urine Glucose (UA) Negative (Negative) Urine Ketones 2+ H (Negative) Urine Blood Trace H (Negative) Urine Nitrite Negative (Negative) Urine Bilirubin 1+ H (Negative) Urine Urobilinogen 4.0 (<2.0) mg/dL Ur Leukocyte Esterase Moderate H (Negative) Urine RBC 13 H (0-5) /hpf Urine WBC 7 H (0-5) /hpf Ur Squamous Epith Cells 5 H (0-4) /hpf Urine Bacteria Occasional H (None) /hpf Urine Mucus Moderate H (None) /hpf 03/04/22 Range/Units 12:06 WBC (3.8-10.6) k/uL RBC (3.80-5.40) m/uL Hgb (11.4-16.0) gm/dL Hct (34.0-46.0) % MCV (80.0-100.0) fL MCH (25.0-35.0) pg MCHC (31.0-37.0) g/dL RDW (11.5-15.5) % Plt Count (150-450) k/uL MPV Neutrophils % % Lymphocytes % % Monocytes % % Eosinophils % % Basophils % % Neutrophils # (1.3-7.7) k/uL Lymphocytes # (1.0-4.8) k/uL Monocytes # (0-1.0) k/uL Eosinophils # (0-0.7) k/uL Basophils # (0-0.2) k/uL Hypochromasia Poikilocytosis Anisocytosis Macrocytosis Sodium (137-145) mmol/L Potassium (3.5-5.1) mmol/L Chloride (98-107) mmol/L Carbon Dioxide (22-30) mmol/L Anion Gap mmol/L BUN (7-17) mg/dL Creatinine (0.52-1.04) mg/dL Est GFR (CKD-EPI)AfAm (>60 ml/min/1.73 sqM) Est GFR (CKD-EPI)NonAf (>60 ml/min/1.73 sqM) Glucose (74-99) mg/dL Calcium (8.4-10.2) mg/dL Magnesium 1.7 (1.6-2.3) mg/dL Total Bilirubin (0.2-1.3) mg/dL AST (14-36) U/L ALT (4-34) U/L Alkaline Phosphatase (38-126) U/L Total Protein (6.3-8.2) g/dL Albumin (3.5-5.0) g/dL Amylase (30-110) U/L Lipase (23-300) U/L Urine Color Urine Appearance (Clear) Urine pH (5.0-8.0) Ur Specific [place] (1.001-1.035) Urine Protein (Negative) Urine Glucose (UA) (Negative) Urine Ketones (Negative) Urine Blood (Negative) Urine Nitrite (Negative) Urine Bilirubin (Negative) Urine Urobilinogen (<2.0) mg/dL Ur Leukocyte Esterase (Negative) Urine RBC (0-5) /hpf Urine WBC (0-5) /hpf Ur Squamous Epith Cells (0-4) /hpf Urine Bacteria (None) /hpf Urine Mucus (None) /hpf Disposition Clinical Impression: Abdominal pain, Nausea and vomiting, Metastatic colon cancer to liver Disposition: HOME SELF-CARE Condition: Good Instructions (If sedation given, give patient instructions): Abdominal Pain (ED), Chemo Induced Nausea and Vomiting (ED) Additional Instructions: Please follow up with your oncologist and primary care provider regarding your abdominal pain, nausea, and vomiting. Take your home prescription of Compazine and Zofran for nausea. Take your home prescription of [place] for pain. Increase fluid intake as tolerated. Drink Gatorade or other electrolyte drink for calorie intake until you are ready to introduce food. Return to the emergency department if you experience new, concerning, or worsening symptoms. Is patient prescribed a controlled substance at d/c from ED?: No Referrals: Howard Hernandez MD [Primary Care Provider] - 1-2 days
[2022-03-04 15:33] VITALS: BP 138/92; PULSE 92
== END 2022-03-04 15:29 | disposition home or self-care (01) ==
LOC: EC 11:42
DX: C78.7 Secondary malignant neoplasm of liver and intrahepatic bile duct (principal); I10 Essential (primary) hypertension; K21.9 Gastro-esophageal reflux disease without esophagitis; Z79.83 Long term (current) use of bisphosphonates; Z87.891 Personal history of nicotine dependence; Z88.8 Allergy status to other drugs, medicaments and biological substances
CPT/HCPCS: 36415; 93005; 80053; 82150; 83690; 83735; 85025; 81001; 71046; 99284; 96374; 96375; 96361; J0780; J1170; 99285

== ENCOUNTER 2022-03-09 20:22 | Inpatient (IN) | payer MEDICARE, OTHER ==
[2022-03-09] MEDS ORDERED: MORPHINE SULFATE 4 MG/ML SYRINGE IVP STA (21:45)
[2022-03-09] MEDS ORDERED: ONDANSETRON 4 MG/2 ML VIAL IVP STA (21:45)
[2022-03-09] MEDS ORDERED: SODIUM CHLORIDE 0.9% 1,000 ML IV STA (21:45)
[2022-03-09 22:35] LABS: Anisocytosis Slight; Basophils % (A) 0 %; Eosinophils % (A) 0 %; HCT 43.2 % (34.0-46.0); HGB 14.2 gm/dL (11.4-16.0); Hypochromasia Slight; Lymphocytes # (A) 0.8 k/uL (1.0-4.8); Lymphocytes % (A) 6 %; MCH 33.5 pg (25.0-35.0); MCHC 32.8 g/dL (31.0-37.0); MCV 102.3 fL (80.0-100.0); Macrocytosis Moderate; Mean Platelet Volume 8.5; Monocytes # (A) 0.7 k/uL (0-1.0); Monocytes % (A) 6 %; Neutrophils # (A) 10.7 k/uL (1.3-7.7); Neutrophils % (A) 87 %; Platelet Count 219 k/uL (150-450); Poikilocytosis Slight; RBC 4.22 m/uL (3.80-5.40); RDW 16.7 % (11.5-15.5); WBC 12.4 k/uL (3.8-10.6)
[2022-03-09 23:04] LABS: ALT 25 U/L (4-34); AST 26 U/L (14-36); African American GFR (CKD) >90 (>60 ml/min/1.73 sqM); Albumin 3.8 g/dL (3.5-5.0); Alkaline Phosphatase 198 U/L (38-126); Anion Gap 11 mmol/L; Blood Urea Nitrogen 12 mg/dL (7-17); Calcium 8.7 mg/dL (8.4-10.2); Carbon Dioxide 31 mmol/L (22-30); Chloride 93 mmol/L (98-107); Glucose 128 mg/dL (74-99); Lipase 82 U/L (23-300); Non-African American GFR(CKD) >90 (>60 ml/min/1.73 sqM); Sodium 135 mmol/L (137-145); Total Bilirubin 1.5 mg/dL (0.2-1.3); Total Protein 6.6 g/dL (6.3-8.2)
[2022-03-09 23:14] LABS: Potassium 2.6 mmol/L (3.5-5.1)
--- NOTE | 2022-03-09 23:52 | ED ---
Abdominal Pain HPI - General Chief Complaint: Abdominal Pain Stated Complaint: Vomiting,fever Time Seen by Provider: 03/09/22 21:19 Source: patient, family Mode of arrival: wheelchair - History of Present Illness Initial Comments: 61-year-old female with past medical history of colon cancer metastatic to the liver and lung who presents to the emergency department with nausea vomiting. She is a patient of Dr. Dean. She currently receives chemotherapy every 3 weeks. Her last infusion was on Saturday. The patient has had some left lower quadrant abdominal pain for the past few days and began having nausea and vomiting with inability to hold down anything to eat or drink. Patient presents and does have a 99 10. States that she was feeling warm at home. She denies any chest pain or shortness of breath. No cough. No sick contacts. Decreased urination. No diarrhea. She is taking Compazine and Zofran at home without improvement. No other alleviating, precipitating or modifying factors - Related Data Home Medications Medication Instructions Recorded Confirmed ALPRAZolam [Xanax] 1 mg PO TID 03/01/21 03/10/22 Budesonide/Formoterol Fumarate 2 puff INHALATION RT-BID 03/01/21 03/10/22 [Symbicort 160-4.5 Mcg Inhaler] Cholestyramine (with Sugar) 4 gm PO BID PRN 03/01/21 03/10/22 [Cholestyramine Packet] Metoprolol Tartrate [Lopressor] 25 mg PO BID 03/01/21 03/10/22 Ondansetron Odt [Zofran ODT] 4 mg PO Q6H PRN 03/01/21 03/10/22 Prochlorperazine [Compazine] 10 mg PO Q6H PRN 03/01/21 03/10/22 Venlafaxine HCl [Effexor XR] 75 mg PO DAILY 03/01/21 03/10/22 Albuterol Sulfate [Proair Hfa] 2 puff INHALATION RT-QID PRN 03/10/22 03/10/22 Budesonide [Entocort EC] 3 mg PO DAILY 03/10/22 03/10/22 Cholecalciferol [Vitamin D3 (25 50 mcg PO DAILY 03/10/22 03/10/22 Mcg = 1000 Iu)] Cyanocobalamin (Vitamin B-12) 1,000 mcg PO DAILY 03/10/22 03/10/22 [Vitamin B-12] Gabapentin [Neurontin] 100 mg PO BID 03/10/22 03/10/22 HYDROcodone/APAP 10-325MG [[place] 1 tab PO Q4H PRN 03/10/22 03/10/22 10-325] Magic 5 ml PO QID PRN 03/10/22 03/10/22 Mouthwas(Ta/Lido/Maalox/Nyst) Omeprazole 20 mg PO BID 03/10/22 03/10/22 amLODIPine [Norvasc] 5 mg PO DAILY 03/10/22 03/10/22 Previous Rx's Medication Instructions Recorded fentaNYL 75MCG/HR PATCH [Duragesic 1 patch TRANSDERM Q72H #2 patch 08/19/21 75MCG/HR] Allergies Allergy/AdvReac Type Severity Reaction Status Date / Time acyclovir AdvReac Severe Confusion Verified 03/09/22 20:48 Review of Systems ROS Statement: Those systems with pertinent positive or pertinent negative responses have been documented in the HPI. ROS Other: All systems not noted in ROS Statement are negative. 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 Past Anesthesia/Blood Transfusion Reactions: No Reported Reaction Past Psychological History: Anxiety, Depression, Panic Disorder Smoking Status: Former smoker Past Alcohol Use History: None Reported Past Drug Use History: None Reported - Past Family History Father Family Medical History: Diabetes Mellitus, Myocardial Infarction ([place]) Additional Family Medical History / Comment(s): at age 62-mulitple mi's Mother Family Medical History: Cancer Additional Family Medical History / Comment(s): BREAST. from sepsis General Exam General appearance: alert, in no apparent distress Head exam: Present: atraumatic, normocephalic, normal inspection Eye exam: Present: normal appearance, PERRL, EOMI. Absent: scleral icterus, conjunctival injection, periorbital swelling ENT exam: Present: normal exam, mucous membranes moist Neck exam: Present: normal inspection. Absent: tenderness, meningismus, lymphadenopathy Respiratory exam: Present: normal lung sounds bilaterally. Absent: respiratory distress, wheezes, rales, rhonchi, stridor Cardiovascular Exam: Present: normal rhythm, tachycardia, normal heart sounds. Absent: systolic murmur, diastolic murmur, rubs, gallop, clicks GI/Abdominal exam: Present: soft, tenderness (llq), normal bowel sounds. Absent: distended, guarding, rebound, rigid Extremities exam: Present: normal inspection, full ROM, normal capillary refill. Absent: tenderness, pedal edema, joint swelling, calf tenderness Back exam: Present: normal inspection Neurological exam: Present: alert, oriented X3, CN II-XII intact Psychiatric exam: Present: normal affect, normal mood Skin exam: Present: warm, dry, intact, normal color. Absent: rash Course Vital Signs 03/09/22 03/09/22 20:42 22:20 Temperature 99 F Pulse Rate 104 H 82 Respiratory 19 18 Rate Blood Pressure 140/81 167/98 O2 Sat by Pulse 93 L 93 L Oximetry Medical Decision Making - Medical Decision Making Upon arrival patient is placed in room 25. A thorough history and physical exam is performed. IV access was established laboratory studies were conducted. Patient is given nausea and pain medications. She does go over for CT of her abdomen and pelvis. Review of the results demonstrate that the patient has a potassium of 2.6. Magnesium is 1.3. These are both replaced. CT of the abdomen and pelvis demonstrates increase in the size of the mass in the tail of the pancreas. I discussed results with the patient. Did recommend admission for a lecture light replacement for which the patient did agree to. Dr. Agustin was paged and I am awaiting callback. Patient taken to the floor in stable condition - Lab Data Result diagrams: 03/13/22 04:20 03/14/22 05:33 Lab Results 03/09/22 03/09/22 03/09/22 Range/Units 22:10 22:10 22:12 WBC 12.4 H (3.8-10.6) k/uL RBC 4.22 (3.80-5.40) m/uL Hgb 14.2 (11.4-16.0) gm/dL Hct 43.2 (34.0-46.0) % MCV 102.3 H (80.0-100.0) fL MCH 33.5 (25.0-35.0) pg MCHC 32.8 (31.0-37.0) g/dL RDW 16.7 H (11.5-15.5) % Plt Count 219 (150-450) k/uL MPV 8.5 Neutrophils % 87 % Lymphocytes % 6 % Monocytes % 6 % Eosinophils % 0 % Basophils % 0 % Neutrophils # 10.7 H (1.3-7.7) k/uL Lymphocytes # 0.8 L (1.0-4.8) k/uL Monocytes # 0.7 (0-1.0) k/uL Eosinophils # 0.0 (0-0.7) k/uL Basophils # 0.0 (0-0.2) k/uL Hypochromasia Slight Poikilocytosis Slight Anisocytosis Slight Macrocytosis Moderate Sodium 135 L (137-145) mmol/L Potassium 2.6 L* (3.5-5.1) mmol/L Chloride 93 L (98-107) mmol/L Carbon Dioxide 31 H (22-30) mmol/L Anion Gap 11 mmol/L BUN 12 (7-17) mg/dL Creatinine 0.52 (0.52-1.04) mg/dL Est GFR (CKD-EPI)AfAm >90 (>60 ml/min/1.73 sqM) Est GFR (CKD-EPI)NonAf >90 (>60 ml/min/1.73 sqM) Glucose 128 H (74-99) mg/dL Lactic Ac Sepsis Rflx Plasma Lactic Acid Florentino 2.6 H* (0.7-2.0) mmol/L Calcium 8.7 (8.4-10.2) mg/dL Total Bilirubin 1.5 H (0.2-1.3) mg/dL AST 26 (14-36) U/L ALT 25 (4-34) U/L Alkaline Phosphatase 198 H (38-126) U/L Total Protein 6.6 (6.3-8.2) g/dL Albumin 3.8 (3.5-5.0) g/dL Lipase 82 (23-300) U/L 03/09/22 Range/Units 22:39 WBC (3.8-10.6) k/uL RBC (3.80-5.40) m/uL Hgb (11.4-16.0) gm/dL Hct (34.0-46.0) % MCV (80.0-100.0) fL MCH (25.0-35.0) pg MCHC (31.0-37.0) g/dL RDW (11.5-15.5) % Plt Count (150-450) k/uL MPV Neutrophils % % Lymphocytes % % Monocytes % % Eosinophils % % Basophils % % Neutrophils # (1.3-7.7) k/uL Lymphocytes # (1.0-4.8) k/uL Monocytes # (0-1.0) k/uL Eosinophils # (0-0.7) k/uL Basophils # (0-0.2) k/uL Hypochromasia Poikilocytosis Anisocytosis Macrocytosis Sodium (137-145) mmol/L Potassium (3.5-5.1) mmol/L Chloride (98-107) mmol/L Carbon Dioxide (22-30) mmol/L Anion Gap mmol/L BUN (7-17) mg/dL Creatinine (0.52-1.04) mg/dL Est GFR (CKD-EPI)AfAm (>60 ml/min/1.73 sqM) Est GFR (CKD-EPI)NonAf (>60 ml/min/1.73 sqM) Glucose (74-99) mg/dL Lactic Ac Sepsis Rflx Y Plasma Lactic Acid Florentino (0.7-2.0) mmol/L Calcium (8.4-10.2) mg/dL Total Bilirubin (0.2-1.3) mg/dL AST (14-36) U/L ALT (4-34) U/L Alkaline Phosphatase (38-126) U/L Total Protein (6.3-8.2) g/dL Albumin (3.5-5.0) g/dL Lipase (23-300) U/L Disposition Clinical Impression: Nausea & vomiting, Metastatic colon cancer to liver, Hypokalemia, Abdominal pain Disposition: ADMITTED IP TO THIS HOSP Condition: Stable Is patient prescribed a controlled substance at d/c from ED?: No Decision to Admit Reason: Admit from EC Decision Date: 03/10/22 Decision Time: 00:21
[2022-03-09] MEDS ORDERED: POTASSIUM CHLORIDE 20 MEQ in WATER FOR INJECTION 1 100ML.BAG IVPB STA (23:59)
[2022-03-09] MEDS ORDERED: POTASSIUM CHLORIDE ER 20 MEQ TAB.ER PO STA (23:59)
--- NOTE | 2022-03-10 00:05 | CT ---
EXAMINATION TYPE: CT abdomen pelvis w con DATE OF EXAM: 03/09/2022 COMPARISON: 12/13/2021 HISTORY: left side abd pain. CT DLP: 426.1 mGycm Automated exposure control for dose reduction was used. CONTRAST: Performed with IV Contrast, patient injected with 100 mL of Isovue 300. Images obtained from the diaphragm to the floor the pelvis with IV IV contrast. There is 1.5 cm noncalcified subpleural nodule right lower lobe. There is some mild atelectasis right lung base. There is mild subsegmental atelectasis left lung base. There is hilar hernia. Heart size is normal. There is 3.5 cm hypodensity in the posterior medial right lobe of the liver. There is prev ious liver surgery. The bile ducts are not dilated. There is cholecystectomy. There is irregular mixe d density mass in the tail of the pancreas that has soft tissue and fluid components and measures 5.3 x 3 cm. There is left side anterior pararenal space fat stranding and fluid. There is some increased soft tissue density around the proximal small bowel mesenteric vessels. This is consistent with emily opathy. The spleen is intact. There is no adrenal mass. Kidneys have normal size and contour. No hydronephrosis. Ureters are not di lated. There is no ascites or free air. No bowel obstruction. There is previous large bowel surgery and appa rent right hemicolectomy. The lumbar vertebra show fairly normal alignment. There is narrowing at L4-5 disc with spur formation . No compression fracture. There is T11 anterior wedging 20%. The bony pelvis is intact. The hip join ts are intact. IMPRESSION: Compared to previous exam there is increase in size of the mass in the tail of the pancreas which has solid and cystic components. I consider both pancreatic tumor and unusual pseudocyst formation. Ther e is fat stranding and fluid in the left anterior pararenal space that could be inflammatory and rela geetha to pancreatitis. Fluid is new compared to old exam. Malignant pancreatic tumor should be still be considered. There is a low-density mass in the right lobe of the liver without change. Right lower lobe noncalcified nodule without change. Small bowel mesenteric vessel encasement probably due to tumor and adenopathy and unchanged. Cystic changes in the posterior pancreatic head appear improved compared to old exam.
[2022-03-10] MEDS ORDERED: NALOXONE 0.4 MG/ML 1 ML VIAL IV PRN (00:21)
[2022-03-10] MEDS: MORPHINE SULFATE 4 MG/ML SYRINGE IV PRN ×4 (01:59→16:34)
[2022-03-10] MEDS ORDERED: PROCHLORPERAZINE INJ 10 MG/2 ML VIAL IVP PRN (02:00)
[2022-03-10] MEDS: SODIUM CHLORIDE 0.9% 1,000 ML IV SCH ×3 (02:32→16:54)
[2022-03-10] MEDS: MAGNESIUM SULFATE-D5W PMX 1 GM in DEXTROSE/WATER 1 100ML.BAG IVPB SCH ×2 (04:53→06:07)
[2022-03-10] MEDS: SYMBICORT 160-4.5 MCG INHALER INHALATION SCH ×2 (07:38→19:38)
[2022-03-10] MEDS: ALBUTEROL NEBULIZED 2.5 MG/3 ML INHALATION SCH ×3 (07:38→19:38)
[2022-03-10 10:06] LABS: Anisocytosis Slight; Basophils % (A) 0 %; Eosinophils % (A) 0 %; HCT 38.7 % (34.0-46.0); HGB 12.6 gm/dL (11.4-16.0); Hypochromasia Slight; Lymphocytes # (A) 0.6 k/uL (1.0-4.8); Lymphocytes % (A) 5 %; MCHC 32.6 g/dL (31.0-37.0); MCV 104.5 fL (80.0-100.0); Macrocytosis Moderate; Mean Platelet Volume 9.5; Monocytes # (A) 0.8 k/uL (0-1.0); Monocytes % (A) 7 %; Neutrophils # (A) 10.3 k/uL (1.3-7.7); Neutrophils % (A) 87 %; Platelet Count 206 k/uL (150-450); Poikilocytosis Slight; RDW 16.7 % (11.5-15.5); WBC 11.8 k/uL (3.8-10.6)
[2022-03-10 10:32] LABS: African American GFR (CKD) >90 (>60 ml/min/1.73 sqM); Anion Gap 9 mmol/L; Blood Urea Nitrogen 12 mg/dL (7-17); Calcium 8.3 mg/dL (8.4-10.2); Carbon Dioxide 29 mmol/L (22-30); Chloride 97 mmol/L (98-107); Glucose 116 mg/dL (74-99); Non-African American GFR(CKD) >90 (>60 ml/min/1.73 sqM); Sodium 135 mmol/L (137-145)
[2022-03-10 10:43] LABS: Potassium 2.5 mmol/L (3.5-5.1)
[2022-03-10] MEDS ORDERED: POTASSIUM CHLORIDE 20 MEQ in WATER FOR INJECTION 1 100ML.BAG IVPB STA (10:48)
[2022-03-10] MEDS ORDERED: Potassium Replacement Protocol 1 EACH MISC MISCELLANE PRN (10:49)
[2022-03-10] MEDS ORDERED: POTASSIUM CHLORIDE ER 20 MEQ TAB.ER PO STA (10:49)
[2022-03-10] MEDS: SUCRALFATE 1 GM TAB PO SCH ×3 (11:25→22:09)
[2022-03-10] MEDS: PIPERACILLIN-TAZOBACTAM 3.375 GM in SODIUM CHLORIDE 0.9% 100 ML IVPB SCH (16:34)
[2022-03-10] MEDS: PANTOPRAZOLE 40 MG TABLET PO SCH (16:34)
[2022-03-10] MEDS: ALPRAZolam 1 MG TAB PO SCH ×2 (16:34→22:08)
[2022-03-10] MEDS: ACETAMINOPHEN TAB 325 MG TAB PO PRN (23:37)
--- NOTE | 2022-03-11 00:23 | P.CONS ---
History of Present Illness - Reason for Consult Consult date: 03/10/22 Bacteremia Requesting physician: Celeste Agustin - Chief Complaint Left sided abdominal pain x few days - History of Present Illness Patient is a 61-year-old female with a past medical history significant for metastatic colon cancer with mets to the liver and lung currently on chemotherapy through the right chest wall Mediport patient last infusion was on Saturday patient is presenting to the hospital with left lower quadrant abdominal pain that has been going on for the last few days patient describes the pain to be more of a sharp in nature 6-7 out of 10 no radiation patient did have associated nausea and vomiting and did have some diarrhea along with low-grade fever and some chills with the symptom the patient was evaluated on arrival to the ER the patient did have low-grade fever of 99.8 F patient was tachycardic not hypoxic or need for supplemental oxygen did have white count of 12.4 with a left shift kidney function has been normal her lactic acid was elevated liver enzymes are normal patient did have a CT of abdominal pelvis which was reported as increased in size and mass of the tail of the pancreas which is solid and cystic component concerning for pancreatic tumor and unusual pseudocyst formation fat stranding and fluid in the left anterior pararenal space could be intermittently related to pancreatitis patient did have blood cultures drawn which came back positive with gram-negative bacilli patient is currently being treated with a Zosyn infectious disease was consulted for further management of antibiotic therapy Review of Systems Positive point has been mentioned in the HPI rest of the systems are negative Past Medical History Past Medical History: Cancer, COPD, GERD/Reflux, Hyperlipidemia, Hypertension, Osteoarthritis (OA) Additional Past Medical History / Comment(s): Metastatic colon cancer, 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 Past Anesthesia/Blood Transfusion Reactions: No Reported Reaction Past Psychological History: Anxiety, Depression, Panic Disorder Smoking Status: Former smoker Past Alcohol Use History: None Reported Past Drug Use History: None Reported - Past Family History Father Family Medical History: Diabetes Mellitus, Myocardial Infarction ([place]) Additional Family Medical History / Comment(s): at age 62-mulitple mi's Mother Family Medical History: Cancer Additional Family Medical History / Comment(s): BREAST. from sepsis Medications and Allergies Home Medications Medication Instructions Recorded Confirmed Type ALPRAZolam [Xanax] 1 mg PO TID 03/01/21 03/10/22 History Budesonide/Formoterol Fumarate 2 puff INHALATION RT-BID 03/01/21 03/10/22 History [Symbicort 160-4.5 Mcg Inhaler] Cholestyramine (with Sugar) 4 gm PO BID PRN 03/01/21 03/10/22 History [Cholestyramine Packet] Metoprolol Tartrate [Lopressor] 25 mg PO BID 03/01/21 03/10/22 History Ondansetron Odt [Zofran ODT] 4 mg PO Q6H PRN 03/01/21 03/10/22 History Prochlorperazine [Compazine] 10 mg PO Q6H PRN 03/01/21 03/10/22 History Venlafaxine HCl [Effexor XR] 75 mg PO DAILY 03/01/21 03/10/22 History fentaNYL 75MCG/HR PATCH [Duragesic 1 patch TRANSDERM Q72H #2 patch 08/19/21 03/10/22 Rx 75MCG/HR] Albuterol Sulfate [Proair Hfa] 2 puff INHALATION RT-QID PRN 03/10/22 03/10/22 History Budesonide [Entocort EC] 3 mg PO DAILY 03/10/22 03/10/22 History Cholecalciferol [Vitamin D3 (25 50 mcg PO DAILY 03/10/22 03/10/22 History Mcg = 1000 Iu)] Cyanocobalamin (Vitamin B-12) 1,000 mcg PO DAILY 03/10/22 03/10/22 History [Vitamin B-12] Gabapentin [Neurontin] 100 mg PO BID 03/10/22 03/10/22 History HYDROcodone/APAP 10-325MG [[place] 1 tab PO Q4H PRN 03/10/22 03/10/22 History 10-325] Magic 5 ml PO QID PRN 03/10/22 03/10/22 History Mouthwas(Ta/Lido/Maalox/Nyst) Omeprazole 20 mg PO BID 03/10/22 03/10/22 History amLODIPine [Norvasc] 5 mg PO DAILY 03/10/22 03/10/22 History Allergies Allergy/AdvReac Type Severity Reaction Status Date / Time acyclovir AdvReac Severe Confusion Verified 03/09/22 20:48 Physical Exam Vitals: Vital Signs Temp Pulse Pulse Resp BP BP Pulse Ox 03/10/22 11:52 100 03/10/22 11:41 100 03/10/22 11:30 99 F 99 16 132/80 93 L 03/10/22 07:58 100 03/10/22 07:39 96 03/10/22 05:40 99.7 F H 88 16 148/84 99 03/10/22 02:30 103 H 16 03/10/22 02:00 99.8 F H 103 H 16 138/86 92 L 03/09/22 22:20 82 18 167/98 93 L 03/09/22 20:42 99 F 104 H 19 140/81 93 L Intake and Output 03/10/22 03/10/22 03/10/22 06:59 14:59 22:59 Intake Total 590 Balance 590 Intake: Oral 590 Other: Voiding Method Toilet # Voids 1 Weight 65.317 kg GENERAL DESCRIPTION: Middle-aged female lying in bed, no distress. No tachypnea or accessory muscle of respiration use. HEENT: Shows Pallor , no scleral icterus. Oral mucous membrane is dry. No phary ngeal erythema or thrush NECK: Trachea central, no thyromegaly. LUNGS: Unlabored breathing. Clear to auscultation anteriorly. No wheeze or crackle. HEART: S1, S2, regular rate and rhythm. No loud murmur ABDOMEN: Soft, mild tenderness , no guarding or rigidity EXTREMITIES: No edema of feet. SKIN: No rash, no masses palpable. NEUROLOGICAL: The patient is awake, alert, oriented x3, mood and affect normal. Results CBC & Chem 7: 03/10/22 05:46 03/10/22 13:00 Labs: Abnormal Lab Results - Last 24 Hours (Table) 03/09/22 03/09/22 03/09/22 Range/Units 22:10 22:10 22:12 WBC 12.4 H (3.8-10.6) k/uL RBC (3.80-5.40) m/uL MCV 102.3 H (80.0-100.0) fL RDW 16.7 H (11.5-15.5) % Neutrophils # 10.7 H (1.3-7.7) k/uL Lymphocytes # 0.8 L (1.0-4.8) k/uL Sodium 135 L (137-145) mmol/L Potassium 2.6 L* (3.5-5.1) mmol/L Chloride 93 L (98-107) mmol/L Carbon Dioxide 31 H (22-30) mmol/L Creatinine (0.52-1.04) mg/dL Glucose 128 H (74-99) mg/dL Plasma Lactic Acid Florentino 2.6 H* (0.7-2.0) mmol/L Calcium (8.4-10.2) mg/dL Magnesium (1.6-2.3) mg/dL Total Bilirubin 1.5 H (0.2-1.3) mg/dL Alkaline Phosphatase 198 H (38-126) U/L 03/10/22 03/10/22 03/10/22 Range/Units 00:49 05:46 05:46 WBC 11.8 H (3.8-10.6) k/uL RBC 3.70 L (3.80-5.40) m/uL MCV 104.5 H (80.0-100.0) fL RDW 16.7 H (11.5-15.5) % Neutrophils # 10.3 H (1.3-7.7) k/uL Lymphocytes # 0.6 L (1.0-4.8) k/uL Sodium 135 L (137-145) mmol/L Potassium 2.5 L* (3.5-5.1) mmol/L Chloride 97 L (98-107) mmol/L Carbon Dioxide (22-30) mmol/L Creatinine 0.48 L (0.52-1.04) mg/dL Glucose 116 H (74-99) mg/dL Plasma Lactic Acid Florentino (0.7-2.0) mmol/L Calcium 8.3 L (8.4-10.2) mg/dL Magnesium 1.3 L (1.6-2.3) mg/dL Total Bilirubin (0.2-1.3) mg/dL Alkaline Phosphatase (38-126) U/L Microbiology - Last 24 Hours (Table) 03/09/22 21:55 Blood Culture - Final Blood Assessment and Plan (1) Bacteremia Current Visit: Yes Status: Acute Code(s): R78.81 - BACTEREMIA SNOMED Code(s): 8174886 Plan: 1patient with gram-negative bacteremia in this patient presented to hospital with abdominal pain patient did have an abdominal CT suggestive of possible pancreatic tumor and a pseudocyst possible complicated or infected pseudocyst and likely the source of this bacteremia. 2blood cultures will be repeated document clearance of bacteremia. 3CT will be reviewed with radiologist and if the fluid could be aspirated CT- guided. 4Zosyn 3.375 g every 8 hours to continue while waiting for the ID sensitivity of this pathogen We will follow on clinical condition and cultures to further adjust medication if needed Thank you for this consultation will follow this patient along with you Time with Patient: Greater than 30
[2022-03-11] MEDS: SODIUM CHLORIDE 0.9% 1,000 ML IV SCH ×4 (01:08→20:56)
[2022-03-11] MEDS: PIPERACILLIN-TAZOBACTAM 3.375 GM in SODIUM CHLORIDE 0.9% 100 ML IVPB SCH ×4 (01:09→23:37)
[2022-03-11] MEDS: ALBUTEROL NEBULIZED 2.5 MG/3 ML INHALATION SCH ×4 (02:56→19:01)
[2022-03-11 06:48] LABS: Appearance,Urine Clear (Clear); Bacteria,Urine Few /hpf; Bilirubin,Urine Negative (Negative); Blood,Urine Small (Negative); Color,Urine Yellow; Glucose,Urine (UA) Negative (Negative); Ketones,Urine Negative (Negative); Leukocyte Esterase,Urine Negative (Negative); Mucus,Urine Occasional /hpf; Nitrite,Urine Negative (Negative); Protein,Urine 1+ (Negative); RBC,Urine 21 /hpf (0-5); Squamous Epithelial Cell,Urine 4 /hpf (0-4); Urobilinogen,Urine <2.0 mg/dL (<2.0); WBC,Urine 4 /hpf (0-5)
[2022-03-11] MEDS: SYMBICORT 160-4.5 MCG INHALER INHALATION SCH ×2 (08:27→19:01)
[2022-03-11] MEDS: PANTOPRAZOLE 40 MG TABLET PO SCH ×2 (09:00→17:58)
[2022-03-11] MEDS: ALPRAZolam 1 MG TAB PO SCH ×3 (09:00→20:56)
[2022-03-11] MEDS: SUCRALFATE 1 GM TAB PO SCH ×4 (09:00→20:56)
[2022-03-11] MEDS: VENLAFAXINE HCL ER 75 MG CAP PO SCH (09:01)
[2022-03-11 09:35] LABS: HCT 33.5 % (37.2-46.3); HGB 10.5 g/dL (12.0-15.0); MCH 33.1 pg (27.0-32.0); MCHC 31.3 g/dL (32.0-37.0); MCV 105.7 fL (80.0-97.0); Mean Platelet Volume 11.1 fL (9.5-12.2); NRBC Per 100 WBC 0 /100 WBCS (0.0-0.0); Platelet Count 147 X 10*3/uL (140-440); RBC 3.17 X 10*6/uL (4.10-5.20); RDW 16.2 % (11.5-14.5)
[2022-03-11 10:19] LABS: Basophils # (A) 0.02 X 10*3/uL (0.00-0.10); Basophils % (A) 0.3 %; Eosinophils # (A) 0.01 X 10*3/uL (0.04-0.35); Eosinophils % (A) 0.1 %; Immature Grans, Automated 0.4 %; Lymphocytes % (A) 10.3 %; Monocytes # (A) 0.73 X 10*3/uL (0.20-1.00); Monocytes % (A) 10.7 %; Neutrophils # (A) 5.31 X 10*3/uL (1.80-7.70); Neutrophils % (A) 78.2 %
[2022-03-11 10:20] LABS: Macrocytosis (M) 2+
[2022-03-11 10:26] LABS: African American GFR (CKD) 114.7 (60.0-200.0); Albumin/Globulin Ratio 1.49 (1.60-3.17); Anion Gap 8.6 mmol/L (10.00-18.00); BUN/Creat Ratio 14.8 Ratio (12.00-20.00); Blood Urea Nitrogen 8.4 mg/dL (9.0-27.0); Calcium 7.9 mg/dL (8.7-10.3); Carbon Dioxide 24.5 mmol/L (20.0-27.5); Potassium 4.1 mmol/L (3.5-5.5); Total Bilirubin 1.3 mg/dL (0.30-1.20); Total Protein 4.9 g/dL (6.2-8.2)
[2022-03-11] MEDS: METOPROLOL TARTRATE 25 MG TAB PO SCH ×2 (11:53→20:56)
[2022-03-11] MEDS: amLODIPine 5 MG TAB PO SCH (11:53)
--- NOTE | 2022-03-11 12:14 | P.CONS ---
History of Present Illness - Reason for Consult Consult date: 03/11/22 Metastatic Colon Cancer - History of Present Illness Oncologic History: Patient of Dr. Dean, Last treatment of FOLFIRI with Zaltrap Salvage therapy Not feeling well, C/O having L foot Pain , No Trauma. She has int Diarrhea ( Chronic ) and reported being under excessive stree and being in " Dispair ". Denied any Melena or Changes in bowel Habits. 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 She is following up with Dr lemon for Rx of Bronchial Asthma. C/O increasing frontal Headache and increasing Anxiety and stress, Diarrhea improved. C/O Being very depressed, Cymbalta not helping much. Very anxious. C/O severe headache and vague abdominal pain: CT Scan of head and CAP were negative in November 2013. She feels Ok overall, asymptomatic. 01/31/15 : Not feeling well, C/O weakness and RUQ abdominal pain X 2 months, she is very anxious. Was seen @ [facility] , CT Scan of abdomen revealed large 2 liver lesions C/W mets. Srated on Xanax and analgesics. She denies anorexia/weight loss. Remains fully active. 02/07/15 : Feels Ok, had Liver Bx & PET Scan, anxious. C/O mild RUQ pain. 03/14/15 : Feels Ok, C/O diarrhea and anorexia, tolerating Folfirri/Avastin well so far. Was seen by Dr Dye at [facility] : [place]-adjuvant Chemotherapy recommended. 04/18/15 : Given FOLFIRRI/Avastin X 4 : Well tolerated, C/O Anorexia & weight loss, abdominal pain improved. Follow up CT Scan : good objective improvement. 06/07/15 : Had surgery with resection of residual metastatic carcinoma to liver by Dr Dye @ [facility], recovering very slowly, not sleeping at night, not eating well (Megace was stopped), not having abdominal pain > MS contin stopped. very anxious. 07/01/15 : Feels Ok, recovered well, no further weight loss, feels stronger. 07/28/15 : Feels Ok, but very anxious, tolerated last chemotherapy well. 08/23/15 : Feels well, has occasional nose bleeds, tolerating chemotherapy well. 09/20/15 : C/O fatigue and chronic/stable Chemotherapy-induced p neuropathy. 11/01/15 : Feels well and asymptomatic. 04/19/16: Feels well, gaining weight, fully active, C/O anxiety but no symptoms of malignancy. 08/01/16: Very anxious & upset after loss of her 24 year old son to drug overdose. Feels Physically well. 11/06/16: Feels well, no constitutional symptoms of malignancy, fully active. 01/08/17: Feels Ok , was admitted to [facility] with LLL Pneumonia > recovering. CT Scan of chest : stable small pulmonary nodules. 05/08/17: Feels well, asymptomatic. 09/03/17: Feels Ok, C/O L ankle fracture > surgery done by Dr Leyva. 11/05/17: Feels Ok, still very depressed Cymbalta 90 not effective... wants to try Prozac, which was effective in distant past. Recent CT Scan : slight increase in pulmonary nodules !! 11/26/17: Feels Ok, C/O mild RUQ pain, fully active. 12/17/17: Started on Vectibex > developed facial/scalp rash after 1st infusion. 02/18/18: Feels Ok, tolerating Vectibex well (Diffuse rash). 03/25/18: Feels Ok, tolerating Vectiex well (Rash). No visceral pain, excellent performence status. 04/23/18: C/O progressive P Neuropathy in lower extremities, says she is anorexic, but has no weight loss. She C/O RUQ pain. 06/10/18: C/O skin rash, will see Neurology for evaluation of P neuropathy soon. 07/03/18: C/O severe diffuse rash on chest wall, less severe in face & rest of body. 08/15/18: Feels Ok, Rash better controlled. PET Scan: No active disease. 09/11/18: Feels Ok, less rash, tired. 11/13/18: C/O increasing depression, tolerating Vectibex well, minimal rash, no abdominal pain. C/O progressive arthropathy in hands/feet. 12/12/18: Feels Ok, tolerating Vectibex well, active. Will need cataracts surgery soon. 01/15/19: Feels Ok, tolerating Vectibex well, no abdominal pain, no respiratory symptoms. 02/10/19: C/O nose irritation 2nd to Vectibex 03/19/19: Cutaneous irritation improved, no chest pain or SOB, fully active. 04/14/19: C/O increasing cough & rash. CT Scan : Progression of Pulmonary mets, CEA rising. 04.29.19: Diarrhea imodium helps, nausea not really helped with compazine, zofran prescribed. 05.27.19: Quit smoking and comes intoday with pain and chest and cough. Productive Cough greenish. Expiratory wheezes. and rhonchi. low grade fevers. Week off of Xeloda while recovering. 06/04/19: Feels well, tolerating Xeloda well with mild diarrhea as only side effect. Quit smoking. 06/24/17-Diarrhea 1 week, most was 6 episodes, watery, yellow, associated with abd cramping, terrible gas and very foul odor, denied fever, vomiting, she has to take zofran constantly nauseated, no skin or nail toxicities, stable neuropathy in feet, she does get cramping in her toes at least daily. She has "excruciating WARD" week off of xeloda, using 3 aleve and ibuprofen to take edge off, and terrible fatigue. No other c/o, questions or concerns. 07/14/19: C/O weakness & diarrhea, definate decline in performence status & quality of life 08/14/19: Feels Ok, tolerating Xeloda 1800mg Bid 1 week on [address] Scan of CAP > improved. 10/07/19-Here for acute visit, concerned with SOB, 1 week, she recently had what she suspects was the flu, no fever, clear sputum, using her nebs more frequently. The week off of xeloda she has no stamina. Thinks maybe getting cabin fever or lack of moving from the winter weather. No other c/o, questions or concerns 10/29/19: Feels Ok, has hital hernia & heart burn, fully active, tolerating Xeloda well (1800mg Bid 1 week on 1 week off). 02/10/20: C/O increasing neuropathy pain in fingers/toes. Tolerating Xeloda well, no abdominal pain 04/15/20: C/O abdominal pain & nausea. CT Scan: progression 05/05/20: Feels Ok, had recent R eye surgery (Retinal detachment) following trauma. Study on malignant tissue : PD-L1 weakly positive, Dat4Ato negative. 06/28/20: Feels well, tolerating Keytruda well, having mild tolerable diarrhea, remains fully active 07/08/20: C/O generalized itching, which she attributes to Keytruda. 09/16/20: Had COVID infection with Pneumonia > revovered. Tolerating Keytruda well. 10/25/20: Feels well, no side effects, fully active 11/15/20: C/O fatigue & mild abdominal pain, tolerating Keytruda well 01/19/21: C/O fatigue, anorexia, weight loss and R mid abdominal pain, tolerating Lonesurf well. 02/22/21: Feels well, C/O anorexia, weight loss & fatigue, having diarrhea with lonesurf. 03/01/21-Pt here for acute visit, has c/o lightheaded, dizzy, N,V, D since leaving here last week, vomited her meds today, due to start cycle of lonsurf 5 days. She is not eating, smells can make her vomit. Alternating compazine and zofran, using 3 questran a day and lomotil. She had a temp of 100.1F. Generalized weakness and moderate fatigue. 04/27/21: Feeling better, diarrhea continues but less. Will add budesomid. 05/11/21: Decrease in weight, 3lbs. Last visit restarted on Lonsurf. Budesomide and Bentyl PRN added last visit. 06/02/21: Continuie to complain of abdominal pain, although her weight has held more steady and CEA trending down. Diarrhea is improving too on questran and bentyl. 07/20/21: Feels Ok, tolerating Lonesurf well, has mild diarrhea, C/O R knee pain, evaluated by Ortho (Dr Manrique). 08/23/21-Pt here today s/p 2 hospitalizations at [facility] for COPD exac erbation. She required GCSF on initial 9 days admit, her plt dropped into the 40-50K range, she did get 1 unit PRBCs. She was discharged but her SOB persisted and progressed so she came back and was inpt over the New Year. She is no longer on abx, she is on a pred taper still. Diarrhea has been a problem, she is out of lomotil. Appretite is poor. Denies fevers, N,V, cough is better, sputum is less thick no longer purluent. She is not O2 dependent. 09/20/21: was hospitalized with Neutropenia & weakness , had acute Pancreatitis > recovered. C/O fatigue. 11/07/21: C/O severe diarrhea attributed to active UC, tolerating Lonesurf well, very anxious. 11/23/21: Friend with Marisela as she is concerned, mental status changes, headaches, weakness, and increased paiun. Productive cough. 01/09/22: Tolerated cycle#1 of FOLFIRRI/Zaltrap well > reported moderate diarrhea. C/O progressive numbness in lower extremities 02/21/22: C/O R knee pain, tolerating FOLFIRI/Zaltrap well (4 cycles given so far). Review of Systems All systems: negative Constitutional: Reports as per HPI Past Medical History Past Medical History: Cancer, COPD, GERD/Reflux, Hyperlipidemia, Hypertension, Osteoarthritis (OA) Additional Past Medical History / Comment(s): Metastatic colon cancer, periphe ral neuropathy induced by systemic chemotherapy, history of childhood nephrotic syndrome, history of liver CA lesions resected surgically, history of lung nodules felt to be related to metastatic disease, History of Any Multi-Drug Resistant Organisms: None Reported Past Surgical History: Bowel Resection, Cholecystectomy, Orthopedic Surgery Additional Past Surgical History / Comment(s): 2009 port o cath then removed 05-20-122014 port a cath placed rt chest ;"20% of liver removed d/t ca", colonoscopies [id number]. Past Anesthesia/Blood Transfusion Reactions: No Reported Reaction Past Psychological History: Anxiety, Depression, Panic Disorder Smoking Status: Former smoker Past Alcohol Use History: None Reported Past Drug Use History: None Reported - Past Family History Father Family Medical History: Diabetes Mellitus, Myocardial Infarction (NM) Additional Family Medical History / Comment(s): at age 62-mulitple mi's Mother Family Medical History: Cancer Additional Family Medical History / Comment(s): BREAST. from sepsis Medications and Allergies Home Medications Medication Instructions Recorded Confirmed Type ALPRAZolam [Xanax] 1 mg PO TID 03/01/21 03/10/22 History Budesonide/Formoterol Fumarate 2 puff INHALATION RT-BID 03/01/21 03/10/22 History [Symbicort 160-4.5 Mcg Inhaler] Cholestyramine (with Sugar) 4 gm PO BID PRN 03/01/21 03/10/22 History [Cholestyramine Packet] Metoprolol Tartrate [Lopressor] 25 mg PO BID 03/01/21 03/10/22 History Ondansetron Odt [Zofran ODT] 4 mg PO Q6H PRN 03/01/21 03/10/22 History Prochlorperazine [Compazine] 10 mg PO Q6H PRN 03/01/21 03/10/22 History Venlafaxine HCl [Effexor XR] 75 mg PO DAILY 03/01/21 03/10/22 History fentaNYL 75MCG/HR PATCH [Duragesic 1 patch TRANSDERM Q72H #2 patch 08/19/21 03/10/22 Rx 75MCG/HR] Albuterol Sulfate [Proair Hfa] 2 puff INHALATION RT-QID PRN 03/10/22 03/10/22 History Budesonide [Entocort EC] 3 mg PO DAILY 03/10/22 03/10/22 History Cholecalciferol [Vitamin D3 (25 50 mcg PO DAILY 03/10/22 03/10/22 History Mcg = 1000 Iu)] Cyanocobalamin (Vitamin B-12) 1,000 mcg PO DAILY 03/10/22 03/10/22 History [Vitamin B-12] Gabapentin [Neurontin] 100 mg PO BID 03/10/22 03/10/22 History HYDROcodone/APAP 10-325MG [[place] 1 tab PO Q4H PRN 03/10/22 03/10/22 History 10-325] Magic 5 ml PO QID PRN 03/10/22 03/10/22 History Mouthwas(Ta/Lido/Maalox/Nyst) Omeprazole 20 mg PO BID 03/10/22 03/10/22 History amLODIPine [Norvasc] 5 mg PO DAILY 03/10/22 03/10/22 History Allergies Allergy/AdvReac Type Severity Reaction Status Date / Time acyclovir AdvReac Severe Confusion Verified 03/09/22 20:48 Physical Exam Vitals: Vital Signs Temp Pulse Pulse Resp BP BP Pulse Ox 03/10/22 07:58 100 03/10/22 07:39 96 03/10/22 05:40 99.7 F H 88 16 148/84 99 03/10/22 02:30 103 H 16 03/10/22 02:00 99.8 F H 103 H 16 138/86 92 L 03/09/22 22:20 82 18 167/98 93 L 03/09/22 20:42 99 F 104 H 19 140/81 93 L Intake and Output 03/09/22 03/10/22 03/10/22 22:59 06:59 14:59 Intake Total 590 Balance 590 Intake: Oral 590 Other: # Voids 1 Weight 65.317 kg 65.317 kg - Constitutional General appearance: cooperative, mild distress - EENT Eyes: EOMI ENT: NA/AT - Neck Neck: normal ROM - Respiratory Respiratory: bilateral: rhonchi - Cardiovascular Rhythm: regularly irregular - Gastrointestinal General gastrointestinal: distended, tenderness - Integumentary Integumentary: pale - Neurologic Neurologic: CNII-XII intact - Musculoskeletal Musculoskeletal: generalized weakness - Psychiatric Psychiatric: A&O x's 3, appropriate affect, intact judgment & insight Results CBC & Chem 7: 03/11/22 05:37 03/11/22 05:37 Labs: Abnormal Lab Results - Last 24 Hours (Table) 03/09/22 03/09/22 03/09/22 Range/Units 22:10 22:10 22:12 WBC 12.4 H (3.8-10.6) k/uL MCV 102.3 H (80.0-100.0) fL RDW 16.7 H (11.5-15.5) % Neutrophils # 10.7 H (1.3-7.7) k/uL Lymphocytes # 0.8 L (1.0-4.8) k/uL Sodium 135 L (137-145) mmol/L Potassium 2.6 L* (3.5-5.1) mmol/L Chloride 93 L (98-107) mmol/L Carbon Dioxide 31 H (22-30) mmol/L Glucose 128 H (74-99) mg/dL Plasma Lactic Acid Florentino 2.6 H* (0.7-2.0) mmol/L Magnesium (1.6-2.3) mg/dL Total Bilirubin 1.5 H (0.2-1.3) mg/dL Alkaline Phosphatase 198 H (38-126) U/L 03/10/22 Range/Units 00:49 WBC (3.8-10.6) k/uL MCV (80.0-100.0) fL RDW (11.5-15.5) % Neutrophils # (1.3-7.7) k/uL Lymphocytes # (1.0-4.8) k/uL Sodium (137-145) mmol/L Potassium (3.5-5.1) mmol/L Chloride (98-107) mmol/L Carbon Dioxide (22-30) mmol/L Glucose (74-99) mg/dL Plasma Lactic Acid Florentino (0.7-2.0) mmol/L Magnesium 1.3 L (1.6-2.3) mg/dL Total Bilirubin (0.2-1.3) mg/dL Alkaline Phosphatase (38-126) U/L Assessment and Plan (1) Fever Narrative/Plan: Low Grade Chest xray with ddecresed oxygen % documented since admission CTA - Increased hypercoagulale state due to metastatic Cancer Positive Bacteremia ID is following Current Visit: Yes Status: Acute Code(s): R50.9 - FEVER, UNSPECIFIED SNOMED Code(s): 211890622 (2) Hypomagnesemia Narrative/Plan: Recheck today Current Visit: Yes Status: Acute Code(s): E83.42 - HYPOMAGNESEMIA SNOMED Code(s): 711276394 (3) Pancreatitis Current Visit: Yes Status: Acute Code(s): K85.90 - ACUTE PANCREATITIS WITHOUT NECROSIS OR INFECTION, UNSP SNOMED Code(s): 25472974 (4) Macrocytic anemia Narrative/Plan: Recheck B12/folate Likely result of medications and disease to liver Current Visit: Yes Status: Acute Code(s): D53.9 - NUTRITIONAL ANEMIA, UNSPECIFIED SNOMED Code(s): 72949991 (5) Abdominal pain Narrative/Plan: COntinue current regimen Fentanyl and Dilaudid Current Visit: Yes Status: Acute Code(s): R10.9 - UNSPECIFIED ABDOMINAL PAIN SNOMED Code(s): 41453994 (6) Hypokalemia Narrative/Plan: Replaced and improved Monitor Current Visit: Yes Status: Acute Code(s): E87.6 - HYPOKALEMIA SNOMED Code(s): 75918718 (7) Metastatic colon cancer to liver Narrative/Plan: Progressed through multiple lines of therapy, last treatment FOLFIRI and Zaltrep on 02/27/22 - Chemo on hold until resolution of acute infection and hospital acute problems Current Visit: Yes Status: Chronic Priority: Low Code(s): C18.9 - MALIGNANT NEOPLASM OF COLON, UNSPECIFIED; C78.7 - SECONDARY MALIG NEOPLASM OF LIVER AND INTRAHEPATIC BILE DUCT SNOMED Code(s): 037312596 (8) Bacteremia Narrative/Plan: E-coli found inblood culture - ID is following IV antibiotics T Max 100.1 Current Visit: Yes Status: Acute Code(s): R78.81 - BACTEREMIA SNOMED Code(s): 8192400
[2022-03-11] MEDS: ONDANSETRON 4 MG/2 ML VIAL IVP PRN ×2 (12:24→23:39)
--- NOTE | 2022-03-11 12:34 | P.HPIM ---
History of Present Illness H&P Date: 03/10/22 Chief Complaint: Abdominal Pain 61-year-old female with past medical history of colon cancer metastatic to the liver and lung who presents to the emergency department with nausea vomiting. She is a patient of Dr. Dean. She currently receives chemotherapy every 3 weeks. Her last infusion was on Saturday. The patient has had some left lower quadrant abdominal pain for the past few days and began having nausea and vomiting with inability to hold down anything to eat or drink. Patient presents and does have a 99 temp. States that she was feeling warm at home. She denies any chest pain or shortness of breath. No cough. No sick contacts. Decreased urination. No diarrhea. She is taking Compazine and Zofran at home without improvement. No other alleviating, precipitating or modifying factors Blood work completed in ED reveals a WBC of 12.4, hemoglobin of 14.2 and platelet count of 219, sodium 135, potassium 2.6, BUN/creatinine of 12/0.52 and blood glucose of 128; lactic acid elevated at 2.6 CT of abdominal pelvis reveals increase in size and mass of the tail of the pancreas which is solid and cystic component concerning for pancreatic tumor and unusual pseudocyst formation fat stranding and fluid in the left anterior pararenal space could be intermittently related to pancreatitis patient did have blood cultures drawn which came back positive with gram-negative bacilli patient is currently being treated with a Zosyn infectious disease was consulted for further management of antibiotic therapy Review of Systems REVIEW OF SYSTEMS: CONSTITUTIONAL: No fever, no malaise, no fatigue. HEENT: No recent visual problems or hearing problems. Denied any sore throat. CARDIOVASCULAR: No chest pain, orthopnea, PND, no palpitations, no syncope. PULMONARY: No shortness of breath, no cough, no hemoptysis. GASTROINTESTINAL: No diarrhea, no nausea, no vomiting, no abdominal pain. NEUROLOGICAL: No headaches, no weakness, no numbness. HEMATOLOGICAL: Denies any bleeding or petechiae. GENITOURINARY: Denies any burning micturition, frequency, or urgency. MUSCULOSKELETAL/RHEUMATOLOGICAL: Denies any joint pain, swelling, or any muscle pain. ENDOCRINE: Denies any polyuria or polydipsia. The rest of the 14-point review of systems is negative. 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 Past Anesthesia/Blood Transfusion Reactions: No Reported Reaction Past Psychological History: Anxiety, Depression, Panic Disorder Smoking Status: Former smoker Past Alcohol Use History: None Reported Past Drug Use History: None Reported - Past Family History Father Family Medical History: Diabetes Mellitus, Myocardial Infarction ([place]) Additional Family Medical History / Comment(s): at age 62-mulitple mi's Mother Family Medical History: Cancer Additional Family Medical History / Comment(s): BREAST. from sepsis Medications and Allergies Home Medications Medication Instructions Recorded Confirmed Type ALPRAZolam [Xanax] 1 mg PO TID 03/01/21 03/10/22 History Budesonide/Formoterol Fumarate 2 puff INHALATION RT-BID 03/01/21 03/10/22 History [Symbicort 160-4.5 Mcg Inhaler] Cholestyramine (with Sugar) 4 gm PO BID PRN 03/01/21 03/10/22 History [Cholestyramine Packet] Metoprolol Tartrate [Lopressor] 25 mg PO BID 03/01/21 03/10/22 History Ondansetron Odt [Zofran ODT] 4 mg PO Q6H PRN 03/01/21 03/10/22 History Prochlorperazine [Compazine] 10 mg PO Q6H PRN 03/01/21 03/10/22 History Venlafaxine HCl [Effexor XR] 75 mg PO DAILY 03/01/21 03/10/22 History fentaNYL 75MCG/HR PATCH [Duragesic 1 patch TRANSDERM Q72H #2 patch 08/19/21 0 03/10/22 Rx 75MCG/HR] Albuterol Sulfate [Proair Hfa] 2 puff INHALATION RT-QID PRN 03/10/22 03/10/22 History Budesonide [Entocort EC] 3 mg PO DAILY 03/10/22 03/10/22 History Cholecalciferol [Vitamin D3 (25 50 mcg PO DAILY 03/10/22 03/10/22 History Mcg = 1000 Iu)] Cyanocobalamin (Vitamin B-12) 1,000 mcg PO DAILY 03/10/22 03/10/22 History [Vitamin B-12] Gabapentin [Neurontin] 100 mg PO BID 03/10/22 03/10/22 History HYDROcodone/APAP 10-325MG [[place] 1 tab PO Q4H PRN 03/10/22 03/10/22 History 10-325] Magic 5 ml PO QID PRN 03/10/22 03/10/22 History Mouthwas(Ta/Lido/Maalox/Nyst) Omeprazole 20 mg PO BID 03/10/22 03/10/22 History amLODIPine [Norvasc] 5 mg PO DAILY 03/10/22 03/10/22 History Allergies Allergy/AdvReac Type Severity Reaction Status Date / Time acyclovir AdvReac Severe Confusion Verified 03/09/22 20:48 Physical Exam Vitals: Vital Signs Temp Pulse Pulse Resp BP BP Pulse Ox 03/10/22 11:52 100 03/10/22 11:41 100 03/10/22 11:30 99 F 99 16 132/80 93 L 03/10/22 07:58 100 03/10/22 07:39 96 03/10/22 05:40 99.7 F H 88 16 148/84 99 03/10/22 02:30 103 H 16 03/10/22 02:00 99.8 F H 103 H 16 138/86 92 L 03/09/22 22:20 82 18 167/98 93 L 03/09/22 20:42 99 F 104 H 19 140/81 93 L Intake and Output 03/10/22 03/10/22 03/10/22 06:59 14:59 22:59 Intake Total 590 Balance 590 Intake: Oral 590 Other: Voiding Method Toilet # Voids 1 Weight 65.317 kg GENERAL DESCRIPTION: Middle-aged female lying in bed, no distress. No tachypnea or accessory muscle of respiration use. HEENT: Shows Pallor , no scleral icterus. Oral mucous membrane is dry. No pharyngeal erythema or thrush NECK: Trachea central, no thyromegaly. LUNGS: Unlabored breathing. Clear to auscultation anteriorly. No wheeze or crackle. HEART: S1, S2, regular rate and rhythm. No loud murmur ABDOMEN: Soft, mild tenderness , no guarding or rigidity EXTREMITIES: No edema of feet. SKIN: No rash, no masses palpable. NEUROLOGICAL: The patient is awake, alert, oriented x3, mood and affect normal. Results CBC & Chem 7: 03/11/22 05:37 03/11/22 05:37 Labs: Abnormal Lab Results - Last 24 Hours (Table) 03/09/22 03/09/22 03/09/22 Range/Units 22:10 22:10 22:12 WBC 12.4 H (3.8-10.6) k/uL RBC (3.80-5.40) m/uL MCV 102.3 H (80.0-100.0) fL RDW 16.7 H (11.5-15.5) % Neutrophils # 10.7 H (1.3-7.7) k/uL Lymphocytes # 0.8 L (1.0-4.8) k/uL Sodium 135 L (137-145) mmol/L Potassium 2.6 L* (3.5-5.1) mmol/L Chloride 93 L (98-107) mmol/L Carbon Dioxide 31 H (22-30) mmol/L Creatinine (0.52-1.04) mg/dL Glucose 128 H (74-99) mg/dL Plasma Lactic Acid Florentino 2.6 H* (0.7-2.0) mmol/L Calcium (8.4-10.2) mg/dL Magnesium (1.6-2.3) mg/dL Total Bilirubin 1.5 H (0.2-1.3) mg/dL Alkaline Phosphatase 198 H (38-126) U/L 03/10/22 03/10/22 03/10/22 Range/Units 00:49 05:46 05:46 WBC 11.8 H (3.8-10.6) k/uL RBC 3.70 L (3.80-5.40) m/uL MCV 104.5 H (80.0-100.0) fL RDW 16.7 H (11.5-15.5) % Neutrophils # 10.3 H (1.3-7.7) k/uL Lymphocytes # 0.6 L (1.0-4.8) k/uL Sodium 135 L (137-145) mmol/L Potassium 2.5 L* (3.5-5.1) mmol/L Chloride 97 L (98-107) mmol/L Carbon Dioxide (22-30) mmol/L Creatinine 0.48 L (0.52-1.04) mg/dL Glucose 116 H (74-99) mg/dL Plasma Lactic Acid Florentino (0.7-2.0) mmol/L Calcium 8.3 L (8.4-10.2) mg/dL Magnesium 1.3 L (1.6-2.3) mg/dL Total Bilirubin (0.2-1.3) mg/dL Alkaline Phosphatase (38-126) U/L Microbiology - Last 24 Hours (Table) 03/09/22 21:55 Blood Culture - Final Blood Thrombosis Risk Factor Assmnt - Choose All That Apply Each Factor Represents 1 point: Abnormal pulmonary function (COPD) Other Risk Factors: Yes Each Risk Factor Represents 2 Points: Age 61-74 years Thrombosis Risk Factor Assessment Total Risk Factor Score: 3 Thrombosis Risk Factor Assessment Level: Moderate Risk Assessment and Plan Assessment: 1. Gram-negative bacteremia; initial blood cultures are positive for gram- negative bacilli; final culture and sensitivities pending; patient has been pl aced on IV Zosyn. We will plan to monitor CBC, CRP, pro-calcitonin; Consult ID for further recommendations 2. Abdominal pain; likely related to pancreatitis versus pseudocyst versus tumor; patient is being evaluated by oncology and ID; pain control as indicated 3. Electrolyte imbalance; hypokalemia/hypomagnesemia; supplemented in ED; we will monitor electrolytes closely 4. Pancreatic mass; tumor versus pseudocyst versus pancreatitis; workup in progress 5. Hypertension; metoprolol 25 mg twice a day, amlodipine 5 mg daily 6. Anxiety/depression; continue with Xanax 1 mg by mouth 3 times a day; Neurontin 100 mg twice a day; Effexor 75 mg daily 7. COPD; not in exacerbation; we will continue with home inhaler therapy with Symbicort and albuterol as needed 8. Metastatic colon cancer with liver and lung metastases; patient is receiving chemotherapy with last infusion a few days ago; oncology is consulted - Continue with [place] 10 mg every 4 hours when necessary along with home dose of fentanyl patch for pain control; continue with IV morphine for breakthrough pain 9. GERD/gastritis; Carafate 1 g by mouth every before meals and at bedtime and Protonix 40 mg by mouth twice a day DVT prophylaxis; subcu heparin CODE STATUS; full code
[2022-03-11 12:43] LABS: African American GFR (CKD) >90 (>60 ml/min/1.73 sqM); Amylase <30 U/L (30-110); Anion Gap 4 mmol/L; Blood Urea Nitrogen 6 mg/dL (7-17); Calcium 7.8 mg/dL (8.4-10.2); Carbon Dioxide 30 mmol/L (22-30); Chloride 101 mmol/L (98-107); Glucose 112 mg/dL (74-99); Lipase 36 U/L (23-300); Magnesium 1.6 mg/dL (1.6-2.3); Non-African American GFR(CKD) >90 (>60 ml/min/1.73 sqM); Potassium 3.3 mmol/L (3.5-5.1); Sodium 135 mmol/L (137-145)
--- NOTE | 2022-03-11 12:46 | XR ---
EXAMINATION TYPE: XR chest 2V DATE OF EXAM: 03/11/2022 12:35 PM COMPARISON: Chest radiographs 03/04/2022, CT chest abdomen pelvis 12/13/2021. TECHNIQUE: XR chest 2V Frontal and lateral views of the chest. CLINICAL INDICATION:Female, 61 years old with history of fever, hypoxia; FINDINGS: Lungs/Pleura: No evidence for pneumothorax. Left basilar atelectasis. Multiple scattered pulmonary no dules redemonstrated. Pulmonary vascularity: Unremarkable. Heart/mediastinum: Cardiomediastinal silhouette is unremarkable. Musculoskeletal: Multiple level degenerative disc disease changes seen throughout the spine. Lines/Tubes: [id number]-r-[id number] projecting over the right hemithorax with distal tip projecting over the distal superio r vena cava. IMPRESSION: Left basilar atelectasis otherwise no acute cardiopulmonary disease/process. Redemonstration of scattered metastatic pulmonary nodules.
[2022-03-11 13:09] LABS: Anisocytosis Slight; Basophils % (A) 0 %; Eosinophils % (A) 0 %; HCT 33.4 % (34.0-46.0); HGB 10.9 gm/dL (11.4-16.0); Hypochromasia Slight; Lymphocytes # (A) 0.5 k/uL (1.0-4.8); Lymphocytes % (A) 8 %; MCH 34.5 pg (25.0-35.0); MCHC 32.7 g/dL (31.0-37.0); MCV 105.4 fL (80.0-100.0); Macrocytosis Moderate; Mean Platelet Volume 8.6; Monocytes # (A) 0.5 k/uL (0-1.0); Monocytes % (A) 8 %; Neutrophils # (A) 5.4 k/uL (1.3-7.7); Neutrophils % (A) 81 %; Platelet Count 164 k/uL (150-450); Poikilocytosis Slight; RBC 3.17 m/uL (3.80-5.40); RDW 16.6 % (11.5-15.5); WBC 6.6 k/uL (3.8-10.6)
[2022-03-11 13:18] LABS: C Reactive Protein 32.3 mg/dL (<1.0)
--- NOTE | 2022-03-11 13:40 | CT ---
EXAMINATION TYPE: CT angio chest CT DLP: 128.0 mGycm, Automated exposure control for dose reduction was used. DATE OF EXAM: 03/11/2022 1:01 PM COMPARISON: Chest radiograph from same day. CT chest abdomen pelvis 12/13/2021. CLINICAL INDICATION:Female, 61 years old with history of PE; Acute nausea and vomiting TECHNIQUE/CONTRAST: CTA scan of the thorax is performed with IV Contrast, patient injected with 100 mL of Isovue 370, pul monary embolism protocol. MIP images are created and reviewed. FINDINGS: Pulmonary Artery: There is no evidence for a central filling defect within the pulmonary vasculature to suggest acute pulmonary embolism. Limited evaluation of the segmental and subsegmental branches se condary to bolus timing. The pulmonary artery is of normal size. Lungs/Pleura: No pneumothorax. Trace left pleural effusion. Partial atelectasis of the left lower lob e. Redemonstration of scattered pulmonary nodules throughout the lungs from prior examination. Many o f these nodules now have central lucencies within them when compared to prior exam. Index lesions inc lude left upper lobe nodule measures 1.2 cm (series 5, image 36), previously measured 1.2 cm. Right u pper lobe pulmonary nodule measures 0.9 cm (series 5, image 31). Previously measured 1.1 cm right upp er lobe spiculated nodule measures 1.8 cm (series 5, image 45). Previously measured 1.8 cm. No new or enlarging pulmonary nodules. Right lower lobe linear atelectasis. Airway: Large airways are patent. Heart: The heart is mildly enlarged for size. No pericardial effusion. Vasculature: No evidence of aortic aneurysm. Right chest wall Mediport catheter terminates within the superior cavoatrial junction. Mediastinum: Stable subcarinal enlarged lymph node measuring 2.2 x 1.6 cm. Musculoskeletal: No acute osseous abnormalities. No suspicious osseous abnormalities. Soft Tissues: Unremarkable. Lower neck: No significant findings. Upper Abdomen: Postsurgical changes of the liver left hepatic lobe resection. Subtle visualization of 3.3 cm hypodense lesion within the right hepatic lobe (series 4, image 111). Moderate hiatal hernia. Partial visualization of pancreatic body and tail mass. IMPRESSION: 1. No evidence of central pulmonary embolism. Limited evaluation of the segmental and subsegmental br anches. 2. Redemonstration of metastatic pulmonary nodules compared to prior examination with new central elvira encies. These are stable to marginally decreased in size from prior examination and may represent res ponse to treatment. No new or enlarging pulmonary nodules. 3. Partial atelectasis of the left lower lobe. 4. Stable subcarinal metastatic lymph node. 5. Partial visualization of known hepatic lesion and pancreatic body/tail mass. 6. Moderate hiatal hernia.
[2022-03-11] MEDS: MORPHINE SULFATE 4 MG/ML SYRINGE IV PRN ×2 (15:00→23:39)
[2022-03-11] MEDS: POTASSIUM BICARBONATE/CIT AC 20 MEQ TABLET.EFF NG-TUBE SCH ×3 (17:58→18:04)
--- NOTE | 2022-03-11 18:10 | P.PN ---
Subjective Progress Note Date: 03/11/22 Principal diagnosis: low grade fevers, abdominal pain Review of CT abdomen increased abnormality at pancreas. She is weak, a bit slurry in her speech but awakened by me during rounds. Objective - Vital Signs Vital signs: Vital Signs Temp 100 F H 03/11/22 11:30 Pulse 122 H 03/11/22 11:30 Resp 16 03/11/22 11:30 BP 170/106 03/11/22 11:30 Pulse Ox 93 L 03/11/22 11:30 FiO2 Intake & Output 03/10/22 03/11/22 03/11/22 18:59 06:59 18:59 Intake Total 350 Balance 350 Intake: Oral 350 Other: Voiding Method Toilet Toilet Toilet # Voids 1 1 - Exam - Constitutional General appearance: cooperative, mild distress - EENT Eyes: EOMI ENT: NA/AT - Neck Neck: normal ROM - Respiratory Respiratory: bilateral: rhonchi - Cardiovascular Rhythm: regularly irregular - Gastrointestinal General gastrointestinal: distended, tenderness - Integumentary Integumentary: pale - Neurologic Neurologic: CNII-XII intact - Musculoskeletal Musculoskeletal: generalized weakness - Psychiatric Psychiatric: A&O x's 3, appropriate affect, intact judgment & insight - Labs CBC & Chem 7: 03/11/22 12:09 03/11/22 12:09 Labs: Abnormal Lab Results - Last 24 Hours (Table) 03/11/22 03/11/22 03/11/22 Range/Units 05:37 05:37 05:50 RBC 3.17 L (4.10-5.20) X 10*6/uL Hgb 10.5 L (12.0-15.0) g/dL Hct 33.5 L (37.2-46.3) % MCV 105.7 H (80.0-97.0) fL MCH 33.1 H (27.0-32.0) pg MCHC 31.3 L (32.0-37.0) g/dL RDW 16.2 H (11.5-14.5) % Lymphocytes # 0.70 L (0.90-5.00) X 10*3/uL Eosinophils # 0.01 L (0.04-0.35) X 10*3/uL Anion Gap 8.60 L (10.00-18.00) mmol/L BUN 8.4 L (9.0-27.0) mg/dL Calcium 7.9 L (8.7-10.3) mg/dL Total Bilirubin 1.30 H (0.30-1.20) mg/dL Alkaline Phosphatase 164 H (41-126) U/L Total Protein 4.9 L (6.2-8.2) g/dL Albumin 3.0 L (3.8-4.9) g/dL Albumin/Globulin Ratio 1.49 L (1.60-3.17) g/dL Urine Protein 1+ H (Negative) Urine Blood Small H (Negative) Urine RBC 21 H (0-5) /hpf Urine Bacteria Few H (None) /hpf Urine Mucus Occasional H (None) /hpf Microbiology - Last 24 Hours (Table) 03/09/22 21:55 Blood Culture Gram Stain - Preliminary Blood Blood Culture - Preliminary Escherichia coli 03/09/22 22:10 Blood Culture - Preliminary Blood No Growth after 24 hours 03/09/22 21:55 Blood Culture - Final Blood Assessment and Plan Plan: Assessment and Plan (1) Fever Narrative/Plan: Low Grade Chest xray with ddecresed oxygen % documented since admission CTA - Increased hypercoagulale state due to metastatic Cancer Positive Bacteremia ID is following Current Visit: Yes Status: Acute Code(s): R50.9 - FEVER, UNSPECIFIED SNOMED Code(s): 939512196 (2) Hypomagnesemia Narrative/Plan: Recheck today Current Visit: Yes Status: Acute Code(s): E83.42 - HYPOMAGNESEMIA SNOMED Code(s): 053465078 (3) Pancreatitis Current Visit: Yes Status: Acute Code(s): K85.90 - ACUTE PANCREATITIS WITHOUT NECROSIS OR INFECTION, UNSP SNOMED Code(s): 33020730 (4) Macrocytic anemia Narrative/Plan: Recheck B12/folate Likely result of medications and disease to liver Current Visit: Yes Status: Acute Code(s): D53.9 - NUTRITIONAL ANEMIA, UNSPECIFIED SNOMED Code(s): 15465980 (5) Abdominal pain Narrative/Plan: COntinue current regimen Fentanyl and Dilaudid Current Visit: Yes Status: Acute Code(s): R10.9 - UNSPECIFIED ABDOMINAL PAIN SNOMED Code(s): 60734369 (6) Hypokalemia Narrative/Plan: Replaced and improved Monitor Current Visit: Yes Status: Acute Code(s): E87.6 - HYPOKALEMIA SNOMED Code(s): 38797206 (7) Metastatic colon cancer to liver Narrative/Plan: Progressed through multiple lines of therapy, last treatment FOLFIRI and Zaltrep on 02/27/22 - Chemo on hold until resolution of acute infection and hospital acute problems Current Visit: Yes Status: Chronic Priority: Low Code(s): C18.9 - MALIGNANT NEOPLASM OF COLON, UNSPECIFIED; C78.7 - SECONDARY MALIG NEOPLASM OF LIVER AND INTRAHEPATIC BILE DUCT SNOMED Code(s): 587623039 (8) Bacteremia Narrative/Plan: E-coli found inblood culture - ID is following IV antibiotics T Max 100.1 Current Visit: Yes Status: Acute Code(s): R78.81 - BACTEREMIA SNOMED Code(s): 3568833
[2022-03-11] MEDS: POTASSIUM CHLORIDE 20 MEQ in WATER FOR INJECTION 1 100ML.BAG IVPB SCH ×2 (18:57→20:55)
[2022-03-11] MEDS: GABAPENTIN 100 MG CAP PO SCH (20:56)
[2022-03-11] MEDS ORDERED: NON FORMULARY DRUG (Omeprazole [Omeprazole] 20 MG Capsule.Dr) PO SCH (21:00)
[2022-03-11 22:55] LABS: % Iron Saturation 13.52 (12.00-45.00)
--- NOTE | 2022-03-11 23:04 | P.PN ---
Subjective Progress Note Date: 03/11/22 Principal diagnosis: Gram-negative bacteremia Abdominal pain likely related to pancreatitis versus pseudocyst versus tumor Electrolyte imbalance Pancreatic mass 61-year-old female with past medical history of colon cancer metastatic to the liver and lung who presents to the emergency department with nausea vomiting. She is a patient of Dr. Dean. She currently receives chemotherapy every 3 weeks. Her last infusion was on Saturday. The patient has had some left lower quadrant abdominal pain for the past few days and began having nausea and vomi ting with inability to hold down anything to eat or drink. Patient presents and does have a 99 temp. States that she was feeling warm at home. She denies any chest pain or shortness of breath. No cough. No sick contacts. Decreased urination. No diarrhea. She is taking Compazine and Zofran at home without improvement. No other alleviating, precipitating or modifying factors Blood work completed in ED reveals a WBC of 12.4, hemoglobin of 14.2 and platelet count of 219, sodium 135, potassium 2.6, BUN/creatinine of 12/0.52 and blood glucose of 128; lactic acid elevated at 2.6 CT of abdominal pelvis reveals increase in size and mass of the tail of the pancreas which is solid and cystic component concerning for pancreatic tumor and unusual pseudocyst formation fat stranding and fluid in the left anterior pararenal space could be intermittently related to pancreatitis patient did have blood cultures drawn which came back positive with gram-negative bacilli patient is currently being treated with a Zosyn infectious disease was consulted for further management of antibiotic therapy -- CT of the abdomen completed reveals increased abnormality of pancreas ; patient is somewhat weaker today - Patient is a low-grade temperature for 100 and blood pressure is elevated at 170/106 - Blood culture is growing E. coli; IDs on board Patient remains on Zosyn 3.375 g IV daily Objective - Vital Signs Vital signs: Vital Signs Temp 100 F H 03/11/22 11:30 Pulse 120 H 03/11/22 12:21 Resp 16 03/11/22 11:30 BP 170/106 03/11/22 11:30 Pulse Ox 93 L 03/11/22 11:30 FiO2 Intake & Output 03/10/22 03/11/22 03/11/22 18:59 06:59 18:59 Intake Total 350 Balance 350 Intake: Oral 350 Other: Voiding Method Toilet Toilet Toilet # Voids 1 1 - Exam GENERAL DESCRIPTION: Middle-aged female lying in bed, no distress. No tachypnea or accessory muscle of respiration use. HEENT: Shows Pallor , no scleral icterus. Oral mucous membrane is dry. No pharyngeal erythema or thrush NECK: Trachea central, no thyromegaly. LUNGS: Unlabored breathing. Clear to auscultation anteriorly. No wheeze or crackle. HEART: S1, S2, regular rate and rhythm. No loud murmur ABDOMEN: Soft, mild tenderness , no guarding or rigidity EXTREMITIES: No edema of feet. SKIN: No rash, no masses palpable. NEUROLOGICAL: The patient is awake, alert, oriented x3, mood and affect normal. - Labs CBC & Chem 7: 03/11/22 12:09 03/11/22 12:09 Labs: Abnormal Lab Results - Last 24 Hours (Table) 03/11/22 03/11/22 03/11/22 Range/Units 05:37 05:37 05:50 RBC 3.17 L (4.10-5.20) X 10*6/uL Hgb 10.5 L (12.0-15.0) g/dL Hct 33.5 L (37.2-46.3) % MCV 105.7 H (80.0-97.0) fL MCH 33.1 H (27.0-32.0) pg MCHC 31.3 L (32.0-37.0) g/dL RDW 16.2 H (11.5-14.5) % Lymphocytes # 0.70 L (0.90-5.00) X 10*3/uL Eosinophils # 0.01 L (0.04-0.35) X 10*3/uL Anion Gap 8.60 L (10.00-18.00) mmol/L BUN 8.4 L (9.0-27.0) mg/dL Calcium 7.9 L (8.7-10.3) mg/dL Total Bilirubin 1.30 H (0.30-1.20) mg/dL Alkaline Phosphatase 164 H (41-126) U/L Total Protein 4.9 L (6.2-8.2) g/dL Albumin 3.0 L (3.8-4.9) g/dL Albumin/Globulin Ratio 1.49 L (1.60-3.17) g/dL Urine Protein 1+ H (Negative) Urine Blood Small H (Negative) Urine RBC 21 H (0-5) /hpf Urine Bacteria Few H (None) /hpf Urine Mucus Occasional H (None) /hpf Microbiology - Last 24 Hours (Table) 03/09/22 21:55 Blood Culture Gram Stain - Preliminary Blood Blood Culture - Preliminary Escherichia coli 03/09/22 22:10 Blood Culture - Preliminary Blood No Growth after 24 hours 03/09/22 21:55 Blood Culture - Final Blood Assessment and Plan Assessment: 1. Gram-negative bacteremia; initial blood cultures are positive for gram- negative bacilli; final culture and sensitivities pending; patient has been placed on IV Zosyn. We will plan to monitor CBC, CRP, pro-calcitonin; Consult ID for further recommendations 2. Abdominal pain; likely related to pancreatitis versus pseudocyst versus tumor; patient is being evaluated by oncology and ID; pain control as indicated 3. Electrolyte imbalance; hypokalemia/hypomagnesemia; supplemented in ED; we will monitor electrolytes closely 4. Pancreatic mass; tumor versus pseudocyst versus pancreatitis; workup in progress 5. Hypertension; metoprolol 25 mg twice a day, amlodipine 5 mg daily 6. Anxiety/depression; continue with Xanax 1 mg by mouth 3 times a day; [place]ur[place] in 100 mg twice a day; Effexor 75 mg daily 7. COPD; not in exacerbation; we will continue with home inhaler therapy with Symbicort and albuterol as needed 8. Metastatic colon cancer with liver and lung metastases; patient is receiving chemotherapy with last infusion a few days ago; oncology is consulted - Continue with [place] 10 mg every 4 hours when necessary along with home dose of fentanyl patch for pain control; continue with IV morphine for breakthrough pain 9. GERD/gastritis; Carafate 1 g by mouth every before meals and at bedtime and Protonix 40 mg by mouth twice a day DVT prophylaxis; subcu heparin CODE STATUS; full code
[2022-03-12] MEDS: ALBUTEROL NEBULIZED 2.5 MG/3 ML INHALATION SCH ×4 (01:28→20:07)
[2022-03-12] MEDS: PIPERACILLIN-TAZOBACTAM 3.375 GM in SODIUM CHLORIDE 0.9% 100 ML IVPB SCH ×3 (08:48→23:28)
[2022-03-12] MEDS: SUCRALFATE 1 GM TAB PO SCH ×4 (08:49→20:30)
[2022-03-12] MEDS: CHOLECALCIFEROL 25 MCG (1000 IU) TABLET PO SCH (08:49)
[2022-03-12] MEDS: GABAPENTIN 100 MG CAP PO SCH ×2 (08:49→20:30)
[2022-03-12] MEDS: PANTOPRAZOLE 40 MG TABLET PO SCH ×2 (08:49→18:08)
[2022-03-12] MEDS: CYANOCOBALAMIN 500 MCG TAB PO SCH (08:49)
[2022-03-12] MEDS: ALPRAZolam 1 MG TAB PO SCH ×4 (08:49→22:10)
[2022-03-12] MEDS: METOPROLOL TARTRATE 25 MG TAB PO SCH ×2 (08:49→20:30)
[2022-03-12] MEDS: amLODIPine 5 MG TAB PO SCH (08:49)
[2022-03-12] MEDS: VENLAFAXINE HCL ER 75 MG CAP PO SCH (08:50)
[2022-03-12] MEDS: SODIUM CHLORIDE 0.9% 1,000 ML IV SCH ×3 (08:50→20:30)
[2022-03-12 09:16] LABS: Basophils # (A) 0.01 X 10*3/uL (0.00-0.10); Basophils % (A) 0.2 %; Eosinophils # (A) 0.01 X 10*3/uL (0.04-0.35); Eosinophils % (A) 0.2 %; HCT 34.5 % (37.2-46.3); HGB 10.8 g/dL (12.0-15.0); Immature Grans, Automated 0.4 %; Lymphocytes # (A) 0.67 X 10*3/uL (0.90-5.00); Lymphocytes % (A) 12.1 %; MCH 32.5 pg (27.0-32.0); MCHC 31.3 g/dL (32.0-37.0); MCV 103.9 fL (80.0-97.0); Mean Platelet Volume 11.2 fL (9.5-12.2); Monocytes # (A) 0.99 X 10*3/uL (0.20-1.00); Monocytes % (A) 17.8 %; NRBC Per 100 WBC 0 /100 WBCS (0.0-0.0); Neutrophils # (A) 3.86 X 10*3/uL (1.80-7.70); Neutrophils % (A) 69.3 %; Platelet Count 166 X 10*3/uL (140-440); RBC 3.32 X 10*6/uL (4.10-5.20); RDW 16.1 % (11.5-14.5); WBC 5.56 X 10*3/uL (4.50-10.00)
[2022-03-12 09:30] LABS: C Reactive Protein 24.6 mg/dL (0.00-0.80); Magnesium 1.5 mg/dL (1.5-2.4)
[2022-03-12 10:31] LABS: African American GFR (CKD) 128.5 (60.0-200.0); Albumin 3.1 g/dL (3.8-4.9); Albumin/Globulin Ratio 1.41 (1.60-3.17); Anion Gap 11.1 mmol/L (10.00-18.00); Blood Urea Nitrogen 3.6 mg/dL (9.0-27.0); Calcium 8.2 mg/dL (8.7-10.3); Carbon Dioxide 25.9 mmol/L (20.0-27.5); Globulin 2.2 g/dL (1.6-3.3); Non-African American GFR(CKD) 110.8 (60.0-200.0); Potassium 3.3 mmol/L (3.5-5.5); Total Bilirubin 1.5 mg/dL (0.30-1.20); Total Protein 5.3 g/dL (6.2-8.2)
[2022-03-12] MEDS: SYMBICORT 160-4.5 MCG INHALER INHALATION SCH ×2 (11:05→20:07)
[2022-03-12] MEDS ORDERED: Magnesium Replacement Protocol 1 EACH MISC MISCELLANE PRN (11:16)
[2022-03-12] MEDS: NON FORMULARY DRUG (Budesonide [Entocort Ec] 3 MG Capdr...Er) PO SCH (12:05)
[2022-03-12] MEDS: ONDANSETRON 4 MG/2 ML VIAL IVP PRN (12:08)
[2022-03-12] MEDS: POTASSIUM CHLORIDE ER 20 MEQ TAB.ER PO SCH ×2 (12:08→14:14)
[2022-03-12] MEDS: HYDROcodone/APAP 10-325MG 1 EACH TAB PO PRN ×2 (12:08→23:33)
[2022-03-12] MEDS: MAGNESIUM SULFATE-D5W PMX 1 GM in DEXTROSE/WATER 1 100ML.BAG IVPB SCH ×2 (12:09→14:14)
[2022-03-12 15:20] VITALS: BMI 25.4
--- NOTE | 2022-03-12 17:14 | PN ---
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 Patient also had a mass in the tail of the pancreas, possibly inflammatory versus malignant secondary mass with some apparent fluid component on the CT scan also, which was reviewed personally by me. Patient had multiple abnormal labs. The patient is slightly drowsy today. Xanax is being cut down. Past medical history reviewed. REVIEW OF SYSTEMS: CARDIOVASCULAR: No angina. RESPIRATORY SYSTEM: As mentioned earlier. GI: As mentioned earlier. : No dysuria, retention. CURRENT MEDICATIONS: Reviewed. They include Xanax. Doses and the rest of the medications are noted. ALLERGIES: NOTED. PHYSICAL EXAMINATION: Pulse is 93, blood pressure 173/93, respiration 18. HEENT: Conjunctivae normal. NECK: No jugular venous distention. CARDIOVASCULAR: S1, S2 muffled. RESPIRATION: Breath sounds diminished at the bases. ABDOMEN: Soft. Mild distention. Mild diffuse discomfort. No guarding. No rigidity. LEGS: No edema. No swelling. NERVOUS SYSTEM: No focal deficit. LABS: Noted, including the E coli bacteremia, potassium 3.3. ASSESSMENT: 1. Escherichia coli sepsis; primary unknown. 2. Carcinoma of colon with metastases. 3. Pancreatic tail mass; rule out inflammatory mass. 4. History of chronic obstructive pulmonary disease. 5. Multiple medical issues. RECOMMENDATIONS AND DISCUSSION: In this 61-year-old woman who presented with multiple complex medical issues, we will monitor the patient closely, continue the current medications, symptomatic treatment. Will repeat cultures. Infectious Disease has been consulted as well as Pulmonary. The exact nature of the pancreatic mass is unknown. Hematology/Oncology also will be consulted. Amylase and lipase were normal. There is not much clinical indication suggestive of pancreatitis, but we will continue the treatment. See orders for details. Prognosis guarded. As mentioned earlier, broad-spectrum IV antibiotics have been initiated in the form of Zosyn. Further recommendations to follow. Discussed with the patient, who understands and agrees. Cut down the sedatives; the patient is drowsy. MMODL / IJN: [id number] /
--- NOTE | 2022-03-12 23:46 | P.PN ---
Subjective Progress Note Date: 03/11/22 Principal diagnosis: Bacteremia Patient is a 61-year-old female with a past medical history significant for metastatic colon cancer with metastases to the liver and the l jayme in this patient presented to hospital with left upper abdominal pain in this patient did have abnormal CT of abdominal pelvis with increasing mass in the tail of the pancreas and concern for possible pseudocyst formation versus abscess patient did have a positive blood culture. On today's evaluation that is 03/11/2022, the patient did have a low-grade fever of 100F, the patient is breathing comfortably on room air patient left-sided abdominal pain has decreased intensity nausea but no vomiting no diarrhea chest pain shortness of breath or cough Objective - Vital Signs Vital signs: Vital Signs Temp 98.7 F 03/11/22 14:59 Pulse 94 03/11/22 14:59 Resp 16 03/11/22 14:59 BP 165/101 03/11/22 14:59 Pulse Ox 94 L 03/11/22 14:59 FiO2 Intake & Output 03/10/22 03/11/22 03/11/22 18:59 06:59 18:59 Intake Total 350 Balance 350 Intake: Oral 350 Other: Voiding Method Toilet Toilet Toilet # Voids 1 1 - Exam GENERAL DESCRIPTION: Middle-age female lying in bed in no distress RESPIRATORY SYSTEM: Unlabored breathing , decreased breath sounds at bases HEART: S1 S2 regular rate and rhythm , ABDOMEN: Soft , no tenderness EXTREMITIES: No edema feet - Labs CBC & Chem 7: 03/12/22 05:53 03/12/22 05:53 Labs: Abnormal Lab Results - Last 24 Hours (Table) 03/11/22 03/11/22 03/11/22 Range/Units 05:37 05:37 05:50 RBC 3.17 L (4.10-5.20) X 10*6/uL Hgb 10.5 L (12.0-15.0) g/dL Hct 33.5 L (37.2-46.3) % MCV 105.7 H (80.0-97.0) fL MCH 33.1 H (27.0-32.0) pg MCHC 31.3 L (32.0-37.0) g/dL RDW 16.2 H (11.5-14.5) % Lymphocytes # 0.70 L (0.90-5.00) X 10*3/uL Eosinophils # 0.01 L (0.04-0.35) X 10*3/uL Sodium (137-145) mmol/L Potassium (3.5-5.1) mmol/L Anion Gap 8.60 L (10.00-18.00) mmol/L BUN 8.4 L (9.0-27.0) mg/dL Creatinine (0.52-1.04) mg/dL Glucose (74-99) mg/dL Calcium 7.9 L (8.7-10.3) mg/dL Total Bilirubin 1.30 H (0.30-1.20) mg/dL Alkaline Phosphatase 164 H (41-126) U/L C-Reactive Protein (<1.0) mg/dL Total Protein 4.9 L (6.2-8.2) g/dL Albumin 3.0 L (3.8-4.9) g/dL Albumin/Globulin Ratio 1.49 L (1.60-3.17) g/dL Amylase (30-110) U/L Urine Protein 1+ H (Negative) Urine Blood Small H (Negative) Urine RBC 21 H (0-5) /hpf Urine Bacteria Few H (None) /hpf Urine Mucus Occasional H (None) /hpf 03/11/22 03/11/22 Range/Units 12:09 12:09 RBC 3.17 L (4.10-5.20) X 10*6/uL Hgb 10.9 L (12.0-15.0) g/dL Hct 33.4 L (37.2-46.3) % MCV 105.4 H (80.0-97.0) fL MCH (27.0-32.0) pg MCHC (32.0-37.0) g/dL RDW 16.6 H (11.5-14.5) % Lymphocytes # 0.5 L (0.90-5.00) X 10*3/uL Eosinophils # (0.04-0.35) X 10*3/uL Sodium 135 L (137-145) mmol/L Potassium 3.3 L (3.5-5.1) mmol/L Anion Gap (10.00-18.00) mmol/L BUN 6 L (9.0-27.0) mg/dL Creatinine 0.43 L (0.52-1.04) mg/dL Glucose 112 H (74-99) mg/dL Calcium 7.8 L (8.7-10.3) mg/dL Total Bilirubin (0.30-1.20) mg/dL Alkaline Phosphatase (41-126) U/L C-Reactive Protein 32.3 H (<1.0) mg/dL Total Protein (6.2-8.2) g/dL Albumin (3.8-4.9) g/dL Albumin/Globulin Ratio (1.60-3.17) g/dL Amylase <30 L (30-110) U/L Urine Protein (Negative) Urine Blood (Negative) Urine RBC (0-5) /hpf Urine Bacteria (None) /hpf Urine Mucus (None) /hpf Microbiology - Last 24 Hours (Table) 03/09/22 21:55 Blood Culture Gram Stain - Preliminary Blood Blood Culture - Preliminary Escherichia coli 03/09/22 22:10 Blood Culture - Preliminary Blood No Growth after 24 hours 03/09/22 21:55 Blood Culture - Final Blood Assessment and Plan (1) Bacteremia Current Visit: Yes Status: Acute Code(s): R78.81 - BACTEREMIA SNOMED Code(s): 6409383 Plan: 1patient with gram-negative bacteremia in this patient presented to hospital with abdominal pain patient did have an abdominal CT suggestive of possible pancreatic tumor and a pseudocyst possible complicated or infected pseudocyst and likely the source of this bacteremia. 2blood cultures has been repeated document clearance of bacteremia. 3CT will be reviewed with radiologist and if the fluid could be aspirated CT- guided. 4patient will continue with Zosyn 3.375 g every 8 hours to continue while waiting for the ID sensitivity of this pathogen Time with Patient: Less than 30
--- NOTE | 2022-03-12 23:47 | P.PN ---
Subjective Progress Note Date: 03/12/22 Principal diagnosis: Bacteremia Patient is a 61-year-old female with a past medical history significant for metastatic colon cancer with metastases to the liver and the l jayme in this patient presented to hospital with left upper abdominal pain in this patient did have abnormal CT of abdominal pelvis with increasing mass in the tail of the pancreas and concern for possible pseudocyst formation versus abscess patient did have a positive blood culture. On today's evaluation that is 03/12/2022, the patient is afebrile today, the patient is breathing comfortably on room air , patient left-sided abdominal pain has decreased intensity, the patient denies nausea, no vomiting no diarrhea, the patient denies chest pain shortness of breath or cough Objective - Vital Signs Vital signs: Vital Signs Temp 98.3 F 03/12/22 11:36 Pulse 93 03/12/22 11:36 Resp 18 03/12/22 11:36 BP 173/96 03/12/22 11:36 Pulse Ox 96 03/12/22 11:36 FiO2 Intake & Output 03/11/22 03/12/22 03/12/22 18:59 06:59 18:59 Intake Total 1560 240 Balance 1560 240 Weight 65.317 kg Intake: Intake, IV Titration 1560 Amount Sodium Chloride 0.9% 1, 1560 000 ml @ 130 mls/hr IV . [id number] Rx#:[id number] Oral 240 Other: Voiding Method Toilet Toilet Toilet # Voids 3 2 - Exam GENERAL DESCRIPTION: Middle-age female lying in bed in no distress RESPIRATORY SYSTEM: Unlabored breathing , decreased breath sounds at bases HEART: S1 S2 regular rate and rhythm , ABDOMEN: Soft , no tenderness EXTREMITIES: No edema feet - Labs CBC & Chem 7: 03/12/22 05:53 03/12/22 05:53 Labs: Abnormal Lab Results - Last 24 Hours (Table) 03/11/22 03/11/22 03/11/22 Range/Units 12:09 12:09 18:27 RBC (4.10-5.20) X 10*6/uL Hgb (12.0-15.0) g/dL Hct (37.2-46.3) % MCV (80.0-97.0) fL MCH (27.0-32.0) pg MCHC (32.0-37.0) g/dL RDW (11.5-14.5) % Lymphocytes # (0.90-5.00) X 10*3/uL Eosinophils # (0.04-0.35) X 10*3/uL Potassium (3.5-5.5) mmol/L BUN (9.0-27.0) mg/dL Creatinine (0.6-1.5) mg/dL BUN/Creatinine Ratio (12.00-20.00) Ratio Calcium (8.7-10.3) mg/dL Iron 34 L (50-170) ug/dL Transferrin 177.0 L (204.0-354.0) mg/dL Ferritin 660.0 H (10.0-291.0) ng/mL Total Bilirubin (0.30-1.20) mg/dL Alkaline Phosphatase (41-126) U/L C-Reactive Protein (0.00-0.80) mg/dL Total Protein (6.2-8.2) g/dL Albumin (3.8-4.9) g/dL Albumin/Globulin Ratio (1.60-3.17) g/dL Carcinoembryonic Ag (0.0-4.9) ng/mL Vitamin B12 1725.0 H (200.0-944.0) pg/mL Procalcitonin 0.83 H (0.02-0.09) ng/mL 03/11/22 03/12/22 03/12/22 Range/Units 18:27 05:53 05:53 RBC 3.32 L (4.10-5.20) X 10*6/uL Hgb 10.8 L (12.0-15.0) g/dL Hct 34.5 L (37.2-46.3) % MCV 103.9 H (80.0-97.0) fL MCH 32.5 H (27.0-32.0) pg MCHC 31.3 L (32.0-37.0) g/dL RDW 16.1 H (11.5-14.5) % Lymphocytes # 0.67 L (0.90-5.00) X 10*3/uL Eosinophils # 0.01 L (0.04-0.35) X 10*3/uL Potassium (3.5-5.5) mmol/L BUN (9.0-27.0) mg/dL Creatinine (0.6-1.5) mg/dL BUN/Creatinine Ratio (12.00-20.00) Ratio Calcium (8.7-10.3) mg/dL Iron (50-170) ug/dL Transferrin (204.0-354.0) mg/dL Ferritin (10.0-291.0) ng/mL Total Bilirubin (0.30-1.20) mg/dL Alkaline Phosphatase (41-126) U/L C-Reactive Protein (0.00-0.80) mg/dL Total Protein (6.2-8.2) g/dL Albumin (3.8-4.9) g/dL Albumin/Globulin Ratio (1.60-3.17) g/dL Carcinoembryonic Ag 22.1 H (0.0-4.9) ng/mL Vitamin B12 (200.0-944.0) pg/mL Procalcitonin 0.57 H (0.02-0.09) ng/mL 03/12/22 Range/Units 05:53 RBC (4.10-5.20) X 10*6/uL Hgb (12.0-15.0) g/dL Hct (37.2-46.3) % MCV (80.0-97.0) fL MCH (27.0-32.0) pg MCHC (32.0-37.0) g/dL RDW (11.5-14.5) % Lymphocytes # (0.90-5.00) X 10*3/uL Eosinophils # (0.04-0.35) X 10*3/uL Potassium 3.3 L (3.5-5.5) mmol/L BUN 3.6 L (9.0-27.0) mg/dL Creatinine 0.4 L (0.6-1.5) mg/dL BUN/Creatinine Ratio 9.00 L (12.00-20.00) Ratio Calcium 8.2 L (8.7-10.3) mg/dL Iron (50-170) ug/dL Transferrin (204.0-354.0) mg/dL Ferritin (10.0-291.0) ng/mL Total Bilirubin 1.50 H (0.30-1.20) mg/dL Alkaline Phosphatase 179 H (41-126) U/L C-Reactive Protein 24.60 H (0.00-0.80) mg/dL Total Protein 5.3 L (6.2-8.2) g/dL Albumin 3.1 L (3.8-4.9) g/dL Albumin/Globulin Ratio 1.41 L (1.60-3.17) g/dL Carcinoembryonic Ag (0.0-4.9) ng/mL Vitamin B12 (200.0-944.0) pg/mL Procalcitonin (0.02-0.09) ng/mL Microbiology - Last 24 Hours (Table) 03/09/22 22:10 Blood Culture - Preliminary Blood No Growth after 48 hours Assessment and Plan (1) Bacteremia Current Visit: Yes Status: Acute Code(s): R78.81 - BACTEREMIA SNOMED Code(s): 8353448 Plan: 1patient with gram-negative bacteremia in this patient presented to hospital with abdominal pain patient did have an abdominal CT suggestive of possible pancreatic tumor and a pseudocyst possible complicated or infected pseudocyst and likely the source of this bacteremia. 2blood cultures has been repeated and are negative so for. 3CT was reviewed with radiologist and fluid /pancreatic area couldnot be aspirated CT-guided. 4patient will continue with Zosyn 3.375 g every 8 hours to continue while waiting for the ID sensitivity of this pathogen Time with Patient: Less than 30
[2022-03-13] MEDS: ALBUTEROL NEBULIZED 2.5 MG/3 ML INHALATION SCH ×5 (00:29→19:49)
[2022-03-13] MEDS: MORPHINE SULFATE 4 MG/ML SYRINGE IV PRN (03:39)
[2022-03-13 09:06] LABS: Basophils # (A) 0.02 X 10*3/uL (0.00-0.10); Basophils % (A) 0.4 %; Eosinophils # (A) 0.03 X 10*3/uL (0.04-0.35); Eosinophils % (A) 0.6 %; HCT 34.9 % (37.2-46.3); Immature Grans, Automated 0.6 %; Lymphocytes # (A) 0.76 X 10*3/uL (0.90-5.00); Lymphocytes % (A) 16.3 %; MCH 32.4 pg (27.0-32.0); MCHC 31.5 g/dL (32.0-37.0); MCV 102.9 fL (80.0-97.0); Mean Platelet Volume 10.1 fL (9.5-12.2); Monocytes # (A) 1.06 X 10*3/uL (0.20-1.00); Monocytes % (A) 22.8 %; NRBC Per 100 WBC 0 /100 WBCS (0.0-0.0); Neutrophils # (A) 2.75 X 10*3/uL (1.80-7.70); Neutrophils % (A) 59.3 %; Platelet Count 169 X 10*3/uL (140-440); RBC 3.39 X 10*6/uL (4.10-5.20); WBC 4.65 X 10*3/uL (4.50-10.00)
[2022-03-13 09:15] LABS: African American GFR (CKD) 127.9 (60.0-200.0); Anion Gap 11.1 mmol/L (10.00-18.00); BUN/Creat Ratio 7.83 Ratio (12.00-20.00); Blood Urea Nitrogen 3.2 mg/dL (9.0-27.0); Calcium 7.9 mg/dL (8.7-10.3); Carbon Dioxide 26.1 mmol/L (20.0-27.5); Magnesium 1.8 mg/dL (1.5-2.4); Non-African American GFR(CKD) 110.3 (60.0-200.0); Potassium 3.4 mmol/L (3.5-5.5)
[2022-03-13] MEDS: PIPERACILLIN-TAZOBACTAM 3.375 GM in SODIUM CHLORIDE 0.9% 100 ML IVPB SCH ×2 (09:22→16:49)
[2022-03-13] MEDS: CYANOCOBALAMIN 500 MCG TAB PO SCH (09:23)
[2022-03-13] MEDS: CHOLECALCIFEROL 25 MCG (1000 IU) TABLET PO SCH (09:23)
[2022-03-13] MEDS: GABAPENTIN 100 MG CAP PO SCH ×2 (09:23→22:20)
[2022-03-13] MEDS: SUCRALFATE 1 GM TAB PO SCH ×4 (09:23→22:20)
[2022-03-13] MEDS: METOPROLOL TARTRATE 25 MG TAB PO SCH ×2 (09:24→22:20)
[2022-03-13] MEDS: PANTOPRAZOLE 40 MG TABLET PO SCH ×2 (09:24→16:49)
[2022-03-13] MEDS: VENLAFAXINE HCL ER 75 MG CAP PO SCH (09:24)
[2022-03-13] MEDS: amLODIPine 5 MG TAB PO SCH (09:24)
[2022-03-13] MEDS: ALPRAZolam 1 MG TAB PO SCH ×3 (09:38→22:20)
[2022-03-13] MEDS ORDERED: Magnesium Replacement Protocol 1 EACH MISC MISCELLANE PRN (09:57)
[2022-03-13] MEDS ORDERED: Potassium Replacement Protocol 1 EACH MISC MISCELLANE PRN (09:57)
[2022-03-13] MEDS: SYMBICORT 160-4.5 MCG INHALER INHALATION SCH ×2 (11:01→19:20)
--- NOTE | 2022-03-13 12:18 | P.CNPUL ---
History of Present Illness Consult date: 03/13/22 Requesting physician: Roni Almaguer Chief complaint: History of COPD History of present illness: 61-year-old female patient with past medical history of COPD, metastatic colon cancer to the liver and lung currently receiving chemotherapy every 3 weeks. Patient had her last therapy infusion a week ago Saturday. She has developed some left lower quadrant and left upper quadrant abdominal pain for the past few days and began having nausea and vomiting. She was not able to hold anything down. Denies any pulmonary complaints, no cough, no wheeze. No chest discomfort. CT abdomen and pelvis with contrast showed increase in the size of the mass in the tail of the pancreas which is solid and cystic components. There was fat stranding and fluid in the left anterior pararenal space that could relate to pancreatitis. There was a low-density mass in the right lobe of the liver was unchanged compared to previous CT of the abdomen, and right lower lobe noncalcified nodule without change, small bowel mesenteric vessel encasement due to tumor and adenopathy was unchanged. Cystic changes in the posterior pancreatic head appeared improved compared to old exam. Chest x-ray showed left basilar atelectasis otherwise no acute cardiopulmonary disease. And redemonstration of scattered metastatic pulmonary nodules. CTA chest showed no evidence of central pulmonary embolism, although the evaluation of the segmental and subsegmental branches was limited. Redemonstration of metastatic pulmonary nodules compared to prior exam with new central lucencies. No new or enlarging pulmonary nodules, there was partial atelectasis of the left lower lobe, stable subcarinal metastatic lymph node and moderate hiatal hernia. Patient continues on her home inhalers including Symbicort and albuterol. Her COPD seems to be s table. She was started on empiric antibiotics with Zosyn and she is receiving IV fluids 0.9 normal saline at a rate of 130 ML per hour, she is on clear liquid diet, blood culture from 03/09/2022 was positive for E. coli. Admission labs showed a white blood cell count of 12.4, hemoglobin of 14.2, serum potassium was 2.6, CO2 is 31, renal profile was within normal limits with a BUN of 12 and creatinine 0.52, lactic acid was 2.6 on admission, currently improved and is down to 1.6, AST and ALT were within normal limits, alk phos was 198. Initial serum procalcitonin level was 0.83, currently improved and is down to 0.57, urinalysis showed no evidence of infection. Review of Systems All systems: negative Constitutional: Denies chills, Denies fever Eyes: denies blurred vision, denies pain Ears, nose, mouth and throat: Denies headache, Denies sore throat Cardiovascular: Denies chest pain, Denies shortness of breath Respiratory: Denies cough Gastrointestinal: Reports abdominal pain, Denies diarrhea, Denies nausea, Denies vomiting Genitourinary: Denies dysuria, Denies hematuria Musculoskeletal: Denies myalgias Integumentary: Denies pruritus, Denies rash Neurological: Denies numbness, Denies weakness Psychiatric: Denies anxiety, Denies depression Endocrine: Denies fatigue, Denies weight change Past Medical History Past Medical History: Cancer, COPD, GERD/Reflux, Hyperlipidemia, Hypertension, Osteoarthritis (OA) Additional Past Medical History / Comment(s): Metastatic colon cancer, 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 Past Anesthesia/Blood Transfusion Reactions: No Reported Reaction Past Psychological History: Anxiety, Depression, Panic Disorder Smoking Status: Former smoker Past Alcohol Use History: None Reported Past Drug Use History: None Reported - Past Family History Father Family Medical History: Diabetes Mellitus, Myocardial Infarction ([place]) Additional Family Medical History / Comment(s): at age 62-mulitple mi's Mother Family Medical History: Cancer Additional Family Medical History / Comment(s): BREAST. from sepsis Medications and Allergies Home Medications Medication Instructions Recorded Confirmed Type ALPRAZolam [Xanax] 1 mg PO TID 03/01/21 03/10/22 History Budesonide/Formoterol Fumarate 2 puff INHALATION RT-BID 03/01/21 03/10/22 History [Symbicort 160-4.5 Mcg Inhaler] Cholestyramine (with Sugar) 4 gm PO BID PRN 03/01/21 03/10/22 History [Cholestyramine Packet] Metoprolol Tartrate [Lopressor] 25 mg PO BID 03/01/21 03/10/22 History Ondansetron Odt [Zofran ODT] 4 mg PO Q6H PRN 03/01/21 03/10/22 History Prochlorperazine [Compazine] 10 mg PO Q6H PRN 03/01/21 03/10/22 History Venlafaxine HCl [Effexor XR] 75 mg PO DAILY 03/01/21 03/10/22 History fentaNYL 75MCG/HR PATCH [Duragesic 1 patch TRANSDERM Q72H #2 patch 08/19/21 03/10/22 Rx 75MCG/HR] Albuterol Sulfate [Proair Hfa] 2 puff INHALATION RT-QID PRN 03/10/22 03/10/22 History Budesonide [Entocort EC] 3 mg PO DAILY 03/10/22 03/10/22 History Cholecalciferol [Vitamin D3 (25 50 mcg PO DAILY 03/10/22 03/10/22 History Mcg = 1000 Iu)] Cyanocobalamin (Vitamin B-12) 1,000 mcg PO DAILY 03/10/22 03/10/22 History [Vitamin B-12] Gabapentin [Neurontin] 100 mg PO BID 03/10/22 03/10/22 History HYDROcodone/APAP 10-325MG [Oaks 1 tab PO Q4H PRN 03/10/22 03/10/22 History 10-325] Magic 5 ml PO QID PRN 03/10/22 03/10/22 History Mouthwas(Ta/Lido/Maalox/Nyst) Omeprazole 20 mg PO BID 03/10/22 03/10/22 History amLODIPine [Norvasc] 5 mg PO DAILY 03/10/22 03/10/22 History Allergies Allergy/AdvReac Type Severity Reaction Status Date / Time acyclovir AdvReac Severe Confusion Verified 03/09/22 20:48 Physical Exam Vitals: Vital Signs Temp Pulse Pulse Resp BP Pulse Ox 03/13/22 11:07 98.1 F 100 16 124/84 92 L 03/13/22 09:50 98.4 F 106 H 16 163/98 03/13/22 05:00 99.7 F H 96 16 162/98 90 L 03/12/22 20:19 95 03/12/22 20:07 94 03/12/22 19:54 99.1 F 98 16 160/95 90 L 03/12/22 16:25 92 L Intake and Output 03/12/22 03/13/22 03/13/22 22:59 06:59 14:59 Intake Total 1000 Balance 1000 Intake: Oral 1000 Other: Voiding Method Toilet Toilet # Voids 4 2 Weight 65.317 kg GENERAL EXAM: Alert, very pleasant, 61-year-old white female, on room air with a pulse ox of 92%, comfortable in no apparent distress. HEAD: Normocephalic/atraumatic. EYES: Normal reaction of pupils, equal size. Conjunctiva pink, sclera white. NOSE: Clear with pink turbinates. THROAT: No erythema or exudates. NECK: No masses, no JVD, no thyroid enlargement, no adenopathy. CHEST: No chest wall deformity. Symmetrical expansion. LUNGS: Equal air entry with no crackles, wheeze, rhonchi or dullness. CVS: Regular rate and rhythm, normal S1 and S2, no gallops, no murmurs, no rubs ABDOMEN: Soft, nontender to palpation over left upper, left mid and left lower quadrant. No hepatosplenomegaly, normal bowel sounds, no rigidity. EXTREMITIES: No clubbing, no edema, no cyanosis, 2+ pulses and upper and lower extremities. MUSCULOSKELETAL: Muscle strength and tone normal. SPINE: No scoliosis or deformity SKIN: No rashes CENTRAL NERVOUS SYSTEM: Alert and oriented -3. No focal deficits, tone is normal in all 4 extremities. PSYCHIATRIC: Alert and oriented -3. Appropriate affect. Intact judgment and insight. Results - Laboratory Findings CBC and BMP: 03/13/22 04:20 03/13/22 04:20 Abnormal lab findings: Abnormal Labs 03/09/22 03/09/22 03/09/22 22:10 22:10 22:12 WBC 12.4 H RBC Hgb Hct MCV 102.3 H MCH MCHC RDW 16.7 H Neutrophils # 10.7 H Lymphocytes # 0.8 L Monocytes # Eosinophils # Sodium 135 L Potassium 2.6 L* Chloride 93 L Carbon Dioxide 31 H Anion Gap BUN Creatinine BUN/Creatinine Ratio Glucose 128 H Plasma Lactic Acid Florentino 2.6 H* Calcium Magnesium Iron Transferrin Ferritin Total Bilirubin 1.5 H Alkaline Phosphatase 198 H C-Reactive Protein Total Protein Albumin Albumin/Globulin Ratio Amylase Carcinoembryonic Ag Vitamin B12 Procalcitonin Urine Protein Urine Blood Urine RBC Urine Bacteria Urine Mucus 03/10/22 03/10/22 03/10/22 00:49 05:46 05:46 WBC 11.8 H RBC 3.70 L Hgb Hct MCV 104.5 H MCH MCHC RDW 16.7 H Neutrophils # 10.3 H Lymphocytes # 0.6 L Monocytes # Eosinophils # Sodium 135 L Potassium 2.5 L* Chloride 97 L Carbon Dioxide Anion Gap BUN Creatinine 0.48 L BUN/Creatinine Ratio Glucose 116 H Plasma Lactic Acid Florentino Calcium 8.3 L Magnesium 1.3 L Iron Transferrin Ferritin Total Bilirubin Alkaline Phosphatase C-Reactive Protein Total Protein Albumin Albumin/Globulin Ratio Amylase Carcinoembryonic Ag Vitamin B12 Procalcitonin Urine Protein Urine Blood Urine RBC Urine Bacteria Urine Mucus 03/11/22 03/11/22 03/11/22 05:37 05:37 05:50 WBC RBC 3.17 L Hgb 10.5 L Hct 33.5 L MCV 105.7 H MCH 33.1 H MCHC 31.3 L RDW 16.2 H Neutrophils # Lymphocytes # 0.70 L Monocytes # Eosinophils # 0.01 L Sodium Potassium Chloride Carbon Dioxide Anion Gap 8.60 L BUN 8.4 L Creatinine BUN/Creatinine Ratio Glucose Plasma Lactic Acid Florentino Calcium 7.9 L Magnesium Iron Transferrin Ferritin Total Bilirubin 1.30 H Alkaline Phosphatase 164 H C-Reactive Protein Total Protein 4.9 L Albumin 3.0 L Albumin/Globulin Ratio 1.49 L Amylase Carcinoembryonic Ag Vitamin B12 Procalcitonin Urine Protein 1+ H Urine Blood Small H Urine RBC 21 H Urine Bacteria Few H Urine Mucus Occasional H 03/11/22 03/11/22 03/11/22 12:09 12:09 12:09 WBC RBC 3.17 L Hgb 10.9 L Hct 33.4 L MCV 105.4 H MCH MCHC RDW 16.6 H Neutrophils # Lymphocytes # 0.5 L Monocytes # Eosinophils # Sodium 135 L Potassium 3.3 L Chloride Carbon Dioxide Anion Gap BUN 6 L Creatinine 0.43 L BUN/Creatinine Ratio Glucose 112 H Plasma Lactic Acid Florentino Calcium 7.8 L Magnesium Iron Transferrin Ferritin Total Bilirubin Alkaline Phosphatase C-Reactive Protein 32.3 H Total Protein Albumin Albumin/Globulin Ratio Amylase <30 L Carcinoembryonic Ag Vitamin B12 1725.0 H Procalcitonin 0.83 H Urine Protein Urine Blood Urine RBC Urine Bacteria Urine Mucus 03/11/22 03/11/22 03/12/22 18:27 18:27 05:53 WBC RBC Hgb Hct MCV MCH MCHC RDW Neutrophils # Lymphocytes # Monocytes # Eosinophils # Sodium Potassium Chloride Carbon Dioxide Anion Gap BUN Creatinine BUN/Creatinine Ratio Glucose Plasma Lactic Acid Florentino Calcium Magnesium Iron 34 L Transferrin 177.0 L Ferritin 660.0 H Total Bilirubin Alkaline Phosphatase C-Reactive Protein Total Protein Albumin Albumin/Globulin Ratio Amylase Carcinoembryonic Ag 22.1 H Vitamin B12 Procalcitonin 0.57 H Urine Protein Urine Blood Urine RBC Urine Bacteria Urine Mucus 03/12/22 03/12/22 03/13/22 05:53 05:53 04:20 WBC RBC 3.32 L 3.39 L Hgb 10.8 L 11.0 L Hct 34.5 L 34.9 L MCV 103.9 H 102.9 H MCH 32.5 H 32.4 H MCHC 31.3 L 31.5 L RDW 16.1 H 16.0 H Neutrophils # Lymphocytes # 0.67 L 0.76 L Monocytes # 1.06 H Eosinophils # 0.01 L 0.03 L Sodium Potassium 3.3 L Chloride Carbon Dioxide Anion Gap BUN 3.6 L Creatinine 0.4 L BUN/Creatinine Ratio 9.00 L Glucose Plasma Lactic Acid Florentino Calcium 8.2 L Magnesium Iron Transferrin Ferritin Total Bilirubin 1.50 H Alkaline Phosphatase 179 H C-Reactive Protein 24.60 H Total Protein 5.3 L Albumin 3.1 L Albumin/Globulin Ratio 1.41 L Amylase Carcinoembryonic Ag Vitamin B12 Procalcitonin Urine Protein Urine Blood Urine RBC Urine Bacteria Urine Mucus 03/13/22 04:20 WBC RBC Hgb Hct MCV MCH MCHC RDW Neutrophils # Lymphocytes # Monocytes # Eosinophils # Sodium Potassium 3.4 L Chloride Carbon Dioxide Anion Gap BUN 3.2 L Creatinine 0.4 L BUN/Creatinine Ratio 7.83 L Glucose Plasma Lactic Acid Florentino Calcium 7.9 L Magnesium Iron Transferrin Ferritin Total Bilirubin Alkaline Phosphatase C-Reactive Protein Total Protein Albumin Albumin/Globulin Ratio Amylase Carcinoembryonic Ag Vitamin B12 Procalcitonin Urine Protein Urine Blood Urine RBC Urine Bacteria Urine Mucus - Diagnostic Findings Chest x-ray: report reviewed, image reviewed Additional studies: CT of the abdomen and pelvis, CT angiogram of the chest reviewed Assessment and Plan Plan: Assessment: #1. Acute abdominal pain related to pancreatic tail mass and possibility of pancreatitis #2. E. coli bacteremia, with unknown source #3. Metastatic colon cancer with metastasis to the lungs and liver currently on chemotherapy #4. History of COPD #5. Hypokalemia, corrected #6. Hypomagnesemia, improved #7. Lactic acidosis, improved with IV fluid resuscitation #8. Former smoker #9. Anxiety and depression #10. History of hypertension #11. Hyperlipidemia #12. Osteoarthritis Plan: Chest x-ray, CTA chest and labs are reviewed Patient was seen and evaluated at the bedside Her COPD stable Continue Symbicort and albuterol ID service recommendations were antibiotics Follow-up blood cultures remain negative Medical oncology recommendations Continue to follow I have personally seen and examined the patient, performed the documentation and the assessment and plan as written. Number of minutes spent on the visit: [15] Time with Patient: Greater than 30
--- NOTE | 2022-03-13 14:54 | PN ---
PROGRESS NOTE DATE OF SERVICE: 03/13/2022 This 61-year-old woman who was admitted with Escherichia coli and sepsis is being closely monitored. The most recent cultures which were done twenty second are negative. No chest pain. No palpitations. No fever. CT scan noted. PHYSICAL EXAMINATION: Pulse is 100. Blood pressure 124/84. Respirations 16. HEENT: Conjunctivae normal. Neck: No JVD. Cardiovascular: S1, S2. Respiration: Breath sounds diminished in the bases. Abdomen soft, minimal discomfort on the left side. Nervous system: No focal deficits. LABS: WBC 4.2, hemoglobin 11. Other labs are noted. ASSESSMENT: 1. E coli sepsis primary unknown. 2. CA of the colon with metastasis. 3. Pancreatic tail mass, rule out inflammatory mass or malignancy or secondary. 4. History of chronic obstructive pulmonary disease. 5. Multiple medical issues. RECOMMENDATIONS AND DISCUSSION: Recommend to continue current medications, management and symptomatic treatment. Continue the antibiotics. Infectious Disease and Hematology/ Oncology evaluation. Replace potassium. Guarded prognosis. Further recommendations to follow. MMODL / IJN: [id number] /
[2022-03-13] MEDS: NON FORMULARY DRUG (Budesonide [Entocort Ec] 3 MG Capdr...Er) PO SCH (16:33)
[2022-03-13] MEDS: 0.9% NACL WITH KCL 20 MEQ/L 1,000 ML IV SCH (16:49)
[2022-03-13] MEDS: POTASSIUM CHLORIDE ER 20 MEQ TAB.ER PO SCH ×2 (16:49→16:51)
[2022-03-13] MEDS: SODIUM CHLORIDE 0.9% 1,000 ML IV SCH (16:50)
[2022-03-13] MEDS: MAG HYDROX/AL HYDROX/SIMETH 30 ML, diphenhydrAMINE ELIXIR 75 MG, LIDOCAINE VISCOUS 2% 3... PO SCH ×3 (22:25)
--- NOTE | 2022-03-13 22:44 | P.PN ---
Subjective Progress Note Date: 03/13/22 Principal diagnosis: abd pain, vomiting, fever In f/u today pt cont to feel unwell in general, she has c/o tiredness, no appetite, no recent vomiting, cough is congested, diarrhea is watery, no blood, abd pain is less. Objective - Vital Signs Vital signs: Vital Signs Temp 99.3 F 03/13/22 20:24 Pulse 104 H 03/13/22 20:24 Resp 16 03/13/22 20:24 BP 137/85 03/13/22 20:24 Pulse Ox 91 L 03/13/22 20:24 FiO2 Intake & Output 03/13/22 03/13/22 03/14/22 06:59 18:59 06:59 Other: Voiding Method Toilet Toilet # Voids 2 - Constitutional General appearance: Present: average body habitus, cooperative, no acute distress - EENT EENT Comment(s): oral mucosa red Eyes: Present: anicteric sclerae, EOMI ENT: Present: hearing grossly normal - Respiratory Respiratory: bilateral: diminished, other (congested cough) - Cardiovascular Rhythm: regular Heart sounds: normal: S1, S2 Abnormal Heart Sounds: Absent: systolic murmur, diastolic murmur, rub, S3 Gallop, S4 Gallop, click, other - Gastrointestinal General gastrointestinal: Present: normal bowel sounds, soft, tenderness (left lower quadrant). Absent: absent bowel sounds, decreased bowel sounds, distended, hepatomegaly, hyperactive bowel sounds, organomegaly, rigid, scaphoid, splenomegaly, umbilical hernia, ventral hernia - Neurologic Neurologic: Present: CNII-XII intact - Musculoskeletal Musculoskeletal: Present: generalized weakness - Psychiatric Psychiatric: Present: A&O x's 3, appropriate affect, intact judgment & insight - Labs CBC & Chem 7: 03/13/22 04:20 03/13/22 04:20 Labs: Abnormal Lab Results - Last 24 Hours (Table) 03/13/22 03/13/22 Range/Units 04:20 04:20 RBC 3.39 L (4.10-5.20) X 10*6/uL Hgb 11.0 L (12.0-15.0) g/dL Hct 34.9 L (37.2-46.3) % MCV 102.9 H (80.0-97.0) fL MCH 32.4 H (27.0-32.0) pg MCHC 31.5 L (32.0-37.0) g/dL RDW 16.0 H (11.5-14.5) % Lymphocytes # 0.76 L (0.90-5.00) X 10*3/uL Monocytes # 1.06 H (0.20-1.00) X 10*3/uL Eosinophils # 0.03 L (0.04-0.35) X 10*3/uL Potassium 3.4 L (3.5-5.5) mmol/L BUN 3.2 L (9.0-27.0) mg/dL Creatinine 0.4 L (0.6-1.5) mg/dL BUN/Creatinine Ratio 7.83 L (12.00-20.00) Ratio Calcium 7.9 L (8.7-10.3) mg/dL Microbiology - Last 24 Hours (Table) 03/12/22 17:52 Blood Culture - Preliminary Blood No Growth after 24 hours 03/09/22 21:55 Blood Culture Gram Stain - Final Blood Blood Culture - Final Escherichia coli 03/12/22 19:58 Urine Culture - Preliminary Urine,Clean Catch 03/09/22 22:10 Blood Culture - Preliminary Blood No Growth after 72 hours - Imaging and Cardiology CT scan - chest: report reviewed (no PE, pulm nodules stable) Assessment and Plan (1) Bacteremia Current Visit: Yes Status: Acute Priority: High Code(s): R78.81 - BACTEREMIA SNOMED Code(s): 0839599 (2) Abdominal pain Current Visit: Yes Status: Acute Priority: High Code(s): R10.9 - UNSPECIFIED ABDOMINAL PAIN SNOMED Code(s): 04132063 (3) Metastatic colon cancer to liver Current Visit: Yes Status: Chronic Priority: Low Code(s): C18.9 - MALIGNANT NEOPLASM OF COLON, UNSPECIFIED; C78.7 - SECONDARY MALIG NEOPLASM OF LIVER AND INTRAHEPATIC BILE DUCT SNOMED Code(s): 831145178 Plan: E coli blood culture, on abx, fever pattern starting to mario. Pt is on supportive medications for symptoms, IVF Pending stool studies CTA neg for PE, stable, slightly improved mets. Kools ordered for oral irritation Colon adeno treatment on hold for current acute condition
[2022-03-14] MEDS: PIPERACILLIN-TAZOBACTAM 3.375 GM in SODIUM CHLORIDE 0.9% 100 ML IVPB SCH ×3 (01:21→15:09)
[2022-03-14] MEDS: HYDROcodone/APAP 10-325MG 1 EACH TAB PO PRN ×3 (05:59→17:04)
[2022-03-14] MEDS: SYMBICORT 160-4.5 MCG INHALER INHALATION SCH ×2 (07:35→19:48)
[2022-03-14] MEDS: ALBUTEROL NEBULIZED 2.5 MG/3 ML INHALATION SCH ×3 (07:35→19:48)
[2022-03-14] MEDS: CHOLECALCIFEROL 25 MCG (1000 IU) TABLET PO SCH (08:26)
[2022-03-14] MEDS: PANTOPRAZOLE 40 MG TABLET PO SCH ×2 (08:26→17:04)
[2022-03-14] MEDS: SUCRALFATE 1 GM TAB PO SCH ×4 (08:26→20:18)
[2022-03-14] MEDS: GABAPENTIN 100 MG CAP PO SCH ×2 (08:26→20:17)
[2022-03-14] MEDS: amLODIPine 5 MG TAB PO SCH (08:26)
[2022-03-14] MEDS: METOPROLOL TARTRATE 25 MG TAB PO SCH ×2 (08:26→20:18)
[2022-03-14] MEDS: CYANOCOBALAMIN 500 MCG TAB PO SCH (08:26)
[2022-03-14] MEDS: NON FORMULARY DRUG (Budesonide [Entocort Ec] 3 MG Capdr...Er) PO SCH (08:27)
[2022-03-14] MEDS: ALPRAZolam 1 MG TAB PO SCH ×3 (08:27→22:55)
[2022-03-14] MEDS: VENLAFAXINE HCL ER 75 MG CAP PO SCH (08:28)
[2022-03-14] MEDS: MAG HYDROX/AL HYDROX/SIMETH 30 ML, diphenhydrAMINE ELIXIR 75 MG, LIDOCAINE VISCOUS 2% 3... PO SCH ×9 (08:29→22:54)
[2022-03-14] MEDS: MAGNESIUM SULFATE-D5W PMX 1 GM in DEXTROSE/WATER 1 100ML.BAG IVPB SCH ×2 (10:04→11:06)
[2022-03-14 12:13] LABS: African American GFR (CKD) >90 (>60 ml/min/1.73 sqM); Anion Gap 6 mmol/L; Blood Urea Nitrogen 4 mg/dL (7-17); Calcium 8.2 mg/dL (8.4-10.2); Carbon Dioxide 26 mmol/L (22-30); Chloride 101 mmol/L (98-107); Glucose 84 mg/dL (74-99); Non-African American GFR(CKD) >90 (>60 ml/min/1.73 sqM); Potassium 3.6 mmol/L (3.5-5.1); Sodium 133 mmol/L (137-145)
--- NOTE | 2022-03-14 12:24 | P.PN ---
Subjective 61-year-old female with past medical history of colon cancer metastatic to the liver and lung who presents to the emergency department with nausea vomiting. She is a patient of Dr. Dean. She currently receives chemotherapy every 3 weeks. Her last infusion was on Saturday. The patient has had some left lower quadrant abdominal pain for the past few days and began having nausea and vomiting with inability to hold down anything to eat or drink. Patient presents and does have a 99 temp. States that she was feeling warm at home. She denies any chest pain or shortness of breath. No cough. No sick contacts. Decreased urination. No diarrhea. She is taking Compazine and Zofran at home without improvement. No other alleviating, precipitating or modifying factors Blood work completed in ED reveals a WBC of 12.4, hemoglobin of 14.2 and platelet count of 219, sodium 135, potassium 2.6, BUN/creatinine of 12/0.52 and blood glucose of 128; lactic acid elevated at 2.6 CT of abdominal pelvis reveals increase in size and mass of the tail of the pancreas which is solid and cystic component concerning for pancreatic tumor and unusual pseudocyst formation fat stranding and fluid in the left anterior pararenal space could be intermittently related to pancreatitis patient did have blood cultures drawn which came back positive with gram-negative bacilli patient [facility] was consulted for further management of antibiotic therapy 03/14/2022 Patient is awake and alert she feels generally weak She still complaining of from left lower quadrant abdominal pain about 8/10 associated with diarrhea She tolerates liquid diet with no nausea vomiting. She is hemodynamically stable. labs stable. She still tachycardic around 100, she had low-grade fever of 99.7. Progressive vitals are stable. proCalcitonin remains at 0.57. She remains on Zosyn and normal saline at 50 mL per hour. Objective - Vital Signs Vital signs: Vital Signs Temp 98.5 F 03/14/22 05:00 Pulse 101 H 03/14/22 05:00 Resp 16 03/14/22 05:00 BP 160/97 03/14/22 05:00 Pulse Ox 95 03/14/22 07:36 FiO2 Intake & Output 03/13/22 03/14/22 03/14/22 18:59 06:59 18:59 Intake Total 800 Balance 800 Intake: Intake, IV Titration 800 Amount 0.9% NaCl with KCl 20 Meq 600 /l 1,000 ml @ 50 mls/hr IV .Q20H [facility] Rx#: [id number] Piperacillin-Tazobactam 3 200 .375 gm In Sodium Chloride 0.9% 100 ml @ 25 mls/hr IVPB Q8HR [facility] Rx# :[id number] Other: Voiding Method Toilet Toilet Toilet # Bowel Movements 4 - Exam GENERAL: The patient is alert and oriented x3, not in any acute distress. Well developed, well nourished. HEENT: Pupils are round and equally reacting to light. EOMI. No scleral icterus. No conjunctival pallor. Normocephalic, atraumatic. No pharyngeal erythema. No thyromegaly. CARDIOVASCULAR: S1 and S2 present. No murmurs, rubs, or gallops. PULMONARY: Chest is clear to auscultation, no wheezing or crackles. -ABDOMEN: Soft, mild LLQ every tenderness with no rebound tenderness or guarding.. No palpable organomegaly. MUSCULOSKELETAL: No joint swelling or deformity. EXTREMITIES: No cyanosis, clubbing, or pedal edema. NEUROLOGICAL: Gross neurological examination did not reveal any focal deficits. SKIN: No rashes. no petechiae. - Labs CBC & Chem 7: 03/13/22 04:20 03/14/22 05:33 Labs: Microbiology - Last 24 Hours (Table) 03/12/22 19:58 Urine Culture - Final Urine,Clean Catch 03/13/22 20:43 Stool Culture - Preliminary Stool 03/09/22 22:10 Blood Culture - Preliminary Blood No Growth after 96 hours 03/12/22 17:52 Blood Culture - Preliminary Blood No Growth after 24 hours 03/09/22 21:55 Blood Culture Gram Stain - Final Blood Blood Culture - Final Escherichia coli Assessment and Plan Assessment: Pancreatic tail mass Metastatic colon cancer to the lungs and liver Iron deficiency anemia E coli bacteremia most likely secondary to intra-abdominal source History of osteoarthritis History of GERD Plan: This is a pleasant 61 years old female who presents with E. coli bacteremia and possible pancreatic mass. Continue with Zosyn Continue with normal saline at 50 mL per hour Follow-up culture results left hematology/oncology team on the case. Labs and medication were reviewed.. Continue same treatment. Continue with symptomatic treatment. Resume home medication. Monitor lytes and vitals. DVT and GI prophylaxis. Further recommendationsas per clinical course of the patient DVT prophylaxis: Subcutaneous heparin GI Prophylaxis: Ppi PT/OT: Pending Prognosis is guarded
--- NOTE | 2022-03-14 12:43 | P.PN ---
Subjective Progress Note Date: 03/14/22 Principal diagnosis: Abdominal pain 61-year-old female patient with past medical history of COPD, metastatic colon cancer to the liver and lung currently receiving chemotherapy every 3 weeks. Patient had her last therapy infusion a week ago Saturday. She has developed some left lower quadrant and left upper quadrant abdominal pain for the past few days and began having nausea and vomiting. She was not able to hold anything down. Denies any pulmonary complaints, no cough, no wheeze. No chest discomfort. CT abdomen and pelvis with contrast showed increase in the size of the mass in the tail of the pancreas which is solid and cystic components. There was fat stranding and fluid in the left anterior pararenal space that could relate to pancreatitis. There was a low-density mass in the right lobe of the liver was unchanged compared to previous CT of the abdomen, and right lower lobe noncalcified nodule without change, small bowel mesenteric vessel encasement due to tumor and adenopathy was unchanged. Cystic changes in the posterior pancreatic head appeared improved compared to old exam. Chest x-ray showed left basilar atelectasis otherwise no acute cardiopulmonary disease. And redemonstration of scattered metastatic pulmonary nodules. CTA chest showed no evidence of central pulmonary embolism, although the evaluation of the segmental and subsegmental branches was limited. Redemonstration of metastatic pulmonary nodules compared to prior exam with new central lucencies. No new or enlarging pulmonary nodules, there was partial atelectasis of the left lower lobe, stable subcarinal metastatic lymph node and moderate hiatal hernia. Patient continues on her home inhalers including Symbicort and albuterol. Her COPD seems to be stable. She was started on empiric antibiotics with Zosyn and she is receiving IV fluids 0.9 normal saline at a rate of 130 ML per hour, she is on clear liquid diet, blood culture from 03/09/2022 was positive for E. coli. Admission labs showed a white blood cell count of 12.4, hemoglobin of 14.2, serum potassium was 2.6, CO2 is 31, renal profile was within normal limits with a BUN of 12 and creatinine 0.52, lactic acid was 2.6 on admission, currently improved and is down to 1.6, AST and ALT were within normal limits, alk phos was 198. Initial serum procalcitonin level was 0.83, currently improved and is down to 0.57, urinalysis showed no evidence of infection. On 03/14/2022 patient seen in follow-up on medical surgical floor. She states she feels about the same, she is on 2 L of oxygen per pulse ox is 90-95%, no pulmonary complaints whatsoever, no shortness of breath, no coughing or wheezing. Low-grade fever today, with a T-max of 99.2F, overall her fever pattern has improved since admission. Patient continues on IV hydration with 0.9 normal saline with KCl of 20 any acute per liter. A 50 ML per hour. She remains on Zosyn for empiric antibiotic coverage. She did have a blood culture that was positive for E. coli on admission, follow-up blood cultures were negative, urine culture showed no growth, urine culture has also been sent. Follow-up serum pro calcitonin has improved and was down to 0.57 from 0.83. Today's labs have been reviewed, serum sodium is 133, potassium 3.6, BUN is 4, creatinine 0.40. No vomiting, patient is tolerating clear liquid diet. Abdomen is soft, but tender in the left lower quadrant. Patient is having watery diarrhea Objective - Vital Signs Vital signs: Vital Signs Temp 99.2 F 03/14/22 11:04 Pulse 100 03/14/22 11:16 Resp 16 03/14/22 11:04 BP 117/79 03/14/22 11:04 Pulse Ox 90 L 03/14/22 11:04 FiO2 Intake & Output 03/13/22 03/14/22 03/14/22 18:59 06:59 18:59 Intake Total 800 Balance 800 Intake: Intake, IV Titration 800 Amount 0.9% NaCl with KCl 20 Meq 600 /l 1,000 ml @ 50 mls/hr IV .Q20H [facility] Rx#: [id number] Piperacillin-Tazobactam 3 200 .375 gm In Sodium Chloride 0.9% 100 ml @ 25 mls/hr IVPB Q8HR [facility] Rx# :[id number] Other: Voiding Method Toilet Toilet Toilet # Bowel Movements 4 - Exam GENERAL EXAM: Alert, very pleasant, 61-year-old white female, on room air with a pulse ox of 90%, comfortable in no apparent distress. HEAD: Normocephalic/atraumatic. EYES: Normal reaction of pupils, equal size. Conjunctiva pink, sclera white. NOSE: Clear with pink turbinates. THROAT: No erythema or exudates. NECK: No masses, no JVD, no thyroid enlargement, no adenopathy. CHEST: No chest wall deformity. Symmetrical expansion. LUNGS: Equal air entry with no crackles, wheeze, rhonchi or dullness. CVS: Regular rate and rhythm, normal S1 and S2, no gallops, no murmurs, no rubs ABDOMEN: Soft, nontender to palpation over left upper, left mid and left lower quadrant. No hepatosplenomegaly, normal bowel sounds, no rigidity. EXTREMITIES: No clubbing, no edema, no cyanosis, 2+ pulses and upper and lower extremities. MUSCULOSKELETAL: Muscle strength and tone normal. SPINE: No scoliosis or deformity SKIN: No rashes CENTRAL NERVOUS SYSTEM: Alert and oriented -3. No focal deficits, tone is normal in all 4 extremities. PSYCHIATRIC: Alert and oriented -3. Appropriate affect. Intact judgment and insight. - Labs CBC & Chem 7: 03/13/22 04:20 03/14/22 05:33 Labs: Abnormal Lab Results - Last 24 Hours (Table) 03/14/22 Range/Units 05:33 Sodium 133 L (137-145) mmol/L BUN 4 L (7-17) mg/dL Creatinine 0.40 L (0.52-1.04) mg/dL Calcium 8.2 L (8.4-10.2) mg/dL Microbiology - Last 24 Hours (Table) 03/12/22 19:58 Urine Culture - Final Urine,Clean Catch 03/13/22 20:43 Stool Culture - Preliminary Stool 03/09/22 22:10 Blood Culture - Preliminary Blood No Growth after 96 hours 03/12/22 17:52 Blood Culture - Preliminary Blood No Growth after 24 hours 03/09/22 21:55 Blood Culture Gram Stain - Final Blood Blood Culture - Final Escherichia coli Assessment and Plan Plan: Assessment: #1. Acute abdominal pain related to pancreatic tail mass and possibility of pancreatitis #2. E. coli bacteremia, with unknown source #3. Metastatic colon cancer with metastasis to the lungs and liver currently on chemotherapy #4. History of COPD #5. Hypokalemia, corrected #6. Hypomagnesemia, improved #7. Lactic acidosis, improved with IV fluid resuscitation #8. Former smoker #9. Anxiety and depression #10. History of hypertension #11. Hyperlipidemia #12. Osteoarthritis Plan: Continue current medical treatment Antibiotics per ID service No pulmonary complaints Her COPD stable Continue Symbicort and albuterol Medical oncology recommendations Continue to follow I have personally seen and examined the patient, performed the documentation and the assessment and plan as written. Number of minutes spent on the visit: [15] Time with Patient: Less than 30
[2022-03-14] MEDS: 0.9% NACL WITH KCL 20 MEQ/L 1,000 ML IV SCH (13:16)
[2022-03-14] MEDS ORDERED: POTASSIUM CHLORIDE ER 20 MEQ TAB.ER PO SCH (14:00)
--- NOTE | 2022-03-14 16:14 | P.PN ---
Subjective Progress Note Date: 03/14/22 Principal diagnosis: abd pain, vomiting, fever In f/u today pt much improved, more interactive, she is tolerating liquids and soft foods, no bleeding, abd pain is less but persists in the LLQ Objective - Vital Signs Vital signs: Vital Signs Temp 99.2 F 03/14/22 11:04 Pulse 100 03/14/22 11:16 Resp 16 03/14/22 11:04 BP 117/79 03/14/22 11:04 Pulse Ox 90 L 03/14/22 11:04 FiO2 Intake & Output 03/13/22 03/14/22 03/14/22 18:59 06:59 18:59 Intake Total 800 Balance 800 Intake: Intake, IV Titration 800 Amount 0.9% NaCl with KCl 20 Meq 600 /l 1,000 ml @ 50 mls/hr IV .Q20H [facility] Rx#: [id number] Piperacillin-Tazobactam 3 200 .375 gm In Sodium Chloride 0.9% 100 ml @ 25 mls/hr IVPB Q8HR [facility] Rx# :[id number] Other: Voiding Method Toilet Toilet Toilet # Bowel Movements 4 - Constitutional General appearance: Present: average body habitus, cooperative, no acute distress - EENT Eyes: Present: EOMI ENT: Present: hearing grossly normal, normal oropharynx - Respiratory Respiratory: bilateral: CTA, diminished - Cardiovascular Rhythm: regular Heart sounds: normal: S1, S2 Abnormal Heart Sounds: Absent: systolic murmur, diastolic murmur, rub, S3 Gallop, S4 Gallop, click, other - Gastrointestinal General gastrointestinal: Present: normal bowel sounds, soft Localized gastrointestinal: tender: LLQ - Integumentary Integumentary: Present: pale - Neurologic Neurologic: Present: CNII-XII intact - Musculoskeletal Musculoskeletal: Present: generalized weakness - Psychiatric Psychiatric: Present: A&O x's 3, appropriate affect, intact judgment & insight - Labs CBC & Chem 7: 03/13/22 04:20 03/14/22 05:33 Labs: Abnormal Lab Results - Last 24 Hours (Table) 03/14/22 Range/Units 05:33 Sodium 133 L (137-145) mmol/L BUN 4 L (7-17) mg/dL Creatinine 0.40 L (0.52-1.04) mg/dL Calcium 8.2 L (8.4-10.2) mg/dL Microbiology - Last 24 Hours (Table) 03/12/22 19:58 Urine Culture - Final Urine,Clean Catch 03/13/22 20:43 Stool Culture - Preliminary Stool 03/09/22 22:10 Blood Culture - Preliminary Blood No Growth after 96 hours 03/12/22 17:52 Blood Culture - Preliminary Blood No Growth after 24 hours 03/09/22 21:55 Blood Culture Gram Stain - Final Blood Blood Culture - Final Escherichia coli Assessment and Plan (1) Bacteremia Current Visit: Yes Status: Acute Priority: High Code(s): R78.81 - BACTEREMIA SNOMED Code(s): 1649563 (2) Abdominal pain Current Visit: Yes Status: Acute Priority: High Code(s): R10.9 - UNSPECIFIED ABDOMINAL PAIN SNOMED Code(s): 14956643 (3) Metastatic colon cancer to liver Current Visit: Yes Status: Chronic Priority: Low Code(s): C18.9 - MALIGNANT NEOPLASM OF COLON, UNSPECIFIED; C78.7 - SECONDARY MALIG NEOPLASM OF LIVER AND INTRAHEPATIC BILE DUCT SNOMED Code(s): 149540850 Plan: E coli blood culture, on abx, fever pattern starting to mario. ID has seen, pending sensitivity and transition to oral abx. Pending stool studies CTA neg for PE, stable, slightly improved mets. CT AP mixed solid/cystic pancreatic nodule. Cont to follow for now. Kools ordered for oral irritation Pt reports going home, staff reports rehab. Treatment will be on hold until after rehab is she ends up participating. Office f/u next week scheduled Tried to call daughter, no answer
[2022-03-14] MEDS: MORPHINE SULFATE 4 MG/ML SYRINGE IV PRN (19:40)
[2022-03-14] MEDS: HEPARIN SODIUM,PORCINE/PF 5,000 UNIT/0.5 ML SYRINGE SQ SCH (20:18)
--- NOTE | 2022-03-14 22:33 | P.PN ---
Subjective Progress Note Date: 03/13/22 Principal diagnosis: Bacteremia Patient is a 61-year-old female with a past medical history significant for metastatic colon cancer with metastases to the liver and the l jayme in this patient presented to hospital with left upper abdominal pain in this patient did have abnormal CT of abdominal pelvis with increasing mass in the tail of the pancreas and concern for possible pseudocyst formation versus abscess patient did have a positive blood culture. On today's evaluation that is 03/13/2022 patient did have a low-grade fever of 99.7F , patient is complaining of some shortness of breath and has been on supplemental oxygen, patient has abdominal pain has improved some nausea but no vomiting and no diarrhea no chest pain or cough Objective - Vital Signs Vital signs: Vital Signs Temp 98.1 F 03/13/22 11:07 Pulse 100 03/13/22 11:07 Resp 16 03/13/22 11:07 BP 124/84 03/13/22 11:07 Pulse Ox 92 L 03/13/22 11:07 FiO2 Intake & Output 03/12/22 03/13/22 03/13/22 18:59 06:59 18:59 Intake Total 1000 Balance 1000 Weight 65.317 kg Intake: Oral 1000 Other: Voiding Method Toilet Toilet Toilet # Voids 4 2 - Exam GENERAL DESCRIPTION: Middle-age female lying in bed in no distress RESPIRATORY SYSTEM: Unlabored breathing , decreased breath sounds at bases HEART: S1 S2 regular rate and rhythm , ABDOMEN: Soft , no tenderness EXTREMITIES: No edema feet - Labs CBC & Chem 7: 03/13/22 04:20 03/14/22 05:33 Labs: Abnormal Lab Results - Last 24 Hours (Table) 03/13/22 03/13/22 Range/Units 04:20 04:20 RBC 3.39 L (4.10-5.20) X 10*6/uL Hgb 11.0 L (12.0-15.0) g/dL Hct 34.9 L (37.2-46.3) % MCV 102.9 H (80.0-97.0) fL MCH 32.4 H (27.0-32.0) pg MCHC 31.5 L (32.0-37.0) g/dL RDW 16.0 H (11.5-14.5) % Lymphocytes # 0.76 L (0.90-5.00) X 10*3/uL Monocytes # 1.06 H (0.20-1.00) X 10*3/uL Eosinophils # 0.03 L (0.04-0.35) X 10*3/uL Potassium 3.4 L (3.5-5.5) mmol/L BUN 3.2 L (9.0-27.0) mg/dL Creatinine 0.4 L (0.6-1.5) mg/dL BUN/Creatinine Ratio 7.83 L (12.00-20.00) Ratio Calcium 7.9 L (8.7-10.3) mg/dL Microbiology - Last 24 Hours (Table) 03/12/22 19:58 Urine Culture - Preliminary Urine,Clean Catch 03/09/22 22:10 Blood Culture - Preliminary Blood No Growth after 72 hours Assessment and Plan (1) Bacteremia Current Visit: Yes Status: Acute Priority: High Code(s): R78.81 - BACTEREMIA SNOMED Code(s): 1015106 Plan: 1patient with gram-negative bacteremia in this patient presented to hospital with abdominal pain patient did have an abdominal CT suggestive of possible pancreatic tumor and a pseudocyst possible complicated or infected pseudocyst and likely the source of this bacteremia. 2blood cultures has been repeated and are negative so for. 3CT was reviewed with radiologist and fluid /pancreatic area couldnot be aspirated CT-guided. 4patient to continue with the Zosyn while monitoring clinical course closely Time with Patient: Less than 30
--- NOTE | 2022-03-14 22:35 | P.PN ---
Subjective Progress Note Date: 03/14/22 Principal diagnosis: Bacteremia Patient is a 61-year-old female with a past medical history significant for metastatic colon cancer with metastases to the liver and the l jayme in this patient presented to hospital with left upper abdominal pain in this patient did have abnormal CT of abdominal pelvis with increasing mass in the tail of the pancreas and concern for possible pseudocyst formation versus abscess patient did have a positive blood culture. On today's evaluation that is 03/14/2022 patient is afebrile, patient is breathing comfortably today, denies having any chest pain occasional cough, no sputum production And abdominal pain has decreased intensity some nausea but no vomiting no abdominal pain and no diarrhea Objective - Vital Signs Vital signs: Vital Signs Temp 99.2 F 03/14/22 11:04 Pulse 100 03/14/22 11:16 Resp 16 03/14/22 11:04 BP 117/79 03/14/22 11:04 Pulse Ox 90 L 03/14/22 11:04 FiO2 Intake & Output 03/13/22 03/14/22 03/14/22 18:59 06:59 18:59 Intake Total 800 Balance 800 Intake: Intake, IV Titration 800 Amount 0.9% NaCl with KCl 20 Meq 600 /l 1,000 ml @ 50 mls/hr IV .Q20H [facility] Rx#: [id number] Piperacillin-Tazobactam 3 200 .375 gm In Sodium Chloride 0.9% 100 ml @ 25 mls/hr IVPB Q8HR [facility] Rx# :[id number] Other: Voiding Method Toilet Toilet Toilet # Bowel Movements 4 - Exam GENERAL DESCRIPTION: Middle-age female lying in bed in no distress RESPIRATORY SYSTEM: Unlabored breathing , decreased breath sounds at bases HEART: S1 S2 regular rate and rhythm , ABDOMEN: Soft , no tenderness EXTREMITIES: No edema feet - Labs CBC & Chem 7: 03/13/22 04:20 03/14/22 05:33 Labs: Abnormal Lab Results - Last 24 Hours (Table) 03/14/22 Range/Units 05:33 Sodium 133 L (137-145) mmol/L BUN 4 L (7-17) mg/dL Creatinine 0.40 L (0.52-1.04) mg/dL Calcium 8.2 L (8.4-10.2) mg/dL Microbiology - Last 24 Hours (Table) 03/12/22 19:58 Urine Culture - Final Urine,Clean Catch 03/13/22 20:43 Stool Culture - Preliminary Stool 03/09/22 22:10 Blood Culture - Preliminary Blood No Growth after 96 hours 03/12/22 17:52 Blood Culture - Preliminary Blood No Growth after 24 hours 03/09/22 21:55 Blood Culture Gram Stain - Final Blood Blood Culture - Final Escherichia coli Assessment and Plan (1) Bacteremia Current Visit: Yes Status: Acute Priority: High Code(s): R78.81 - BACTEREMIA SNOMED Code(s): 1265582 Plan: 1patient with gram-negative bacteremia in this patient presented to hospital with abdominal pain patient did have an abdominal CT suggestive of possible pancreatic tumor and a pseudocyst possible complicated or infected pseudocyst and likely the source of this bacteremia. 2blood cultures has been repeated and are negative so for. 3CT was reviewed with radiologist and fluid /pancreatic area couldnot be aspirated CT-guided. 4patient has shown clinical improvement and E. coli is sensitive to Zosyn which will be continued planning for at least 2 weeks course of antibiotic therapy Time with Patient: Less than 30
[2022-03-15] MEDS: PIPERACILLIN-TAZOBACTAM 3.375 GM in SODIUM CHLORIDE 0.9% 100 ML IVPB SCH ×3 (00:18→16:44)
[2022-03-15] MEDS: 0.9% NACL WITH KCL 20 MEQ/L 1,000 ML IV SCH ×3 (04:38→12:52)
[2022-03-15] MEDS: ACETAMINOPHEN TAB 325 MG TAB PO PRN (05:05)
[2022-03-15] MEDS: MORPHINE SULFATE 4 MG/ML SYRINGE IV PRN ×3 (05:15→19:59)
[2022-03-15 06:42] LABS: Magnesium 1.6 mg/dL (1.6-2.3); Potassium 3.4 mmol/L (3.5-5.1)
[2022-03-15] MEDS: CYANOCOBALAMIN 500 MCG TAB PO SCH (08:26)
[2022-03-15] MEDS: CHOLECALCIFEROL 25 MCG (1000 IU) TABLET PO SCH (08:26)
[2022-03-15] MEDS: METOPROLOL TARTRATE 25 MG TAB PO SCH ×2 (08:26→19:57)
[2022-03-15] MEDS: amLODIPine 5 MG TAB PO SCH (08:26)
[2022-03-15] MEDS: SUCRALFATE 1 GM TAB PO SCH ×4 (08:26→19:57)
[2022-03-15] MEDS: GABAPENTIN 100 MG CAP PO SCH ×2 (08:26→19:57)
[2022-03-15] MEDS: PANTOPRAZOLE 40 MG TABLET PO SCH ×2 (08:26→16:44)
[2022-03-15] MEDS: VENLAFAXINE HCL ER 75 MG CAP PO SCH (08:27)
[2022-03-15] MEDS: HEPARIN SODIUM,PORCINE/PF 5,000 UNIT/0.5 ML SYRINGE SQ SCH ×2 (08:27→19:56)
[2022-03-15] MEDS: MAG HYDROX/AL HYDROX/SIMETH 30 ML, diphenhydrAMINE ELIXIR 75 MG, LIDOCAINE VISCOUS 2% 3... PO SCH ×9 (08:29→19:58)
[2022-03-15] MEDS: ALBUTEROL NEBULIZED 2.5 MG/3 ML INHALATION SCH ×3 (08:54→20:43)
[2022-03-15] MEDS: SYMBICORT 160-4.5 MCG INHALER INHALATION SCH ×2 (08:54→20:43)
[2022-03-15] MEDS: ALBUTEROL NEBULIZED 2.5 MG/3 ML INHALATION PRN ×2 (08:54→16:00)
[2022-03-15] MEDS: ALPRAZolam 1 MG TAB PO SCH ×3 (09:03→19:57)
--- NOTE | 2022-03-15 10:53 | P.PN ---
Subjective Progress Note Date: 03/15/22 61-year-old female patient with past medical history of COPD, metastatic colon cancer to the liver and lung currently receiving chemotherapy every 3 weeks. Patient had her last therapy infusion a week ago Saturday. She has developed some left lower quadrant and left upper quadrant abdominal pain for the past few days and began having nausea and vomiting. She was not able to hold anything down. Denies any pulmonary complaints, no cough, no wheeze. No chest discomfort. CT abdomen and pelvis with contrast showed increase in the size of the mass in the tail of the pancreas which is solid and cystic components. There was fat stranding and fluid in the left anterior pararenal space that could relate to pancreatitis. There was a low-density mass in the right lobe of the liver was unchanged compared to previous CT of the abdomen, and right lower lobe noncalcified nodule without change, small bowel mesenteric vessel encasement due to tumor and adenopathy was unchanged. Cystic changes in the p osterior pancreatic head appeared improved compared to old exam. Chest x-ray showed left basilar atelectasis otherwise no acute cardiopulmonary disease. And redemonstration of scattered metastatic pulmonary nodules. CTA chest showed no evidence of central pulmonary embolism, although the evaluation of the segmental and subsegmental branches was limited. Redemonstration of metastatic pulmonary nodules compared to prior exam with new central lucencies. No new or enlarging pulmonary nodules, there was partial atelectasis of the left lower lobe, stable subcarinal metastatic lymph node and moderate hiatal hernia. Patient continues on her home inhalers including Symbicort and albuterol. Her COPD seems to be stable. She was started on empiric antibiotics with Zosyn and she is receiving IV fluids 0.9 normal saline at a rate of 130 ML per hour, she is on clear liquid diet, blood culture from 03/09/2022 was positive for E. coli. Admission labs showed a white blood cell count of 12.4, hemoglobin of 14.2, serum potassium was 2.6, CO2 is 31, renal profile was within normal limits with a BUN of 12 and creatinine 0.52, lactic acid was 2.6 on admission, currently improved and is down to 1.6, AST and ALT were within normal limits, alk phos was 198. Initial serum procalcitonin level was 0.83, currently improved and is down to 0.57, urinalysis showed no evidence of infection. On 03/14/2022 patient seen in follow-up on medical surgical floor. She states she feels about the same, she is on 2 L of oxygen per pulse ox is 90-95%, no pulmonary complaints whatsoever, no shortness of breath, no coughing or wheezing. Low-grade fever today, with a T-max of 99.2F, overall her fever macy kevin has improved since admission. Patient continues on IV hydration with 0.9 normal saline with KCl of 20 any acute per liter. A 50 ML per hour. She remains on Zosyn for empiric antibiotic coverage. She did have a blood culture that was positive for E. coli on admission, follow-up blood cultures were negative, urine culture showed no growth, urine culture has also been sent. Follow-up serum pro calcitonin has improved and was down to 0.57 from 0.83. Today's labs have been reviewed, serum sodium is 133, potassium 3.6, BUN is 4, creatinine 0.40. No vomiting, patient is tolerating clear liquid diet. Abdomen is soft, but tender in the left lower quadrant. Patient is having watery diarrh ea The patient is seen today 03/15/2022 in follow-up on the regular medical floor. She is currently resting comfortably in bed. Awake and alert in no acute distress. She is maintaining good O2 saturations in the 90s on 2 L/m per nasal cannula. She did spike a fever earlier this morning 100.2. Blood culture was positive for E. coli. Urine culture revealed no growth. Stool culture pending. Potassium 3.4. Magnesium 1.6. She remains on Zosyn. Continues with some discomfort in the left lower quadrant. Objective - Vital Signs Vital signs: Vital Signs Temp 100.2 F H 03/15/22 05:00 Pulse 90 03/15/22 09:11 Resp 16 03/15/22 05:00 BP 143/91 03/15/22 05:00 Pulse Ox 92 L 03/15/22 05:00 FiO2 Intake & Output 03/14/22 03/15/22 03/15/22 18:59 06:59 18:59 Intake Total 600 360 Balance 600 360 Intake: Oral 600 360 Other: Voiding Method Toilet Toilet # Voids 2 3 - Exam GENERAL EXAM: Alert, very pleasant, 61-year-old female patient, on 2 L nasal cannula, comfortable in no apparent distress. HEAD: Normocephalic/atraumatic. EYES: Normal reaction of pupils, equal size. Conjunctiva pink, sclera white. NOSE: Clear with pink turbinates. THROAT: No erythema or exudates. NECK: No masses, no JVD, no thyroid enlargement, no adenopathy. CHEST: No chest wall deformity. Symmetrical expansion. LUNGS: Equal air entry with no crackles, wheeze, rhonchi or dullness. CVS: Regular rate and rhythm, normal S1 and S2, no gallops, no murmurs, no rubs ABDOMEN: Soft, tender to palpation over left upper, left mid and left lower quadrant. EXTREMITIES: No clubbing, no edema, no cyanosis, 2+ pulses and upper and lower extremities. MUSCULOSKELETAL: Muscle strength and tone normal. SPINE: No scoliosis or deformity SKIN: No rashes CENTRAL NERVOUS SYSTEM: No focal deficits, tone is normal in all 4 extremities. PSYCHIATRIC: Alert and oriented -3. Appropriate affect. Intact judgment and insight. - Labs CBC & Chem 7: 03/13/22 04:20 03/15/22 05:53 Labs: Abnormal Lab Results - Last 24 Hours (Table) 03/14/22 03/15/22 Range/Units 05:33 05:53 Sodium 133 L (137-145) mmol/L Potassium 3.4 L (3.5-5.1) mmol/L BUN 4 L (7-17) mg/dL Creatinine 0.40 L (0.52-1.04) mg/dL Calcium 8.2 L (8.4-10.2) mg/dL Microbiology - Last 24 Hours (Table) 03/09/22 22:10 Blood Culture - Preliminary Blood No Growth after 120 hours 03/12/22 17:52 Blood Culture - Preliminary Blood No Growth after 48 hours 03/12/22 19:58 Urine Culture - Final Urine,Clean Catch Assessment and Plan Assessment: 1 Acute abdominal pain related to pancreatic tail mass and possibility of pancreatitis 2 E. coli bacteremia, with unknown source 3 Metastatic colon cancer with metastasis to the lungs and liver currently on chemotherapy 4 History of COPD 5 Hypokalemia, corrected 6 Hypomagnesemia, improved 7 Lactic acidosis, improved with IV fluid resuscitation 8 Former smoker 9 Anxiety and depression 10 History of hypertension 11 Hyperlipidemia 12 Osteoarthritis Plan: The patient was seen and evaluated Stable from the pulmonary standpoint Continue bronchodilators Continue antibiotics per ID services Increase activity as tolerated We will continue to follow I have personally seen and examined the patient, performed the documentation and the assessment and plan as written. Number of minutes spent on the visit: 10.
[2022-03-15] MEDS: POTASSIUM CHLORIDE ER 20 MEQ TAB.ER PO SCH ×2 (12:38→13:53)
[2022-03-15] MEDS: MAGNESIUM SULFATE-D5W PMX 1 GM in DEXTROSE/WATER 1 100ML.BAG IVPB SCH ×2 (12:39→13:53)
[2022-03-15 16:08] LABS: Amylase 41 U/L (30-110); Lipase 156 U/L (23-300)
[2022-03-15 16:41] LABS: Magnesium 2.5 mg/dL (1.6-2.3); Potassium 3.8 mmol/L (3.5-5.1)
[2022-03-15] MEDS: HYDROcodone/APAP 10-325MG 1 EACH TAB PO PRN (16:49)
[2022-03-15] MEDS ORDERED: POTASSIUM CHLORIDE ER 20 MEQ TAB.ER PO SCH (18:00)
[2022-03-15] MEDS: NON FORMULARY DRUG (Budesonide [Entocort Ec] 3 MG Capdr...Er) PO SCH (19:57)
--- NOTE | 2022-03-15 21:24 | P.PN ---
Subjective 61-year-old female with past medical history of colon cancer metastatic to the liver and lung who presents to the emergency department with nausea vomiting. She is a patient of Dr. Dean. She currently receives chemotherapy every 3 weeks. Her last infusion was on Saturday. The patient has had some left lower quadrant abdominal pain for the past few days and began having nausea and vomiting with inability to hold down anything to eat or drink. Patient presents and does have a 99 temp. States that she was feeling warm at home. She denies any chest pain or shortness of breath. No cough. No sick contacts. Decreased urination. No diarrhea. She is taking Compazine and Zofran at home without improvement. No other alleviating, precipitating or modifying factors Blood work completed in ED reveals a WBC of 12.4, hemoglobin of 14.2 and platelet count of 219, sodium 135, potassium 2.6, BUN/creatinine of 12/0.52 and blood glucose of 128; lactic acid elevated at 2.6 CT of abdominal pelvis reveals increase in size and mass of the tail of the pancreas which is solid and cystic component concerning for pancreatic tumor and unusual pseudocyst formation fat stranding and fluid in the left anterior pararenal space could be intermittently related to pancreatitis patient did have blood cultures drawn which came back positive with gram-negative bacilli patient is currently being treated with a Frida infectious disease was consulted for further management of antibiotic therapy 03/14/2022 Patient is awake and alert she feels generally weak She still complaining of from left lower quadrant abdominal pain about 8/10 associated with diarrhea She tolerates liquid diet with no nausea vomiting. She is hemodynamically stable. labs stable. She still tachycardic around 100, she had low-grade fever of 99.7. Progressive vitals are stable. proCalcitonin remains at 0.57. She remains on Zosyn and normal saline at 50 mL per hour. 03/15/2022 pt is improving slowly and gradually , no significant dyspnea at rest , her oxygen saturation is 97% on room air pt is eating well ,while on liquid diet, still has abdominal pain in the left lo wer quadrant, about 7/10 compared to 8/10 yesterday she had fever to day at 100.2 pt remains hemodynamically stable labs are reviewed she remains on zosyn and normal salaine at 50 ml per hour, with plan to switch to oral antibiotics upon discharge Objective - Vital Signs Vital signs: Vital Signs Temp 98.7 F 03/15/22 19:38 Pulse 88 03/15/22 20:56 Resp 18 03/15/22 19:38 BP 116/73 03/15/22 19:38 Pulse Ox 94 L 03/15/22 19:38 FiO2 Intake & Output 03/15/22 03/15/22 03/16/22 06:59 18:59 06:59 Intake Total 360 800 Balance 360 800 Weight 65.317 kg Intake: Intake, IV Titration 800 Amount 0.9% NaCl with KCl 20 Meq 600 /l 1,000 ml @ 50 mls/hr IV .Q20H ROULA Rx#: [id number] Magnesium Sulfate-D5w Pmx 200 1 gm In Dextrose/Water 1 100ml.bag @ 100 mls/hr IVPB Q1H ROULA Rx#: [id number] Oral 360 Other: Voiding Method Toilet Toilet Toilet # Voids 3 - Exam GENERAL: The patient is alert and oriented x3, not in any acute distress. Well developed, well nourished. HEENT: Pupils are round and equally reacting to light. EOMI. No scleral icterus. No conjunctival pallor. Normocephalic, atraumatic. No pharyngeal erythema. No thyromegaly. CARDIOVASCULAR: S1 and S2 present. No murmurs, rubs, or gallops. PULMONARY: Chest is clear to auscultation, no wheezing or crackles. -ABDOMEN: Soft, mild LLQ every tenderness with no rebound tenderness or guarding.. No palpable organomegaly. MUSCULOSKELETAL: No joint swelling or deformity. EXTREMITIES: No cyanosis, clubbing, or pedal edema. NEUROLOGICAL: Gross neurological examination did not reveal any focal deficits. SKIN: No rashes. no petechiae. - Labs CBC & Chem 7: 03/13/22 04:20 03/15/22 15:27 Labs: Abnormal Lab Results - Last 24 Hours (Table) 03/15/22 03/15/22 Range/Units 05:53 15:27 Potassium 3.4 L (3.5-5.1) mmol/L Magnesium 2.5 H (1.6-2.3) mg/dL Microbiology - Last 24 Hours (Table) 03/12/22 17:52 Blood Culture - Preliminary Blood No Growth after 72 hours 03/09/22 22:10 Blood Culture - Preliminary Blood No Growth after 120 hours Assessment and Plan Assessment: Pancreatic tail mass Metastatic colon cancer to the lungs and liver Iron deficiency anemia E coli bacteremia most likely secondary to intra-abdominal source History of osteoarthritis History of GERD Plan: This is a pleasant 61 years old female who presents with E. coli bacteremia and possible pancreatic mass. Continue with Zosyn Continue with normal saline at 50 mL per hour Follow-up culture results hematology/oncology , ID and pulmonary teams on the case. Labs and medication were reviewed.. Continue same treatment. Continue with symptomatic treatment. Resume home medication. Monitor lytes and vitals. DVT and GI prophylaxis. Further recommendations as per clinical course of the p atient DVT prophylaxis: Subcutaneous heparin GI Prophylaxis: Ppi PT/OT: Pending Prognosis is guarded
--- NOTE | 2022-03-15 23:03 | P.PN ---
Subjective Progress Note Date: 03/15/22 Principal diagnosis: Bacteremia Patient is a 61-year-old female with a past medical history significant for metastatic colon cancer with metastases to the liver and the l jayme in this patient presented to hospital with left upper abdominal pain in this patient did have abnormal CT of abdominal pelvis with increasing mass in the tail of the pancreas and concern for possible pseudocyst formation versus abscess patient did have a positive blood culture. On today's evaluation that is 02/17/2022 patient remains to be afebrile, patient is breathing comfortably on room air, the patient dnies having any chest pain occasional cough, no sputum production And abdominal pain has decreased intensity some nausea but no vomiting no abdominal pain and no diarrhea Objective - Vital Signs Vital signs: Vital Signs Temp 100.2 F H 03/15/22 05:00 Pulse 90 03/15/22 09:11 Resp 16 03/15/22 05:00 BP 143/91 03/15/22 05:00 Pulse Ox 92 L 03/15/22 05:00 FiO2 Intake & Output 03/14/22 03/15/22 03/15/22 18:59 06:59 18:59 Intake Total 600 360 Balance 600 360 Intake: Oral 600 360 Other: Voiding Method Toilet Toilet Toilet # Voids 2 3 - Exam GENERAL DESCRIPTION: Middle-age female lying in bed in no distress RESPIRATORY SYSTEM: Unlabored breathing , decreased breath sounds at bases HEART: S1 S2 regular rate and rhythm , ABDOMEN: Soft , no tenderness EXTREMITIES: No edema feet - Labs CBC & Chem 7: 03/13/22 04:20 03/15/22 15:27 Labs: Abnormal Lab Results - Last 24 Hours (Table) 03/14/22 03/15/22 Range/Units 05:33 05:53 Sodium 133 L (137-145) mmol/L Potassium 3.4 L (3.5-5.1) mmol/L BUN 4 L (7-17) mg/dL Creatinine 0.40 L (0.52-1.04) mg/dL Calcium 8.2 L (8.4-10.2) mg/dL Microbiology - Last 24 Hours (Table) 03/09/22 22:10 Blood Culture - Preliminary Blood No Growth after 120 hours 03/12/22 17:52 Blood Culture - Preliminary Blood No Growth after 48 hours 03/12/22 19:58 Urine Culture - Final Urine,Clean Catch Assessment and Plan (1) Bacteremia Current Visit: Yes Status: Acute Priority: High Code(s): R78.81 - BACT EREMIA SNOMED Code(s): 8632934 Plan: 1patient with gram-negative bacteremia in this patient presented to hospital with abdominal pain patient did have an abdominal CT suggestive of possible pancreatic tumor and a pseudocyst possible complicated or infected pseudocyst and likely the source of this bacteremia. 2blood cultures has been repeated and are negative so for. 3CT was reviewed with radiologist and fluid /pancreatic area couldnot be aspirated CT-guided. 4patient has shown clinical improvement and E. coli is sensitive to Zosyn which will be continued while inpatient and will be transitioned to oral Cipro and Flagyl on discharge 2-3 weeks Time with Patient: Less than 30
[2022-03-16] MEDS: PIPERACILLIN-TAZOBACTAM 3.375 GM in SODIUM CHLORIDE 0.9% 100 ML IVPB SCH ×3 (00:03→15:38)
[2022-03-16] MEDS: HYDROcodone/APAP 10-325MG 1 EACH TAB PO PRN ×4 (04:38→22:03)
[2022-03-16] MEDS: ALBUTEROL NEBULIZED 2.5 MG/3 ML INHALATION SCH ×3 (08:51→20:09)
[2022-03-16] MEDS: ALBUTEROL NEBULIZED 2.5 MG/3 ML INHALATION PRN ×2 (08:51→11:31)
[2022-03-16] MEDS: SYMBICORT 160-4.5 MCG INHALER INHALATION SCH ×2 (08:52→20:10)
[2022-03-16] MEDS: ALPRAZolam 1 MG TAB PO SCH ×3 (08:59→22:04)
[2022-03-16] MEDS: CYANOCOBALAMIN 500 MCG TAB PO SCH (09:00)
[2022-03-16] MEDS: METOPROLOL TARTRATE 25 MG TAB PO SCH ×2 (09:00→22:03)
[2022-03-16] MEDS: amLODIPine 5 MG TAB PO SCH (09:00)
[2022-03-16] MEDS: PANTOPRAZOLE 40 MG TABLET PO SCH ×2 (09:01→18:13)
[2022-03-16] MEDS: HEPARIN SODIUM,PORCINE/PF 5,000 UNIT/0.5 ML SYRINGE SQ SCH ×2 (09:01→22:03)
[2022-03-16] MEDS: VENLAFAXINE HCL ER 75 MG CAP PO SCH (09:01)
[2022-03-16] MEDS: SUCRALFATE 1 GM TAB PO SCH ×4 (09:01→22:04)
[2022-03-16] MEDS: CHOLECALCIFEROL 25 MCG (1000 IU) TABLET PO SCH (09:01)
[2022-03-16] MEDS: GABAPENTIN 100 MG CAP PO SCH ×2 (09:01→22:03)
[2022-03-16] MEDS: MAG HYDROX/AL HYDROX/SIMETH 30 ML, diphenhydrAMINE ELIXIR 75 MG, LIDOCAINE VISCOUS 2% 3... PO SCH ×9 (09:02→22:04)
[2022-03-16 09:15] LABS: HCT 32.6 % (37.2-46.3); HGB 10.1 g/dL (12.0-15.0); MCH 32.7 pg (27.0-32.0); MCV 105.5 fL (80.0-97.0); Mean Platelet Volume 10.7 fL (9.5-12.2); NRBC Per 100 WBC 0 /100 WBCS (0.0-0.0); Platelet Count 236 X 10*3/uL (140-440); RBC 3.09 X 10*6/uL (4.10-5.20); RDW 16.5 % (11.5-14.5); WBC 4.51 X 10*3/uL (4.50-10.00)
[2022-03-16 10:36] LABS: Magnesium 1.8 mg/dL (1.5-2.4)
[2022-03-16 10:51] LABS: African American GFR (CKD) 120.2 (60.0-200.0); Anion Gap 7.4 mmol/L (10.00-18.00); BUN/Creat Ratio 4.41 Ratio (12.00-20.00); Blood Urea Nitrogen 2.2 mg/dL (9.0-27.0); Calcium 8.1 mg/dL (8.7-10.3); Carbon Dioxide 26.4 mmol/L (20.0-27.5); Non-African American GFR(CKD) 103.7 (60.0-200.0); Potassium 4.7 mmol/L (3.5-5.5)
[2022-03-16 11:07] LABS: Basophils # (A) 0.02 X 10*3/uL (0.00-0.10); Basophils % (A) 0.4 %; Eosinophils # (A) 0.04 X 10*3/uL (0.04-0.35); Eosinophils % (A) 0.9 %; Immature Grans, Automated 0.9 %; Lymphocytes # (A) 0.97 X 10*3/uL (0.90-5.00); Lymphocytes % (A) 21.5 %; Monocytes # (A) 0.72 X 10*3/uL (0.20-1.00); Neutrophils # (A) 2.72 X 10*3/uL (1.80-7.70); Neutrophils % (A) 60.3 %
[2022-03-16 11:08] LABS: Rouleaux PRESENT
--- NOTE | 2022-03-16 13:08 | CDI ---
Documentation Clarification Form Date: 03/16/2022 12:39:52 PM From: Ct Quiroz RN CCDS Admit Date: 03/10/2022 12:21:00 AM Patient Name: Marisela Roth Visit Number: [id number] Discharge Date: ATTENTION: The Clinical Documentation Specialists (CDI) and [facility] Coding Staff appreciate your assistance in clarifying documentation. Please respond to the clarification below the line at the bottom and electronically sign. The CDI & [facility] Coding staff will review the response and follow-up if needed. Please note: Queries are made part of the Legal Health Record. If you have any questions, please contact the author of this message via ITS. Dr. Emre Robb Sepsis is documented Medicine progress notes, 03/12 & 03/13 but is not noted in subsequent documentation. Clarification is requested. History/Risk Factors: 61-year-old female presents to the ED with abdominal pain with nausea and vomiting. Patient was feeling warm at home. Medical history: Metastatic colon cancer, DM, Liver CA lesions resected. History of lung nodules felt to cancer. Has chemo every three weeks. H&P, 03/10 Clinical Indicators: VVS, 03/09: B/P 140/81; HR 104; Temp 99 F Oral; RR 19; SpO2 93% room air 03/10: B/P 163/81; HR 106; Temp 100.0 F Ora; RR 20; SpO2 92% room air LABS, 03/09: Wbc: 12.4 Lactic Acid: 2.6 Neutrophils:10.7 Blood Culture: Escherichia coli CT ABD Pelvis, 03/11: Partial visualization of known hepatic lesion and pancreatic body/tail mass ID Consult, 03/10: Patient with gram negative bacteremia in this patient that presented to the hospital with abdominal pain. Patient did have an abdominal CT, suggestive of possible pancreatic tumor and a pseudocyst possible complicated or infected pseudocyst and likely the source of this bacteremia. ID progress note, 03/15: CT was reviewed with radiologist and fluid / pancreatic area couldnt be aspirated CT guided. Patient has shown clinical improvement and E.coli is sensitive to Zosyn. Medicine progress note, 03/13: E.coli sepsis primary unknown. Treatment: ID Consult: See above Antibiotic: 03/10 Zosyn 3.375mg IVPB Q8HR Fluid bolus: 03/09 0.9ns 1L bolus x 1 Please clarify if the Sepsis is: [ ] Sepsis POA confirmed, remains under treatment [ ] Sepsis POA confirmed, resolved [ ] Sepsis ruled out [ ] Other condition, please specify [ ] Unable to determine (Template Last Revised: October 2020) sepsis , being treated MTDD
--- NOTE | 2022-03-16 19:24 | P.PN ---
Subjective 61-year-old female with past medical history of colon cancer metastatic to the liver and lung who presents to the emergency department with nausea vomiting. She is a patient of Dr. Dean. She currently receives chemotherapy every 3 weeks. Her last infusion was on Saturday. The patient has had some left lower quadrant abdominal pain for the past few days and began having nausea and vomiting with inability to hold down anything to eat or drink. Patient presents and does have a 99 temp. States that she was feeling warm at home. She denies any chest pain or shortness of breath. No cough. No sick contacts. Decreased urination. No diarrhea. She is taking Compazine and Zofran at home without improvement. No other alleviating, precipitating or modifying factors Blood work completed in ED reveals a WBC of 12.4, hemoglobin of 14.2 and platelet count of 219, sodium 135, potassium 2.6, BUN/creatinine of 12/0.52 and blood glucose of 128; lactic acid elevated at 2.6 CT of abdominal pelvis reveals increase in size and mass of the tail of the pancreas which is solid and cystic component concerning for pancreatic tumor and unusual pseudocyst formation fat stranding and fluid in the left anterior pararenal space could be intermittently related to pancreatitis patient did have blood cultures drawn which came back positive with gram-negative bacilli patient is currently being treated with a Frida infectious disease was consulted for further management of antibiotic therapy 03/14/2022 Patient is awake and alert she feels generally weak She still complaining of from left lower quadrant abdominal pain about 8/10 associated with diarrhea She tolerates liquid diet with no nausea vomiting. She is hemodynamically stable. labs stable. She still tachycardic around 100, she had low-grade fever of 99.7. Progressive vitals are stable. proCalcitonin remains at 0.57. She remains on Zosyn and normal saline at 50 mL per hour. 03/15/2022 pt is improving slowly and gradually , no significant dyspnea at rest , her oxygen saturation is 97% on room air pt is eating well ,while on liquid diet, still has abdominal pain in the left lo wer quadrant, about 7/10 compared to 8/10 yesterday she had fever to day at 100.2 pt remains hemodynamically stable labs are reviewed she remains on zosyn and normal salaine at 50 ml per hour, with plan to switch to oral antibiotics upon discharge 03/16/2022 Patient admitted initially with sepsis with fever and mild leukocytosis and bacteremia secondary to E. coli infection and she's been kept on IV Zosyn to which the bacteria is sensitive and patient is improving gradually. Today she is awake and alert less lethargic. Her left lower quadrant abdominal pain is improved down to /10 compared to a/10 yesterday. She was very angry and very eager to advance her diet and to Dysphagia from l iquid diet. She has chronic diarrhea 3 times per day with no worsening. Labs reviewed and it looks stable. Her pro-calcitonin worsened to 0.84. She remains on Zosyn and normal saline at 50 mL per hour Objective - Vital Signs Vital signs: Vital Signs Temp 98.8 F 03/16/22 04:20 Pulse 86 03/16/22 09:06 Resp 18 03/16/22 04:20 BP 137/84 03/16/22 04:20 Pulse Ox 93 L 03/16/22 08:52 FiO2 3 03/16/22 08:52 Intake & Output 03/15/22 03/16/22 03/16/22 18:59 06:59 18:59 Intake Total 800 Balance 800 Weight 65.317 kg Intake: Intake, IV Titration 800 Amount 0.9% NaCl with KCl 20 Meq 600 /l 1,000 ml @ 50 mls/hr IV .Q20H ROULA Rx#: [id number] Magnesium Sulfate-D5w Pmx 200 1 gm In Dextrose/Water 1 100ml.bag @ 100 mls/hr IVPB Q1H ROULA Rx#: [id number] Other: Voiding Method Toilet Toilet # Voids 1 - Exam GENERAL: The patient is alert and oriented x3, not in any acute distress. Well developed, well nourished. HEENT: Pupils are round and equally reacting to light. EOMI. No scleral icterus. No conjunctival pallor. Normocephalic, atraumatic. No pharyngeal erythema. No thyromegaly. CARDIOVASCULAR: S1 and S2 present. No murmurs, rubs, or gallops. PULMONARY: Chest is clear to auscultation, no wheezing or crackles. -ABDOMEN: Soft, mild LLQ every tenderness with no rebound tenderness or guarding.. No palpable organomegaly. MUSCULOSKELETAL: No joint swelling or deformity. EXTREMITIES: No cyanosis, clubbing, or pedal edema. NEUROLOGICAL: Gross neurological examination did not reveal any focal deficits. SKIN: No rashes. no petechiae. - Labs CBC & Chem 7: 03/16/22 05:55 03/16/22 05:55 Labs: Abnormal Lab Results - Last 24 Hours (Table) 03/15/22 03/16/22 03/16/22 Range/Units 15:27 05:55 05:55 RBC (4.10-5.20) X 10*6/uL Hgb (12.0-15.0) g/dL Hct (37.2-46.3) % MCV (80.0-97.0) fL MCH (27.0-32.0) pg MCHC (32.0-37.0) g/dL RDW (11.5-14.5) % Plt Count Comment Anion Gap 7.40 L (10.00-18.00) mmol/L BUN 2.2 L (9.0-27.0) mg/dL Creatinine 0.5 L (0.6-1.5) mg/dL BUN/Creatinine Ratio 4.41 L (12.00-20.00) Ratio Calcium 8.1 L (8.7-10.3) mg/dL Magnesium 2.5 H (1.6-2.3) mg/dL Procalcitonin 0.84 H (0.02-0.09) ng/mL 03/16/22 Range/Units 05:55 RBC 3.09 L (4.10-5.20) X 10*6/uL Hgb 10.1 L (12.0-15.0) g/dL Hct 32.6 L (37.2-46.3) % MCV 105.5 H (80.0-97.0) fL MCH 32.7 H (27.0-32.0) pg MCHC 31.0 L (32.0-37.0) g/dL RDW 16.5 H (11.5-14.5) % Plt Count Comment DECREASED A Anion Gap (10.00-18.00) mmol/L BUN (9.0-27.0) mg/dL Creatinine (0.6-1.5) mg/dL BUN/Creatinine Ratio (12.00-20.00) Ratio Calcium (8.7-10.3) mg/dL Magnesium (1.6-2.3) mg/dL Procalcitonin (0.02-0.09) ng/mL Microbiology - Last 24 Hours (Table) 03/09/22 22:10 Blood Culture - Final Blood No Growth after 144 hours 03/12/22 17:52 Blood Culture - Preliminary Blood No Growth after 72 hours Assessment and Plan Assessment: Pancreatic tail mass Metastatic colon cancer to the lungs and liver Iron deficiency anemia E coli bacteremia most likely secondary to intra-abdominal source History of osteoarthritis History of GERD Plan: This is a pleasant 61 years old female who presents with E. coli bacteremia and possible pancreatic mass. Continue with Zosyn Continue with normal saline at 50 mL per hour Follow-up culture results hematology/oncology , ID and pulmonary teams on the case. Labs and medication were reviewed.. Continue same treatment. Continue with symptomatic treatment. Resume home medication. Monitor lytes and vitals. DVT and GI prophylaxis. Further recommendations as per clinical course of the patient DVT prophylaxis: Subcutaneous heparin GI Prophylaxis: Ppi PT/OT: Pending Prognosis is guarded
[2022-03-16] MEDS: 0.9% NACL WITH KCL 20 MEQ/L 1,000 ML IV SCH (22:35)
--- NOTE | 2022-03-16 22:48 | P.PN ---
Subjective Progress Note Date: 03/16/22 Principal diagnosis: Bacteremia Patient is a 61-year-old female with a past medical history significant for metastatic colon cancer with metastases to the liver and the l jayme in this patient presented to hospital with left upper abdominal pain in this patient did have abnormal CT of abdominal pelvis with increasing mass in the tail of the pancreas and concern for possible pseudocyst formation versus abscess patient did have a positive blood culture. On today's evaluation that is 03/16/2022 patient continues to be afebrile, patient is breathing comfortably on room air, the patient denies having any chest pain or cough, the patient denies abdominal pain no nausea or vomiting and no diarrhea Objective - Vital Signs Vital signs: Vital Signs Temp 98.2 F 03/16/22 11:29 Pulse 82 03/16/22 11:49 Resp 18 03/16/22 11:29 BP 114/74 03/16/22 11:29 Pulse Ox 90 L 03/16/22 11:29 FiO2 3 03/16/22 08:52 Intake & Output 03/15/22 03/16/22 03/16/22 18:59 06:59 18:59 Intake Total 800 Balance 800 Weight 65.317 kg Intake: Intake, IV Titration 800 Amount 0.9% NaCl with KCl 20 Meq 600 /l 1,000 ml @ 50 mls/hr IV .Q20H ROULA Rx#: [id number] Magnesium Sulfate-D5w Pmx 200 1 gm In Dextrose/Water 1 100ml.bag @ 100 mls/hr IVPB Q1H ROULA Rx#: [id number] Other: Voiding Method Toilet Toilet Toilet # Voids 1 - Exam GENERAL DESCRIPTION: Middle-age female lying in bed in no distress RESPIRATORY SYSTEM: Unlabored breathing , decreased breath sounds at bases HEART: S1 S2 regular rate and rhythm , ABDOMEN: Soft , no tenderness EXTREMITIES: No edema feet - Labs CBC & Chem 7: 03/16/22 05:55 03/16/22 05:55 Labs: Abnormal Lab Results - Last 24 Hours (Table) 03/15/22 03/16/22 03/16/22 Range/Units 15:27 05:55 05:55 RBC (4.10-5.20) X 10*6/uL Hgb (12.0-15.0) g/dL Hct (37.2-46.3) % MCV (80.0-97.0) fL MCH (27.0-32.0) pg MCHC (32.0-37.0) g/dL RDW (11.5-14.5) % Plt Count Comment Anion Gap 7.40 L (10.00-18.00) mmol/L BUN 2.2 L (9.0-27.0) mg/dL Creatinine 0.5 L (0.6-1.5) mg/dL BUN/Creatinine Ratio 4.41 L (12.00-20.00) Ratio Calcium 8.1 L (8.7-10.3) mg/dL Magnesium 2.5 H (1.6-2.3) mg/dL Procalcitonin 0.84 H (0.02-0.09) ng/mL 03/16/22 Range/Units 05:55 RBC 3.09 L (4.10-5.20) X 10*6/uL Hgb 10.1 L (12.0-15.0) g/dL Hct 32.6 L (37.2-46.3) % MCV 105.5 H (80.0-97.0) fL MCH 32.7 H (27.0-32.0) pg MCHC 31.0 L (32.0-37.0) g/dL RDW 16.5 H (11.5-14.5) % Plt Count Comment DECREASED A Anion Gap (10.00-18.00) mmol/L BUN (9.0-27.0) mg/dL Creatinine (0.6-1.5) mg/dL BUN/Creatinine Ratio (12.00-20.00) Ratio Calcium (8.7-10.3) mg/dL Magnesium (1.6-2.3) mg/dL Procalcitonin (0.02-0.09) ng/mL Microbiology - Last 24 Hours (Table) 03/09/22 22:10 Blood Culture - Final Blood No Growth after 144 hours 03/12/22 17:52 Blood Culture - Preliminary Blood No Growth after 72 hours Assessment and Plan (1) Bacteremia Current Visit: Yes Status: Acute Priority: High Code(s): R78.81 - BACTEREMIA SNOMED Code(s): 9455413 Plan: 1patient with gram-negative bacteremia in this patient presented to hospital with abdominal pain patient did have an abdominal CT suggestive of possible pancreatic tumor and a pseudocyst possible complicated or infected pseudocyst and likely the source of this bacteremia. 2blood cultures has been repeated and are negative so for. 3CT was reviewed with radiologist and fluid /pancreatic area couldnot be aspirated CT-guided. 4patient clinically improved and E. coli growing in the culture is sensitive to Zosyn which will be continued while inpatient and will be transitioned to oral Cipro and Flagyl on discharge and close outpatient follow-up Time with Patient: Less than 30
[2022-03-17] MEDS: PIPERACILLIN-TAZOBACTAM 3.375 GM in SODIUM CHLORIDE 0.9% 100 ML IVPB SCH ×4 (00:42→23:23)
[2022-03-17] MEDS: ALBUTEROL NEBULIZED 2.5 MG/3 ML INHALATION SCH ×3 (07:36→19:36)
[2022-03-17] MEDS: SYMBICORT 160-4.5 MCG INHALER INHALATION SCH ×2 (07:36→19:36)
[2022-03-17] MEDS: NON FORMULARY DRUG (Budesonide [Entocort Ec] 3 MG Capdr...Er) PO SCH ×2 (09:30→09:34)
[2022-03-17] MEDS: PANTOPRAZOLE 40 MG TABLET PO SCH ×2 (09:31→16:41)
[2022-03-17] MEDS: SUCRALFATE 1 GM TAB PO SCH ×4 (09:31→20:27)
[2022-03-17] MEDS: CHOLECALCIFEROL 25 MCG (1000 IU) TABLET PO SCH ×2 (09:32→09:33)
[2022-03-17] MEDS: ALPRAZolam 1 MG TAB PO SCH ×3 (09:32→21:22)
[2022-03-17] MEDS: CYANOCOBALAMIN 500 MCG TAB PO SCH (09:32)
[2022-03-17] MEDS: amLODIPine 5 MG TAB PO SCH (09:32)
[2022-03-17] MEDS: VENLAFAXINE HCL ER 75 MG CAP PO SCH (09:32)
[2022-03-17] MEDS: GABAPENTIN 100 MG CAP PO SCH ×2 (09:33→20:26)
[2022-03-17] MEDS: METOPROLOL TARTRATE 25 MG TAB PO SCH ×2 (09:33→20:26)
[2022-03-17] MEDS: HEPARIN SODIUM,PORCINE/PF 5,000 UNIT/0.5 ML SYRINGE SQ SCH ×2 (09:34→20:26)
[2022-03-17] MEDS: MAG HYDROX/AL HYDROX/SIMETH 30 ML, diphenhydrAMINE ELIXIR 75 MG, LIDOCAINE VISCOUS 2% 3... PO SCH ×9 (09:35→21:22)
[2022-03-17] MEDS: ACETAMINOPHEN TAB 325 MG TAB PO PRN (12:07)
[2022-03-17] MEDS: 0.9% NACL WITH KCL 20 MEQ/L 1,000 ML IV SCH (18:30)
[2022-03-17] MEDS: HYDROcodone/APAP 10-325MG 1 EACH TAB PO PRN (20:27)
--- NOTE | 2022-03-17 21:54 | P.PN ---
Subjective 61-year-old female with past medical history of colon cancer metastatic to the liver and lung who presents to the emergency department with nausea vomiting. She is a patient of Dr. Dean. She currently receives chemotherapy every 3 weeks. Her last infusion was on Saturday. The patient has had some left lower quadrant abdominal pain for the past few days and began having nausea and vomiting with inability to hold down anything to eat or drink. Patient presents and does have a 99 temp. States that she was feeling warm at home. She denies any chest pain or shortness of breath. No cough. No sick contacts. Decreased urination. No diarrhea. She is taking Compazine and Zofran at home without improvement. No other alleviating, precipitating or modifying factors Blood work completed in ED reveals a WBC of 12.4, hemoglobin of 14.2 and platelet count of 219, sodium 135, potassium 2.6, BUN/creatinine of 12/0.52 and blood glucose of 128; lactic acid elevated at 2.6 CT of abdominal pelvis reveals increase in size and mass of the tail of the pancreas which is solid and cystic component concerning for pancreatic tumor and unusual pseudocyst formation fat stranding and fluid in the left anterior pararenal space could be intermittently related to pancreatitis patient did have blood cultures drawn which came back positive with gram-negative bacilli patient is currently being treated with a Frida infectious disease was consulted for further management of antibiotic therapy 03/14/2022 Patient is awake and alert she feels generally weak She still complaining of from left lower quadrant abdominal pain about 8/10 associated with diarrhea She tolerates liquid diet with no nausea vomiting. She is hemodynamically stable. labs stable. She still tachycardic around 100, she had low-grade fever of 99.7. Progressive vitals are stable. proCalcitonin remains at 0.57. She remains on Zosyn and normal saline at 50 mL per hour. 03/15/2022 pt is improving slowly and gradually , no significant dyspnea at rest , her oxygen saturation is 97% on room air pt is eating well ,while on liquid diet, still has abdominal pain in the left lo wer quadrant, about 7/10 compared to 8/10 yesterday she had fever to day at 100.2 pt remains hemodynamically stable labs are reviewed she remains on zosyn and normal salaine at 50 ml per hour, with plan to switch to oral antibiotics upon discharge 03/16/2022 Patient admitted initially with sepsis with fever and mild leukocytosis and bacteremia secondary to E. coli infection and she's been kept on IV Zosyn to which the bacteria is sensitive and patient is improving gradually. Today she is awake and alert less lethargic. Her left lower quadrant abdominal pain is improved down to 3/10 compared to a/10 yesterday. She was very angry and very eager to advance her diet and to Dysphagia from l iquid diet. She has chronic diarrhea 3 times per day with no worsening. Labs reviewed and it looks stable. Her pro-calcitonin worsened to 0.84. She remains on Zosyn and normal saline at 50 mL per hour 03/17/2022 Patient tolerating diet well after advanced and she is eating 25-75%. Still having left lower quadrant abdominal pain about 5-6/10 in severity. Chest chronic diarrhea but no diarrhea or vomiting reported today. She remains on Zosyn. Clinically improving gradually and slowly. Today she told me she has an appointment with Yocasta from oncology team on 03/22 She remains on Zosyn and she will need at least 2 weeks of oral antibiotics per ID team Objective - Vital Signs Vital signs: Vital Signs Temp 98.1 F 03/17/22 19:42 Pulse 98 03/17/22 19:49 Resp 16 03/17/22 19:42 BP 130/84 03/17/22 19:42 Pulse Ox 100 03/17/22 19:42 FiO2 3 03/16/22 08:52 Intake & Output 03/17/22 03/17/22 03/18/22 06:59 18:59 06:59 Intake Total 450 240 Balance 450 240 Intake: Intake, IV Titration 450 Amount 0.9% NaCl with KCl 20 Meq 350 /l 1,000 ml @ 50 mls/hr IV .Q20H [facility] Rx#: [id number] Piperacillin-Tazobactam 3 100 .375 gm In Sodium Chloride 0.9% 100 ml @ 25 mls/hr IVPB Q8HR [facility] Rx# :[id number] Oral 240 Other: Voiding Method Toilet Toilet # Voids 1 4 - Exam GENERAL: The patient is alert and oriented x3, not in any acute distress. Well developed, well nourished. HEENT: Pupils are round and equally reacting to light. EOMI. No scleral icterus. No conjunctival pallor. Normocephalic, atraumatic. No pharyngeal erythema. No thyromegaly. CARDIOVASCULAR: S1 and S2 present. No murmurs, rubs, or gallops. PULMONARY: Chest is clear to auscultation, no wheezing or crackles. -ABDOMEN: Soft, mild LLQ every tenderness with no rebound tenderness or guarding.. No palpable organomegaly. MUSCULOSKELETAL: No joint swelling or deformity. EXTREMITIES: No cyanosis, clubbing, or pedal edema. NEUROLOGICAL: Gross neurological examination did not reveal any focal deficits. SKIN: No rashes. no petechiae. - Labs CBC & Chem 7: 03/16/22 05:55 03/16/22 05:55 Labs: Microbiology - Last 24 Hours (Table) 03/12/22 17:52 Blood Culture - Preliminary Blood No Growth after 120 hours Assessment and Plan Assessment: Pancreatic tail mass Metastatic colon cancer to the lungs and liver Iron deficiency anemia E coli bacteremia most likely secondary to intra-abdominal source History of osteoarthritis History of GERD Plan: This is a pleasant 61 years old female who presents with E. coli bacteremia and possible pancreatic mass. Continue with Zosyn Continue with normal saline at 50 mL per hour Follow-up culture results hematology/oncology , ID and pulmonary teams on the case. Labs and medication were reviewed.. Continue same treatment. Continue with symptomatic treatment. Resume home medication. Monitor lytes and vitals. DVT and GI prophylaxis. Further recommendations as per clinical course of the patient DVT prophylaxis: Subcutaneous heparin GI Prophylaxis: Ppi PT/OT: Pending Prognosis is guarded
--- NOTE | 2022-03-17 22:06 | P.PN ---
Subjective Progress Note Date: 03/17/22 Principal diagnosis: Bacteremia Patient is a 61-year-old female with a past medical history significant for metastatic colon cancer with metastases to the liver and the l jayme in this patient presented to hospital with left upper abdominal pain in this patient did have abnormal CT of abdominal pelvis with increasing mass in the tail of the pancreas and concern for possible pseudocyst formation versus abscess patient did have a positive blood culture. On today's evaluation that is 03/17/2022 patient denies any fever or any chills, patient is breathing comfortably on room air and is satting 96-100%, the patient denies having any chest pain or cough, the patient abdominal pain has resolved, no nausea or vomiting and no diarrhea Objective - Vital Signs Vital signs: Vital Signs Temp 98.2 F 03/17/22 11:27 Pulse 94 03/17/22 11:27 Resp 16 03/17/22 11:27 BP 130/79 03/17/22 11:27 Pulse Ox 92 L 03/17/22 11:27 FiO2 3 03/16/22 08:52 Intake & Output 03/16/22 03/17/22 03/17/22 18:59 06:59 18:59 Intake Total 450 Balance 450 Weight 65.317 kg Intake: Intake, IV Titration 450 Amount 0.9% NaCl with KCl 20 Meq 350 /l 1,000 ml @ 50 mls/hr IV .Q20H [facility] Rx#: [id number] Piperacillin-Tazobactam 3 100 .375 gm In Sodium Chloride 0.9% 100 ml @ 25 mls/hr IVPB Q8HR [facility] Rx# :[id number] Other: Voiding Method Toilet Toilet Toilet # Voids 2 1 - Exam GENERAL DESCRIPTION: Middle-age female lying in bed in no distress RESPIRATORY SYSTEM: Unlabored breathing , decreased breath sounds at bases HEART: S1 S2 regular rate and rhythm , ABDOMEN: Soft , no tenderness EXTREMITIES: No edema feet - Labs CBC & Chem 7: 03/16/22 05:55 03/16/22 05:55 Labs: Microbiology - Last 24 Hours (Table) 03/12/22 17:52 Blood Culture - Preliminary Blood No Growth after 96 hours 03/13/22 20:43 Stool Culture - Final Stool Assessment and Plan (1) Bacteremia Current Visit: Yes Status: Acute Priority: High Code(s): R78.81 - BACTERE PEPITO SNOMED Code(s): 1223157 Plan: 1patient with gram-negative bacteremia in this patient presented to hospital with abdominal pain patient did have an abdominal CT suggestive of possible pancreatic tumor and a pseudocyst possible complicated or infected pseudocyst and likely the source of this bacteremia. 2blood cultures has been repeated and are negative so for with initial blood cultures with an E. coli that is a sensitive pathogen. 3CT was reviewed with radiologist and fluid /pancreatic area couldnot be aspirated CT-guided. 4patient has shown overall clinical improvement on IV Zosyn which will be continued while inpatient and will be transitioned to oral Cipro and Flagyl on discharge 2 weeks and close outpatient follow-up Time with Patient: Less than 30
[2022-03-18] MEDS: ALBUTEROL NEBULIZED 2.5 MG/3 ML INHALATION SCH ×3 (07:49→19:00)
[2022-03-18] MEDS: PIPERACILLIN-TAZOBACTAM 3.375 GM in SODIUM CHLORIDE 0.9% 100 ML IVPB SCH ×3 (08:35→23:35)
[2022-03-18] MEDS: SUCRALFATE 1 GM TAB PO SCH ×4 (08:35→20:16)
[2022-03-18] MEDS: PANTOPRAZOLE 40 MG TABLET PO SCH ×2 (08:35→17:28)
[2022-03-18] MEDS: CYANOCOBALAMIN 500 MCG TAB PO SCH (08:36)
[2022-03-18] MEDS: ALPRAZolam 1 MG TAB PO SCH ×3 (08:36→21:35)
[2022-03-18] MEDS: amLODIPine 5 MG TAB PO SCH (08:36)
[2022-03-18] MEDS: GABAPENTIN 100 MG CAP PO SCH ×2 (08:36→20:16)
[2022-03-18] MEDS: NON FORMULARY DRUG (Budesonide [Entocort Ec] 3 MG Capdr...Er) PO SCH (08:36)
[2022-03-18] MEDS: HEPARIN SODIUM,PORCINE/PF 5,000 UNIT/0.5 ML SYRINGE SQ SCH ×2 (08:37→20:16)
[2022-03-18] MEDS: VENLAFAXINE HCL ER 75 MG CAP PO SCH (08:37)
[2022-03-18] MEDS: CHOLECALCIFEROL 25 MCG (1000 IU) TABLET PO SCH (08:37)
[2022-03-18] MEDS: METOPROLOL TARTRATE 25 MG TAB PO SCH ×2 (08:37→20:16)
[2022-03-18] MEDS: MAG HYDROX/AL HYDROX/SIMETH 30 ML, diphenhydrAMINE ELIXIR 75 MG, LIDOCAINE VISCOUS 2% 3... PO SCH ×9 (08:37→21:35)
[2022-03-18 09:22] LABS: HCT 32.3 % (37.2-46.3); HGB 9.7 g/dL (12.0-15.0); MCH 31.8 pg (27.0-32.0); MCV 105.9 fL (80.0-97.0); Mean Platelet Volume 10.9 fL (9.5-12.2); NRBC Per 100 WBC 0 /100 WBCS (0.0-0.0); Platelet Count 272 X 10*3/uL (140-440); RBC 3.05 X 10*6/uL (4.10-5.20); RDW 16.6 % (11.5-14.5); WBC 4.21 X 10*3/uL (4.50-10.00)
[2022-03-18 09:32] LABS: Magnesium 1.5 mg/dL (1.5-2.4)
[2022-03-18 09:52] LABS: Basophils # (A) 0.02 X 10*3/uL (0.00-0.10); Basophils % (A) 0.5 %; Eosinophils # (A) 0.07 X 10*3/uL (0.04-0.35); Eosinophils % (A) 1.7 %; Lymphocytes # (A) 1.33 X 10*3/uL (0.90-5.00); Lymphocytes % (A) 31.6 %; Macrocytosis (M) 2+; Monocytes # (A) 0.49 X 10*3/uL (0.20-1.00); Monocytes % (A) 11.6 %; Neutrophils # (A) 2.26 X 10*3/uL (1.80-7.70); Neutrophils % (A) 53.6 %
[2022-03-18] MEDS: SYMBICORT 160-4.5 MCG INHALER INHALATION SCH ×2 (11:24→19:00)
[2022-03-18] MEDS: 0.9% NACL WITH KCL 20 MEQ/L 1,000 ML IV SCH (11:52)
[2022-03-18 12:02] LABS: African American GFR (CKD) 122.6 (60.0-200.0); Anion Gap 7.5 mmol/L (10.00-18.00); Blood Urea Nitrogen 5.1 mg/dL (9.0-27.0); Calcium 8.2 mg/dL (8.7-10.3); Carbon Dioxide 23.8 mmol/L (20.0-27.5); Non-African American GFR(CKD) 105.8 (60.0-200.0); Potassium 4.1 mmol/L (3.5-5.5)
[2022-03-18] MEDS: HYDROcodone/APAP 10-325MG 1 EACH TAB PO PRN (19:08)
--- NOTE | 2022-03-18 20:42 | P.PN ---
Subjective 61-year-old female with past medical history of colon cancer metastatic to the liver and lung who presents to the emergency department with nausea vomiting. She is a patient of Dr. Dean. She currently receives chemotherapy every 3 weeks. Her last infusion was on Saturday. The patient has had some left lower quadrant abdominal pain for the past few days and began having nausea and vomiting with inability to hold down anything to eat or drink. Patient presents and does have a 99 temp. States that she was feeling warm at home. She denies any chest pain or shortness of breath. No cough. No sick contacts. Decreased urination. No diarrhea. She is taking Compazine and Zofran at home without improvement. No other alleviating, precipitating or modifying factors Blood work completed in ED reveals a WBC of 12.4, hemoglobin of 14.2 and platelet count of 219, sodium 135, potassium 2.6, BUN/creatinine of 12/0.52 and blood glucose of 128; lactic acid elevated at 2.6 CT of abdominal pelvis reveals increase in size and mass of the tail of the pancreas which is solid and cystic component concerning for pancreatic tumor and unusual pseudocyst formation fat stranding and fluid in the left anterior pararenal space could be intermittently related to pancreatitis patient did have blood cultures drawn which came back positive with gram-negative bacilli patient is currently being treated with a Frida infectious disease was consulted for further management of antibiotic therapy 03/14/2022 Patient is awake and alert she feels generally weak She still complaining of from left lower quadrant abdominal pain about 8/10 associated with diarrhea She tolerates liquid diet with no nausea vomiting. She is hemodynamically stable. labs stable. She still tachycardic around 100, she had low-grade fever of 99.7. Progressive vitals are stable. proCalcitonin remains at 0.57. She remains on Zosyn and normal saline at 50 mL per hour. 03/15/2022 pt is improving slowly and gradually , no significant dyspnea at rest , her oxygen saturation is 97% on room air pt is eating well ,while on liquid diet, still has abdominal pain in the left lo wer quadrant, about 7/10 compared to 8/10 yesterday she had fever to day at 100.2 pt remains hemodynamically stable labs are reviewed she remains on zosyn and normal salaine at 50 ml per hour, with plan to switch to oral antibiotics upon discharge 03/16/2022 Patient admitted initially with sepsis with fever and mild leukocytosis and bacteremia secondary to E. coli infection and she's been kept on IV Zosyn to which the bacteria is sensitive and patient is improving gradually. Today she is awake and alert less lethargic. Her left lower quadrant abdominal pain is improved down to 3/10 compared to a/10 yesterday. She was very angry and very eager to advance her diet and to Dysphagia from l iquid diet. She has chronic diarrhea 3 times per day with no worsening. Labs reviewed and it looks stable. Her pro-calcitonin worsened to 0.84. She remains on Zosyn and normal saline at 50 mL per hour 03/17/2022 Patient tolerating diet well after advanced and she is eating 25-75%. Still having left lower quadrant abdominal pain about 5-6/10 in severity. Chest chronic diarrhea but no diarrhea or vomiting reported today. She remains on Zosyn. Clinically improving gradually and slowly. Today she told me she has an appointment with Yocasta from oncology team on 03/22 She remains on Zosyn and she will need at least 2 weeks of oral antibiotics per ID team 03/18/2022 Patient is doing well likely 75% of her meals. Lower quadrant abdominal pain is improving down to 5/10 and patient is happy with this improvement. She has to small loose bowel movement. No vomiting. Patient keep improving gradually and slowly. She is aware of her follow-up appointment Possible discharge in 24-48 hours if she is improving Objective - Vital Signs Vital signs: Vital Signs Temp 98.3 F 03/18/22 11:55 Pulse 85 03/18/22 11:55 Resp 16 03/18/22 11:55 BP 118/78 03/18/22 11:55 Pulse Ox 93 L 03/18/22 11:55 FiO2 3 03/16/22 08:52 Intake & Output 03/17/22 03/18/22 03/18/22 18:59 06:59 18:59 Intake Total 240 1000 Balance 240 1000 Intake: Intake, IV Titration 700 Amount 0.9% NaCl with KCl 20 Meq 600 /l 1,000 ml @ 50 mls/hr IV .Q20H [facility] Rx#: [id number] Piperacillin-Tazobactam 3 100 .375 gm In Sodium Chloride 0.9% 100 ml @ 25 mls/hr IVPB Q8HR [facility] Rx# :[id number] Oral 240 300 Other: Voiding Method Toilet Toilet Toilet # Voids 4 1 - Exam GENERAL: The patient is alert and oriented x3, not in any acute distress. Well developed, well nourished. HEENT: Pupils are round and equally reacting to light. EOMI. No scleral icterus. No conjunctival pallor. Normocephalic, atraumatic. No pharyngeal erythema. No thyromegaly. CARDIOVASCULAR: S1 and S2 present. No murmurs, rubs, or gallops. PULMONARY: Chest is clear to auscultation, no wheezing or crackles. -ABDOMEN: Soft, mild LLQ every tenderness with no rebound tenderness or guarding.. No palpable organomegaly. MUSCULOSKELETAL: No joint swelling or deformity. EXTREMITIES: No cyanosis, clubbing, or pedal edema. NEUROLOGICAL: Gross neurological examination did not reveal any focal deficits. SKIN: No rashes. no petechiae. - Labs CBC & Chem 7: 03/18/22 04:40 03/18/22 04:40 Labs: Abnormal Lab Results - Last 24 Hours (Table) 03/18/22 03/18/22 Range/Units 04:40 04:40 WBC 4.21 L (4.50-10.00) X 10*3/uL RBC 3.05 L (4.10-5.20) X 10*6/uL Hgb 9.7 L (12.0-15.0) g/dL Hct 32.3 L (37.2-46.3) % MCV 105.9 H (80.0-97.0) fL MCHC 30.0 L (32.0-37.0) g/dL RDW 16.6 H (11.5-14.5) % Anion Gap 7.50 L (10.00-18.00) mmol/L BUN 5.1 L (9.0-27.0) mg/dL Creatinine 0.5 L (0.6-1.5) mg/dL BUN/Creatinine Ratio 11.00 L (12.00-20.00) Ratio Calcium 8.2 L (8.7-10.3) mg/dL Microbiology - Last 24 Hours (Table) 03/12/22 17:52 Blood Culture - Preliminary Blood No Growth after 120 hours Assessment and Plan Assessment: Pancreatic tail mass Metastatic colon cancer to the lungs and liver Iron deficiency anemia E coli bacteremia most likely secondary to intra-abdominal source History of osteoarthritis History of GERD Plan: This is a pleasant 61 years old female who presents with E. coli bacteremia and possible pancreatic mass. Continue with Zosyn Continue with normal saline at 50 mL per hour Follow-up culture results hematology/oncology , ID and pulmonary teams on the case. Labs and medication were reviewed.. Continue same treatment. Continue with sy mptomatic treatment. Resume home medication. Monitor lytes and vitals. DVT and GI prophylaxis. Further recommendations as per clinical course of the patient DVT prophylaxis: Subcutaneous heparin GI Prophylaxis: Ppi PT/OT: Pending Prognosis is guarded
[2022-03-19] MEDS: PIPERACILLIN-TAZOBACTAM 3.375 GM in SODIUM CHLORIDE 0.9% 100 ML IVPB SCH (08:27)
[2022-03-19] MEDS: METOPROLOL TARTRATE 25 MG TAB PO SCH (08:28)
[2022-03-19] MEDS: SUCRALFATE 1 GM TAB PO SCH ×2 (08:28→13:45)
[2022-03-19] MEDS: HEPARIN SODIUM,PORCINE/PF 5,000 UNIT/0.5 ML SYRINGE SQ SCH (08:28)
[2022-03-19] MEDS: VENLAFAXINE HCL ER 75 MG CAP PO SCH (08:28)
[2022-03-19] MEDS: amLODIPine 5 MG TAB PO SCH (08:28)
[2022-03-19] MEDS: PANTOPRAZOLE 40 MG TABLET PO SCH (08:29)
[2022-03-19] MEDS: ALPRAZolam 1 MG TAB PO SCH (08:29)
[2022-03-19] MEDS: GABAPENTIN 100 MG CAP PO SCH (08:29)
[2022-03-19] MEDS: CYANOCOBALAMIN 500 MCG TAB PO SCH (08:29)
[2022-03-19] MEDS: 0.9% NACL WITH KCL 20 MEQ/L 1,000 ML IV SCH (08:48)
[2022-03-19] MEDS: SYMBICORT 160-4.5 MCG INHALER INHALATION SCH (09:08)
[2022-03-19] MEDS: ALBUTEROL NEBULIZED 2.5 MG/3 ML INHALATION SCH ×2 (09:08→12:22)
[2022-03-19] MEDS: NON FORMULARY DRUG (Budesonide [Entocort Ec] 3 MG Capdr...Er) PO SCH (10:08)
[2022-03-19] MEDS: MAG HYDROX/AL HYDROX/SIMETH 30 ML, diphenhydrAMINE ELIXIR 75 MG, LIDOCAINE VISCOUS 2% 3... PO SCH ×3 (10:08)
[2022-03-19 10:54] LABS: INR 1.03 (0.90-1.11); Prothrombin Time 11.3 sec (9.9-11.9)
[2022-03-19 12:04] VITALS: BP 137/85; RESP 16; TEMP 98.5
[2022-03-19 12:32] VITALS: PULSE 90
--- NOTE | 2022-03-19 13:48 | P.PN ---
Subjective Progress Note Date: 03/15/22 Principal diagnosis: abd pain, vomiting, fever In f/u today pt stable today, LLQ is still painful, diarrhea persists, she had a fever this AM. Stool cultures pending. Objective - Vital Signs Vital signs: Vital Signs Temp 98.5 F 03/15/22 11:56 Pulse 92 03/15/22 12:18 Resp 18 03/15/22 11:56 BP 113/68 03/15/22 11:56 Pulse Ox 100 03/15/22 11:56 FiO2 Intake & Output 03/14/22 03/15/22 03/15/22 18:59 06:59 18:59 Intake Total 600 360 Balance 600 360 Intake: Oral 600 360 Other: Voiding Method Toilet Toilet Toilet # Voids 2 3 - Constitutional General appearance: Present: average body habitus, cooperative, no acute distress - EENT Eyes: Present: anicteric sclerae, EOMI ENT: Present: hearing grossly normal - Respiratory Respiratory: bilateral: CTA - Cardiovascular Rhythm: regular Heart sounds: normal: S1, S2 Abnormal Heart Sounds: Absent: systolic murmur, diastolic murmur, rub, S3 Gallop, S4 Gallop, click, other - Peripheral edema leg Peripheral Edema: bilateral: 1+ - Gastrointestinal General gastrointestinal: Present: normal bowel sounds, soft Localized gastrointestinal: tender: LLQ - Neurologic Neurologic: Present: CNII-XII intact - Musculoskeletal Musculoskeletal: Present: strength equal bilaterally - Psychiatric Psychiatric: Present: A&O x's 3, appropriate affect, intact judgment & insight - Labs CBC & Chem 7: 03/18/22 04:40 03/18/22 04:40 Labs: Abnormal Lab Results - Last 24 Hours (Table) 03/15/22 Range/Units 05:53 Potassium 3.4 L (3.5-5.1) mmol/L Microbiology - Last 24 Hours (Table) 03/09/22 22:10 Blood Culture - Preliminary Blood No Growth after 120 hours 03/12/22 17:52 Blood Culture - Preliminary Blood No Growth after 48 hours Assessment and Plan (1) Bacteremia Current Visit: Yes Status: Acute Priority: High Code(s): R78.81 - BACTEREMIA SNOMED Code(s): 7598386 (2) Abdominal pain Current Visit: Yes Status: Acute Priority: High Code(s): R10.9 - UNSPECIFIED ABDOMINAL PAIN SNOMED Code(s): 58222468 (3) Metastatic colon cancer to liver Current Visit: Yes Status: Chronic Priority: Low Code(s): C18.9 - MALIGNANT NEOPLASM OF COLON, UNSPECIFIED; C78.7 - SECONDARY MALIG NEOPLASM OF LIVER AND INTRAHEPATIC BILE DUCT SNOMED Code(s): 944139534 Plan: E coli blood culture, on abx, sensitivity resulted, ID following. Pt had fever again this AM. Pending stool studies. Amylase and lipase ordered CTA neg for PE, stable, slightly improved mets. CT AP mixed solid/cystic pancreatic nodule. Cont to follow for now. Possibly short term f/u imaging Kools ordered for oral irritation Pt reports going home, staff reports rehab. Treatment will be on hold until after rehab is she ends up participating. Office f/u next week scheduled Spoke with daughter later in the day, updated on pt hospital course. All questions answered to her satisfaction.
--- NOTE | 2022-03-19 14:26 | P.PN ---
Subjective Progress Note Date: 03/19/22 Principal diagnosis: abd pain, vomiting, fever In f/u today pt feels that she is doing better, tolerating more oral intake, left lower quadrant is only mildly tender. No fevers since March 15. Objective - Vital Signs Vital signs: Vital Signs Temp 98.5 F 03/19/22 11:34 Pulse 90 03/19/22 12:31 Resp 16 03/19/22 11:34 BP 137/85 03/19/22 11:34 Pulse Ox 92 L 03/19/22 11:34 FiO2 3 03/16/22 08:52 Intake & Output 03/18/22 03/19/22 03/19/22 18:59 06:59 18:59 Intake Total 1077 1200 Output Total 1 Balance 1077 1200 -1 Intake: Intake, IV Titration 600 700 Amount 0.9% NaCl with KCl 20 Meq 600 600 /l 1,000 ml @ 50 mls/hr IV .Q20H [facility] 234 BEDS AT [facility] Rx#: [id number] Piperacillin-Tazobactam 3 100 .375 gm In Sodium Chloride 0.9% 100 ml @ 25 mls/hr IVPB Q8HR [facility] 234 BEDS AT [facility] Rx# :[id number] Oral 477 500 Output: Urine/Stool Mix 1 Other: Voiding Method Toilet Toilet Toilet # Voids 1 2 1 # Bowel Movements 1 - Constitutional General appearance: Present: average body habitus, cooperative, no acute distress - EENT Eyes: Present: anicteric sclerae, EOMI ENT: Present: hearing grossly normal, normal oropharynx - Respiratory Details: Respirations even and unlabored at rest - Cardiovascular Rhythm: regular - Gastrointestinal General gastrointestinal: Present: normal bowel sounds, soft Localized gastrointestinal: tender: LLQ (Improved but persistent) - Integumentary Integumentary: Present: pale - Neurologic Neurologic: Present: CNII-XII intact - Musculoskeletal Musculoskeletal: Present: generalized weakness, strength equal bilaterally - Psychiatric Psychiatric: Present: A&O x's 3, appropriate affect, intact judgment & insight - Labs CBC & Chem 7: 03/18/22 04:40 03/18/22 04:40 Labs: Microbiology - Last 24 Hours (Table) 03/12/22 17:52 Blood Culture - Final Blood No Growth after 144 hours Assessment and Plan (1) Bacteremia Status: Acute Priority: High Code(s): R78.81 - BACTEREMIA SNOMED Code(s): 1172179 (2) Abdominal pain Status: Acute Priority: High Code(s): R10.9 - UNSPECIFIED ABDOMINAL PAIN SNOMED Code(s): 62725070 (3) Metastatic colon cancer to liver Status: Chronic Priority: Low Code(s): C18.9 - MALIGNANT NEOPLASM OF COLON, UNSPECIFIED; C78.7 - SECONDARY MALIG NEOPLASM OF LIVER AND INTRAHEPATIC BILE DUCT SNOMED Code(s): 916454744 Plan: E coli blood culture, on abx, sensitivity resulted, ID following. Oral antibiotics are ordered Stool studies negative for infection Amylase and lipase within normal defined limits CTA neg for PE, stable, slightly improved mets. CT AP mixed solid/cystic pancreatic nodule. Cont to follow for now. Possibly short term f/u imaging Alpesh ordered for oral irritation Pt being discharged to home Discussed case with Internal Medicine. Patient's fentanyl will be refilled from the office where she has a narcotic contract Office f/u later this week scheduled Patient had questions about her prognosis. Patient does realize that her cancer is not curable. Patient understands that she will continue to receive treatment as long as there are treatment options available and as long as she has a performance status adequate to be given chemotherapy treatment. All of her questions were answered to the best of my ability. Patient is requesting medical power of deputy prosecuting attorney paperwork. Will have the school social worker work with her outpatient for the same. Time with Patient: Greater than 30
== END 2022-03-19 14:00 | disposition home health service (06) | DRG 871 ==
LOC: EC 20:22 → 5NMEDONC 03-10 00:21
PROVIDERS: ADMIT Internal Medicine; ATTEND Internal Medicine
DX: A41.51 Sepsis due to Escherichia coli [E. coli] (principal); K85.90 Acute pancreatitis without necrosis or infection, unspecified; C78.01 Secondary malignant neoplasm of right lung; C78.02 Secondary malignant neoplasm of left lung; E87.2 Acidosis; C78.7 Secondary malignant neoplasm of liver and intrahepatic bile duct; J98.11 Atelectasis; G62.0 Drug-induced polyneuropathy; J44.9 Chronic obstructive pulmonary disease, unspecified; T45.1X5A Adverse effect of antineoplastic and immunosuppressive drugs, initial encounter; E87.6 Hypokalemia; E83.42 Hypomagnesemia; E78.5 Hyperlipidemia, unspecified; I10 Essential (primary) hypertension; D50.9 Iron deficiency anemia, unspecified; D53.9 Nutritional anemia, unspecified; K52.9 Noninfective gastroenteritis and colitis, unspecified; K29.70 Gastritis, unspecified, without bleeding; K86.9 Disease of pancreas, unspecified; F32.A Depression, unspecified; F41.9 Anxiety disorder, unspecified; F41.0 Panic disorder [episodic paroxysmal anxiety]; K21.9 Gastro-esophageal reflux disease without esophagitis; M19.90 Unspecified osteoarthritis, unspecified site; Z79.891 Long term (current) use of opiate analgesic; Z79.51 Long term (current) use of inhaled steroids; Z79.52 Long term (current) use of systemic steroids; Z79.899 Other long term (current) drug therapy; Z87.891 Personal history of nicotine dependence; Z85.038 Personal history of other malignant neoplasm of large intestine; Z90.49 Acquired absence of other specified parts of digestive tract; Z87.01 Personal history of pneumonia (recurrent); Z87.81 Personal history of (healed) traumatic fracture; Z88.8 Allergy status to other drugs, medicaments and biological substances; Z82.49 Family history of ischemic heart disease and other diseases of the circulatory system; Z80.3 Family history of malignant neoplasm of breast; Z83.1 Family history of other infectious and parasitic diseases; Z83.3 Family history of diabetes mellitus
CPT/HCPCS: 36415; 71046; 71275; 74177; 80048; 80053; 81001; 82150; 82306; 82378; 82607; 82728; 82746; 83540; 83550; 83605; 83690; 83735; 84132; 84145; 84425; 85025; 85610; 86140; 87040; 87045; 87046; 87077; 87086; 87186; 94640; 94760; 96361; 96374; 96375; 99285

== ENCOUNTER 2022-04-11 17:03 | Inpatient (IN) | payer MEDICARE, OTHER ==
[2022-04-11 17:38] LABS: Appearance,Urine Clear (Clear); Bacteria,Urine Rare /hpf; Bilirubin,Urine Negative (Negative); Blood,Urine Negative (Negative); Color,Urine Yellow; Glucose,Urine (UA) Negative (Negative); Hyaline Casts,Urine 4 /lpf (0-2); Ketones,Urine Negative (Negative); Leukocyte Esterase,Urine Trace (Negative); Mucus,Urine Rare /hpf; Nitrite,Urine Negative (Negative); PH, Urine 5.5 (5.0-8.0); Protein,Urine 1+ (Negative); RBC,Urine 1 /hpf (0-5); Specific Gravity,Urine 1.012 (1.001-1.035); Squamous Epithelial Cell,Urine 1 /hpf (0-4); Urobilinogen,Urine <2.0 mg/dL (<2.0); WBC,Urine 3 /hpf (0-5)
[2022-04-11 17:45] LABS: VBG PH 7.58 (7.31-7.41)
[2022-04-11 17:46] LABS: INR 1.1 (<1.2); Prothrombin Time 11.8 sec (9.0-12.0)
[2022-04-11 17:53] LABS: Amphetamine Screen,Urine Not Detected (NotDetected); Barbiturate Screen,Urine Not Detected (NotDetected); Benzodiazepines Screen,Urine Detected (NotDetected); Cocaine Screen,Urine Not Detected (NotDetected); Methadone Screen, Urine Not Detected (NotDetected); Opiate Screen,Urine Detected (NotDetected); Oxycodone Screen, Urine Not Detected (NotDetected); Phencyclidine Screen,Urine Not Detected (NotDetected); Tricyclic Antidepressant,Urine Not Detected (NotDetected); Urn Cannabinoid Scrn Not Detected (NotDetected)
[2022-04-11 18:01] LABS: Partial Thromboplastin Time 16.9 sec (22.0-30.0)
[2022-04-11 18:02] LABS: Basophils % (A) 0 %; Eosinophils # (A) 0.1 k/uL (0-0.7); Eosinophils % (A) 1 %; HGB 12.1 gm/dL (11.4-16.0); Hypochromasia Marked; Lymphocytes # (A) 0.4 k/uL (1.0-4.8); Lymphocytes % (A) 5 %; MCH 32.2 pg (25.0-35.0); MCHC 30.3 g/dL (31.0-37.0); MCV 106.5 fL (80.0-100.0); Macrocytosis Marked; Mean Platelet Volume 9.1; Monocytes % (A) 13 %; Neutrophils # (A) 6.1 k/uL (1.3-7.7); Neutrophils % (A) 80 %; RBC 3.76 m/uL (3.80-5.40); RDW 15.9 % (11.5-15.5); WBC 7.7 k/uL (3.8-10.6)
--- NOTE | 2022-04-11 18:05 | ED ---
General Adult HPI - General Chief complaint: Overdose Stated complaint: unconsious Time Seen by Provider: 04/11/22 17:06 Source: EMS, RN notes reviewed, old records reviewed Mode of arrival: EMS Limitations: altered mental status, physical limitation - History of Present Illness Initial comments: 61-year-old female from home. Patient was found by caregiver unresponsive. She probably has metastatic colon cancer. Uncertain where she is currently in her treatment. She is on multiple sedating medications and she was found to have pinpoint pupils by EMS, she was given Narcan with improvement in her mental status. She was apneic with the 2 respirations per minute minute at the time of arrival. They had noted a fentanyl patch which was removed. She is on multiple sedating medications. No further history available at the time of presentation. - Related Data Home Medications Medication Instructions Recorded Confirmed ALPRAZolam [Xanax] 1 mg PO TID 03/01/21 04/11/22 Budesonide/Formoterol Fumarate 2 puff INHALATION RT-BID 03/01/21 04/11/22 [Symbicort 160-4.5 Mcg Inhaler] Cholestyramine (with Sugar) 4 gm PO BID PRN 03/01/21 04/11/22 [Cholestyramine Packet] Metoprolol Tartrate [Lopressor] 25 mg PO BID 03/01/21 04/11/22 Prochlorperazine [Compazine] 10 mg PO Q6H PRN 03/01/21 04/11/22 Venlafaxine HCl [Effexor XR] 75 mg PO DAILY 03/01/21 04/11/22 Albuterol Sulfate [Proair Hfa] 2 puff INHALATION RT-QID PRN 03/10/22 04/11/22 Budesonide [Entocort EC] 3 mg PO DAILY 03/10/22 04/11/22 Cholecalciferol [Vitamin D3 (25 50 mcg PO DAILY 03/10/22 04/11/22 Mcg = 1000 Iu)] Cyanocobalamin (Vitamin B-12) 1,000 mcg PO DAILY 03/10/22 04/11/22 [Vitamin B-12] Gabapentin [Neurontin] 100 mg PO BID 03/10/22 04/11/22 Magic 5 ml PO QID PRN 03/10/22 04/11/22 Mouthwas(Ta/Lido/Maalox/Nyst) Omeprazole 20 mg PO BID 03/10/22 04/11/22 amLODIPine [Norvasc] 5 mg PO DAILY 03/10/22 04/11/22 fentaNYL 100MCG/HR PATCH 1 patch TRANSDERM Q72H 04/11/22 04/11/22 [Duragesic 100MCG/HR] Previous Rx's Medication Instructions Recorded HYDROcodone/APAP 10-325MG [[place] 1 tab PO Q4H PRN 3 Days #12 tab 03/19/22 10-325] Pantoprazole [Protonix] 40 mg PO AC-BID #60 tab 03/19/22 Sucralfate [Carafate] 1 gm PO ACHS #120 tab 03/19/22 Allergies Allergy/AdvReac Type Severity Reaction Status Date / Time acyclovir AdvReac Severe Confusion Verified 04/11/22 18:54 Review of Systems ROS Statement: Those systems with pertinent positive or pertinent negative responses have been documented in the HPI. ROS Other: All systems not noted in ROS Statement are negative. 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 Past Anesthesia/Blood Transfusion Reactions: No Reported Reaction Past Psychological History: Anxiety, Depression, Panic Disorder Smoking Status: Former smoker Past Alcohol Use History: None Reported Past Drug Use History: None Reported - Past Family History Father Family Medical History: Diabetes Mellitus, Myocardial Infarction ([place]) Additional Family Medical History / Comment(s): at age 62-mulitple mi's Mother Family Medical History: Cancer Additional Family Medical History / Comment(s): BREAST. from sepsis General Exam Limitations: no limitations General appearance: obtunded, in distress Head exam: Present: atraumatic, normocephalic Eye exam: Present: normal appearance, PERRL Neck exam: Absent: tenderness, meningismus Respiratory exam: Present: respiratory distress, rhonchi Cardiovascular Exam: Present: normal rhythm, tachycardia GI/Abdominal exam: Present: soft. Absent: distended, tenderness Extremities exam: Present: pedal edema Neurological exam: Absent: alert, oriented X3 Skin exam: Present: warm, dry, intact, cyanosis Course Vital Signs 04/11/22 04/11/22 04/11/22 17:05 17:30 17:41 Temperature 97.6 F Pulse Rate 126 H Pulse Rate [ Pipe Insulator ] Respiratory 26 H Rate Blood Pressure 133/61 O2 Sat by Pulse 93 L Oximetry Fraction of 60 60 Inspired Oxygen (FIO2) 04/11/22 04/11/22 04/11/22 17:46 17:51 18:19 Temperature Pulse Rate 101 H Pulse Rate [ 100 Pipe Insulator ] Respiratory 16 11 L Rate Blood Pressure 139/78 O2 Sat by Pulse 93 L Oximetry Fraction of Inspired Oxygen (FIO2) 04/11/22 04/11/22 04/11/22 18:22 18:39 19:18 Temperature Pulse Rate 111 H 105 H Pulse Rate [ Pipe Insulator ] Respiratory 20 18 Rate Blood Pressure 97/67 147/82 O2 Sat by Pulse 96 95 Oximetry Fraction of 60 Inspired Oxygen (FIO2) - Reevaluation(s) Reevaluation #1: 04/11/22 19:05 Patient became more alert and does admit to over taking her medication. EKG Findings - EKG Comments: EKG Findings:: EKG sinus tachycardia with frequent PVC, significant artifact limiting assessment rate of 128, MI interval 143, QRS duration 98, QTC 348 Medical Decision Making - Medical Decision Making 61-year-old female presents to emergency department with apnea, unresponsive, suspect multi-substance overdose. After several doses of Narcan the patient does admit the nursing staff that she had over taken her medication. A complete history is not available due to the patient's mental status. Opiates and other sedatives will be withheld. The patient did require BiPAP for respiratory support. She has a normal CBC. The CMP had clotted and there was delay in lab draw. These results are pending. Lactic acid is elevated 4.4 which is treated with IV hydration. I do not suspect infection currently. Chest x-ray clear. Patient will be admitted for close monitoring and return to baseline mental status. Case discussed with Yenifer robbins for [facility] - Lab Data Result diagrams: 04/11/22 17:27 Lab Results 04/11/22 04/11/22 04/11/22 Range/Units 16:56 17:27 17:27 WBC 7.7 (3.8-10.6) k/uL RBC 3.76 L (3.80-5.40) m/uL Hgb 12.1 (11.4-16.0) gm/dL Hct 40.0 (34.0-46.0) % MCV 106.5 H (80.0-100.0) fL MCH 32.2 (25.0-35.0) pg MCHC 30.3 L (31.0-37.0) g/dL RDW 15.9 H (11.5-15.5) % Plt Count 350 D (150-450) k/uL MPV 9.1 Neutrophils % 80 % Lymphocytes % 5 % Monocytes % 13 % Eosinophils % 1 % Basophils % 0 % Neutrophils # 6.1 (1.3-7.7) k/uL Lymphocytes # 0.4 L (1.0-4.8) k/uL Monocytes # 1.0 (0-1.0) k/uL Eosinophils # 0.1 (0-0.7) k/uL Basophils # 0.0 (0-0.2) k/uL Hypochromasia Marked Macrocytosis Marked A PT 11.8 (9.0-12.0) sec INR 1.1 (<1.2) APTT 16.9 L (22.0-30.0) sec VBG pH (7.31-7.41) VBG pCO2 (37-51) mmHg VBG HCO3 (24-28) mmol/L Plasma Lactic Acid Florentino (0.7-2.0) mmol/L Urine Color Yellow Urine Appearance Clear (Clear) Urine pH 5.5 (5.0-8.0) Ur Specific [place] 1.012 (1.001-1.035) Urine Protein 1+ H (Negative) Urine Glucose (UA) Negative (Negative) Urine Ketones Negative (Negative) Urine Blood Negative (Negative) Urine Nitrite Negative (Negative) Urine Bilirubin Negative (Negative) Urine Urobilinogen <2.0 (<2.0) mg/dL Ur Leukocyte Esterase Trace H (Negative) Urine RBC 1 (0-5) /hpf Urine WBC 3 (0-5) /hpf Ur Squamous Epith Cells 1 (0-4) /hpf Urine Bacteria Rare H (None) /hpf Hyaline Casts 4 H (0-2) /lpf Urine Mucus Rare H (None) /hpf Urine Opiates Screen Detected H (NotDetected) Ur Oxycodone Screen Not Detected (NotDetected) Urine Methadone Screen Not Detected (NotDetected) Ur Propoxyphene Screen Not Detected (NotDetected) Ur Barbiturates Screen Not Detected (NotDetected) U Tricyclic Antidepress Not Detected (NotDetected) Ur Phencyclidine Scrn Not Detected (NotDetected) Ur Amphetamines Screen Not Detected (NotDetected) U Methamphetamines Scrn Not Detected (NotDetected) U Benzodiazepines Scrn Detected H (NotDetected) Urine Cocaine Screen Not Detected (NotDetected) U Marijuana (THC) Screen Not Detected (NotDetected) 04/11/22 04/11/22 Range/Units 17:30 17:40 WBC (3.8-10.6) k/uL RBC (3.80-5.40) m/uL Hgb (11.4-16.0) gm/dL Hct (34.0-46.0) % MCV (80.0-100.0) fL MCH (25.0-35.0) pg MCHC (31.0-37.0) g/dL RDW (11.5-15.5) % Plt Count (150-450) k/uL MPV Neutrophils % % Lymphocytes % % Monocytes % % Eosinophils % % Basophils % % Neutrophils # (1.3-7.7) k/uL Lymphocytes # (1.0-4.8) k/uL Monocytes # (0-1.0) k/uL Eosinophils # (0-0.7) k/uL Basophils # (0-0.2) k/uL Hypochromasia Macrocytosis PT (9.0-12.0) sec INR (<1.2) APTT (22.0-30.0) sec VBG pH 7.58 H (7.31-7.41) VBG pCO2 26 L (37-51) mmHg VBG HCO3 24 (24-28) mmol/L Plasma Lactic Acid Florentino 4.2 H* (0.7-2.0) mmol/L Urine Color Urine Appearance (Clear) Urine pH (5.0-8.0) Ur Specific [place] (1.001-1.035) Urine Protein (Negative) Urine Glucose (UA) (Negative) Urine Ketones (Negative) Urine Blood (Negative) Urine Nitrite (Negative) Urine Bilirubin (Negative) Urine Urobilinogen (<2.0) mg/dL Ur Leukocyte Esterase (Negative) Urine RBC (0-5) /hpf Urine WBC (0-5) /hpf Ur Squamous Epith Cells (0-4) /hpf Urine Bacteria (None) /hpf Hyaline Casts (0-2) /lpf Urine Mucus (None) /hpf Urine Opiates Screen (NotDetected) Ur Oxycodone Screen (NotDetected) Urine Methadone Screen (NotDetected) Ur Propoxyphene Screen (NotDetected) Ur Barbiturates Screen (NotDetected) U Tricyclic Antidepress (NotDetected) Ur Phencyclidine Scrn (NotDetected) Ur Amphetamines Screen (NotDetected) U Methamphetamines Scrn (NotDetected) U Benzodiazepines Scrn (NotDetected) Urine Cocaine Screen (NotDetected) U Marijuana (THC) Screen (NotDetected) Critical Care Time Critical Care Time: Yes Total Critical Care Time: 35 Disposition Clinical Impression: Hypoxia, Metastatic colon cancer to liver, Accidental drug overdose, Poisoning by opiates and related narcotics, other Disposition: ADMITTED IP TO THIS [facility] Condition: Stable Is patient prescribed a controlled substance at d/c from ED?: No Referrals: Howard Hernandez MD [Primary Care Provider] - 1-2 days Time of Disposition: 19:35
--- NOTE | 2022-04-11 18:16 | XR ---
EXAMINATION TYPE: XR chest 1V portable DATE OF EXAM: 04/11/2022 5:59 PM COMPARISON: Chest radiographs and CT from 03/11/2022 TECHNIQUE: XR chest 1V portable Portable AP radiograph of the chest. CLINICAL INDICATION:Female, 61 years old with history of overdose; FINDINGS: Lungs/Pleura: There is no evidence of pleural effusion, focal consolidation, or pneumothorax. Atelec tasis seen within the medial left lower lung. Right midlung nodules are slightly obscured by Infuse-a -Port. Pulmonary vascularity: Unremarkable. Heart/mediastinum: Cardiomediastinal silhouette is enlarged and stable. Musculoskeletal: No acute osseous pathology. Lines/Tubes: [place]-n-Urou projecting over the right hemithorax with distal tip at the cavoatrial junction. IMPRESSION: No acute cardiopulmonary disease/process. Right midlung nodules are less conspicuous on this radiograph.
[2022-04-11] MEDS ORDERED: NALOXONE 0.4 MG/ML 1 ML VIAL IVP STA (18:19)
[2022-04-11] MEDS ORDERED: SODIUM CHLORIDE 0.9% 500 ML 500 ML IV ONE (18:28)
[2022-04-11] MEDS: SODIUM CHLORIDE 0.9% 1,000 ML IV SCH (18:38)
[2022-04-11] MEDS ORDERED: NALOXONE 0.4 MG/ML 1 ML VIAL IV PRN (19:31)
[2022-04-11 19:53] LABS: ALT 13 U/L (4-34); AST 60 U/L (14-36); Acetaminophen <10.0 ug/mL; African American GFR (CKD) 40 (>60 ml/min/1.73 sqM); Alcohol <10 mg/dL; Alkaline Phosphatase 280 U/L (38-126); Blood Urea Nitrogen 19 mg/dL (7-17); Calcium 7.9 mg/dL (8.4-10.2); Carbon Dioxide 28 mmol/L (22-30); Glucose 129 mg/dL (74-99); Non-African American GFR(CKD) 35 (>60 ml/min/1.73 sqM); Salicylate <1.0 mg/dL; Total Bilirubin 0.6 mg/dL (0.2-1.3); Total Protein 5.8 g/dL (6.3-8.2)
[2022-04-11 20:07] LABS: Anion Gap 11 mmol/L; Chloride 96 mmol/L (98-107); Sodium 135 mmol/L (137-145)
[2022-04-11 20:29] LABS: Potassium 2.7 mmol/L (3.5-5.1)
[2022-04-11 20:31] LABS: Platelet Count 350 k/uL (150-450)
[2022-04-11] MEDS ORDERED: POTASSIUM CHLORIDE ER 20 MEQ TAB.ER PO STA (20:35)
[2022-04-11] MEDS: POTASSIUM CHLORIDE 10 MEQ in WATER FOR INJECTION 1 100ML.BAG IVPB SCH ×2 (22:04→23:54)
[2022-04-12] MEDS: POTASSIUM CHLORIDE 10 MEQ in WATER FOR INJECTION 1 100ML.BAG IVPB SCH ×2 (01:08→02:10)
[2022-04-12 06:19] LABS: Anisocytosis Slight; Basophils % (A) 0 %; Eosinophils % (A) 1 %; HCT 33.9 % (34.0-46.0); HGB 10.1 gm/dL (11.4-16.0); Hypochromasia Marked; Lymphocytes # (A) 0.8 k/uL (1.0-4.8); Lymphocytes % (A) 13 %; MCH 31.5 pg (25.0-35.0); MCHC 29.8 g/dL (31.0-37.0); MCV 105.8 fL (80.0-100.0); Macrocytosis Moderate; Monocytes # (A) 0.4 k/uL (0-1.0); Monocytes % (A) 6 %; Neutrophils % (A) 79 %; Platelet Count 244 k/uL (150-450); RDW 16.1 % (11.5-15.5); WBC 6.4 k/uL (3.8-10.6)
[2022-04-12 06:33] LABS: Calcium 7.7 mg/dL (8.4-10.2); Magnesium 1.4 mg/dL (1.6-2.3); Potassium 2.8 mmol/L (3.5-5.1)
[2022-04-12] MEDS ORDERED: Potassium Replacement Protocol 1 EACH MISC MISCELLANE PRN (07:05)
[2022-04-12] MEDS ORDERED: Magnesium Replacement Protocol 1 EACH MISC MISCELLANE PRN (07:05)
--- NOTE | 2022-04-12 07:10 | P.HPIM ---
History of Present Illness This is a pleasant 61 years old female with past medical history of colon cancer about 8 years ago and lung cancer about 5 years ago, currently she is following with Dr. Dean and undergoing chemotherapy, last chemotherapy was about 2-3 weeks ago. Yesterday she was supposed to get chemotherapy she was brought to the hospital because of altered mental status. Patient cannot remember what happened and who brought her here to the hospital. Patient presents unresponsive, on Fentanyl patch which was removed in emergency room. She is on several narcotic and pain medications including fentanyl, Norcuron Xanax. Patient states she might missed some pills and took extra doses however she is not sure. At baseline patient lives by herself with a dog and 2 cats. Other chronic medical problems includes history of hypertension, GERD, hyperlipidemia, osteoarthritis, metastatic colon cancer, peripheral neuropathy from chemotherapy In the emergency room Her breathing was little so she was placed on BiPAP overnight. This morning she was awake alert and oriented to time, place and person, she is aware to the surrounding and has insight into her illness. She smokes about half pack per day and she was counseled to quit but she declines. No alcohol or illicit drugs recently. She drinks alcohol occasionally. She denies chest pain or dyspnea. No dysuria or urgency, no diarrhea or vomiting or abdominal pain. However she is complaining of from right knee pain and swelling Blood pressure this morning 100/61, 310, heart rate 85 and she is afebrile. Creatinine is elevated at 1.5, baseline 0.4-0.5 Potassium 2.7. Height lactic acid 4.1, came back to normal at 1.1. Magnesium 1.2 which is also low. Liver enzymes not significantly elevated. Salicylates, acetaminophen and alcohol levels are negative EKG showing sinus tachycardia at 128 Chest x-ray: No acute process. Right mid lung nodules are less conspicuous on this radiograph In the emergency room patient received Narcan and electrolyte replacement abnormal at 75 mL/h This morning labs shown improvement in creatinine down to 1.2. Potassium improved up to 2.8 and magnesium 1.4 Review of Systems Review of systems CONSTITUTIONAL: No fever, no malaise, no fatigue. HEENT: No recent visual problems or hearing problems. Denied any sore throat. CARDIOVASCULAR: No orthopnea, PND, no palpitations, no syncope. PULMONARY: No shortness of breath, no cough, no hemoptysis. GASTROINTESTINAL: No diarrhea, no nausea, no vomiting, no abdominal pain. Normoactive bowel sounds. NEUROLOGICAL: No headaches, no weakness, no numbness. HEMATOLOGICAL: Denies any bleeding or petechiae. GENITOURINARY: Denies any burning micturition, frequency, or urgency. MUSCULOSKELETAL/RHEUMATOLOGICAL: Denies any joint pain, swelling, or any muscle pain. (Other than right knee) ENDOCRINE: Denies any polyuria or polydipsia. 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 2014 port a cath placed rt chest ;"20% of liver removed d/t ca", colonoscopies [id number]. Past Anesthesia/Blood Transfusion Reactions: No Reported Reaction Past Psychological History: Anxiety, Depression, Panic Disorder Additional Psychological History / Comment(s): (per [facility]- MAJOR DEPRESSION- STATED "HAD OVERDOSE OF XANAX AND AMBIEN ON 04-26-14 WAS SEEN IN THE ER". ) pt stated her son from accidental od . lives by herself has 1 dog, Tessa. Lives in a single story home w/no steps. no medical equipment or homecare services. Smoking Status: Former smoker Past Alcohol Use History: None Reported Additional Past Alcohol Use History / Comment(s): STARTED SMOKING AT AGE 21; down to 4 cigs a day Past Drug Use History: None Reported - Past Family History Father Family Medical History: Diabetes Mellitus, Myocardial Infarction ([place]) Additional Family Medical History / Comment(s): at age 62-mulitple mi's Mother Family Medical History: Cancer Additional Family Medical History / Comment(s): BREAST. from sepsis Medications and Allergies Home Medications Medication Instructions Recorded Confirmed Type ALPRAZolam [Xanax] 1 mg PO TID 03/01/21 04/11/22 History Budesonide/Formoterol Fumarate 2 puff INHALATION RT-BID 03/01/21 04/11/22 History [Symbicort 160-4.5 Mcg Inhaler] Cholestyramine (with Sugar) 4 gm PO BID PRN 03/01/21 04/11/22 History [Cholestyramine Packet] Metoprolol Tartrate [Lopressor] 25 mg PO BID 03/01/21 04/11/22 History Prochlorperazine [Compazine] 10 mg PO Q6H PRN 03/01/21 04/11/22 History Venlafaxine HCl [Effexor XR] 75 mg PO DAILY 03/01/21 04/11/22 History Albuterol Sulfate [Proair Hfa] 2 puff INHALATION RT-QID PRN 03/10/22 04/11/22 History Budesonide [Entocort EC] 3 mg PO DAILY 03/10/22 04/11/22 History Cholecalciferol [Vitamin D3 (25 50 mcg PO DAILY 03/10/22 04/11/22 History Mcg = 1000 Iu)] Cyanocobalamin (Vitamin B-12) 1,000 mcg PO DAILY 03/10/22 04/11/22 History [Vitamin B-12] Gabapentin [Neurontin] 100 mg PO BID 03/10/22 04/11/22 History Magic 5 ml PO QID PRN 03/10/22 04/11/22 History Mouthwas(Ta/Lido/Maalox/Nyst) Omeprazole 20 mg PO BID 03/10/22 04/11/22 History amLODIPine [Norvasc] 5 mg PO DAILY 03/10/22 04/11/22 History HYDROcodone/APAP 10-325MG [[place] 1 tab PO Q4H PRN 3 Days #12 tab 03/19/22 04/11/22 Rx 10-325] Pantoprazole [Protonix] 40 mg PO AC-BID #60 tab 03/19/22 04/11/22 Rx Sucralfate [Carafate] 1 gm PO ACHS #120 tab 03/19/22 04/11/22 Rx fentaNYL 100MCG/HR PATCH 1 patch TRANSDERM Q72H 04/11/22 04/11/22 History [Duragesic 100MCG/HR] Allergies Allergy/AdvReac Type Severity Reaction Status Date / Time acyclovir AdvReac Severe Confusion Verified 04/11/22 18:54 Physical Exam Vitals: Vital Signs Temp Pulse Pulse Resp BP BP Pulse Ox 04/12/22 04:00 97.6 F 85 10 L 100/61 97 04/12/22 03:54 04/12/22 02:11 84 9 L 94/60 96 04/12/22 02:00 12 04/12/22 01:11 85 12 92/58 95 04/12/22 00:51 97.6 F 90 22 126/75 95 04/12/22 00:00 90 22 126/75 95 04/11/22 23:30 91 10 L 107/65 96 04/11/22 22:59 04/11/22 22:30 90 12 110/70 96 04/11/22 19:18 04/11/22 18:39 105 H 18 147/82 95 04/11/22 18:22 111 H 20 97/67 96 04/11/22 18:19 11 L 04/11/22 17:51 100 04/11/22 17:46 101 H 16 139/78 93 L 04/11/22 17:41 04/11/22 17:30 04/11/22 17:05 97.6 F 126 H 26 H 133/61 93 L FiO2 04/12/22 04:00 40 04/12/22 03:54 40 04/12/22 02:11 40 04/12/22 02:00 04/12/22 01:11 40 04/12/22 00:51 40 04/12/22 00:00 40 04/11/22 23:30 04/11/22 22:59 40 04/11/22 22:30 04/11/22 19:18 60 04/11/22 18:39 04/11/22 18:22 04/11/22 18:19 04/11/22 17:51 04/11/22 17:46 04/11/22 17:41 60 04/11/22 17:30 60 04/11/22 17:05 Intake and Output 04/11/22 04/11/22 04/12/22 14:59 22:59 06:59 Intake Total 2118 Balance 2118 Intake: Intake, IV Titration 1998 Amount Potassium Chloride 10 meq 400 In Water For Injection 1 100ml.bag @ 100 mls/hr IVPB Q1HR [facility] Rx#: [id number] Sodium Chloride 0.9% 1, 600 000 ml @ 75 mls/hr IV . [id number] [facility] Rx#:[id number] Sodium Chloride 0.9% 500 999 ml 500 ml @ 999 mls/hr IV .Q31M [facility] Rx#:[id number] Oral 120 Other: Weight 68.039 kg 68.039 kg GENERAL: The patient is alert and oriented x3, not in any acute distress. Well developed, well nourished. HEENT: Pupils are round and equally reacting to light. EOMI. No scleral icterus. No conjunctival pallor. Normocephalic, atraumatic. No pharyngeal erythema. No thyromegaly. CARDIOVASCULAR: S1 and S2 present. No murmurs, rubs, or gallops. -PULMONARY: Chest is clear to auscultation, no wheezing. Mild bilateral basal crackles. ABDOMEN: Soft, nontender, nondistended, normoactive bowel sounds. No palpable organomegaly. MUSCULOSKELETAL: No joint swelling or deformity. -EXTREMITIES: No cyanosis, clubbing, or pedal edema. Right knee mildly swollen and tender with mild limitation of flexion of the knee on the right side NEUROLOGICAL: Gross neurological examination did not reveal any focal deficits. SKIN: No rashes. no petechiae. Results CBC & Chem 7: 04/12/22 05:57 04/12/22 05:57 Labs: Abnormal Lab Results - Last 24 Hours (Table) 04/11/22 04/11/22 04/11/22 Range/Units 16:56 17:27 17:27 RBC 3.76 L (3.80-5.40) m/uL Hgb (11.4-16.0) gm/dL Hct (34.0-46.0) % MCV 106.5 H (80.0-100.0) fL MCHC 30.3 L (31.0-37.0) g/dL RDW 15.9 H (11.5-15.5) % Lymphocytes # 0.4 L (1.0-4.8) k/uL Macrocytosis Marked A APTT 16.9 L (22.0-30.0) sec VBG pH (7.31-7.41) VBG pCO2 (37-51) mmHg Sodium (137-145) mmol/L Potassium (3.5-5.1) mmol/L Chloride (98-107) mmol/L BUN (7-17) mg/dL Creatinine (0.52-1.04) mg/dL Glucose (74-99) mg/dL Plasma Lactic Acid Florentino (0.7-2.0) mmol/L Calcium (8.4-10.2) mg/dL Magnesium (1.6-2.3) mg/dL AST (14-36) U/L Alkaline Phosphatase (38-126) U/L Total Protein (6.3-8.2) g/dL Albumin (3.5-5.0) g/dL Urine Protein 1+ H (Negative) Ur Leukocyte Esterase Trace H (Negative) Urine Bacteria Rare H (None) /hpf Hyaline Casts 4 H (0-2) /lpf Urine Mucus Rare H (None) /hpf Urine Opiates Screen Detected H (NotDetected) U Benzodiazepines Scrn Detected H (NotDetected) 04/11/22 04/11/22 04/11/22 Range/Units 17:30 17:31 17:40 RBC (3.80-5.40) m/uL Hgb (11.4-16.0) gm/dL Hct (34.0-46.0) % MCV (80.0-100.0) fL MCHC (31.0-37.0) g/dL RDW (11.5-15.5) % Lymphocytes # (1.0-4.8) k/uL Macrocytosis APTT (22.0-30.0) sec VBG pH 7.58 H (7.31-7.41) VBG pCO2 26 L (37-51) mmHg Sodium (137-145) mmol/L Potassium (3.5-5.1) mmol/L Chloride (98-107) mmol/L BUN (7-17) mg/dL Creatinine (0.52-1.04) mg/dL Glucose (74-99) mg/dL Plasma Lactic Acid Florentino 4.2 H* (0.7-2.0) mmol/L Calcium (8.4-10.2) mg/dL Magnesium 1.2 L (1.6-2.3) mg/dL AST (14-36) U/L Alkaline Phosphatase (38-126) U/L Total Protein (6.3-8.2) g/dL Albumin (3.5-5.0) g/dL Urine Protein (Negative) Ur Leukocyte Esterase (Negative) Urine Bacteria (None) /hpf Hyaline Casts (0-2) /lpf Urine Mucus (None) /hpf Urine Opiates Screen (NotDetected) U Benzodiazepines Scrn (NotDetected) 04/11/22 04/12/22 04/12/22 Range/Units 19:23 05:57 05:57 RBC 3.20 L (3.80-5.40) m/uL Hgb 10.1 L (11.4-16.0) gm/dL Hct 33.9 L (34.0-46.0) % MCV 105.8 H (80.0-100.0) fL MCHC 29.8 L (31.0-37.0) g/dL RDW 16.1 H (11.5-15.5) % Lymphocytes # 0.8 L (1.0-4.8) k/uL Macrocytosis APTT (22.0-30.0) sec VBG pH (7.31-7.41) VBG pCO2 (37-51) mmHg Sodium 135 L (137-145) mmol/L Potassium 2.7 L* 2.8 L (3.5-5.1) mmol/L Chloride 96 L (98-107) mmol/L BUN 19 H (7-17) mg/dL Creatinine 1.57 H 1.20 H (0.52-1.04) mg/dL Glucose 129 H (74-99) mg/dL Plasma Lactic Acid Florentino (0.7-2.0) mmol/L Calcium 7.9 L 7.7 L (8.4-10.2) mg/dL Magnesium 1.4 L (1.6-2.3) mg/dL AST 60 H (14-36) U/L Alkaline Phosphatase 280 H (38-126) U/L Total Protein 5.8 L (6.3-8.2) g/dL Albumin 3.0 L (3.5-5.0) g/dL Urine Protein (Negative) Ur Leukocyte Esterase (Negative) Urine Bacteria (None) /hpf Hyaline Casts (0-2) /lpf Urine Mucus (None) /hpf Urine Opiates Screen (NotDetected) U Benzodiazepines Scrn (NotDetected) Thrombosis Risk Factor Assmnt - Choose All That Apply Each Factor Represents 1 point: Swollen legs (current) Each Risk Factor Represents 2 Points: Age 61-74 years Thrombosis Risk Factor Assessment Total Risk Factor Score: 3 Thrombosis Risk Factor Assessment Level: Moderate Risk Assessment and Plan Assessment: Metabolic/toxic encephalopathy secondary to narcotic effect other than drug overdose and kidney problem Acute kidney injury Right knee pain and swelling Opioid and benzodiazepine toxicity with hypotension, hypopnea Hypokalemia Hypertension Hyperlipidemia History of GERD History of osteoarthritis History of metastatic colon cancer to liver Peripheral neuropathy from chemotherapy Plan: This is a pleasant 61 years old female AMS and AKA I opioid effect Continue with BiPAP discontinue fentanyl Hold narcotics, fentanyl and Xanax for now Continue with IV hydratio lower IV fluids to normal saline 50 mL/hn Objective bladder scan Check x-ray of the right knee Consult hematology/oncology team Replace electrolytes per protocol including potassium and magnesium Labs and medication were reviewed.. Continue same treatment. Continue with symptomatic treatment. Resume home medication. Monitor lytes and vitals. DVT and GI prophylaxis. Further recommendations as per clinical course of the patient DVT prophylaxis: Subcutaneous heparin GI Prophylaxis: Ppi PT/OT: Pending Prognosis is guarded
--- NOTE | 2022-04-12 07:49 | XR ---
EXAMINATION TYPE: XR knee complete RT DATE OF EXAM: 04/12/2022 7:38 AM INDICATION: Patient age:Female; 61 years old; Reason for study: pain LOM; PHH. COMPARISON: Right knee radiograph 07/29/2014. TECHNIQUE: The Right knee(s) was examined in 3 projections. Frontal, lateral and oblique. FINDINGS: No evidence of any acute osseous pathology, joint space narrowing, soft tissue swelling, or joint effusion is noted. Tricompartmental osteophyte formation with sclerosis and joint space narr owing involving the femoral condyles, tibial plateau and patella. Incidental fabella. IMPRESSION: 1. No acute osseous pathology. 2. Moderate to severe tricompartmental osteoarthritic changes.
[2022-04-12] MEDS: VENLAFAXINE HCL ER 75 MG CAP PO SCH (08:14)
[2022-04-12] MEDS: PANTOPRAZOLE 40 MG TABLET PO SCH ×2 (08:14→17:59)
[2022-04-12] MEDS: SUCRALFATE 1 GM TAB PO SCH ×4 (08:15→20:54)
[2022-04-12] MEDS ORDERED: POTASSIUM CHLORIDE ER 20 MEQ TAB.ER PO ONE (09:45)
[2022-04-12] MEDS: SODIUM CHLORIDE 0.9% 1,000 ML IV SCH (10:13)
--- NOTE | 2022-04-12 10:21 | US ---
EXAMINATION TYPE: US renals and bladder DATE OF EXAM: 04/12/2022 COMPARISON: CT abdomen pelvis 03/09/2022. CLINICAL HISTORY: Renal failure. Overdose, renal failure EXAM MEASUREMENTS: Right Kidney: 10.7 x 4.8 x 5.1 cm Left Kidney: 10.0 x 4.2 x 4.8 cm Right Kidney: No hydronephrosis or masses seen Left Kidney: No hydronephrosis or masses seen Bladder: not distended There is no evidence for hydronephrosis at this point in time. No nephrolithiasis is seen. No tony s are identified. IMPRESSION: No evidence for obstructive uropathy or shadowing calculi.
[2022-04-12] MEDS: ALBUTEROL NEBULIZED 2.5 MG/3 ML INHALATION PRN (15:17)
--- NOTE | 2022-04-12 19:25 | P.CONS ---
History of Present Illness - Reason for Consult Consult date: 04/12/22 colon cancer, known Requesting physician: Emre E Sheet - Chief Complaint unresponsive - History of Present Illness Pt is a very pleasant pt of Dr. Dean, long history of colon adenocarcinoma, diagnosed in 2009, stage III initially. She has had recurrences in liver and lungs. She has had multiple lines of therapy. She is currently on FOLFIRI/zaltrap, s/p 5 cycles. She cannot relay the events of yesterday, she remembers taking her morning and afternoon meds and that is it. She feels a little "off" right now but denies WARD, vision changes, loss of sensation or motor movements. She did receive narcan, denies any pain right now. Review of Systems 10 point ROS is neg except as stated in HPI Past Medical History Past Medical History: Cancer, COPD, GERD/Reflux, Hyperlipidemia, Hypertension, Osteoarthritis (OA) Additional Past Medical History / Comment(s): Metastatic colon cancer, peripheral neuropathy induced by systemic chemotherapy, history of childhood nephrotic syndrome, history of liver CA lesions resected surgically, history of lung nodules felt to be related to metastatic disease, History of Any Multi-Drug Resistant Organisms: None Reported Past Surgical History: Bowel Resection, Cholecystectomy, Orthopedic Surgery Additional Past Surgical History / Comment(s): 2009 port o cath then removed 05-20-12 . 2014 port a cath placed rt chest ;"20% of liver removed d/t ca", colonoscopies [id number]. Past Anesthesia/Blood Transfusion Reactions: No Reported Reaction Past Psychological History: Anxiety, Depression, Panic Disorder Additional Psychological History / Comment(s): (per pmh- MAJOR DEPRESSION-STATE D "HAD OVERDOSE OF XANAX AND AMBIEN ON 04-26-14 WAS SEEN IN THE ER". ) pt stated her son from accidental od . lives by herself has 1 dog, Tessa. Lives in a single story home w/no steps. no medical equipment or homecare services. Smoking Status: Former smoker Past Alcohol Use History: None Reported Additional Past Alcohol Use History / Comment(s): STARTED SMOKING AT AGE 21; down to 4 cigs a day Past Drug Use History: None Reported - Past Family History Father Family Medical History: Diabetes Mellitus, Myocardial Infarction ([place]) Additional Family Medical History / Comment(s): at age 62-[facility] [place] mi's Mother Family Medical History: Cancer Additional Family Medical History / Comment(s): BREAST. from sepsis Medications and Allergies Home Medications Medication Instructions Recorded Confirmed Type ALPRAZolam [Xanax] 1 mg PO TID 03/01/21 04/11/22 History Budesonide/Formoterol Fumarate 2 puff INHALATION RT-BID 03/01/21 04/11/22 History [Symbicort 160-4.5 Mcg Inhaler] Cholestyramine (with Sugar) 4 gm PO BID PRN 03/01/21 04/11/22 History [Cholestyramine Packet] Metoprolol Tartrate [Lopressor] 25 mg PO BID 03/01/21 04/11/22 History Prochlorperazine [Compazine] 10 mg PO Q6H PRN 03/01/21 04/11/22 History Venlafaxine HCl [Effexor XR] 75 mg PO DAILY 03/01/21 04/11/22 History Albuterol Sulfate [Proair Hfa] 2 puff INHALATION RT-QID PRN 03/10/22 04/11/22 History Budesonide [Entocort EC] 3 mg PO DAILY 03/10/22 04/11/22 History Cholecalciferol [Vitamin D3 (25 50 mcg PO DAILY 03/10/22 04/11/22 History Mcg = 1000 Iu)] Cyanocobalamin (Vitamin B-12) 1,000 mcg PO DAILY 03/10/22 04/11/22 History [Vitamin B-12] Gabapentin [Neurontin] 100 mg PO BID 03/10/22 04/11/22 History Magic 5 ml PO QID PRN 03/10/22 04/11/22 History Mouthwas(Ta/Lido/Maalox/Nyst) Omeprazole 20 mg PO BID 03/10/22 04/11/22 History amLODIPine [Norvasc] 5 mg PO DAILY 03/10/22 04/11/22 History HYDROcodone/APAP 10-325MG [[place] 1 tab PO Q4H PRN 3 Days #12 tab 03/19/22 04/11/22 Rx 10-325] Pantoprazole [Protonix] 40 mg PO AC-BID #60 tab 03/19/22 04/11/22 Rx Sucralfate [Carafate] 1 gm PO ACHS #120 tab 03/19/22 04/11/22 Rx fentaNYL 100MCG/HR PATCH 1 patch TRANSDERM Q72H 04/11/22 04/11/22 History [Duragesic 100MCG/HR] Allergies Allergy/AdvReac Type Severity Reaction Status Date / Time acyclovir AdvReac Severe Confusion Verified 04/11/22 18:54 Physical Exam Vitals: Vital Signs Temp Pulse Pulse Resp BP BP Pulse Ox 04/12/22 12:13 82 15 101/54 93 L 04/12/22 07:56 93 L 04/12/22 07:33 98.5 F 87 16 90/50 93 L 04/12/22 04:00 97.6 F 85 10 L 100/61 97 04/12/22 03:54 04/12/22 02:11 84 9 L 94/60 96 04/12/22 02:00 12 04/12/22 01:11 85 12 92/58 95 04/12/22 00:51 97.6 F 90 22 126/75 95 04/12/22 00:00 90 22 126/75 95 04/11/22 23:30 91 10 L 107/65 96 04/11/22 22:59 04/11/22 22:30 90 12 110/70 96 04/11/22 19:18 04/11/22 18:39 105 H 18 147/82 95 04/11/22 18:22 111 H 20 97/67 96 04/11/22 18:19 11 L 04/11/22 17:51 100 04/11/22 17:46 101 H 16 139/78 93 L 04/11/22 17:41 04/11/22 17:30 04/11/22 17:05 97.6 F 126 H 26 H 133/61 93 L FiO2 04/12/22 12:13 04/12/22 07:56 04/12/22 07:33 04/12/22 04:00 40 04/12/22 03:54 40 04/12/22 02:11 40 04/12/22 02:00 04/12/22 01:11 40 04/12/22 00:51 40 04/12/22 00:00 40 04/11/22 23:30 04/11/22 22:59 40 04/11/22 22:30 08/24/22 19:18 60 04/11/22 18:39 04/11/22 18:22 04/11/22 18:19 04/11/22 17:51 04/11/22 17:46 04/11/22 17:41 60 04/11/22 17:30 60 04/11/22 17:05 Intake and Output 04/11/22 04/12/22 04/12/22 22:59 06:59 14:59 Intake Total 2119 Output Total 500 Balance 2119 -500 Intake: Intake, IV Titration 1999 Amount Potassium Chloride 10 meq 400 In Water For Injection 1 100ml.bag @ 100 mls/hr IVPB Q1HR ROULA Rx#: [id number] Sodium Chloride 0.9% 1, 600 000 ml @ 75 mls/hr IV . [id number] ROULA Rx#:[id number] Sodium Chloride 0.9% 500 999 ml 500 ml @ 999 mls/hr IV .Q31M ONE Rx#:[id number] Oral 120 Output: Post Void Residual 500 Other: Weight 68.039 kg 68.039 kg - Constitutional General appearance: cooperative, no acute distress, thin - EENT rt eye bulging ENT: hearing grossly normal, normal oropharynx - Neck Neck: no lymphadenopathy - Respiratory Respiratory: bilateral: rales (bibasilar) - Cardiovascular Rhythm: regular Heart sounds: normal: S1, S2 Abnormal Heart Sounds: no systolic murmur, no diastolic murmur, no rub, no S3 Gallop, no S4 Gallop, no click, no other leg Peripheral Edema: bilateral: None - Gastrointestinal General gastrointestinal: no absent bowel sounds, no decreased bowel sounds, no distended, no hepatomegaly, no hyperactive bowel sounds, normal bowel sounds, no organomegaly, no rigid, no scaphoid, soft, no splenomegaly, no tenderness, no umbilical hernia, no ventral hernia - Neurologic left eye, lateral gaze, drifts downward. - Musculoskeletal Musculoskeletal: generalized weakness, strength equal bilaterally - Psychiatric Psychiatric: A&O x's 3, appropriate affect, intact judgment & insight Results CBC & Chem 7: 04/12/22 05:57 04/12/22 05:57 Labs: Abnormal Lab Results - Last 24 Hours (Table) 04/11/22 04/11/22 04/11/22 Range/Units 16:56 17:27 17:27 RBC 3.76 L (3.80-5.40) m/uL Hgb (11.4-16.0) gm/dL Hct (34.0-46.0) % MCV 106.5 H (80.0-100.0) fL MCHC 30.3 L (31.0-37.0) g/dL RDW 15.9 H (11.5-15.5) % Lymphocytes # 0.4 L (1.0-4.8) k/uL Macrocytosis Marked A APTT 16.9 L (22.0-30.0) sec VBG pH (7.31-7.41) VBG pCO2 (37-51) mmHg Sodium (137-145) mmol/L Potassium (3.5-5.1) mmol/L Chloride (98-107) mmol/L BUN (7-17) mg/dL Creatinine (0.52-1.04) mg/dL Glucose (74-99) mg/dL Plasma Lactic Acid Florentino (0.7-2.0) mmol/L Calcium (8.4-10.2) mg/dL Magnesium (1.6-2.3) mg/dL AST (14-36) U/L Alkaline Phosphatase (38-126) U/L Total Protein (6.3-8.2) g/dL Albumin (3.5-5.0) g/dL Urine Protein 1+ H (Negative) Ur Leukocyte Esterase Trace H (Negative) Urine Bacteria Rare H (None) /hpf Hyaline Casts 4 H (0-2) /lpf Urine Mucus Rare H (None) /hpf Urine Opiates Screen Detected H (NotDetected) U Benzodiazepines Scrn Detected H (NotDetected) 04/11/22 04/11/22 04/11/22 Range/Units 17:30 17:31 17:40 RBC (3.80-5.40) m/uL Hgb (11.4-16.0) gm/dL Hct (34.0-46.0) % MCV (80.0-100.0) fL MCHC (31.0-37.0) g/dL RDW (11.5-15.5) % Lymphocytes # (1.0-4.8) k/uL Macrocytosis APTT (22.0-30.0) sec VBG pH 7.58 H (7.31-7.41) VBG pCO2 26 L (37-51) mmHg Sodium (137-145) mmol/L Potassium (3.5-5.1) mmol/L Chloride (98-107) mmol/L BUN (7-17) mg/dL Creatinine (0.52-1.04) mg/dL Glucose (74-99) mg/dL Plasma Lactic Acid Florentino 4.2 H* (0.7-2.0) mmol/L Calcium (8.4-10.2) mg/dL Magnesium 1.2 L (1.6-2.3) mg/dL AST (14-36) U/L Alkaline Phosphatase (38-126) U/L Total Protein (6.3-8.2) g/dL Albumin (3.5-5.0) g/dL Urine Protein (Negative) Ur Leukocyte Esterase (Negative) Urine Bacteria (None) /hpf Hyaline Casts (0-2) /lpf Urine Mucus (None) /hpf Urine Opiates Screen (NotDetected) U Benzodiazepines Scrn (NotDetected) 04/11/22 04/12/22 04/12/22 Range/Units 19:23 05:57 05:57 RBC 3.20 L (3.80-5.40) m/uL Hgb 10.1 L (11.4-16.0) gm/dL Hct 33.9 L (34.0-46.0) % MCV 105.8 H (80.0-100.0) fL MCHC 29.8 L (31.0-37.0) g/dL RDW 16.1 H (11.5-15.5) % Lymphocytes # 0.8 L (1.0-4.8) k/uL Macrocytosis APTT (22.0-30.0) sec VBG pH (7.31-7.41) VBG pCO2 (37-51) mmHg Sodium 135 L (137-145) mmol/L Potassium 2.7 L* 2.8 L (3.5-5.1) mmol/L Chloride 96 L (98-107) mmol/L BUN 19 H (7-17) mg/dL Creatinine 1.57 H 1.20 H (0.52-1.04) mg/dL Glucose 129 H (74-99) mg/dL Plasma Lactic Acid Florentino (0.7-2.0) mmol/L Calcium 7.9 L 7.7 L (8.4-10.2) mg/dL Magnesium 1.4 L (1.6-2.3) mg/dL AST 60 H (14-36) U/L Alkaline Phosphatase 280 H (38-126) U/L Total Protein 5.8 L (6.3-8.2) g/dL Albumin 3.0 L (3.5-5.0) g/dL Urine Protein (Negative) Ur Leukocyte Esterase (Negative) Urine Bacteria (None) /hpf Hyaline Casts (0-2) /lpf Urine Mucus (None) /hpf Urine Opiates Screen (NotDetected) U Benzodiazepines Scrn (NotDetected) Comments: Renal US report reviewed Assessment and Plan (1) Accidental drug overdose Current Visit: Yes Status: Acute Priority: High Code(s): T50.901A - POISONING BY UNSP DRUG/MEDS/BIOL SUBST, ACCIDENTAL, INIT SNOMED Code(s): 0925893807 (2) Metastatic colon cancer to liver Current Visit: Yes Status: Chronic Priority: Medium Code(s): C18.9 - MALIGNANT NEOPLASM OF COLON, UNSPECIFIED; C78.7 - SECONDARY MALIG NEOPLASM OF LIVER AND INTRAHEPATIC BILE DUCT SNOMED Code(s): 983738753 Plan: Patient has been provided with medications to reverse overdose. She seems to be doing well now. She is back on her pain medications with no altered mental status, decrease in respirations or unusual drowsiness. Patient's presentation is unusual for her. Patient does not remember any events of yesterday. She does not remember the events up to her collapsing. Patient is also noted to have some unusual ocular movements as well as a bulging right eye. MRI of the brain has been ordered. Patient's metastatic colon cancer most recently has been treated with FOLFIRI and zaltrap x 5 cycles. She was just seen 03/30 s/p recent restaging scans. Possible disease progression so, plan was to cont on current therapy and reassess in 2-3 months. attests:I have seen and examined pt, perfomred H&P, developed impression and plan of care. Discussed with dictator. Agree with dictation, documented as a scribe.
[2022-04-13] MEDS: SUCRALFATE 1 GM TAB PO SCH ×4 (07:59→20:05)
[2022-04-13] MEDS: PANTOPRAZOLE 40 MG TABLET PO SCH ×2 (07:59→16:37)
[2022-04-13] MEDS: VENLAFAXINE HCL ER 75 MG CAP PO SCH (07:59)
[2022-04-13] MEDS: SODIUM CHLORIDE 0.9% 1,000 ML IV SCH ×2 (08:10→23:42)
[2022-04-13 09:30] LABS: Basophils # (A) 0.02 X 10*3/uL (0.00-0.10); Basophils % (A) 0.4 %; Eosinophils % (A) 3.8 %; HCT 32.8 % (37.2-46.3); HGB 10.2 g/dL (12.0-15.0); Immature Grans, Automated 0.2 %; Lymphocytes # (A) 0.77 X 10*3/uL (0.90-5.00); Lymphocytes % (A) 14.8 %; MCH 31.6 pg (27.0-32.0); MCHC 31.1 g/dL (32.0-37.0); MCV 101.5 fL (80.0-97.0); Mean Platelet Volume 10.2 fL (9.5-12.2); Monocytes # (A) 0.43 X 10*3/uL (0.20-1.00); Monocytes % (A) 8.3 %; NRBC Per 100 WBC 0 /100 WBCS (0.0-0.0); Neutrophils # (A) 3.77 X 10*3/uL (1.80-7.70); Neutrophils % (A) 72.5 %; Platelet Count 246 X 10*3/uL (140-440); RBC 3.23 X 10*6/uL (4.10-5.20); RDW 15.9 % (11.5-14.5)
[2022-04-13 09:41] LABS: African American GFR (CKD) 90.9 (60.0-200.0); Anion Gap 6.9 mmol/L (10.00-18.00); BUN/Creat Ratio 7.88 Ratio (12.00-20.00); Blood Urea Nitrogen 6.3 mg/dL (9.0-27.0); Calcium 8.2 mg/dL (8.7-10.3); Carbon Dioxide 31.1 mmol/L (20.0-27.5); Magnesium 1.7 mg/dL (1.5-2.4); Non-African American GFR(CKD) 78.5 (60.0-200.0)
[2022-04-13] MEDS ORDERED: LIDOCAINE 2% INJ 20 MG/ML (20 ML MDV) MISCELLANE ONE (09:58)
[2022-04-13] MEDS ORDERED: methylPREDNISolone ACETATE 40 MG/ML 1 ML VIAL INTRAARTIC STA (09:58)
[2022-04-13] MEDS: HYDROcodone/APAP 7.5-325MG 1 EACH TAB PO PRN ×3 (10:20→20:05)
[2022-04-13] MEDS: ALPRAZolam 0.5 MG TAB PO PRN (10:35)
[2022-04-13 10:47] LABS: Glucose,Whole Blood 113 mg/dL (70-110)
[2022-04-13] MEDS: cloNIDine HCL 0.1 MG TAB PO SCH ×2 (10:58→20:05)
[2022-04-13] MEDS ORDERED: MAGNESIUM SULFATE-D5W PMX 1 GM in DEXTROSE/WATER 1 100ML.BAG IVPB ONE (10:59)
[2022-04-13] MEDS: ALBUTEROL NEBULIZED 2.5 MG/3 ML INHALATION PRN ×2 (11:03→16:42)
[2022-04-13] MEDS ORDERED: ALPRAZolam 0.5 MG TAB PO STA (11:16)
[2022-04-13] MEDS: POTASSIUM CHLORIDE ER 20 MEQ TAB.ER PO SCH ×3 (11:26→16:37)
[2022-04-13] MEDS ORDERED: diazePAM 2 MG TAB PO STA (11:46)
--- NOTE | 2022-04-13 11:54 | P.CNOR ---
History of Present Illness - [facility] Consult date: 04/13/22 History of present illness: This patient is a 61-year-old female with past medical history of metastatic colon cancer currently on chemotherapy who follows with Dr. Dean, hypertension, hyperlipidemia that presented to [facility] emergency department yesterday via EMS with complaints of altered mental status. Patient was found unresponsive at home by her caregiver and EMS was called. Patient takes multiple narcotic pain medications for chronic pain, and apparently accidentally overdosed. Patient was admitted under the care of internal medicine for close monitoring and return to baseline mental status. Orthopedic surgery was consulted in regards to right knee pain. Patient is examined bedside this morning. She states she has been experiencing right knee pain for months. She follows with Dr. Manrique as an outpatient, she last saw him in the office on 04/02/22. She requested a cortisone injection, although Dr. Manrique requested she receive clearance from Dr. Dean before receiving a cortisone injection, as she is currently receiving chemotherapy. She denies any falls or injuries to the right knee. She denies swelling, erythema, warmth of the knee. She denies hip pain. There are no additional comments at this time. Vital signs stable. 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 2014 port a cath placed rt chest ;"20% of liver removed d/t ca", colonoscopies [id number]. Past Anesthesia/Blood Transfusion Reactions: No Reported Reaction Past Psychological History: Anxiety, Depression, Panic Disorder Additional Psychological History / Comment(s): (per pmh- MAJOR DEPRESSION- STATED "HAD OVERDOSE OF XANAX AND AMBIEN ON 04-26-14 WAS SEEN IN THE ER". ) pt stated her son from accidental od . lives by herself has 1 dog, Tessa. Lives in a single story home w/no steps. no medical equipment or patrica ecare services. Smoking Status: Former smoker Past Alcohol Use History: None Reported Additional Past Alcohol Use History / Comment(s): STARTED SMOKING AT AGE 21; down to 4 cigs a day Past Drug Use History: None Reported - Past Family History Father Family Medical History: Diabetes Mellitus, Myocardial Infarction ([place]) Additional Family Medical History / Comment(s): at age 62-[facility] mi's Mother Family Medical History: Cancer Additional Family Medical History / Comment(s): BREAST. from sepsis Medications and Allergies Home Medications Medication Instructions Recorded Confirmed Type ALPRAZolam [Xanax] 1 mg PO TID 03/01/21 04/11/22 History Budesonide/Formoterol Fumarate 2 puff INHALATION RT-BID 03/01/21 04/11/22 History [Symbicort 160-4.5 Mcg Inhaler] Cholestyramine (with Sugar) 4 gm PO BID PRN 03/01/21 04/11/22 History [Cholestyramine Packet] Metoprolol Tartrate [Lopressor] 25 mg PO BID 03/01/21 04/11/22 History Prochlorperazine [Compazine] 10 mg PO Q6H PRN 03/01/21 04/11/22 History Venlafaxine HCl [Effexor XR] 75 mg PO DAILY 03/01/21 04/11/22 History Albuterol Sulfate [Proair Hfa] 2 puff INHALATION RT-QID PRN 03/10/22 04/11/22 History Budesonide [Entocort EC] 3 mg PO DAILY 03/10/22 04/11/22 History Cholecalciferol [Vitamin D3 (25 50 mcg PO DAILY 03/10/22 04/11/22 History Mcg = 1000 Iu)] Cyanocobalamin (Vitamin B-12) 1,000 mcg PO DAILY 03/10/22 04/11/22 History [Vitamin B-12] Gabapentin [Neurontin] 100 mg PO BID 03/10/22 04/11/22 History Magic 5 ml PO QID PRN 03/10/22 04/11/22 History Mouthwas(Ta/Lido/Maalox/Nyst) Omeprazole 20 mg PO BID 03/10/22 04/11/22 History amLODIPine [Norvasc] 5 mg PO DAILY 03/10/22 04/11/22 History HYDROcodone/APAP 10-325MG [[place] 1 tab PO Q4H PRN 3 Days #12 tab 03/19/22 04/11/22 Rx 10-325] Pantoprazole [Protonix] 40 mg PO AC-BID #60 tab 03/19/22 04/11/22 Rx Sucralfate [Carafate] 1 gm PO ACHS #120 tab 03/19/22 04/11/22 Rx fentaNYL 100MCG/HR PATCH 1 patch TRANSDERM Q72H 04/11/22 04/11/22 History [Duragesic 100MCG/HR] Allergies Allergy/AdvReac Type Severity Reaction Status Date / Time acyclovir AdvReac Severe Confusion Verified 04/11/22 18:54 Physical Examination Osteopathic Statement: *. No significant issues noted on an osteopathic structural exam other than those noted in the History and Physical/Consult. On examination, patient is lying in bed in no apparent distress. She is alert and oriented 3. Her head appears normocephalic and atraumatic. Her breathing is not labored. Focused examination of the right knee is conducted. On inspection of the right knee, there are no lacerations or abrasions. No signs of trauma. There is no overlying erythema, warmth. No joint effusion. No instability of the right knee noted. There is pain on palpation of the lateral and medial joint lines. No pain with palpation of the proximal tibia, distal femur. No pain with passive range of motion of the right knee or right hip. Motor and sensory function is intact to right lower extremity. Right lower extremity warm and well perfused with brisk capillary refill distally. Calf is nontender. Results Right knee x-ray 04/12/22: No acute fractures. Severe arthritic changes of the knee. - Labs Labs: Abnormal Lab Results - Last 24 Hours (Table) 04/12/22 04/13/22 04/13/22 Range/Units 05:57 06:06 06:06 RBC 3.23 L (4.10-5.20) X 10*6/uL Hgb 10.2 L (12.0-15.0) g/dL Hct 32.8 L (37.2-46.3) % MCV 101.5 H (80.0-97.0) fL MCHC 31.1 L (32.0-37.0) g/dL RDW 15.9 H (11.5-14.5) % Lymphocytes # 0.77 L (0.90-5.00) X 10*3/uL Potassium 3.0 L (3.5-5.5) mmol/L Carbon Dioxide 31.1 H (20.0-27.5) mmol/L Anion Gap 6.90 L (10.00-18.00) mmol/L BUN 6.3 L (9.0-27.0) mg/dL BUN/Creatinine Ratio 7.88 L (12.00-20.00) Ratio POC Glucose (mg/dL) (70-110) mg/dL Calcium 8.2 L (8.7-10.3) mg/dL CK-MB (CK-2) 2.8 H (0.0-2.4) ng/mL 04/13/22 Range/Units 10:45 RBC (4.10-5.20) X 10*6/uL Hgb (12.0-15.0) g/dL Hct (37.2-46.3) % MCV (80.0-97.0) fL MCHC (32.0-37.0) g/dL RDW (11.5-14.5) % Lymphocytes # (0.90-5.00) X 10*3/uL Potassium (3.5-5.5) mmol/L Carbon Dioxide (20.0-27.5) mmol/L Anion Gap (10.00-18.00) mmol/L BUN (9.0-27.0) mg/dL BUN/Creatinine Ratio (12.00-20.00) Ratio POC Glucose (mg/dL) 113 H (70-110) mg/dL Calcium (8.7-10.3) mg/dL CK-MB (CK-2) (0.0-2.4) ng/mL H & H 04/11/22 04/12/22 04/13/22 Range/Units 17:27 05:57 06:06 Hgb 12.1 10.1 L 10.2 L (11.4-16.0) gm/dL Hct 40.0 33.9 L 32.8 L (34.0-46.0) % Coagulation 04/11/22 Range/Units 17:27 INR 1.1 (<1.2) Result Diagrams: 04/15/22 06:58 04/15/22 14:16 Assessment and Plan Assessment: Right knee pain Right knee arthritis Plan: - The clinical and imaging findings were discussed with the patient. The patient was discussed with Dr. Laws. Recommended symptomatic treatment for the patient's right knee arthritis. Patient will use her walker for ambulation. Oral pain medications per internal medicine team. - We also discussed the possibility of a right knee cortisone injection. We can perform this injection later this afternoon, if cleared by internal medicine and Dr. Dean. - We will follow patient peripherally as she remains inpatient. She may follow- up in the office following discharge. Patient seen and examine. Agree with above. Will do a cortisone injection once cleared by med and onc.
--- NOTE | 2022-04-13 11:56 | P.PN ---
Subjective This is a pleasant 61 years old female with past medical history of colon cancer about 8 years ago and lung cancer about 5 years ago, currently she is following with Dr. Dean and undergoing chemotherapy, last chemotherapy was about 2-3 weeks ago. Yesterday she was supposed to get chemotherapy she was brought to the hospital because of altered mental status. Patient cannot remember what happened and who brought her here to the hospital. Patient presents unresponsive, on Fentanyl patch which was removed in emergency room. She is on several narcotic and pain medications including fentanyl, Norcuron Xanax. Patient states she might missed some pills and took extra doses however she is not sure. At baseline patient lives by herself with a dog and 2 cats. Other chronic medical problems includes history of hypertension, GERD, hyperlipidemia, osteoarthritis, metastatic colon cancer, peripheral neuropathy from chemotherapy In the emergency room Her breathing was little so she was placed on BiPAP overnight. This morning she was awake alert and oriented to time, place and person, she is aware to the surrounding and has insight into her illness. She smokes about half pack per day and she was counseled to quit but she declines. No alcohol or illicit drugs recently. She drinks alcohol occasionally. She denies chest pain or dyspnea. No dysuria or urgency, no diarrhea or vomiting or abdominal pain. However she is complaining of from right knee pain and swelling Blood pressure this morning 100/61, 310, heart rate 85 and she is afebrile. Creatinine is elevated at 1.5, baseline 0.4-0.5 Potassium 2.7. Height lactic acid 4.1, came back to normal at 1.1. Magnesium 1.2 which is also low. Liver enzymes not significantly elevated. Salicylates, acetaminophen and alcohol levels are negative EKG showing sinus tachycardia at 128 Chest x-ray: No acute process. Right mid lung nodules are less conspicuous on this radiograph In the emergency room patient received Narcan and electrolyte replacement abnormal at 75 mL/h This morning labs shown improvement in creatinine down to 1.2. Potassium improved up to 2.8 and magnesium 1.4 04/13/2022 Patient this morning was fully awake and oriented to time, place and person and she has insight and follows commands and her mentation is back to baseline. Her right knee was more swollen and warm to touch today and she barely could move it. Orthopedic team on the case with the plan for steroid injection. Resumed her pain medication [place] 7.5 every 6 hours and Xanax 0.5 mg twice a day which is less than her home dose. Later on patient went into withdrawal symptoms with shakiness hot flashes very anxious and tremor and she was very anxious, she was hypertensive with systolic in 180s, A-team was called for this purpose. Patient was given 1 dose of Xanax and started on clonidine 0.1 mg twice daily Also given 1 time dose of Valium 2 mg. Fentanyl remains on hold for now. MRI of the brain is ordered and pending for bulging right eye and to rule out metastatic disease. She is on normal saline 50 mL per hour Yesterday she was retaining 500 mL, today she's been a lot. The today we are going to check check bladder scan, discussed with bed side nurse Objective - Vital Signs Vital signs: Vital Signs Temp 97.7 F 04/13/22 08:00 Pulse 62 04/13/22 11:13 Resp 18 04/13/22 08:00 BP 144/88 04/13/22 08:00 Pulse Ox 96 04/13/22 08:00 FiO2 40 04/12/22 04:00 Intake & Output 04/12/22 04/13/22 04/13/22 18:59 06:59 18:59 Intake Total 500 Output Total 500 Balance -500 500 Intake: Intake, IV Titration 500 Amount Sodium Chloride 0.9% 1, 500 000 ml @ 50 mls/hr IV . Q20H [facility] Rx#:[id number] Output: Post Void Residual 500 Other: # Voids 2 # Bowel Movements 1 - Exam GENERAL: The patient is alert and oriented x3, not in any acute distress. Well developed, well nourished. HEENT: Pupils are round and equally reacting to light. EOMI. No scleral icterus. No conjunctival pallor. Normocephalic, atraumatic. No pharyngeal erythema. No thyromegaly. CARDIOVASCULAR: S1 and S2 present. No murmurs, rubs, or gallops. -PULMONARY: Chest is clear to auscultation, no wheezing. Mild bilateral basal crackles. ABDOMEN: Soft, nontender, nondistended, normoactive bowel sounds. No palpable organomegaly. MUSCULOSKELETAL: No joint swelling or deformity. -EXTREMITIES: No cyanosis, clubbing, or pedal edema. Right knee mildly swollen and tender with mild limitation of flexion of the knee on the right side NEUROLOGICAL: Gross neurological examination did not reveal any focal deficits. SKIN: No rashes. no petechiae. - Labs CBC & Chem 7: 04/13/22 06:06 04/13/22 06:06 Labs: Abnormal Lab Results - Last 24 Hours (Table) 04/12/22 04/13/22 04/13/22 Range/Units 05:57 06:06 06:06 RBC 3.23 L (4.10-5.20) X 10*6/uL Hgb 10.2 L (12.0-15.0) g/dL Hct 32.8 L (37.2-46.3) % MCV 101.5 H (80.0-97.0) fL MCHC 31.1 L (32.0-37.0) g/dL RDW 15.9 H (11.5-14.5) % Lymphocytes # 0.77 L (0.90-5.00) X 10*3/uL Potassium 3.0 L (3.5-5.5) mmol/L Carbon Dioxide 31.1 H (20.0-27.5) mmol/L Anion Gap 6.90 L (10.00-18.00) mmol/L BUN 6.3 L (9.0-27.0) mg/dL BUN/Creatinine Ratio 7.88 L (12.00-20.00) Ratio POC Glucose (mg/dL) (70-110) mg/dL Calcium 8.2 L (8.7-10.3) mg/dL CK-MB (CK-2) 2.8 H (0.0-2.4) ng/mL 04/13/22 Range/Units 10:45 RBC (4.10-5.20) X 10*6/uL Hgb (12.0-15.0) g/dL Hct (37.2-46.3) % MCV (80.0-97.0) fL MCHC (32.0-37.0) g/dL RDW (11.5-14.5) % Lymphocytes # (0.90-5.00) X 10*3/uL Potassium (3.5-5.5) mmol/L Carbon Dioxide (20.0-27.5) mmol/L Anion Gap (10.00-18.00) mmol/L BUN (9.0-27.0) mg/dL BUN/Creatinine Ratio (12.00-20.00) Ratio POC Glucose (mg/dL) 113 H (70-110) mg/dL Calcium (8.7-10.3) mg/dL CK-MB (CK-2) (0.0-2.4) ng/mL Assessment and Plan Assessment: Right knee pain and swelling with x-ray showing moderate to severe tricompartment osteoarthritis Metabolic/toxic encephalopathy secondary to narcotic effect other than drug overdose and kidney problem. Resolved Acute kidney injury. Improved Right knee pain and swelling Opioid and benzodiazepine toxicity with hypotension, hypopnea. Improved Hypokalemia Hypertension Hyperlipidemia History of GERD History of osteoarthritis History of metastatic colon cancer to liver Peripheral neuropathy from chemotherapy Plan: This is a pleasant 61 years old female AMS and AKA I opioid effect Continue off fentanyl Resume [place] at lower dose 7.5 mg and Xanax at 0.5 mg One-time dose of Valium Start clonidine Patient might benefit from steroid injection into the knee Continue with IV hydratio lower IV fluids to normal saline 50 mL/hn Recheck bladder scan Consult hematology/oncology team Replace electrolytes per protocol including potassium and magnesium Labs and medication were reviewed.. Continue same treatment. Continue with symptomatic treatment. Resume home medication. Monitor lytes and vitals. DVT and GI prophylaxis. Further recommendations as per clinical course of the patient DVT prophylaxis: Subcutaneous heparin GI Prophylaxis: Ppi PT/OT: Pending Prognosis is guarded
[2022-04-14] MEDS: ALBUTEROL NEBULIZED 2.5 MG/3 ML INHALATION PRN ×3 (03:46→16:00)
[2022-04-14] MEDS: VENLAFAXINE HCL ER 75 MG CAP PO SCH (08:18)
[2022-04-14] MEDS: SUCRALFATE 1 GM TAB PO SCH ×4 (08:18→21:02)
[2022-04-14] MEDS: cloNIDine HCL 0.1 MG TAB PO SCH ×2 (08:18→21:01)
[2022-04-14] MEDS: HYDROcodone/APAP 7.5-325MG 1 EACH TAB PO PRN ×3 (08:18→21:02)
[2022-04-14] MEDS: PANTOPRAZOLE 40 MG TABLET PO SCH ×2 (08:18→17:27)
--- NOTE | 2022-04-14 10:03 | P.PN ---
Subjective Progress Note Date: 04/14/22 Principal diagnosis: Right knee pain and swelling This patient is a 61-year-old female with past medical history of metastatic colon cancer currently on chemotherapy who follows with Dr. Dean, hypertension, hyperlipidemia that presented to [facility] emergency department yesterday via EMS with complaints of altered mental status. Patient was found unresponsive at home by her caregiver and EMS was called. Patient takes multiple narcotic pain medications for chronic pain, and apparently accidentally overdosed. Patient was admitted under the care of internal medicine for close monitoring and return to baseline mental status. Orthopedic surgery was consulted in regards to right knee pain. Patient is examined bedside this morning with Dr. Laws. She states she has been experiencing right knee pain for months. She follows with Dr. Manrique as an outpatient, she last saw him in the office on 04/02/22. She requested a cortisone injection, although Dr. Manrique requested she receive clearance from Dr. Dean before receiving a cortisone injection, as she is currently receiving chemotherapy. She denies any falls or injuries to the right knee. She denies erythema, warmth of the knee. She denies hip pain. There are no additional comments at this time. Vital signs stable. Objective - Vital Signs Vital signs: Vital Signs Temp 97.5 F L 04/14/22 07:32 Pulse 80 04/14/22 09:01 Resp 13 04/14/22 07:32 BP 157/82 04/14/22 07:32 Pulse Ox 100 04/14/22 07:32 FiO2 40 04/12/22 04:00 Intake & Output 04/13/22 04/14/22 04/14/22 18:59 06:59 18:59 Output Total 1000 300 Balance -1000 -300 Output: Urine 1000 Post Void Residual 300 Other: # Voids 2 4 1 # Bowel Movements 1 - Exam On examination, patient is lying in bed in no apparent distress. She is alert and oriented 3. Her head appears normocephalic and atraumatic. Her breathing is not labored. Focused examination of the right knee is conducted. On inspection of the right knee, there are no lacerations or abrasions. No signs of trauma. There is no overlying erythema, warmth. 2+ joint effusion noted. No instability of the right knee noted. There is pain on palpation of the lateral and medial joint lines. No pain with palpation of the proximal tibia, distal femur. No pain with passive range of motion of the right hip. Moderate pain on motion to the right knee. Motor and sensory function is intact to right lower extremity. Right lower extremity warm and well perfused with brisk capillary refill distally. Calf is nontender. - Labs CBC & Chem 7: 04/13/22 06:06 04/13/22 06:06 Labs: Abnormal Lab Results - Last 24 Hours (Table) 04/13/22 04/13/22 Range/Units 10:45 12:41 POC Glucose (mg/dL) 113 H (70-110) mg/dL Magnesium 1.5 L (1.6-2.3) mg/dL Assessment and Plan (1) Unilateral primary osteoarthritis, right knee Current Visit: Yes Status: Acute Code(s): M17.11 - UNILATERAL PRIMARY OSTEOARTHRITIS, RIGHT KNEE SNOMED Code(s): 252117306995444 Plan: - The clinical and imaging findings were discussed with the patient. The patient was examined by Dr. Veto villarreal. Recommended symptomatic treatment for the patient's right knee arthritis. Patient will use her walker for ambulation. Oral pain medications per internal medicine team. - We also discussed the possibility of a right knee cortisone injection and knee aspiration. We can perform this injection later this morning or tomorrow, if cleared by oncology. Internal medicine has cleared her for the injection. - We will follow patient peripherally as she remains inpatient. She may follow- up in the office following discharge.
[2022-04-14 10:52] LABS: African American GFR (CKD) >90 (>60 ml/min/1.73 sqM); Anion Gap 8 mmol/L; Blood Urea Nitrogen 2 mg/dL (7-17); Calcium 8.3 mg/dL (8.4-10.2); Carbon Dioxide 31 mmol/L (22-30); Chloride 102 mmol/L (98-107); Glucose 100 mg/dL (74-99); Non-African American GFR(CKD) >90 (>60 ml/min/1.73 sqM); Potassium 3.4 mmol/L (3.5-5.1); Sodium 141 mmol/L (137-145)
[2022-04-14] MEDS ORDERED: POTASSIUM CHLORIDE ER 20 MEQ TAB.ER PO STA (12:48)
[2022-04-14] MEDS: MAGNESIUM SULFATE-D5W PMX 1 GM in DEXTROSE/WATER 1 100ML.BAG IVPB SCH ×2 (14:38→14:39)
--- NOTE | 2022-04-14 15:00 | P.PN ---
Subjective Progress Note Date: 04/14/22 This is a 61-year-old female who presents to the hospital for altered mental status with concern for accidental overdose as patient is on multiple narcotics outpatient. She is also being evaluated by orthopedics for possible steroid injection to right knee. Patient reports discomfort to right knee rating it a 6/10 currently. There is minimal swelling, no erythema. Fentanyl remains on hold. Patient is pending MRI for rule out brain metastasis as she presents with bulging right eye. Oncology is following the patient. Blood pressure is elevated at 157/82, she was started on clonidine 2 days ago. She is also on valium/xanax. Review of Systems Constitutional: Reports fatigue denied any fever. Cardio vascular: denied any chest pain, palpitations Gastrointestinal: denied any nausea, vomiting, diarrhea Pulmonary: Denied any shortness of breath cough Neurologic denied any new focal deficits All inpatient medications were reviewed and appropriate changes in these medications as dictated in the interval history and assessment and plan. PHYSICAL EXAMINATION: GENERAL: The patient is alert and oriented x3, not in any acute distress. Well developed, well nourished. HEENT: Pupils are round and equally reacting to light. EOMI. No scleral icterus. No conjunctival pallor. Normocephalic, atraumatic. No pharyngeal erythema. No thyromegaly. CARDIOVASCULAR: S1 and S2 present. No murmurs, rubs, or gallops. PULMONARY: Chest is clear to auscultation, no wheezing or crackles. ABDOMEN: Soft, nontender, nondistended, normoactive bowel sounds. No palpable organomegaly. MUSCULOSKELETAL: No joint swelling or deformity. EXTREMITIES: No cyanosis, clubbing, or pedal edema. NEUROLOGICAL: Gross neurological examination did not reveal any focal deficits. SKIN: No rashes. Assessment and plan Assessment: Right knee pain and swelling with x-ray showing moderate to severe tricompartment osteoarthritis Metabolic/toxic encephalopathy secondary to narcotic effect other than drug overdose and kidney problem. Resolved Acute kidney injury. Improved Opioid and benzodiazepine toxicity with hypotension, hypopnea. Improved Hypokalemia Hypertension Hyperlipidemia History of GERD History of osteoarthritis History of metastatic colon cancer to liver Peripheral neuropathy from chemotherapy GI prophylaxis DVT Prophylaxis Full Code Plan Patient is currently off fentanyl and continues on decreased dosing of norco/xanax Has been started on clonidine Pending steroid injection to right knee pending oncology clearance Pending MRI evaluation for AMS/rule out brain metastasis Oncology following patient Replace electrolytes, magnesium and potassium, repeat levels in AM Use walker for ambulation Home with HC VS. FREYA The impression and plan of care has been dictated by Nadia Fofana, Nurse Practitioner as directed. Dr. Bird MD I have performed a history and physical examination and medical decision making of this patient, discussed the same with the dictator, and agree with the dictators assessment and plan as written, documented as a scribe. Based on total visit time, I have performed more than 50% of this visit. Objective - Vital Signs Vital signs: Vital Signs Temp 97.5 F L 04/14/22 07:32 Pulse 80 04/14/22 09:01 Resp 13 04/14/22 07:32 BP 157/82 04/14/22 07:32 Pulse Ox 100 04/14/22 07:32 FiO2 40 04/12/22 04:00 Intake & Output 04/13/22 04/14/22 04/14/22 18:59 06:59 18:59 Output Total 1000 300 Balance -1000 -300 Output: Urine 1000 Post Void Residual 300 Other: # Voids 2 4 1 # Bowel Movements 1 - Labs CBC & Chem 7: 04/13/22 06:06 04/14/22 06:58 Labs: Abnormal Lab Results - Last 24 Hours (Table) 04/13/22 04/13/22 04/13/22 Range/Units 06:06 06:06 10:45 RBC 3.23 L (4.10-5.20) X 10*6/uL Hgb 10.2 L (12.0-15.0) g/dL Hct 32.8 L (37.2-46.3) % MCV 101.5 H (80.0-97.0) fL MCHC 31.1 L (32.0-37.0) g/dL RDW 15.9 H (11.5-14.5) % Lymphocytes # 0.77 L (0.90-5.00) X 10*3/uL Potassium 3.0 L (3.5-5.5) mmol/L Carbon Dioxide 31.1 H (20.0-27.5) mmol/L Anion Gap 6.90 L (10.00-18.00) mmol/L BUN 6.3 L (9.0-27.0) mg/dL BUN/Creatinine Ratio 7.88 L (12.00-20.00) Ratio POC Glucose (mg/dL) 113 H (70-110) mg/dL Calcium 8.2 L (8.7-10.3) mg/dL Magnesium (1.6-2.3) mg/dL 04/13/22 Range/Units 12:41 RBC (4.10-5.20) X 10*6/uL Hgb (12.0-15.0) g/dL Hct (37.2-46.3) % MCV (80.0-97.0) fL MCHC (32.0-37.0) g/dL RDW (11.5-14.5) % Lymphocytes # (0.90-5.00) X 10*3/uL Potassium (3.5-5.5) mmol/L Carbon Dioxide (20.0-27.5) mmol/L Anion Gap (10.00-18.00) mmol/L BUN (9.0-27.0) mg/dL BUN/Creatinine Ratio (12.00-20.00) Ratio POC Glucose (mg/dL) (70-110) mg/dL Calcium (8.7-10.3) mg/dL Magnesium 1.5 L (1.6-2.3) mg/dL Assessment and Plan Time with Patient: Less than 30
--- NOTE | 2022-04-14 15:15 | MR ---
EXAMINATION TYPE: MR brain wo/w con DATE OF EXAM: 04/14/2022 COMPARISON: 12/13/2021 HISTORY: extaocular abnormalities buldge right eye. Injury 2 years ago with surgery on right eye. CONTRAST: Standard multiplanar, multisequence MRI departmental protocol images were obtained without contrast a nd with 7 mL intravenous Gadavist gadolinium contrast. Ventricles of normal size. There is no mass effect or midline shift. No sign of intracranial hemorrha ge. Diffusion images show no sign of an acute infarct. Brainstem is intact. Cerebellum is intact. No evidence of cerebral edema. No evidence of cortical infarct. Corpus callosum is intact. Sella turcica appears normal. No evidence of retro-orbital mass. There is deformity of the right globe. There is no pathologic enhancement. There is normal enhancement of the venous sinuses. There is minim al mucosal thickening in the maxillary sinuses. IMPRESSION: Negative MR scan of the brain. There is some contour deformity of the right globe without change comp ared to old exam. No acute intracranial abnormality.
[2022-04-14] MEDS: SODIUM CHLORIDE 0.9% 1,000 ML IV SCH (21:04)
[2022-04-15] MEDS: HYDROcodone/APAP 7.5-325MG 1 EACH TAB PO PRN ×3 (03:20→17:44)
[2022-04-15] MEDS: PROCHLORPERAZINE 10 MG TAB PO PRN ×2 (03:51→17:44)
[2022-04-15] MEDS: ALBUTEROL NEBULIZED 2.5 MG/3 ML INHALATION PRN ×2 (07:21→19:59)
[2022-04-15] MEDS ORDERED: Magnesium Replacement Protocol 1 EACH MISC MISCELLANE PRN (07:36)
[2022-04-15] MEDS ORDERED: POTASSIUM CHLORIDE ER 20 MEQ TAB.ER PO STA ×2 (07:36→16:36)
[2022-04-15] MEDS: PANTOPRAZOLE 40 MG TABLET PO SCH ×2 (08:19→17:44)
[2022-04-15] MEDS: VENLAFAXINE HCL ER 75 MG CAP PO SCH (08:19)
[2022-04-15] MEDS: SUCRALFATE 1 GM TAB PO SCH ×5 (08:19→20:32)
[2022-04-15] MEDS: cloNIDine HCL 0.1 MG TAB PO SCH ×2 (08:20→20:29)
[2022-04-15] MEDS ORDERED: POTASSIUM CHLORIDE ER 20 MEQ TAB.ER PO ONE (09:00)
[2022-04-15] MEDS ORDERED: LIDOCAINE 1% INJ 10MG/ML (20 ML MDV) ONE (09:14)
[2022-04-15 10:16] LABS: Basophils # (A) 0.03 X 10*3/uL (0.00-0.10); Basophils % (A) 0.8 %; Eosinophils # (A) 0.39 X 10*3/uL (0.04-0.35); Eosinophils % (A) 9.8 %; HCT 33.4 % (37.2-46.3); HGB 10.8 g/dL (12.0-15.0); Immature Grans, Automated 0.3 %; Lymphocytes # (A) 1.11 X 10*3/uL (0.90-5.00); Lymphocytes % (A) 27.9 %; MCH 32.2 pg (27.0-32.0); MCHC 32.3 g/dL (32.0-37.0); MCV 99.7 fL (80.0-97.0); Mean Platelet Volume 10.5 fL (9.5-12.2); Monocytes # (A) 0.39 X 10*3/uL (0.20-1.00); Monocytes % (A) 9.8 %; NRBC Per 100 WBC 0 /100 WBCS (0.0-0.0); Neutrophils # (A) 2.05 X 10*3/uL (1.80-7.70); Neutrophils % (A) 51.4 %; Platelet Count 282 X 10*3/uL (140-440); RBC 3.35 X 10*6/uL (4.10-5.20); RDW 15.9 % (11.5-14.5); WBC 3.98 X 10*3/uL (4.50-10.00)
--- NOTE | 2022-04-15 10:38 | P.PN ---
Subjective Progress Note Date: 04/15/22 Principal diagnosis: Right knee pain and swelling This patient is a 61-year-old female with past medical history of metastatic colon cancer currently on chemotherapy who follows with Dr. Dean, hypertension, hyperlipidemia that presented to [facility] emergency department yesterday via EMS with complaints of altered mental status. Patient was found unresponsive at home by her caregiver and EMS was called. Patient takes multiple narcotic pain medications for chronic pain, and apparently accidentally overdosed. Patient was admitted under the care of internal medicine for close monitoring and return to baseline mental status. Orthopedic surgery was consulted in regards to right knee pain. Patient is examined bedside this morning with Dr. Laws. She states she has been experiencing right knee pain for months. She follows with Dr. Manrique as an outpatient, she last saw him in the office on 04/02/22. She requested a cortisone injection, although Dr. Manrique requested she receive clearance from Dr. Dean before receiving a cortisone injection, as she is currently receiving chemotherapy. She denies any falls or injuries to the right knee. She denies erythema, warmth of the knee. She denies hip pain. There are no additional comments at this time. Vital signs stable. 04/15/2022: The patient continues to have right knee pain. The injection has been cleared by oncology as long as she is not neutropenic (ANC<1). No new complaints. Objective - Vital Signs Vital signs: Vital Signs Temp 98.1 F 04/15/22 08:00 Pulse 76 04/15/22 08:00 Resp 17 04/15/22 08:00 BP 118/75 04/15/22 08:00 Pulse Ox 99 04/15/22 08:00 FiO2 40 04/12/22 04:00 Intake & Output 04/14/22 04/15/22 04/15/22 18:59 06:59 18:59 Other: # Voids 5 2 # Bowel Movements 1 - Exam On examination, patient is lying in bed in no apparent distress. She is alert and oriented 3. Her head appears normocephalic and atraumatic. Her breathing is not labored. Focused examination of the right knee is conducted. On inspection of the right knee, there are no lacerations or abrasions. No signs of trauma. There is no overlying erythema, warmth. 2+ joint effusion noted. No instability of the right knee noted. There is pain on palpation of the lateral and medial joint lines. No pain with palpation of the proximal tibia, distal femur. No pain with passive range of motion of the right hip. Moderate pain on motion to the right knee. Motor and sensory function is intact to right lower extremity. Right lower extremity warm and well perfused with brisk capillary refill distally. Calf is nontender. - Labs CBC & Chem 7: 04/15/22 06:58 04/14/22 06:58 Labs: Abnormal Lab Results - Last 24 Hours (Table) 04/14/22 04/14/22 04/15/22 Range/Units 06:58 06:58 06:58 WBC 3.98 L (4.50-10.00) X 10*3/uL RBC 3.35 L (4.10-5.20) X 10*6/uL Hgb 10.8 L (12.0-15.0) g/dL Hct 33.4 L (37.2-46.3) % MCV 99.7 H (80.0-97.0) fL MCH 32.2 H (27.0-32.0) pg RDW 15.9 H (11.5-14.5) % Eosinophils # 0.39 H (0.04-0.35) X 10*3/uL Potassium 3.4 L (3.5-5.1) mmol/L Carbon Dioxide 31 H (22-30) mmol/L BUN 2 L (7-17) mg/dL Glucose 100 H (74-99) mg/dL Calcium 8.3 L (8.4-10.2) mg/dL Magnesium 1.2 L (1.5-2.4) mg/dL Assessment and Plan (1) Unilateral primary osteoarthritis, right knee Current Visit: Yes Status: Acute Code(s): M17.11 - UNILATERAL PRIMARY OSTEOARTHRITIS, RIGHT KNEE SNOMED Code(s): 550954725477116 Plan: - The clinical and imaging findings were discussed with the patient. Recommended symptomatic treatment for the patient's right knee arthritis. Patient will use her walker for ambulation. Oral pain medications per internal medicine team. - The patient opts for a cortisone injection in the right knee today. - We will sign off at this time. She may follow-up in the office following discharge. Procedure Note: Bedside right knee joint injection and attempted aspiration. The patient agreed to the joint aspiration and injection and confirmed right knee. The patient's skin was cleansed with Chorlaprep. 3ml of 1% lidocaine as injected into the aspiration site to the lateral knee. I attempted a joint aspiration but the patient did not tolerate well. 1mL of depomedrol 40mg and 2mL of 1% lidocaine was injected into the right knee joint without difficulty. The patient tolerated the injection well. A bandaid was applied to injection site. Ice may be applied to the knee if she experiences pain later this evening or tomorrow.
[2022-04-15] MEDS: MAGNESIUM SULFATE-D5W PMX 1 GM in DEXTROSE/WATER 1 100ML.BAG IVPB SCH ×2 (11:02→11:03)
[2022-04-15 12:52] LABS: Anion Gap 7.6 mmol/L (10.00-18.00); BUN/Creat Ratio 3.32 Ratio (12.00-20.00); Calcium 8.2 mg/dL (8.7-10.3); Carbon Dioxide 29.7 mmol/L (20.0-27.5); Magnesium 1.9 mg/dL (1.5-2.4); Non-African American GFR(CKD) 97.5 (60.0-200.0); Potassium 3.2 mmol/L (3.5-5.5)
--- NOTE | 2022-04-15 16:38 | P.PN ---
Subjective Progress Note Date: 04/15/22 This is a 61-year-old female who presents to the hospital for altered mental status with concern for accidental overdose as patient is on multiple narcotics outpatient. She is also being evaluated by orthopedics for possible steroid injection to right knee. Patient reports discomfort to right knee rating it a 6/10 currently. There is minimal swelling, no erythema. Fentanyl remains on hold. Patient is pending MRI for rule out brain metastasis as she presents with bulging right eye. Oncology is following the patient. Blood pressure is elevated at 157/82, she was started on clonidine 2 days ago. She is also on valium/xanax. 04/15/2022 Patient evaluated today resting in bed. She does live by herself in an apartment. PT evaluation has recommended home with HC versus subacute rehab. Pending PT re-evaluation prior to discharge. Patient is high risk for falls and also high risk for readmission. She did undergo steroid injection to her right knee today with attempted knee aspiration. She does report pain to right knee and is hesitant to ambulate due to ongoing right knee pain. Will ask PT for re evaluation tomorrow for discharge planning. Otherwise patient underwent MRI which is negative. Labs today showing white count 3.98, hgb 10.8, sodium 139, potassium 3.2 she did receive 60 meq and repeat potassium level is 3.5. Magnesium 1.9. Review of Systems Constitutional: Reports fatigue denied any fever. Cardio vascular: denied any chest pain, palpitations Gastrointestinal: denied any nausea, vomiting, diarrhea Pulmonary: Denied any shortness of breath cough Neurologic denied any new focal deficits All inpatient medications were reviewed and appropriate changes in these medications as dictated in the interval history and assessment and plan. PHYSICAL EXAMINATION: GENERAL: The patient is alert and oriented x3, not in any acute distress. Well developed, well nourished. HEENT: Pupils are round and equally reacting to light. EOMI. No scleral icterus. No conjunctival pallor. Normocephalic, atraumatic. No pharyngeal erythema. No thyromegaly. CARDIOVASCULAR: S1 and S2 present. No murmurs, rubs, or gallops. PULMONARY: Chest is clear to auscultation, no wheezing or crackles. ABDOMEN: Soft, nontender, nondistended, normoactive bowel sounds. No palpable organomegaly. MUSCULOSKELETAL: No joint swelling or deformity. EXTREMITIES: No cyanosis, clubbing, or pedal edema. NEUROLOGICAL: Gross neurological examination did not reveal any focal deficits. SKIN: No rashes. Assessment and plan Assessment: Right knee pain and swelling with x-ray showing moderate to severe tricompartment osteoarthritis Status post steroid injection to right knee Metabolic/toxic encephalopathy secondary to narcotic effect other than drug overdose and kidney problem. Resolved Acute kidney injury. Improved Opioid and benzodiazepine toxicity with hypotension, hypopnea. Improved Hypokalemia Hypertension Hyperlipidemia History of GERD History of osteoarthritis History of metastatic colon cancer to liver Peripheral neuropathy from chemotherapy GI prophylaxis DVT Prophylaxis Full Code Plan Patient is currently off fentanyl and continues on decreased dosing of nor co/xanax Has been started on clonidine Post injection to right knee pending oncology clearance Oncology following patient Use walker for ambulation Home with HC VS. [facility] pending PT re-evaluation and discharge planning Discharge pending for tomorrow The impression and plan of care has been dictated by Nadia Fofana, Nurse Practitioner as directed. Dr. Bird MD I have performed a history and physical examination and medical decision making of this patient, discussed the same with the dictator, and agree with the dictators assessment and plan as written, documented as a scribe. Based on total visit time, I have performed more than 50% of this visit. Objective - Vital Signs Vital signs: Vital Signs Temp 97.6 F 04/15/22 14:00 Pulse 71 04/15/22 14:00 Resp 16 04/15/22 14:00 BP 138/80 04/15/22 14:00 Pulse Ox 96 04/15/22 14:00 FiO2 40 04/12/22 04:00 Intake & Output 04/14/22 04/15/22 04/15/22 18:59 06:59 18:59 Intake Total 250 Balance 250 Intake: Oral 250 Other: Voiding Method Toilet # Voids 5 2 2 # Bowel Movements 1 1 - Labs CBC & Chem 7: 04/15/22 06:58 04/15/22 14:16 Labs: Abnormal Lab Results - Last 24 Hours (Table) 04/15/22 04/15/22 Range/Units 06:58 06:58 WBC 3.98 L (4.50-10.00) X 10*3/uL RBC 3.35 L (4.10-5.20) X 10*6/uL Hgb 10.8 L (12.0-15.0) g/dL Hct 33.4 L (37.2-46.3) % MCV 99.7 H (80.0-97.0) fL MCH 32.2 H (27.0-32.0) pg RDW 15.9 H (11.5-14.5) % Eosinophils # 0.39 H (0.04-0.35) X 10*3/uL Potassium 3.2 L (3.5-5.5) mmol/L Carbon Dioxide 29.7 H (20.0-27.5) mmol/L Anion Gap 7.60 L (10.00-18.00) mmol/L BUN 2.0 L (9.0-27.0) mg/dL BUN/Creatinine Ratio 3.32 L (12.00-20.00) Ratio Calcium 8.2 L (8.7-10.3) mg/dL Assessment and Plan Time with Patient: Less than 30
[2022-04-15] MEDS: SODIUM CHLORIDE 0.9% 1,000 ML IV SCH (16:42)
[2022-04-15] MEDS: ALPRAZolam 0.5 MG TAB PO PRN (20:29)
[2022-04-16] MEDS: HYDROcodone/APAP 7.5-325MG 1 EACH TAB PO PRN ×2 (00:47→07:59)
[2022-04-16 01:49] VITALS: RESP 16
[2022-04-16 07:06] VITALS: BP 115/72; TEMP 97.4
[2022-04-16] MEDS: ALBUTEROL NEBULIZED 2.5 MG/3 ML INHALATION PRN ×2 (07:37→11:38)
[2022-04-16 07:40] VITALS: PULSE 76
[2022-04-16] MEDS: cloNIDine HCL 0.1 MG TAB PO SCH (07:56)
[2022-04-16] MEDS: PANTOPRAZOLE 40 MG TABLET PO SCH (07:56)
[2022-04-16] MEDS: SUCRALFATE 1 GM TAB PO SCH ×2 (07:56→11:25)
[2022-04-16] MEDS: VENLAFAXINE HCL ER 75 MG CAP PO SCH (07:57)
--- NOTE | 2022-04-16 10:33 | P.PN ---
Subjective Progress Note Date: 04/16/22 CBC and CMP today Objective - Vital Signs Vital signs: Vital Signs Temp 97.4 F L 04/16/22 07:05 Pulse 76 04/16/22 07:49 Resp 16 04/16/22 07:05 BP 115/72 04/16/22 07:05 Pulse Ox 97 04/16/22 07:05 FiO2 40 04/12/22 04:00 Intake & Output 04/15/22 04/16/22 04/16/22 18:59 06:59 18:59 Intake Total 250 Balance 250 Intake: Oral 250 Other: Voiding Method Toilet Toilet # Voids 3 1 # Bowel Movements 2 - Exam - Constitutional General appearance: cooperative, no acute distress, thin - EENT rt eye bulging ENT: hearing grossly normal, normal oropharynx - Neck Neck: no lymphadenopathy - Respiratory Respiratory: bilateral: rales (bibasilar) - Cardiovascular Rhythm: regular Heart sounds: normal: S1, S2 Abnormal Heart Sounds: no systolic murmur, no diastolic murmur, no rub, no S3 Ga llop, no S4 Gallop, no click, no other leg Peripheral Edema: bilateral: None - Gastrointestinal General gastrointestinal: no absent bowel sounds, no decreased bowel sounds, no distended, no hepatomegaly, no hyperactive bowel sounds, normal bowel sounds, no organomegaly, no rigid, no scaphoid, soft, no splenomegaly, no tenderness, no umbilical hernia, no ventral hernia - Neurologic left eye, lateral gaze, drifts downward. - Musculoskeletal Musculoskeletal: generalized weakness, strength equal bilaterally - Psychiatric Psychiatric: A&O x's 3, appropriate affect, intact judgment & insight - Labs CBC & Chem 7: 04/15/22 06:58 04/15/22 14:16 Labs: Abnormal Lab Results - Last 24 Hours (Table) 04/15/22 Range/Units 06:58 Potassium 3.2 L (3.5-5.5) mmol/L Carbon Dioxide 29.7 H (20.0-27.5) mmol/L Anion Gap 7.60 L (10.00-18.00) mmol/L BUN 2.0 L (9.0-27.0) mg/dL BUN/Creatinine Ratio 3.32 L (12.00-20.00) Ratio Calcium 8.2 L (8.7-10.3) mg/dL Assessment and Plan Plan: Comments: Renal US report reviewed Assessment and Plan (1) Accidental drug overdose Current Visit: Yes Status: Acute Priority: High Code(s): T50.901A - POISONING BY UNSP DRUG/MEDS/BIOL SUBST, ACCIDENTAL, INIT SNOMED Code(s): 0021793183 (2) Metastatic colon cancer to liver Current Visit: Yes Status: Chronic Priority: Medium Code(s): C18.9 - MALIGNANT NEOPLASM OF COLON, UNSPECIFIED; C78.7 - SECONDARY MALIG NEOPLASM OF LIVER AND INTRAHEPATIC BILE DUCT SNOMED Code(s): 834450698 Plan: Patient's presentation is unusual for her. Patient does not remember any events of yesterday. She does not remember the events up to her collapsing. Patient is also noted to have some unusual ocular movements as well as a bulging right eye. MRI of the brain performed and is negative for metastasis Patient's metastatic colon cancer most recently has been treated with FOLFIRI and zaltrap x 5 cycles. She was just seen 8/ s/p recent restaging scans. Possible disease progression so, plan was to cont on current therapy and reassess in 2-3 months. Need to monitor Hepatic function, will order CBC and CMP for today Aspiration knee ok with ANC greater than 1
--- NOTE | 2022-04-16 10:38 | CDI ---
Documentation Clarification Form Date: 04/16/2022 10:19:13 AM From: Marisela ReederHIPOLITO, CCDS Admit Date: 04/11/2022 07:31:00 PM Patient Name: Marisela Roth Visit Number: [id number] Discharge Date: ATTENTION: The Clinical Documentation Specialists (CDI) and [facility] Coding Staff appreciate your assistance in clarifying documentation. Please respond to the clarification below the line at the bottom and electronically sign. The CDI & [facility] Coding staff will review the response and follow-up if needed. Please note: Queries are made part of the Legal Health Record. If you have any questions, please contact the author of this message via ITS. Dr. Emeli Pang: The patient presented with altered mental status via EMS, placed on BiPAP overnight. Based on this information and the findings below, is there an additional diagnosis that is clinically appropriate for this patient? History/Risk Factors per the 04/12 H/P: Colon Cancer with metastatic disease to the Liver and Lung currently in Chemotherapy, Hypertension, Hyperlipidemia, GERD, Osteoarthritis, Peripheral Neuropathy, Anxiety, Depression, Panic Disorder and Former smoker. Clinical Indicators: Presented with Overdose, Altered Mental Status. Per EMS, pinpoint pupils, given Narcan with improvement in mental status, was Apneic, respirations 26 on arrival, PO 93, put on 15% nrb, then 60% BiPAP. 04/11 VS: T 97.6, P 126, R 26, BP 133/61, PO 93 15% nrb, 60% BiPAP, BMI: 27.4 04/11 LAB: RBC 3.76, MCV 106.5, MCHC 30.3, RDW 15.9, Lymph 0.4; APTT 16.9; Na 135, K 2.7, Chl 96, BUN 19, Creatinine 1.57, Glucose 129, Lactic Acid 4.2, Calcium 7.9, Magnesium 1.2, AST 60, Alk Phos 280, total Protein 5.8, Albumin 3.0. Blood Gas: VBG pH: 7.58, pCO2 26, HCO3 24 Treatment 04/11: O2: NRB - BiPAP, Telemetry, IV Narcan 0.4 mg x1, IV Na Chl 500 mls @ 999 mls/hr q31M, po K-Dur 40 meq x1, IV Kcl 100 mls @ 100 mls/hr q1H. 04/12: INH Ventolin 2.5 mg QID/prn Is there an additional diagnosis that is clinically appropriate for this patient? [ x ] Acute Hypoxic Respiratory Failure [ ] Chronic Hypoxic Respiratory Failure [ ] Acute on Chronic Hypoxic Respiratory Failure [ ] Acute Respiratory Insufficiency [ ] Other Diagnosis, please specify: [ ] Unable to determine (Template Last Revised: October 2020) MTDD
[2022-04-16 11:06] LABS: Anisocytosis Slight; Basophils % (A) 0 %; Eosinophils # (A) 0.1 k/uL (0-0.7); Eosinophils % (A) 3 %; HCT 36.3 % (34.0-46.0); HGB 11.2 gm/dL (11.4-16.0); Hypochromasia Marked; Lymphocytes # (A) 0.9 k/uL (1.0-4.8); Lymphocytes % (A) 20 %; MCH 32.3 pg (25.0-35.0); MCHC 30.9 g/dL (31.0-37.0); MCV 104.5 fL (80.0-100.0); Macrocytosis Moderate; Mean Platelet Volume 9.9; Monocytes # (A) 0.4 k/uL (0-1.0); Monocytes % (A) 8 %; Neutrophils % (A) 67 %; Platelet Count 257 k/uL (150-450); RBC 3.47 m/uL (3.80-5.40); RDW 16.1 % (11.5-15.5); WBC 4.4 k/uL (3.8-10.6)
[2022-04-16 11:18] LABS: Magnesium 1.6 mg/dL (1.5-2.4)
[2022-04-16 11:36] LABS: African American GFR (CKD) 110.7 (60.0-200.0); BUN/Creat Ratio 7.31 Ratio (12.00-20.00); Blood Urea Nitrogen 4.6 mg/dL (9.0-27.0); Calcium 8.7 mg/dL (8.7-10.3); Chloride 104 mmol/L (96-109); Glucose 117 mg/dL (70-110); Non-African American GFR(CKD) 95.5 (60.0-200.0); Potassium 4.4 mmol/L (3.5-5.5); Sodium 143 mmol/L (135-145)
[2022-04-16] MEDS ORDERED: MAGNESIUM SULFATE-D5W PMX 1 GM in DEXTROSE/WATER 1 100ML.BAG IVPB SCH (12:30)
--- NOTE | 2022-04-16 12:59 | P.CNPUL ---
History of Present Illness Consult date: 04/16/22 Requesting physician: Roni Almaguer Reason for consult: dyspnea Chief complaint: Altered mental status History of present illness: This is a very pleasant 61-year-old female patient with a known history of hypertension, hyperlipidemia, osteoarthritis, metastatic colon cancer with peripheral neuropathy induced by chemotherapy, childhood nephrotic syndrome, history of liver cancer lesions resected surgically, history of lung nodule secondary to metastatic disease. She is well-known to Dr. Hernandez in our office. The patient was brought in 04/11/2022 with altered mental status. She does have a history of significant pain secondary to her metastatic colon cancer. She was quite sedate and hypoxemic. She was given Narcan on the scene by EMS. She had a fentanyl patch on that was removed. She was on multiple sedating medications. Currently, she is seen in consultation on the regular [facility] floor. She is awake and alert in no acute distress. Alert and oriented 3. Her pain has been controlled with Bagdad 7.5325 mg 1 tablet every 6 hours now. White count 4.4. Hemoglobin 11.2. Platelets 257. Sodium 143. Potassium 4.4. BUN 5. Creatinine 0.6. Glucose 117. The patient had a negative MRI of the brain. No acute intracranial abnormalities. Review of Systems REVIEW OF SYSTEMS: CONSTITUTIONAL: Initially brought in with altered mental status. Denies any recent significant weight loss or weight gain. EYES: Denies change in vision. EARS, NOSE, MOUTH, THROAT: Denies headaches, denies sore throat. CARDIOVASCULAR: Denies chest pain, palpitations or syncopal episodes. RESPIRATORY: Denies shortness of breath, cough, congestion or hemoptysis. GASTROINTESTINAL: Denies change in appetite, denies abdominal pain GENITOURINARY: Denies hematuria, denies infections. MUSKULOSKELETAL: Denies pain, denies swelling. INTEGUMENTARY: Denies rash, denies eczema. NEUROLOGICAL: Denies recent memory loss, no recent seizure activity. PSYCHIATRIC: Denies anxiety, denies depression. HEMATOLOGIC/LYMPHATIC: Denies anemia, denies enlarged lymph nodes. 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 2014 port a cath placed rt chest ;"20% of liver removed d/t ca", colonoscopies [id number]. Past Anesthesia/Blood Transfusion Reactions: No Reported Reaction Past Psychological History: Anxiety, Depression, Panic Disorder Additional Psychological History / Comment(s): (per [facility]- MAJOR DEPRESSION- STATED "HAD OVERDOSE OF XANAX AND AMBIEN ON 04-26-14 WAS SEEN IN THE ER". ) pt stated her son from accidental od . lives by herself has 1 dog, Tessa. Lives in a single story home w/no steps. no medical equipment or homecare services. Smoking Status: Former smoker Past Alcohol Use History: None Reported Additional Past Alcohol Use History / Comment(s): STARTED SMOKING AT AGE 21; d own to 4 cigs a day Past Drug Use History: None Reported - Past Family History Father Family Medical History: Diabetes Mellitus, Myocardial Infarction (HI) Additional Family Medical History / Comment(s): at age 62-mulitple mi's Mother Family Medical History: Cancer Additional Family Medical History / Comment(s): BREAST. from sepsis Medications and Allergies Home Medications Medication Instructions Recorded Confirmed Type Budesonide/Formoterol Fumarate 2 puff INHALATION RT-BID 03/01/21 04/11/22 History [Symbicort 160-4.5 Mcg Inhaler] Cholestyramine (with Sugar) 4 gm PO BID PRN 03/01/21 04/11/22 History [Cholestyramine Packet] Metoprolol Tartrate [Lopressor] 25 mg PO BID 03/01/21 04/11/22 History Prochlorperazine [Compazine] 10 mg PO Q6H PRN 03/01/21 04/11/22 History Venlafaxine HCl [Effexor XR] 75 mg PO DAILY 03/01/21 04/11/22 History Albuterol Sulfate [Proair Hfa] 2 puff INHALATION RT-QID PRN 03/10/22 04/11/22 History Budesonide [Entocort EC] 3 mg PO DAILY 03/10/22 04/11/22 History Cholecalciferol [Vitamin D3 (25 50 mcg PO DAILY 03/10/22 04/11/22 History Mcg = 1000 Iu)] Cyanocobalamin (Vitamin B-12) 1,000 mcg PO DAILY 03/10/22 04/11/22 History [Vitamin B-12] Magic 5 ml PO QID PRN 03/10/22 04/11/22 History Mouthwas(Ta/Lido/Maalox/Nyst) Omeprazole 20 mg PO BID 03/10/22 04/11/22 History Pantoprazole [Protonix] 40 mg PO AC-BID #60 tab 03/19/22 04/11/22 Rx Sucralfate [Carafate] 1 gm PO ACHS #120 tab 03/19/22 04/11/22 Rx fentaNYL 100MCG/HR PATCH 1 patch TRANSDERM Q72H 04/11/22 04/11/22 History [Duragesic 100MCG/HR] ALPRAZolam [Xanax] 0.5 mg PO BID PRN #6 tab 04/16/22 Rx HYDROcodone/APAP 7.5-325MG [Bagdad 1 each PO Q6HR PRN #4 tab 04/16/22 Rx 7.5-325] Magnesium Oxide [Mag-Ox] 400 mg PO BID 5 Days #10 tablet 04/16/22 Rx Allergies Allergy/AdvReac Type Severity Reaction Status Date / Time acyclovir AdvReac Severe Confusion Verified 04/11/22 18:54 Physical Exam Vitals: Vital Signs Temp Pulse Pulse Resp BP Pulse Ox 04/16/22 11:50 76 04/16/22 11:39 76 04/16/22 07:49 76 04/16/22 07:37 76 04/16/22 07:05 97.4 F L 73 16 115/72 97 04/16/22 01:47 98.1 F 77 16 117/73 98 04/15/22 20:10 74 04/15/22 20:00 74 04/15/22 19:06 74 15 04/15/22 19:05 98.4 F 74 15 137/86 92 L 04/15/22 14:00 97.6 F 71 16 138/80 96 Intake and Output 04/15/22 04/16/22 04/16/22 22:59 06:59 14:59 Other: Voiding Method Toilet # Voids 3 1 # Bowel Movements 2 GENERAL EXAM: Alert, active, very pleasant 61-year-old female patient, on 2 L/m per nasal cannula, comfortable in no apparent distress. HEAD: Normocephalic. EYES: Normal reaction of pupils, equal size. NOSE: Clear with pink turbinates. THROAT: No erythema or exudates. NECK: No masses, no JVD. CHEST: No chest wall deformity. LUNGS: Equal air entry with no crackles, wheeze, rhonchi or dullness. CVS: S1 and S2 normal with no audible murmur, regular rhythm. ABDOMEN: No hepatosplenomegaly, normal bowel sounds, no guarding or rigidity. SPINE: No scoliosis or deformity SKIN: No rashes CENTRAL NERVOUS SYSTEM: No focal deficits, tone is normal in all 4 extremities. EXTREMITIES: There is no peripheral edema. No clubbing, no cyanosis. Peripheral pulses are intact. Results - Laboratory Findings CBC and BMP: 04/16/22 06:44 04/16/22 06:44 PT/INR, D-dimer PT 11.8 sec (9.0-12.0) 04/11/22 17:27 INR 1.1 (<1.2) 04/11/22 17:27 Abnormal lab findings: Abnormal Labs 04/11/22 04/11/22 04/11/22 16:56 17:27 17:27 WBC RBC 3.76 L Hgb Hct MCV 106.5 H MCH MCHC 30.3 L RDW 15.9 H Lymphocytes # 0.4 L Eosinophils # Macrocytosis Marked A APTT 16.9 L VBG pH VBG pCO2 Sodium Potassium Chloride Carbon Dioxide Anion Gap BUN Creatinine BUN/Creatinine Ratio Glucose POC Glucose (mg/dL) Plasma Lactic Acid Florentino Calcium Magnesium AST Alkaline Phosphatase CK-MB (CK-2) Total Protein Albumin Urine Protein 1+ H Ur Leukocyte Esterase Trace H Urine Bacteria Rare H Hyaline Casts 4 H Urine Mucus Rare H Urine Opiates Screen Detected H U Benzodiazepines Scrn Detected H 04/11/22 04/11/22 04/11/22 17:30 17:31 17:40 WBC RBC Hgb Hct MCV MCH MCHC RDW Lymphocytes # Eosinophils # Macrocytosis APTT VBG pH 7.58 H VBG pCO2 26 L Sodium Potassium Chloride Carbon Dioxide Anion Gap BUN Creatinine BUN/Creatinine Ratio Glucose POC Glucose (mg/dL) Plasma Lactic Acid Florentino 4.2 H* Calcium Magnesium 1.2 L AST Alkaline Phosphatase CK-MB (CK-2) Total Protein Albumin Urine Protein Ur Leukocyte Esterase Urine Bacteria Hyaline Casts Urine Mucus Urine Opiates Screen U Benzodiazepines Scrn 04/11/22 04/12/22 04/12/22 19:23 05:57 05:57 WBC RBC 3.20 L Hgb 10.1 L Hct 33.9 L MCV 105.8 H MCH MCHC 29.8 L RDW 16.1 H Lymphocytes # 0.8 L Eosinophils # Macrocytosis APTT VBG pH VBG pCO2 Sodium 135 L Potassium 2.7 L* 2.8 L Chloride 96 L Carbon Dioxide Anion Gap BUN 19 H Creatinine 1.57 H 1.20 H BUN/Creatinine Ratio Glucose 129 H POC Glucose (mg/dL) Plasma Lactic Acid Florentino Calcium 7.9 L 7.7 L Magnesium 1.4 L AST 60 H Alkaline Phosphatase 280 H CK-MB (CK-2) Total Protein 5.8 L Albumin 3.0 L Urine Protein Ur Leukocyte Esterase Urine Bacteria Hyaline Casts Urine Mucus Urine Opiates Screen U Benzodiazepines Scrn 04/12/22 04/13/22 04/13/22 05:57 06:06 06:06 WBC RBC 3.23 L Hgb 10.2 L Hct 32.8 L MCV 101.5 H MCH MCHC 31.1 L RDW 15.9 H Lymphocytes # 0.77 L Eosinophils # Macrocytosis APTT VBG pH VBG pCO2 Sodium Potassium 3.0 L Chloride Carbon Dioxide 31.1 H Anion Gap 6.90 L BUN 6.3 L Creatinine BUN/Creatinine Ratio 7.88 L Glucose POC Glucose (mg/dL) Plasma Lactic Acid Florentino Calcium 8.2 L Magnesium AST Alkaline Phosphatase CK-MB (CK-2) 2.8 H Total Protein Albumin Urine Protein Ur Leukocyte Esterase Urine Bacteria Hyaline Casts Urine Mucus Urine Opiates Screen U Benzodiazepines Scrn 04/13/22 04/13/22 04/14/22 10:45 12:41 06:58 WBC RBC Hgb Hct MCV MCH MCHC RDW Lymphocytes # Eosinophils # Macrocytosis APTT VBG pH VBG pCO2 Sodium Potassium Chloride Carbon Dioxide Anion Gap BUN Creatinine BUN/Creatinine Ratio Glucose POC Glucose (mg/dL) 113 H Plasma Lactic Acid Florentino Calcium Magnesium 1.5 L 1.2 L AST Alkaline Phosphatase CK-MB (CK-2) Total Protein Albumin Urine Protein Ur Leukocyte Esterase Urine Bacteria Hyaline Casts Urine Mucus Urine Opiates Screen U Benzodiazepines Scrn 04/14/22 04/15/22 04/15/22 06:58 06:58 06:58 WBC 3.98 L RBC 3.35 L Hgb 10.8 L Hct 33.4 L MCV 99.7 H MCH 32.2 H MCHC RDW 15.9 H Lymphocytes # Eosinophils # 0.39 H Macrocytosis APTT VBG pH VBG pCO2 Sodium Potassium 3.4 L 3.2 L Chloride Carbon Dioxide 31 H 29.7 H Anion Gap 7.60 L BUN 2 L 2.0 L Creatinine BUN/Creatinine Ratio 3.32 L Glucose 100 H POC Glucose (mg/dL) Plasma Lactic Acid Florentino Calcium 8.3 L 8.2 L Magnesium AST Alkaline Phosphatase CK-MB (CK-2) Total Protein Albumin Urine Protein Ur Leukocyte Esterase Urine Bacteria Hyaline Casts Urine Mucus Urine Opiates Screen U Benzodiazepines Scrn 04/16/22 04/16/22 06:44 06:44 WBC RBC 3.47 L Hgb 11.2 L Hct MCV 104.5 H MCH MCHC 30.9 L RDW 16.1 H Lymphocytes # 0.9 L Eosinophils # Macrocytosis APTT VBG pH VBG pCO2 Sodium Potassium Chloride Carbon Dioxide Anion Gap BUN 4.6 L Creatinine BUN/Creatinine Ratio 7.31 L Glucose 117 H POC Glucose (mg/dL) Plasma Lactic Acid Florentino Calcium Magnesium AST Alkaline Phosphatase CK-MB (CK-2) Total Protein Albumin Urine Protein Ur Leukocyte Esterase Urine Bacteria Hyaline Casts Urine Mucus Urine Opiates Screen U Benzodiazepines Scrn Assessment and Plan Assessment: Altered mental status suspect secondary to multiple sedating pain medications. Recovered and on Bagdad 7.5 only. Fentanyl patch is removed and discontinued Metastatic colon cancer with metastasis to the lungs and liver currently on chemotherapy History of liver lesion surgically resected History of COPD Former smoker Anxiety and depression History of hypertension Hyperlipidemia Osteoarthritis Plan: The patient was seen and evaluated Currently stable from the pulmonary standpoint Remains on oxygen at 2 L/m Alert and oriented 3 Cautious use of pain medication Home once cleared by medicine I have personally seen and examined the patient, performed the documentation and the assessment and plan as written. Number of minutes spent on the visit: 20. I have personally seen and examined the patient and reviewed the documentation. I performed a joint evaluation with the nurse practitioner in this evaluation was done more than 30 minutes. I fully agree with the documentation above and the plan of care. I had a lengthy discussion with the patient. This was an unintentional drug overdose. The patient is on fentanyl patch at a higher dose and the dose of Bagdad was also increased recently by oncologist. We will eliminate the fentanyl patches. Noted the patient has no signs of any respiratory suspicion for now. No signs of any aspiration. Her COPD is inactive and stable. Possible discharge today
[2022-04-16] MEDS ORDERED: MAGNESIUM OXIDE 400 MG TAB PO SCH (13:30)
[2022-04-16] MEDS: PROCHLORPERAZINE 10 MG TAB PO PRN (14:07)
--- NOTE | 2022-04-17 15:49 | P.DS ---
Providers Date of admission: 04/11/22 19:31 Attending physician: Roni Almaguer Consults: 04/12/22 07:06 Consult Physician Routine Consulting Provider: Fox Dean Consult Reason/Comments: Lung cancer, known to your service Do you want consulting provider notified?: Yes 04/12/22 10:56 Consult Physician Routine Consulting Provider: Lianet Laws Consult Reason/Comments: knee pain Do you want consulting provider notified?: Yes 04/12/22 15:57 Consult Physician Routine Consulting Provider: Howard Hernandez Consult Reason/Comments: KNEW THE PT Do you want consulting provider notified?: Yes Primary care physician: Howard Hernandez Hospital Course: Diagnosis Metabolic/toxic encephalopathy secondary to narcotic effect other than drug overdose and kidney problem. Resolved Acute kidney injury. Improved Opioid and benzodiazepine toxicity with hypotension, hypopnea. Improved Right knee pain and swelling with x-ray showing moderate to severe tricompartment osteoarthritis Status post steroid injection to right knee Hypokalemia Hypertension Hyperlipidemia History of GERD History of osteoarthritis History of metastatic colon cancer to liver Lung nodule from metastatic disease Peripheral neuropathy from chemotherapy Full Code Discharge Disposition Patient is stable for discharge home. Discussed pain management with patient fentanyl patch has been discontinued. Patient is also on decreased dose of norco and xanax. Altered mental status has improved. Patient will follow up with primary care in 1-2 days post discharge. Follow up with Dr Manrique in 3 months or as needed before then. Follow up with oncology outpatient. Hospital Course This is a 61-year-old female who presents to the hospital for altered mental status with concern for accidental overdose as patient is on multiple narcotics outpatient. She follows with Dr Hernandez for primary care with medical history significant for hypertension, hyperlipidemia, metastatic colon cancer, lung nodule, neuropathy. Patient was brought to the hospital by EMS and did receive narcan. Patients fentanyl patch was discontinued and also norco and xanax dosing was decreased. Patient did underogo neurological evaluation and had negative MRI brain which was ordered by oncology. Patient did present with mild acute renal injury with creatinine of 1.57, potassium level of 2.7, sodium 135, magnesium 1.2. She had renal ultrasound done which is negative for obstructive uropathy or shadowing calculi. Creatinine improved with hydration Patient reports discomfort to right knee rating it a 6/10 currently. right knee xray showing no acute osseous pathology, moderate to severe tricompartamental osteoarthritic changes. There is minimal swelling, no erythema. Oncology has cleared patient to undergo steroid injection to right knee which was peformed on 04/15/2022 which patient does report significant improvement and pain and mobility to right knee. Patient was monitored over the weekend and PT re-evaluated the patient on 04/16/2022 and she was cleared for discharge home. 04/16/2022 Patient is evaluated today sitting up in the chair. She would like to go home today. Pain medications have been decreased. She is able to ambulate without difficulty today. Mentation has improved she is awake alert x 3. No focal neurological deficits. Lungs are clear, S1 S2 auscultated. Abdomen is soft and nontender. Labs today showing white count 4.4, hgb 11.2, sodium 143, potassium 4.4. BUN 4.6, creatinine 0.6, glucose 117, magnesium 1.6. She did receive IV magnesium prior to discharge. She is afebrile, heart rate 76, blood pressure 115/72, 97% oxygen saturation. She was evaluated today by pulmonary team who she sees for primary care, they are agreeing with discharge. Follow up oncology outpatient. Total time taken in discharge planning greater than 35 minutes. Please see medication reconciliation for a list of current medication. Thank you for allowing us to participate in the care of this patient. The impression and plan of care has been dictated by Nadia Fofana, Nurse Practitioner as directed. Dr. Bird MD I have performed a history and physical examination and medical decision making of this patient, discussed the same with the dictator, and agree with the dictators assessment and plan as written, documented as a scribe. Based on total visit time, I have performed more than 50% of this visit. Patient Condition at Discharge: Stable Plan - Discharge Summary Discharge Rx Participant: No New Discharge Prescriptions: New HYDROcodone/APAP 7.5-325MG [[place] 7.5-325] 1 each PO Q6HR PRN #4 tab PRN Reason: Pain Magnesium Oxide [Mag-Ox] 400 mg PO BID 5 Days #10 tablet ALPRAZolam [Xanax] 0.5 mg PO BID PRN #6 tab PRN Reason: Anxiety Continue Venlafaxine HCl [Effexor XR] 75 mg PO DAILY Cholestyramine (with Sugar) [Cholestyramine Packet] 4 gm PO BID PRN PRN Reason: Diarrhea Prochlorperazine [Compazine] 10 mg PO Q6H PRN PRN Reason: Nausea Cyanocobalamin (Vitamin B-12) [Vitamin B-12] 1,000 mcg PO DAILY Omeprazole 20 mg PO BID Magic Mouthwas(Ta/Lido/Maalox/Nyst) 5 ml PO QID PRN PRN Reason: Pain Pantoprazole [Protonix] 40 mg PO AC-BID #60 tab Budesonide/Formoterol Fumarate [Symbicort 160-4.5 Mcg Inhaler] 2 puff INHALATION RT-BID Metoprolol Tartrate [Lopressor] 25 mg PO BID Cholecalciferol [Vitamin D3 (25 Mcg = 1000 Iu)] 50 mcg PO DAILY Budesonide [Entocort EC] 3 mg PO DAILY Albuterol Sulfate [Proair Hfa] 2 puff INHALATION RT-QID PRN PRN Reason: Shortness Of Breath Sucralfate [Carafate] 1 gm PO ACHS #120 tab Discontinued Gabapentin [Neurontin] 100 mg PO BID HYDROcodone/APAP 10-325MG [[place] 10-325] 1 tab PO Q4H PRN 3 Days #12 tab PRN Reason: Pain ALPRAZolam [Xanax] 1 mg PO TID amLODIPine [Norvasc] 5 mg PO DAILY fentaNYL 100MCG/HR PATCH [Duragesic 100MCG/HR] 1 patch TRANSDERM Q72H Discharge Medication List Budesonide/Formoterol Fumarate [Symbicort 160-4.5 Mcg Inhaler] 2 puff INHALATION RT-BID 03/01/21 [History] Cholestyramine (with Sugar) [Cholestyramine Packet] 4 gm PO BID PRN 03/01/21 [History] Metoprolol Tartrate [Lopressor] 25 mg PO BID 03/01/21 [History] Prochlorperazine [Compazine] 10 mg PO Q6H PRN 03/01/21 [History] Venlafaxine HCl [Effexor XR] 75 mg PO DAILY 03/01/21 [History] Albuterol Sulfate [Proair Hfa] 2 puff INHALATION RT-QID PRN 03/10/22 [History] Budesonide [Entocort EC] 3 mg PO DAILY 03/10/22 [History] Cholecalciferol [Vitamin D3 (25 Mcg = 1000 Iu)] 50 mcg PO DAILY 03/10/22 [History] Cyanocobalamin (Vitamin B-12) [Vitamin B-12] 1,000 mcg PO DAILY 03/10/22 [History] Magic Mouthwas(Ta/Lido/Maalox/Nyst) 5 ml PO QID PRN 03/10/22 [History] Omeprazole 20 mg PO BID 03/10/22 [History] Pantoprazole [Protonix] 40 mg PO AC-BID #60 tab 03/19/22 [Rx] Sucralfate [Carafate] 1 gm PO ACHS #120 tab 03/19/22 [Rx] ALPRAZolam [Xanax] 0.5 mg PO BID PRN #6 tab 04/16/22 [Rx] HYDROcodone/APAP 7.5-325MG [[place] 7.5-325] 1 each PO Q6HR PRN #4 tab 04/16/22 [Rx] Magnesium Oxide [Mag-Ox] 400 mg PO BID 5 Days #10 tablet 04/16/22 [Rx] Follow up Appointment(s)/Referral(s): Moody Manrique MD [STAFF PHYSICIAN] - 05/01/22 10:00 am Arpan Dean MD [STAFF PHYSICIAN] - 04/25/22 11:30 am (This is a chemo appt) Howard Hernandez MD [Primary Care Provider] - 05/25/22 2:00 pm (if any changes office will call ) [facility] Visiting Nurse, [NON-STAFF] - As Needed Ambulatory/Diagnostic Orders: Basic Metabolic Panel [LAB.AMB] Time Frame: 3 Days, Location: None Selected Patient Instructions/Handouts: Lidocaine (By injection), Hypoxia (GEN), Opioid Safety (DC) Activity/Diet/Wound Care/Special Instructions: Plan for discharge home with Homecare services with [facility] Patient underwent lidocaine injection to right knee Can use Ice for pain to right knee Follow up [facility] Follow up with primary care Dr Hernandez in 1 to 2 days post discharge Follow up with Dr Dean as scheduled [place] has been decreased to 7.5 mg tablets every 6 hours Xanax has been decreased to 0.5 mg tablets twice a day Discontinue fentanyl patch Continue oral magnesium 400 mg twice a day for 5 days and repeat level outpatient Monitor blood pressure at home Amlodipine has been discontinued If blood pressure becomes elevated greater than 130 systolic can resume amlopidine 5 mg po daily Discharge Disposition: HOME WITH HOME HEALTH SERVICES
== END 2022-04-16 14:41 | disposition home health service (06) | DRG 91 ==
LOC: EC 17:03 → SUPCPDRO 17:03 → 3SCARD 19:31 → 5NMEDONC 04-12 16:57 → 4SSUR 04-12 17:37
PROVIDERS: ADMIT Hospitalist; ATTEND Hospitalist
PROC: 5A09357 Assistance with Respiratory Ventilation, Less than 24 Consecutive Hours, Continuous Positive Airway Pressure (ICD-10-PCS; principal; 2022-04-11)
PROC: 3E0T3BZ Introduction of Anesthetic Agent into Peripheral Nerves and Plexi, Percutaneous Approach (ICD-10-PCS; 2022-04-15)
DX: G92.8 Other toxic encephalopathy (principal); J96.01 Acute respiratory failure with hypoxia; C18.9 Malignant neoplasm of colon, unspecified; C78.7 Secondary malignant neoplasm of liver and intrahepatic bile duct; C78.00 Secondary malignant neoplasm of unspecified lung; N17.9 Acute kidney failure, unspecified; J44.9 Chronic obstructive pulmonary disease, unspecified; T40.605A Adverse effect of unspecified narcotics, initial encounter; E87.6 Hypokalemia; I95.9 Hypotension, unspecified; M25.461 Effusion, right knee; M25.561 Pain in right knee; R25.1 Tremor, unspecified; M17.11 Unilateral primary osteoarthritis, right knee; G89.29 Other chronic pain; G62.0 Drug-induced polyneuropathy; T45.1X5A Adverse effect of antineoplastic and immunosuppressive drugs, initial encounter; X58.XXXA Exposure to other specified factors, initial encounter; I10 Essential (primary) hypertension; R00.0 Tachycardia, unspecified; E78.5 Hyperlipidemia, unspecified; K21.9 Gastro-esophageal reflux disease without esophagitis; M19.90 Unspecified osteoarthritis, unspecified site; F41.0 Panic disorder [episodic paroxysmal anxiety]; F32.A Depression, unspecified; F17.210 Nicotine dependence, cigarettes, uncomplicated; Z88.1 Allergy status to other antibiotic agents; Z79.51 Long term (current) use of inhaled steroids; Z79.899 Other long term (current) drug therapy; Z87.898 Personal history of other specified conditions; Z91.52 Personal history of nonsuicidal self-harm; Z82.49 Family history of ischemic heart disease and other diseases of the circulatory system; Z83.3 Family history of diabetes mellitus; Z80.3 Family history of malignant neoplasm of breast; Z91.81 History of falling; Z85.038 Personal history of other malignant neoplasm of large intestine; Z87.441 Personal history of nephrotic syndrome; Z90.49 Acquired absence of other specified parts of digestive tract; Z87.19 Personal history of other diseases of the digestive system
CPT/HCPCS: 36415; 70553; 71045; 76770; 80048; 80053; 80143; 80179; 80306; 80320; 81001; 82553; 82803; 83605; 83735; 84132; 85025; 85610; 85730; 93005; 94640; 94660; 94760; 96361; 96365; 96366; 96375; 99285

== ENCOUNTER → 2022-06-05 | Outpatient (CLI) | payer MEDICARE, OTHER ==
[2022-06-05 12:04] LABS: African American GFR (CKD) >90 (>60 ml/min/1.73 sqM); Blood Urea Nitrogen 16 mg/dL (7-17); Non-African American GFR(CKD) >90 (>60 ml/min/1.73 sqM)
--- NOTE | 2022-06-05 14:25 | CT ---
EXAMINATION TYPE: CT ChestAbdPelvis w con DATE OF EXAM: 06/05/2022 COMPARISON: CT angiogram of the chest 03/11/2022, CT abdomen pelvis 03/09/2022 HISTORY: MALIGNANT NEOPLASM OF COLON CT DLP: 545.10 mGycm Automated exposure control for dose reduction was used. CONTRAST: CT scan of the chest, abdomen and pelvis is performed with Oral Contrast and with IV Contrast, patien t injected with 70 mL of Isovue 300. FINDINGS: LUNGS: The lungs show essentially stable nodules as compared to prior exam, posterior right lung base nodules not as well seen on prior exam due to abnormal attenuation is cleared in the interval. There is no pleural pericardial effusion. Coronary artery calcification is present. MEDIASTINUM: There are no greater than 1 cm hilar or mediastinal lymph nodes. No pericardial effusi on is seen. AORTA: No significant abnormality is seen. OTHER: No additional significant abnormality is seen. LIVER/GB: Posterior right lobe liver lesion is less well-defined but is similar in size. Smaller lesi ons are present within the liver that are not well-defined suitable for measurement. Patient is post cholecystectomy PANCREAS: Abnormal increased attenuation is present at the level of the pancreatic head and tail, the inflammatory changes have improved in the pancreatic tail, cystic area is multilocular and measures approximately 5.7 cm extending into the splenic hilum region similar to prior exam, at the pancreatic head there is encasement of the first branch coursing to the right of midline, abnormal soft tissue is somewhat poorly defined but appears to be increase in size in the interval measuring approximately 3.9 x 3.8 x 5.6 cm in cephalad to caudal dimension. SPLEEN: No significant abnormality is seen. ADRENALS: No significant abnormality is seen. KIDNEYS: No significant abnormality is seen. REPRODUCTIVE ORGANS: No gross abnormality seen. BOWEL: There is some thickening of the colon in the midline, difficult to exclude a mucosal lesion. Postop changes are noted at this level.. FREE AIR: No Free Air visible. ASCITES: None seen. RETROPERITONEAL ADENOPATHY: No retroperitoneal adenopathy is seen. LYMPH NODES: No greater than 1 cm abdominal or pelvic lymph nodes are appreciated. URINARY BLADDER: No significant abnormality is seen. PELVIC ADENOPATHY: None visualized. OSSEOUS STRUCTURES: No significant abnormality is seen. IMPRESSION: Increased conspicuity of abnormal soft tissue at the level the superior mesenteric artery could represent adenopathy, pancreatic cancer within the differential. Stable lung nodules. Indeterm inate colonic wall thickening. Liver lesions are less well seen.
== END | disposition home or self-care (01) ==
LOC: RADCTMAIN 11:13
PROVIDERS: ATTEND Internal Medicine Hematology & Oncology
DX: C18.9 Malignant neoplasm of colon, unspecified (principal); R91.8 Other nonspecific abnormal finding of lung field; K76.9 Liver disease, unspecified
CPT/HCPCS: 82565; 84520; 71260; 74177; 36415; Q9967

== ENCOUNTER → 2022-11-23 | Outpatient (CLI) | payer MEDICARE, OTHER ==
[2022-11-23 09:48] LABS: African American GFR (CKD) >90 (>60 ml/min/1.73 sqM); Blood Urea Nitrogen 9 mg/dL (7-17); Non-African American GFR(CKD) >90 (>60 ml/min/1.73 sqM)
--- NOTE | 2022-11-23 11:38 | CT ---
EXAMINATION TYPE: CT ChestAbdPelvis w con DATE OF EXAM: 11/23/2022 COMPARISON: Prior CT June 05, 2022 and older studies HISTORY: colon CA. History of liver and lung cancer. CT DLP: 1170 mGycm. Automated Exposure Control for Dose Reduction was Utilized. CONTRAST: CT scan of the thorax, abdomen and pelvis is performed with oral and with IV Contrast, patient inject ed with 70 mL of Isovue 300. FINDINGS: LUNGS: Scattered small bilateral nodules are redemonstrated. Majority of nodules are fairly stable in size with no central cavitation or lucency. For example lateral right upper lobe nodule measures 1.8 x 1.4 cm axial image 21 with similar measurements on most recent prior CT. No definitive new or enla rging pulmonary nodules. No smaller pulmonary nodules. Mild to moderate bibasilar linear scarring and atelectasis redemonstrated. No pleural effusion or pneumothorax seen bilaterally. MEDIASTINUM: Subcarinal lymph node measures 1.5 x 1.0 cm size image 26 slightly smaller from 1.8 x 1. 2 cm lymph node on most recent prior. No new greater than 1 cm thoracic lymph nodes. No cardiomegaly or pericardial effusion. Mild coronary artery calcification redemonstrated. Other: Stable right-sided Mediport catheter . LIVER/GB: Cholecystectomy clips are redemonstrated. Postsurgical change left hepatic lobe is again se en. Liver remains diffusely low dense consistent with fatty infiltration. Subtle heterogeneous slight ly hypodense lesion in the liver on older studies is less well seen on most recent prior and current study. No new intrahepatic mass is identified on this exam. PANCREAS: Abnormality to the distal pancreatic body and tail with distal atrophy and cystic change me asures 3.9 x 2.7 cm current study axial image 53 not significantly changed from prior studies. Suspec t dilated duct distal to this is stable. SPLEEN: No significant abnormality is seen. ADRENALS: No significant abnormality is seen. KIDNEYS: No significant abnormality is seen. BOWEL: The oral contrast reaches level of the left colon on currently. No suspicious small or large b owel dilatation. Surgical changes from right-sided partial colectomy is redemonstrated. Small size hi atal hernia current study GENITAL ORGANS: Retroverted uterus is seen on Study. LYMPH NODES: Fairly stable soft tissue lesion possible adenopathy in the pancreaticoduodenal groove w ith soft tissue encasement of distal SMA branch axial image 61 years redemonstrated. Area of involvem ent measures roughly 3.0 cm cm current study not significantly changed from most recent CT. It is dif ficult to accurately measure as it is isodense to the surrounding pancreas. Mild tierra mesentery appe arance with prominent subcentimeter lymph nodes inferior to this is redemonstrated OSSEOUS STRUCTURES: Slight grade 1 retrolisthesis L3 on L4 and L4 on L5 is redemonstrated. Straighten ing of thoracic spine redemonstrated. Slight scoliotic curvature. Mild height loss with sclerosis sup erior L2 endplate current study consistent with subacute compression fracture. OTHER: Moderate calcified plaque of the aorta extends into branch vessels. IMPRESSION: Fairly overall stable findings. Pulmonary nodules are stable in size though have some new central lucency or cavitation. Abnormal soft tissue encasing SMA is fairly stable from most recent s tudy. Subtle hepatic lesions remain difficult to measure similar to most recent CT. Pancreatic findin gs are stable. No significant new or enlarging masses or lymph nodes.
== END | disposition home or self-care (01) ==
LOC: RADCTMAIN 08:53
PROVIDERS: ATTEND Internal Medicine Hematology & Oncology
DX: C18.9 Malignant neoplasm of colon, unspecified (principal); D50.9 Iron deficiency anemia, unspecified; D51.9 Vitamin B12 deficiency anemia, unspecified; J45.21 Mild intermittent asthma with (acute) exacerbation; R91.8 Other nonspecific abnormal finding of lung field; K76.89 Other specified diseases of liver
CPT/HCPCS: 82565; 84520; 71260; 74177; 36415; Q9967

== ENCOUNTER 2023-02-01 19:46 | Emergency (ER) | payer MEDICARE, OTHER ==
[2023-02-01 19:58] VITALS: BP 127/81; PULSE 65; RESP 18; TEMP 97.4
--- NOTE | 2023-02-01 20:32 | ED ---
Fall HPI - General Chief Complaint: Fall Stated Complaint: Fall Time Seen by Provider: 02/01/23 20:12 Source: patient, RN notes reviewed, old records reviewed Mode of arrival: EMS Limitations: no limitations - History of Present Illness Initial Comments: This is a 62-year-old female to the emergency department today. She presents today for evaluation regards to fall from fall from standing she thinks she may have tripped over a bag. Patient's pain or right knee left shoulder. Left shoulder pain is worse with movement and more severe than the right knee pain. Patient did not hit her head no loss of consciousness no blood thinners. Patient is no headache chest pain shortness of breath or abdominal pain no pain prior to fall. Fall was mechanical in nature. MD Complaint: fall -: hour(s) Fall From: standing When Fall Occurred: 1 hour [employer] Fall Witnessed: yes, by family, yes, by bystander, yes, by living facility staff Place Fall Occurred: home Loss of Consciousness: none Prolonged Down Time?: no Symptoms Prior to Fall: none Location - Extremities: Left: Arm, Elbow, Right: Knee Severity: moderate Severity scale (1-10): 4 Quality: sharp Context: tripped/slipped Associated Symptoms: denies - Related Data Home Medications Medication Instructions Recorded Confirmed Budesonide/Formoterol Fumarate 2 puff INHALATION RT-BID 03/01/21 10/25/22 [Symbicort 160-4.5 Mcg Inhaler] Metoprolol Tartrate [Lopressor] 25 mg PO BID 03/01/21 10/25/22 Prochlorperazine [Compazine] 10 mg PO Q6H PRN 03/01/21 10/25/22 Venlafaxine HCl [Effexor XR] 75 mg PO DAILY 03/01/21 10/25/22 Albuterol Sulfate [Proair Hfa] 2 puff INHALATION RT-QID PRN 03/10/22 10/25/22 Cholecalciferol [Vitamin D3 (25 50 mcg PO DAILY 03/10/22 10/25/22 Mcg = 1000 Iu)] Cyanocobalamin (Vitamin B-12) 1,000 mcg PO DAILY 03/10/22 10/25/22 [Vitamin B-12] Omeprazole 20 mg PO BID 03/10/22 10/25/22 ALPRAZolam [Xanax] 1 mg PO Q8H 10/25/22 10/25/22 Diphenoxylate HCl/Atropine 1 tab PO DIRECTED PRN MDD 8 tabs 10/25/22 10/25/22 [Lomotil 2.5-0.025 mg Tablet] Fluticasone Nasal [place] [Flonase 1 spray EA NOSTRIL DAILY 10/25/22 10/25/22 Nasal [place]] Furosemide [Lasix] 20 mg PO DAILY 10/25/22 10/25/22 HYDROcodone/APAP 10-325MG [[place] 1 tab PO Q4HR PRN 10/25/22 10/25/22 10-325] Lidocaine Viscous 2% [Xylocaine 5 ml MUCOUS MEM QID 10/25/22 10/25/22 Viscous] Potassium Chloride ER [K-Dur 20] 20 meq PO BID 10/25/22 10/25/22 amLODIPine [Norvasc] 10 mg PO DAILY 10/25/22 10/25/22 fentaNYL 100MCG/HR PATCH 100 mcg TRANSDERM Q72H 10/25/22 10/25/22 [Duragesic 100MCG/HR] hydrOXYzine HCL [Atarax] 25 mg PO TID 10/25/22 10/25/22 Allergies Allergy/AdvReac Type Severity Reaction Status Date / Time acyclovir AdvReac Severe Confusion Verified 10/25/22 18:50 Review of Systems ROS Statement: Those systems with pertinent positive or pertinent negative responses have been documented in the HPI. ROS Other: All systems not noted in ROS Statement are negative. 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 2014 port a cath placed rt chest ;"20% of liver removed d/t ca", colonoscopies [id number]. Past Anesthesia/Blood Transfusion Reactions: No Reported Reaction Past Psychological History: Anxiety, Depression, Panic Disorder Smoking Status: Current every day smoker Past Alcohol Use History: None Reported Past Drug Use History: None Reported - Past Family History Father Family Medical History: Diabetes Mellitus, Myocardial Infarction ([place]) Additional Family Medical History / Comment(s): at age 62-mulitple mi's Mother Family Medical History: Cancer Additional Family Medical History / Comment(s): BREAST. from sepsis General Exam Limitations: no limitations General appearance: alert, in no apparent distress Head exam: Present: atraumatic, normocephalic, normal inspection Eye exam: Present: normal appearance, PERRL, EOMI. Absent: scleral icterus, conjunctival injection, periorbital swelling ENT exam: Present: normal exam, mucous membranes moist Neck exam: Present: normal inspection. Absent: tenderness, meningismus, lymphadenopathy Respiratory exam: Present: normal lung sounds bilaterally. Absent: respiratory distress, wheezes, rales, rhonchi, stridor Cardiovascular Exam: Present: regular rate, normal rhythm, normal heart sounds. Absent: systolic murmur, diastolic murmur, rubs, gallop, clicks GI/Abdominal exam: Present: soft, normal bowel sounds. Absent: distended, tenderness, guarding, rebound, rigid Extremities exam: Present: normal inspection, full ROM, normal capillary refill. Absent: tenderness, pedal edema, joint swelling, calf tenderness Back exam: Present: normal inspection Neurological exam: Present: alert, oriented X3, CN II-XII intact Psychiatric exam: Present: normal affect, normal mood Skin exam: Present: warm, dry, intact, normal color. Absent: rash Course Vital Signs 02/01/23 19:52 Temperature 97.4 F L Pulse Rate 65 Respiratory 18 Rate Blood Pressure 127/81 O2 Sat by Pulse 94 L Oximetry - Reevaluation(s) Reevaluation #1: 02/01/23 20:31 Medical records reviewed Reevaluation #2: 02/01/23 20:31 She symptoms are improved Reevaluation #3: 02/01/23 20:32 Patient informed results and questions are answered A she was able to ambulate here in the emergency department Reevaluation #4: 02/01/23 20:32 Was pt. sent in by a medical professional or institution? @ -no Did you speak to anyone other than the patient for history? @ -no Did you review nursing and triage notes? @ -agree Were old charts reviewed? @ -no Differential Diagnosis? @ -prior EKG interpreted by me (3pts min.)? @ -yes X-rays interpreted by me (1pt min.)? @ -yes CT interpreted by me (1pt min.)? @ -no U/S interpreted by me (1pt. min.)? @ -no What testing was considered but not performed? (CT, X-rays, U/S, labs)? Why? @ -no What meds were considered but not given? Why? @ -no Did you discuss the management of the patient with other professionals? @ -no Did you reconcile home meds? @ -no Was smoking cessation discussed for >3mins.? @ -no Was critical care preformed (if so, how long)? @ -no Were there social determinants of health that impacted care today? How? (Homelessness, low income, unemployed, alcoholism, drug addiction, transportation, low edu. Level, literacy, decrease access to med. care, assisted, rehab)? @ -no Was there de-escalation of care discussed even if they declined? (Discuss DNR or withdrawal of care, Hospice)? @ -no What co-morbidities impacted this encounter? (DM, HTN, Smoking, COPD, CAD, Cancer, CVA, Hep., AIDS, mental health diagnosis, sleep apnea, morbid obesity)? @ -none Was patient admitted / discharged? @ -62 female to the emergency department status post fall fall from standing tripped over a bag. Fall left shoulder and right knee. Patient has right patellar fracture left humerus fracture which is splinted. Patella fracture is slight not complete patient's able to extend leg and can be discharged home. Discharge Undiagnosed new problem with uncertain prognosis? @ -no Drug Therapy requiring intensive monitoring for toxicity (Heparin, Nitro, Insulin, Cardizem)? @ -no Were any procedures done? @ -no Diagnosis/symptom? @ -Fall, left humerus fracture, likely right knee fracture Acute, or Chronic, or Acute on Chronic? @ -no Uncomplicated (without systemic symptoms) or Complicated (systemic symptoms)? @ -uncomplicated Side effects of treatment? @ -no Exacerbation, Progression, or Severe Exacerbation] @ -no Poses a threat to life or bodily function? @ -no Procedures - Orthopedic Splinting/Casting Injury #1 Side: left Upper Extremity Injury Location: shoulder Upper Extremity Immobilizer: sling/shoulder immobilizer Medical Decision Making - Medical Decision Making 62 female to the emergency department status post fall fall from standing tripped over a bag. Fall left shoulder and right knee. Patient has right patellar fracture left humerus fracture which is splinted. Patella fracture is slight not complete patient's able to extend leg and can be discharged home. - Radiology Data Radiology results: report reviewed (X-ray chest and pelvis negative for traumatic injury x-ray left humerus right knee positive for left humeral fracture likely trace fracture patella right knee), image reviewed Disposition Clinical Impression: Fall, Left humeral fracture, Right patella fracture Disposition: HOME SELF-CARE Condition: Good Instructions (If sedation given, give patient instructions): Arm Fracture in Adults (ED), Fall Prevention for Older Adults (ED), Patellar Fracture (ED) Is patient prescribed a controlled substance at d/c from ED?: No Referrals: Joe Palomares MD [Primary Care Provider] - 1-2 days Melecio Bell MD [Medical Doctor] - 1-2 days Time of Disposition: 22:20
--- NOTE | 2023-02-01 20:55 | XR ---
EXAMINATION TYPE: XR chest 1V DATE OF EXAM: 02/01/2023 8:49 PM COMPARISON: Chest radiographs from 04/11/2022 TECHNIQUE: XR chest 1V Frontal view of the chest. CLINICAL INDICATION:Female, 62 years old with history of fall; FINDINGS: Lungs/Pleura: Scattered bilateral airspace opacities There is no evidence of pleural effusion, focal consolidation, or pneumothorax. Pulmonary vascularity: Unremarkable. Heart/mediastinum: Cardiomediastinal silhouette is unremarkable. Musculoskeletal: No acute osseous pathology. Right chest wall [id number] tip in stable position in the superior cavoatrial junction. IMPRESSION: 1. Stable bilateral airspace opacities as seen on prior CT. No evidence for acute process. 2. No evidence for acute process.
--- NOTE | 2023-02-01 20:58 | XR ---
EXAMINATION TYPE: XR humerus LT DATE OF EXAM: 02/01/2023 8:48 PM INDICATION: Patient age:Female; 62 years old; Reason for study: fall; . COMPARISON: None TECHNIQUE: The left humerus was examined in frontal and lateral projections. FINDINGS/IMPRESSION: Comminuted left occipital humerus fracture with intra-articular extension. No additional fractures vi sualized.
--- NOTE | 2023-02-01 21:00 | XR ---
EXAMINATION TYPE: XR knee complete RT DATE OF EXAM: 02/01/2023 8:52 PM INDICATION: Patient age:Female; 62 years old; Reason for study: fall; COMPARISON: None. TECHNIQUE: The Right knee(s) was examined in Frontal, lateral and oblique projections. FINDINGS/IMPRESSION: Curvilinear lucency suggested through the patella. Suggesting nondisplaced patellar fracture. This ca n be confirmed with CT. There is a small joint effusion. Osteoarthrosis changes with osteophyte forma tion of the tibial plateau patella and femur.
--- NOTE | 2023-02-01 21:04 | XR ---
EXAMINATION TYPE: XR pelvis AP view DATE OF EXAM: 02/01/2023 8:50 PM INDICATION: Patient age:Female; 62 years old; Reason for study: fall; COMPARISON: CT 11/23/2022 TECHNIQUE: The pelvis was examined in a single projection. FINDINGS: There is no evidence of fracture or dislocation. There is no soft tissue abnormality. No a bnormal calcifications are present. Multilevel degenerative changes of the lower spine. Mild degenera tion with osteophyte formation of the acetabulum bilaterally. IMPRESSION: 1. No acute osseous pathology. 2. Mild degeneration changes of the hips.
== END 2023-02-01 22:56 | disposition home or self-care (01) ==
LOC: EC 19:46
DX: S42.352A Displaced comminuted fracture of shaft of humerus, left arm, initial encounter for closed fracture (principal); S82.001A Unspecified fracture of right patella, initial encounter for closed fracture; I10 Essential (primary) hypertension; J44.9 Chronic obstructive pulmonary disease, unspecified; K21.9 Gastro-esophageal reflux disease without esophagitis; E78.5 Hyperlipidemia, unspecified; F17.200 Nicotine dependence, unspecified, uncomplicated; F32.A Depression, unspecified; F41.9 Anxiety disorder, unspecified; Z79.51 Long term (current) use of inhaled steroids; Z79.899 Other long term (current) drug therapy; W01.0XXA Fall on same level from slipping, tripping and stumbling without subsequent striking against object, initial encounter; Y92.009 Unspecified place in unspecified non-institutional (private) residence as the place of occurrence of the external cause
CPT/HCPCS: 71045; 72170; 99284

== ENCOUNTER → 2023-04-09 | Outpatient (CLI) | payer MEDICARE, OTHER ==
--- NOTE | 2023-04-09 15:23 | CT ---
EXAMINATION TYPE: CT ChestAbdPelvis w con CT DLP: 449.2 mGycm, Automated exposure control for dose reduction was used. DATE OF EXAM: 04/09/2023 2:53 PM COMPARISON: Multiple CT chest abdomen pelvis with most recent 11/23/2022. CLINICAL INDICATION:Female, 62 years old with history of C18.9 colon ca; PHH, ca f/u Technique: Multiple axial images of the chest, abdomen, and pelvis were obtained following the intrav enous administration of 100 mL Isovue-300. Oral contrast was a fire warden administered. Two-dimensional coronal and sagittal reconstructions were obtained. FINDINGS: LUNGS: Redemonstration of multiple bilateral pulmonary nodules which have all increased in size from prior examination. Examples include a left upper lobe nodule measuring 1.6 x 1.1 cm, previously 1.3 x 1.3 cm (series 4, image 18), right upper lobe nodule measuring 1.7 x 1.9 cm, previously 1.4 x 1.8 cm (series 4, image 18). Right lower lobe 2.1 x 1.3 cm nodule, previously 1.4 x 1.0 cm (series 4, image 25). And a right lower lobe 1.5 x 2.3 cm nodule, previously 1.5 x 0.9 cm (series 4, image 33). No ne w definitive nodules Mild to moderate bibasilar linear scarring and atelectasis redemonstrated. No pl eural effusion or pneumothorax seen bilaterally. MEDIASTINUM: Subcarinal lymph node measures 2.2 x 1.5 cm, previously 1.5 x 1.0 cm. Right hilar lymph node is mildly prominent measuring 0.6 cm short axis, previously 0.3 cm short axis. There is hypodens ity within these lymph nodes. No new greater than 1 cm thoracic lymph nodes. No cardiomegaly or peric ardial effusion. Mild coronary artery calcification redemonstrated. Other: Stable right-sided Mediport catheter . LIVER/GB: Cholecystectomy clips are redemonstrated. Postsurgical change left hepatic lobe is again se en. Liver remains diffusely low dense consistent with fatty infiltration. Stable size but more hypere nhancing 3.0 cm liver lesion in the right hepatic lobe measuring up to 3.0 cm. There are 2 new right hepatic lobe hyperdense enhancing lesions identified 1.5 cm lesion (series 3, image 52), and a 1.6 c m lesion (series 3, image 56). Extrahepatic biliary ductal dilatation demonstrated measuring up to 1. 5 cm. PANCREAS: Abnormality to the distal pancreatic body and tail with distal atrophy and cystic change me asures 2.0 x 2.6 cm. Increased pancreatic ductal dilatation. SPLEEN: No significant abnormality is seen. ADRENALS: No significant abnormality is seen. KIDNEYS: No significant abnormality is seen. BOWEL: The oral contrast reaches level of the left colon on currently. No suspicious small or large b owel dilatation. Surgical changes from right-sided partial colectomy is redemonstrated. Small size hi atal hernia. GENITAL ORGANS: Hyperdense 2.0 cm lesion within the uterine body anteriorly. This likely represents a fibroid. LYMPH NODES: Slightly more prominent appearance of heterogenous soft tissue lesion possible adenopath y in the pancreaticoduodenal groove with soft tissue encasement of distal SMA branch and abutment of the duodenum/gastric antrum. It is difficult to accurately measure as it is isodense to the surroundi ng pancreas. Mild tierra mesentery appearance with prominent subcentimeter lymph nodes inferior to thi s is redemonstrated OSSEOUS STRUCTURES: Slight grade 1 retrolisthesis L3 on L4 and L4 on L5 redemonstrated. Straightening of thoracic spine redemonstrated. Slight scoliotic curvature. Redemonstration of mild compression de formity of the L2 vertebral body with new mild compression deformity of the L3 vertebral body. No ret ropulsion. Mild retrolisthesis of L3 on L4. Left shoulder arthropathy. OTHER: Moderate calcified plaque of the aorta extends into branch vessels. IMPRESSION: 1. Overall progression of disease with multiple enlarging pulmonary nodules, enlarging mediastinal a denopathy, new enhancing hepatic metastasis, slightly more prominent soft tissue within the pancreati c duodenal groove with mild increase pancreatic ductal and extra hepatic biliary ductal dilatation wi th stable distal pancreatic cystic lesion. 2. New subacute mild compression deformity L3 vertebral body with similar compression deformity of L 2 vertebral body.
== END | disposition home or self-care (01) ==
LOC: RADCTMAIN 12:48
PROVIDERS: ATTEND Internal Medicine Hematology & Oncology
DX: C78.7 Secondary malignant neoplasm of liver and intrahepatic bile duct (principal); C18.9 Malignant neoplasm of colon, unspecified; M48.56XA Collapsed vertebra, not elsewhere classified, lumbar region, initial encounter for fracture; K86.2 Cyst of pancreas; R91.8 Other nonspecific abnormal finding of lung field
CPT/HCPCS: 71260; 74177; Q9967